=== PATIENT | female | born 1955 | race Caucasian/White ===

== ENCOUNTER → 2017-06-03 | Outpatient (CLI) | payer BC ==
[~2017-06-03] MED LIST: ADVIN10/60 INH; ASPI81TA28 PO; B-COTAB18 PO; CALC600T68 PO; CEPH500C2 PO; COLE625T PO; HYDR-3419 PO; LOVAZA PO; LSN/2025 PO; METF500T PO; MULT-506 PO; OMEG12006 PO
--- NOTE | 2017-06-03 10:47 | DIAGNOSTIC IMAGING REPORT ---
RIGHT KNEE 2 VIEWS CLINICAL HISTORY: Right knee pain. FINDINGS: AP and crosstable lateral views of the right knee are compared to study dated 02/24/2013. The skeletal structures are osteopenic. A right knee arthroplasty is in near-anatomic alignment. There has been undersurface remodeling of the patella. No acute fracture is seen. A calcified fabella is incidentally noted. No large joint effusion is identified. Prepatellar soft tissue edema is observed. IMPRESSION: 1. Prepatellar soft tissue edema. No acute fracture is seen. 2. A right knee arthroplasty is in near anatomic alignment. Electronically signed by: Herminio Lewis M.D. 06/03/2017 10:46 AM Dictated Date/Time: 06/03/2017 10:45 AM
== END | disposition home or self-care (01) ==
LOC: C.RAD 09:54
PROVIDERS: ATTEND Physician Assistant
DX: M25.561 Pain in right knee (principal)

== ENCOUNTER 2023-08-26 12:41 | Inpatient (IN) ==
--- NOTE | 2023-08-26 13:13 | ED Triage Note ---
Date of Service August 26, 2023 Provider in Triage Author: Amie Santana History of Present Illness This patient was briefly evaluated while in triage. An abbreviated physical exam was performed. This patient is a 68-year-old Female who presents to the ED for evaluation Sent by Add[facility] Mao/Onc Hx of breast cancer-currently on chemo was supposed to have 2nd round today but they held treatment due to abnormal labs done today abnormal labs (High WBC, low HGB) generalized weakness dark red stools Physical Exam GENERAL: NAD in wheelchair CARDIOVASCULAR: RRR RESPIRATORY: CTA ABDOMEN: BS x 4. Nontender to palpation. Initial orders for labs and / or imaging were placed and patient was placed in the waiting area until a bed is available. Please see further documentation for the full ED course.
[2023-08-26 15:05] LABS: Alanine Aminotransferase 9 U/L (7-52); Albumin Globulin Ratio 1.5 (0.9-2); Albumin Level 3.5 gm/dl (3.4-5.0); Alkaline Phosphatase 56 U/L (34-104); Anion Gap 10 (3-11); Aspartate Aminotransferase 8 U/L (13-39); Bilirubin,Total 0.3 mg/dl (0.2-1.0); Blood Urea Nitrogen 58 mg/dl (6-23); Calcium 10.9 mg/dl (8.6-10.3); Carbon Dioxide 22 mmol/L (21-32); Chloride 100 mmol/L (98-107); Est GFR (African American) 51.4 ml/min; Est GFR (Non-African American) 44.4 ml/min; Globulin 2.3 gm/dl (2.5-4.0); Glucose 266 mg/dl (70-99(Fasting)); Potassium 3.6 mmol/L (3.5-5.1); Sodium 132 mmol/L (136-145); Total Protein 5.8 gm/dl (6.0-8.3)
[2023-08-26 15:11] LABS: Troponin I High Sensitivity 8.2 pg/ml (0-14)
[2023-08-26] MEDS ORDERED: SODIUM CHLORIDE 0.9% 250 ML IV PRN (15:15)
[2023-08-26 15:17] LABS: Hematocrit (blood only) 13.1 % (37.0-47.0); Hemoglobin 4.1 g/dl (12.0-16.0); Mean Corpuscular Hemoglobin 32.8 pg (25.0-34.0); Mean Corpuscular Hgb Conc 31.3 g/dL (32.0-36.0); Mean Corpuscular Volume 104.8 fL (80.0-100.0); Mean Platelet Volume 10.4 fL (9.4-12.4); Nucleated RBC # (auto) 2.17 K/uL (0.00-0.12); Nucleated RBC % (auto) 5.2 %; Platelet Count 734 K/uL (130-400); RDW Coefficient of Variation 21.9 % (11.5-14.5); RDW Standard Deviation 50.8 fL (36.4-46.3); Red Blood Count 1.25 M/uL (4.20-5.40); White Blood Count 41.73 K/ul (4.8-10.8)
[2023-08-26 15:27] LABS: Anisocytosis Present; Basophilic Stippling 1+; Basophils # (auto) 0.19 K/uL (0.00-0.20); Basophils % (auto) 0.5 %; Eosinophils # (auto) 0.02 K/uL (0.00-0.50); Immature Granulocytes # (auto) 2.89 K/uL (0.01-0.20); Immature Granulocytes % (auto) 6.9 %; Lymphocytes # (auto) 1.69 K/uL (1.20-3.40); Monocytes # (auto) 1.43 K/uL (0.11-0.59); Monocytes % (auto) 3.4 %; Neutrophils # (auto) 35.51 K/uL (1.40-6.50); Neutrophils % (auto) 85.2 %; Polychromasia 2+
[2023-08-26] MEDS: SODIUM CHLORIDE 0.9% 500 ML IV ONE (15:39)
[2023-08-26] MEDS: PANTOprazole 80 MG in DEXTROSE 5% 100 ML IV ONE (15:41)
[2023-08-26] MEDS: PANTOPRAZOLE BOLUS/DRIP IV STA (15:43)
--- NOTE | 2023-08-26 15:50 | History & Physical Report ---
Date of Service August 26, 2023 Assessment & Plan (1) GI bleed: (2) Malignant neoplasm of central portion of right breast in female, estrogen receptor positive: (3) Status post right breast lumpectomy: (4) Hypertension: (5) Dyslipidemia: (6) Diabetes: Plan: GI bleed Hypotension Breast Cancer, T1C N0 M0 ER +/AR-/[id number]- S/p lumpectomy Chemotherapy with Cytoxan and Taxotere -Admit to [facility] with telemetry -Hemoglobin of 4.3 as outpatient, 4.1 here, type and screen obtained, blood consented and transfused 2 units PRBCs, trend H&H every 6 hours - BP hypotensive secondary to acute blood loss, IV fluids to continue, pt in tr endelenberg position, monitor -Guaiac positive -Consult GI for possible endoscopy procedure - IV Protonix 40 mg twice daily -Suspicious that this is possibly an adverse effect from chemotherapy as her last cycle was on 08/05 followed by diarrhea starting in the past 10 to 14 days per her report - pegfilgrastim injection on 08/06, noted WBC and PLT counts are elevated likely due to such. -Follows with Dr. Santos as outpatient with oncology -On iron and B12 as outpatient Hypertension Hyperlipidemia - Chronic, stable, holding all antihypertensives in the setting of acute hy potension secondary to anemia due to GI bleed as above -- she took these meds this morning -Can continue statin therapy DM type II -Last A1c is 7.3 from June 2023 -ISS with [facility]EM[facility], on home medications including: Trulicity (last dose 3 weeks ago and has been switched over to Jardiance in the timeframe that this med has been unavailable), glipizide, metformin which will be held -Keep n.p.o. in the setting of GI bleed as above in case needs for endoscopy Morbid obesity -BMI of 46.8 -Diet and exercise to be encouraged throughout hospital stay DVT PPx: teds, scds, no chemical anticoagulation in the setting of GI bleed Lines: Mediport left chest wall, maintain additional 1 PIV FEN/GI: N.p.o. CODE: Full code Dispo: From home, likely to remain in the hospital x 1-2 days A total of 80 minutes were spent with greater than 50% of that time face to face with the patient, personally reviewing all current laboratories, imaging studi es, past medication reconciliation, outpatient chart review, and discussion with specialists to collaborate care for the patient with attending. Please see attending documentation for corrections and/or additions. History of Present Illness Chief Complaint: Diarrhea x 2 weeks, anemia Primary Care Provider: Kalin Reeder MD This is a 68-year-old female with PMHx of breast cancer ER positive, AR negative, HER2/francisca negative, diagnosed May 2023 status postlumpectomy and radiation, patient is currently getting Cytoxan Taxotere treatment for chemotherapy. She had her first cycle on 08/05, her second cycle was due today and she was seen in the outpatient heme-onc clinic. Patient complained of having diarrhea with dark stools over the past 2 weeks. She had not trialed Imodium. Her and son are present with her at bedside, he reports that he noticed her having diarrhea about 8 to 9 days ago. Her main complaint today is that she feels progressive fatigue and weakness over the past few days. She denies any abdominal pain, cramping, nausea or vomiting. She had a few episodes of vomiting right after she received her last chemo cycle but that was approximately 3 weeks ago. notes that she is pale today, may have even been more pale yesterday. She is tolerating oral intake without any significant complaints. Patient states she is currently hungry and thirsty. She denies any lightheadedness or dizziness, shortness of breath or chest pain. Upon outpatient blood work check she was found to have a hemoglobin of 4.3, therefore was referred to the ER for transfusion secondary to GI bleed. Upon presentation to the ER she is found to be hypotensive with a BP of 80s over 50s, tachycardic with heart rate in the low 100s, hemoglobin of 4.1. Patient has been placed in Trendelenburg position, IV fluids at 125 an hour started, 2 units PRBCs ordered and pending transfusion. Her BP with the fluids running during my assessment is 92/68. Allergies Allergy/AdvReac Type Severity Reaction Status Date / Time No Known Allergies Allergy Unverified 08/26/23 15:31 Home Medications Medication Instructions Recorded Confirmed Type aspirin 81 mg tablet 81 mg PO DAILY 03/02/19 08/26/23 History calcium carbonate 600 mg calcium 1,200 mg PO DAILY 03/02/19 08/26/23 History (1,500 mg) tablet cholecalciferol (vitamin D3) 25 1,000 units PO DAILY 03/02/19 08/26/23 History mcg (1,000 unit) tablet ferrous fumarate 325 mg (106 mg 325 mg PO BID 03/02/19 08/26/23 History iron) tablet lisinopril 40 mg tablet 40 mg PO DAILY 03/02/19 08/26/23 History lovastatin 40 mg tablet 40 mg PO DAILY 03/02/19 08/26/23 History metformin 500 mg tablet,extended 1,000 mg PO BID 03/02/19 08/26/23 History release 24 hr hydrochlorothiazide 25 mg tablet 25 mg PO DAILY #90 tabs 11/26/19 08/26/23 Rx dulaglutide 1.5 mg/0.5 mL 1.5 mg subcut .WEEK, NOT AVAILABLE 07/17/23 08/26/23 History subcutaneous pen injector (Trulicity) glipizide 5 mg tablet 5 mg PO DAILY 07/17/23 08/26/23 History mecobalamin (vitamin B12) 1,000 1,000 mcg PO DAILY 07/17/23 08/26/23 History mcg chewable tablet empagliflozin 10 mg tablet 10 mg PO DAILY 08/26/23 08/26/23 History (Jardiance) Past Med/Surg History Medical History (Updated 08/26/23 @ 15:43 by Marianela Posadas PA-C) Dyslipidemia Hypertension Diabetes Breast cancer, right breast Biopsy 05/08/23 Surgical History (Updated 07/17/23 @ 09:19 by Jenny Cortes RN) History of bilateral knee replacement Status post right breast lumpectomy with SLN biopsy on 06/12/23 Family History (Updated 07/17/23 @ 09:23 by Jenny Cortes, JITENDRA) Mother Breast cancer Father , in his 80s Cancer Pt uncertain of type of cancer Brother COPD (chronic obstructive pulmonary disease) Brother No problems noted. Sister No problems noted. Sister No problems noted. Sister No problems noted. Son Diabetes Son No problems noted. Daughter No problems noted. Family/Other Breast cancer 2 maternal aunts w/breast cancer Family/Other Breast cancer Cousin from mother's side of the family Social History (Updated 07/17/23 @ 09:25 by Jenny Cortes RN) Smoking Status: Never smoker Second Hand Exposure: No; Hx Alcohol Use: No Hx Substance Use: No Preferred Language: Hungarian Visual Impairment: No Limitations Hearing Ability: Normal Centrifugal Station Operator Required: No Beliefs That Will Affect Care: None marital status: Current Living Situation: Spouse current occupational status: retired current occupation: Restaurant work Feels Safe at Home: Yes Diet: regular caffeine: Yes (1 cup/day) during the past year weight has: remained stable Review of Systems Review of Systems: Constitutional: No fever, chills, sweats, + admits to progressive fatigue and weakness over the past few days Eyes: No diplopia, no changes in vision ENT: No sore throat, tinnitus, or trouble swallowing Respiratory: No shortness of breath, No dyspnea at rest or on exertion, no cough or sputum Cardiovascular: No chest pain, palpitations, or flutter Abdomen: No pain, No constipation, + diarrhea as per HPI, No nausea, No vomiting Musculoskeletal: No calf pain, No joint pain, No swelling Genitourinary : No dysuria or urinary frequency, No hematuria Neurologic: No numbness/tingling, no difficulty with ambulation, no sensory or motor deficits Psychiatric: No depression or anxiety symptoms Endocrine: No fatigue, No weight changes Integumentary: No itch, No rash Physical Exam Physical Exam: General: awake, alert, no apparent distress, morbidly obese BMI 46.8, white female Head: Normocephalic, atraumatic ENT: PERRL, EOMI, no pharyngeal exudate, mucous membranes + slightly dry Chest: Mediport accessed and left chest wall, clear to auscultation, on room air, no adventitious breath sounds Cardiac: Sinus tach with heart rate in the low 100s,, + holosystolic murmur, no JVD, normal peripheral pulses, good capillary refill Abdominal: NABS x 4 quadrants, soft, nondistended, nontender to palpation, no rebound or guarding Extremities: Normal inspection, no peripheral edema or erythema, calfs nontender to palpation Psych: Normal mood and affect Skin: Pallor diffusely Neuro: AAO x 3, strength intact bilaterally and rated 5/5, no motor deficits, speech is clear, no peripheral sensory deficits Results & Data Results & Data Vital Signs (Past 12 Hours) Vital Signs Temp Pulse Pulse Resp BP BP Pulse Ox 08/26/23 15:13 100 H 21 88/58 L 98 08/26/23 14:44 100 H 08/26/23 13:10 36.7 C 101 H 20 134/65 97 O2 Del Method 08/26/23 15:13 Room Air 08/26/23 14:44 08/26/23 13:10 Room Air Laboratory Results 08/26/23 14:20 Aerobic Blood Culture - Pending Blood Anaerobic Blood Culture - Pending 08/26/23 14:30 Aerobic Blood Culture - Pending Blood Anaerobic Blood Culture - Pending 08/26/23 08/26/23 14:30 14:20 WBC 41.73 H* RBC 1.25 L Hgb 4.1 L* Hct 13.1 L* MCV 104.8 H MCH 32.8 MCHC 31.3 L RDW Std Deviation 50.8 H RDW Coeff of Hanane 21.9 H Plt Count 734 H MPV 10.4 Immature Gran % (Auto) 6.9 Neut % (Auto) 85.2 Lymph % (Auto) 4.0 [place] % (Auto) 3.4 Eos % (Auto) 0.0 Baso % (Auto) 0.5 Neut # (Auto) 35.51 H Lymph # (Auto) 1.69 [place] # (Auto) 1.43 H Eos # (Auto) 0.02 Baso # (Auto) 0.19 Immature Gran # (Auto) 2.89 H Absolute Nucleated RBC 2.17 H Nucleated RBC % (auto) 5.2 Polychromasia 2+ Basophilic Stippling 1+ Anisocytosis Present Sodium 132 L Potassium 3.6 Chloride 100 Carbon Dioxide 22 Anion Gap 10 BUN 58 H Creatinine 1.26 H Est Cr Clr Drug Dosing Not Reportable Est GFR ( Amer) 51.4 Est GFR (Non-Af Amer) 44.4 BUN/Creatinine Ratio 46.0 H Glucose 266 H Calcium 10.9 H Total Bilirubin 0.3 AST 8 L ALT 9 Alkaline Phosphatase 56 Troponin I High Sens 8.2 Total Protein 5.8 L Albumin 3.5 Globulin 2.3 L Albumin/Globulin Ratio 1.5 Blood Type O Positive Antibody Screen NEGATIVE Crossmatch See Detail ECG Additional Comments: Reviewed showing sinus tachycardia with a heart rate in the low 100s, no ST wave inversion, Code Status & VTE Plan Code Status Full code - discussed with pt at bedside Supervising Physician Co-Signing Physician Notes Attending addendum: The patient was seen and examined in emergency room in presence of the family members She has been complaining of weakness, has loose stool which is black in color, denies any shortness of breath or chest pain, no nausea or vomiting She received chemo on 05 August and also Neupogen the next day Hemoglobin below 5 and was sent in from PCPs office On examination Lying in bed without any acute distress Looks pale but hemodynamically stable with tachycardia and blood pressure on the lower side at 105/59 Chest-decreased breath sounds bilaterally Heart-S1-S2 with 2/6 ESM over precordium. Flow murmur Abdomen-benign Extremities-trace edema bilaterally Her admission labs, EKG and medications reviewed Status post chemotherapy for CA of the breast Having diarrhea with black stool-likely upper GI bleed Hemoglobin very low at 4.1, and BRENDA Will receive blood transfusions and GI evaluation Leukocytosis secondary to Neupogen use Agree with assessment and plan as outlined above by Marianela Gudino
[2023-08-26] MEDS: PANTOprazole 40 MG in DEXTROSE 5% MINI-B 100 ML IV SCH (16:06)
[2023-08-26] MEDS: SODIUM CHLORIDE 0.9% 500 ML IV SCH (16:08)
[2023-08-26 17:11] LABS: Partial Thromboplastin Ratio 0.7; Prothrombin Time 11.3 Seconds (9.0-12.0)
[2023-08-26 17:12] LABS: Partial Thromboplastin Time < 20 Seconds (21-31)
--- NOTE | 2023-08-26 18:32 | Emergency Department Note ---
History of Present Illness General Chief Complaint: Illness Stated Complaint: LOW IRON Time Seen by Provider: 08/26/23 13:58 History of Present Illness Provider Complaint: + abnormal lab Returns today for: + called because of abnormal lab/test Description of abnormal result: Low hemoglobin Associated symptoms: no fever, no chest pain or no shortness of breath HPI narrative: Patient reports dark stools. Home Medications Medication Instructions Recorded Confirmed Type aspirin 81 mg tablet 81 mg PO DAILY 03/02/19 08/26/23 History calcium carbonate 600 mg calcium 1,200 mg PO DAILY 03/02/19 08/26/23 History (1,500 mg) tablet cholecalciferol (vitamin D3) 25 1,000 units PO DAILY 03/02/19 08/26/23 History mcg (1,000 unit) tablet ferrous fumarate 325 mg (106 mg 325 mg PO BID 03/02/19 08/26/23 History iron) tablet lisinopril 40 mg tablet 40 mg PO DAILY 03/02/19 08/26/23 History lovastatin 40 mg tablet 40 mg PO DAILY 03/02/19 08/26/23 History metformin 500 mg tablet,extended 1,000 mg PO BID 03/02/19 08/26/23 History release 24 hr hydrochlorothiazide 25 mg tablet 25 mg PO DAILY #90 tabs 11/26/19 08/26/23 Rx dulaglutide 1.5 mg/0.5 mL 1.5 mg subcut .WEEK, NOT AVAILABLE 07/17/23 08/26/23 History subcutaneous pen injector (Trulicity) glipizide 5 mg tablet 5 mg PO DAILY 07/17/23 08/26/23 History mecobalamin (vitamin B12) 1,000 1,000 mcg PO DAILY 07/17/23 08/26/23 History mcg chewable tablet empagliflozin 10 mg tablet 10 mg PO DAILY 08/26/23 08/26/23 History (Jardiance) Allergies Allergy/AdvReac Type Severity Reaction Status Date / Time No Known Allergies Allergy Unverified 08/26/23 15:31 Past Med/Surg History Medical History Dyslipidemia Hypertension Diabetes Breast cancer, right breast Biopsy 05/08/23 Surgical History History of bilateral knee replacement Status post right breast lumpectomy with SLN biopsy on 06/12/23 Family History Mother Breast cancer Father , in his 80s Cancer Pt uncertain of type of cancer Brother COPD (chronic obstructive pulmonary disease) Brother No problems noted. Sister No problems noted. Sister No problems noted. Sister No problems noted. Son Diabetes Son No problems noted. Daughter No problems noted. Family/Other Breast cancer 2 maternal aunts w/breast cancer Family/Other Breast cancer Cousin from mother's side of the family Social History Smoking Status: Never smoker Second Hand Exposure: No; Hx Alcohol Use: No Hx Substance Use: No Preferred Language: Botswanan Visual Impairment: No Limitations Hearing Ability: Normal Television Script Writer Required: No Beliefs That Will Affect Care: None marital status: Current Living Situation: Spouse current occupational status: retired current occupation: Restaurant work Feels Safe at Home: Yes Diet: regular caffeine: Yes (1 cup/day) during the past year weight has: remained stable Physical Exam 2 Vital Signs: Vital Signs - 24 hr 08/26/23 13:10 08/26/23 14:44 08/26/23 15:13 Temperature 36.7 C Temperature Source Temporal Artery Sc an Pulse Rate 101 H 100 H Pulse Rate [Apical ] 100 H Pulse Rhythm Regular Respiratory Rate 20 21 Respiratory Effort / Characteristics Non-Labored Sponta neous Non-Labored Sponta neous Respiratory Depth Normal Blood Pressure 134/65 Blood Pressure [Ri ght Arm] 88/58 L Blood Pressure Dania n 88 Blood Pressure Dania n [Right Arm] 68 Blood Pressure Pos ition [Right Arm] Semi-fowlers Pulse Oximetry 97 98 Oxygen Delivery Me thod Room Air Room Air Sepsis Recent Feve r Within 48 Hours No Sepsis New/Unexpla ined Change in Men yoshi Status No Sepsis Action Take n by Nursing No Action Required 08/26/23 15:43 Temperature Temperature Source Pulse Rate Pulse Rate [Apical ] 101 H Pulse Rhythm Respiratory Rate 17 Respiratory Effort / Characteristics Respiratory Depth Blood Pressure Blood Pressure [Ri ght Arm] 105/59 L Blood Pressure Dania n Blood Pressure Dania n [Right Arm] 74 Blood Pressure Pos ition [Right Arm] Semi-fowlers Pulse Oximetry 97 Oxygen Delivery Me thod Room Air Sepsis Recent Feve r Within 48 Hours Sepsis New/Unexpla ined Change in Men yoshi Status Sepsis Action Take n by Nursing Physical Exam: Physical Exam GENERAL: oriented to person, place, and time. appears well-developed and well- nourished. HENT: Exam performed. - Head: Normocephalic and atraumatic. EYES: Conjunctivae and EOM are normal. Right eye exhibits no discharge. Left eye exhibits no discharge. No scleral icterus. NECK: Normal range of motion. Neck supple. No JVD present. CV: Normal rate, regular rhythm, normal heart sounds and intact distal pulses. There is no peripheral edema. Palpable radial pulses bue. PULM/CHEST: Effort normal and breath sounds normal. No respiratory distress. No stridor. no wheezes. no rales. ABD: The abdomen is soft. There is no tenderness. Rectal: Rectal exam performed with female nursing manager of case phone at bedside. Melanotic stool that is Hemoccult positive. NEURO: Motor and sensation grossly intact. SKIN: Skin is warm and dry. He is not diaphoretic. PSYCH: normal mood and affect. Behavior is normal. Judgment and thought content normal. Course Course 1358: The patient was evaluated in room B5. A complete history and physical exam was performed Administered Medications Pantoprazole Sodium 40 mg/ (Dextrose) 100 mls @ 20 mls/hr IV Q5H [facility] Stop: 09/25/23 15:44 Last Admin: 08/26/23 16:06 Dose: 8 mg/hr, 20 mls/hr Documented By: Sodium Chloride (Nss) 500 mls @ 125 mls/hr IV .Q4H LUI Stop: 09/25/23 15:29 Last Admin: 08/26/23 16:08 Dose: 125 mls/hr Documented By: AB Discontinued Medications Pantoprazole Sodium 80 mg/ (Dextrose) 120 mls @ 480 mls/hr IV NOW ONE Stop: 08/26/23 15:30 Last Infusion: 08/26/23 16:05 Dose: Infused Documented By: Admin: 08/26/23 15:41 Dose: 480 mls/hr Documented By: AB Sodium Chloride (Nss) 500 mls @ 999 mls/hr IV .Q31M ONE Stop: 08/26/23 15:53 Last Infusion: 02/12/24 16:12 Dose: Infused Documented By: Admin: 08/26/23 15:39 Dose: 999 mls/hr Documented By: Pantoprazole Sodium (Pantoprazole Bolus/Drip) 1 each IV NOW STA Stop: 08/26/23 15:17 Last Admin: 08/26/23 15:43 Dose: 1 each Documented By: Medical Decision Making Laboratory Data Attestation: I reviewed the patient's lab results. 08/26/23 14:20 08/26/23 14:20 Lab Results 08/26/23 08/26/23 08/26/23 Range/Units 14:20 14:30 15:38 WBC 41.73 H* (4.8-10.8) K/ul RBC 1.25 L (4.20-5.40) M/uL Hgb 4.1 L* (12.0-16.0) g/dl Hct 13.1 L* (37.0-47.0) % MCV 104.8 H (80.0-100.0) fL MCH 32.8 (25.0-34.0) pg MCHC 31.3 L (32.0-36.0) g/dL RDW Std Deviation 50.8 H (36.4-46.3) fL RDW Coeff of Hanane 21.9 H (11.5-14.5) % Plt Count 734 H (130-400) K/uL MPV 10.4 (9.4-12.4) fL Immature Gran % (Auto) 6.9 % Neut % (Auto) 85.2 % Lymph % (Auto) 4.0 % [place] % (Auto) 3.4 % Eos % (Auto) 0.0 % Baso % (Auto) 0.5 % Neut # (Auto) 35.51 H (1.40-6.50) K/uL Lymph # (Auto) 1.69 (1.20-3.40) K/uL [place] # (Auto) 1.43 H (0.11-0.59) K/uL Eos # (Auto) 0.02 (0.00-0.50) K/uL Baso # (Auto) 0.19 (0.00-0.20) K/uL Immature Gran # (Auto) 2.89 H (0.01-0.20) K/uL Absolute Nucleated RBC 2.17 H (0.00-0.12) K/uL Nucleated RBC % (auto) 5.2 % Polychromasia 2+ Basophilic Stippling 1+ Anisocytosis Present PT Cancelled INR Cancelled APTT Cancelled PTT Ratio Cancelled Sodium 132 L (136-145) mmol/L Potassium 3.6 (3.5-5.1) mmol/L Chloride 100 (98-107) mmol/L Carbon Dioxide 22 (21-32) mmol/L Anion Gap 10 (3-11) BUN 58 H (6-23) mg/dl Creatinine 1.26 H (0.6-1.2) mg/dl Est Cr Clr Drug Dosing Not Reportable Est GFR ( Amer) 51.4 ml/min Est GFR (Non-Af Amer) 44.4 ml/min BUN/Creatinine Ratio 46.0 H (10-20) Glucose 266 H (70-99(Fasting)) mg/dl Calcium 10.9 H (8.6-10.3) mg/dl Total Bilirubin 0.3 (0.2-1.0) mg/dl AST 8 L (13-39) U/L ALT 9 (7-52) U/L Alkaline Phosphatase 56 (34-104) U/L Troponin I High Sens 8.2 (0-14) pg/ml Total Protein 5.8 L (6.0-8.3) gm/dl Albumin 3.5 (3.4-5.0) gm/dl Globulin 2.3 L (2.5-4.0) gm/dl Albumin/Globulin Ratio 1.5 (0.9-2) Blood Type O Positive Blood Type Recheck O Positive Antibody Screen NEGATIVE Crossmatch See Detail MDM Narrative Cardiac monitoring: An order was placed for continuous cardiac monitoring. The monitor shows a rate of 100 with sinus rhythm interpreted by me Vital signs stable. Labs show a white blood cell count of 41.73. Hemoglobin 4.1. Patient was started on Protonix bolus and drip and will be transfused 2 units packed red blood cells. Patient will be admitted to the [facility] team discussed with Sloane who stated to admit to Dr. Gudino. Impression & Plan GI bleed Critical Care Time Critical Care Time: Yes Total Critical Care Time: 66 I have personally spent greater than 66 minutes of critical care time in the direct management of this patient. This includes bedside care, interpretation of diagnostic studies, and testing, discussion with consultants, patient, and family members, and other required patient management activities. This 66 minutes is in excess of all separately billable procedures. Discharge Plan Visit Data Chief Complaint: Illness Stated Complaint: LOW IRON ED Provider: Javy Horton Discharge Problem: GI bleed Patient Disposition: Admitted As Inpatient Discharge Problem: GI bleed Qualifiers: GI bleed type/associated pathology: melena Qualified Code(s): K92.1 - Melena
--- OUTSIDE RECORDS SUMMARY | 2023-08-26 19:35 | External Medical Summary ---
Author Name Unknown Address Unknown Organization [id number]:[facility] [address] [place] [address] Laboratory Report Ordering Provider Test Date Status ANOOP ABERNATHY 08/26/2023 11:19:17 Final Prior to chemotherapy. Observation Date Value Abnormality Reference (Units ) Status BUN 08/26/2023 11:19:17 58 Above high normal 6-20 (mg/dL) Final Creatinine 08/26/2023 11:19:17 1.3 Above high normal 0.5-1.0 (mg/dL) Final Glomerular filtration rate/1.73 sq M.predicted [Volume Rate/Area] in Serum, Plasma or Blood by Creatinine-based formula (CKD-EPI) 08/26/2023 11:19:17 45 Below low normal >=60 (mL/min) Final eGFR is calculated based on the CKD-EPI 2020 equation SODIUM 08/26/2023 11:19:17 133 Below low normal 135 -146 (mmol/L) Final Potassium 08/26/2023 11:19:17 4.0 3.5-5.1 (m mol/L) Final Cl 08/26/2023 11:19:17 95 Below low normal 98- 107 (mmol/L) Final CO2 08/26/2023 11:19:17 17 Below low normal 22- 32 (mmol/L) Final Anion gap 08/26/2023 11:19:17 21 Above high normal 7- 15 (mmol/L) Final Glucose 08/26/2023 11:19:17 285 Above high normal 70 -120 (mg/dL) Final Albumin 08/26/2023 11:19:17 3.6 Below low normal 3.8 -5.0 (g/dL) Final AST (Aspartate aminotransferase) 08/26/2023 11:19:17 11 10-35 (U/L) Fin al Alk Phos 08/26/2023 11:19:17 68 35-130 (U/ L) Final Bilirubin, Total 08/26/2023 11:19:17 0.2 <=1 .2 (mg/dL) Final Calcium 08/26/2023 11:19:17 10.6 Above high normal 8. 4-10.2 (mg/dL) Final Protein 08/26/2023 11:19:17 6.1 6.0-8.3 (g /dL) Final ALT (Alanine aminotransferase) 08/26/2023 11:19:17 13 10-35 (U/L) Shashi shaw Performing Location [facility] [place] [address]
--- OUTSIDE RECORDS SUMMARY | 2023-08-26 19:35 | External Medical Summary ---
Author Name Unknown Address Unknown Organization K09[facility] [place] [id number] Laboratory Report Ordering Provider Test Date Status ANOOP ABERNATHY 08/26/2023 11:19:17 Final Prior to chemotherapy. Observation Date Value Abnormality Reference (Units ) Status WBC, Total 08/26/2023 11:19:17 53.86 Above upper panic limits 4.00-10.80 (K/uL) Final RBC 08/26/2023 11:19:17 1.32 3.85-5.15 (M/uL) Final Hemoglobin 08/26/2023 11:19:17 4.3 Below lower panic limits 12.0-15.3 (g/dL) Final HCT 08/26/2023 11:19:17 14.3 Below low normal 36.0-45.2 (%) Final MCV 08/26/2023 11:19:17 108.3 81.5-97.5 (fL) Final MCH 08/26/2023 11:19:17 32.6 27.0-34.0 (pg) Final MCHC 08/26/2023 11:19:17 30.1 32.0-36.0 (g/dL) Final RDW 08/26/2023 11:19:17 22.0 11.5-15.5 (%) Final Platelets 08/26/2023 11:19:17 869 Above high normal 140-400 (K/uL) Final MPV 08/26/2023 11:19:17 10.4 6.6-11.1 (fL) Final Performing Location [facility] [place] [id number]
--- OUTSIDE RECORDS SUMMARY | 2023-08-26 19:35 | External Medical Summary | Summary of Care ---
Author Name Unknown Organization [facility] Address [address] [facility] [address] Phone [phone] Care Team Providers Care Retail Financial Analyst Name Role Phone Kalin Reeder MD Primary Care Provide r Reason for Visit * Reason Comments eRx-Medication Refill Encounter Details Date Type Department Care Team (Late st Contact Info) Description 08/16/2023 Refill Hematology/Oncology [facility] [place] [address] [facility] [place] [address] Mukesh Santos MD [address] [facility] [address] Malignant neoplasm of upper-outer quadrant of right breast in female, estrogen receptor positive (HCC) Allergies No known active allergiesdocumented as of this encounter (statuses as of 08/16/2023) Medications Medication Sig Dispensed Refills Start Date End Date Status Aspirin 81 MG Oral Tablet Delayed Release take 1 tablet (81MG) by oral route every day 0 Active Calcium 1200 9771-2597 MG-UNIT Oral Tablet Chewable Take 1 Tablet by mouth in the morning. 0 Active Vitamin D3 25 MCG (1000 UT) Oral Capsule Take by mouth. 0 Active Vitamin B-12 1000 MCG Oral Tablet (Cyanocobalamin) TAKE 1 TABLET BY MOUTH EVERY DAY IN THE MORNING 100 Tablet 3 01/25/2023 Active Lovastatin 40 MG Oral Tablet TAKE 1 TABLET BY MOUTH EVERY DAY WITH DINNER 90 Tablet 3 02/25/2023 Active Accu-Chek Stefani Plus In Vitro Strip (Glucose Blood)Indications:T ype 2 diabetes mellitus with hemoglobin A1c goal of less than 7.0% (HCC) USE TO TEST SUGARS ONCE DAILY. E11.9 100 Strip 2 03/04/2023 Active hydroCHLOROthiazide 25 MG Oral Tablet (Hydrodiuril)Indica tions:HTN, goal below 130/80 TAKE 1 TABLET BY MOUTH EVERY DAY IN THE MORNING 90 Tablet 1 04/17/2023 Active metFORMIN HCl 500 MG Oral Tablet (Glucophage)Indicat ions:Type 2 diabetes mellitus with hemoglobin A1c goal of less than 7.0% (HCC) TAKE 2 TABLETS BY MOUTH TWICE A DAY 360 Tablet 1 04/23/2023 Active Lisinopril 40 MG Oral TabletIndications:H TN, goal below 130/80 TAKE 1 TABLET BY MOUTH EVERY DAY IN THE MORNING 90 Tablet 1 04/23/2023 Active HYDROcodone-Acetami nophen 5-325 MG Oral Tablet Take 1 Tablet by mouth every 6 hours as needed for moderate Pain 5 Tablet 0 06/12/2023 Active Trulicity 1.5 MG/0.5ML Subcutaneous Solution Pen-injector (Dulaglutide)Indica tions:Type 2 diabetes mellitus with hemoglobin A1c goal of less than 7.0% (HCC) INJECT 1.5 MG UNDER THE SKIN ONCE A WEEK. 6 mL 1 07/09/2023 Active glipiZIDE ER 5 MG Oral Tablet Extended Release 24 Hour (Glucotrol XL)Indications:Type 2 diabetes mellitus with hemoglobin A1c goal of less than 7.0% (HCC) TAKE 1 TABLET BY MOUTH IN THE MORNING. 30 MINUTES BEFORE A MEAL.. 90 Tablet 3 07/21/2023 Active Ondansetron HCl 8 MG Oral Tablet (Zofran)Indications :Malignant neoplasm of upper-outer quadrant of right breast in female, estrogen receptor positive (HCC) Take 1 Tablet by mouth every 8 hours as needed for Nausea. 30 Tablet 2 07/30/2023 Active Additional Information Patient not taking.Reported on 07/31/2023 Prochlorperazine Maleate 10 MG Oral Tablet (Compazine)Indicati ons:Malignant neoplasm of upper-outer quadrant of right breast in female, estrogen receptor positive (HCC) Take 1 Tablet by mouth every 6 hours as needed for Nausea. 30 Tablet 2 07/30/2023 Active Additional Information Patient not taking.Reported on 07/31/2023 dexAMETHasone 4 MG Oral Tablet (Decadron)Indicatio ns:Malignant neoplasm of upper-outer quadrant of right breast in female, estrogen receptor positive (HCC) Take 8mg (2 tabs) twice a day x3 days starting the day before chemotherapy 48 Tablet 0 07/30/2023 Active Additional Information Patient not taking.Reported on 07/31/2023 Lidocaine-Prilocain e 2.5-2.5 % External Cream (Emla)Indications:M alignant neoplasm of upper-outer quadrant of right breast in female, estrogen receptor positive (HCC) APPLY TO SKIN OVER MEDIPORT & COVER 1HR PRIOR TO ACCESSING. 30 g 1 07/30/2023 Active Additional Information Patient not taking.Reported on 07/31/2023 Loratadine 10 MG Oral Tablet (Claritin)Indicatio ns:Malignant neoplasm of upper-outer quadrant of right breast in female, estrogen receptor positive (HCC) Take 10mg (1 tab) daily x5 days starting the day of chemotherapy 20 Tablet 0 07/30/2023 Active Additional Information Patient not taking.Reported on 07/31/2023 Ferrous Sulfate 325 (65 Fe) MG Oral Tablet (Feosol) TAKE 2 TABLETS BY MOUTH EVERY MORNING 180 Tablet 0 08/02/2023 Active Empagliflozin 10 MG Oral Tablet (Jardiance)Indicati ons:Type 2 diabetes mellitus with hemoglobin A1c goal of less than 7.0% (HCC) Take 1 Tablet by mouth in the morning. 30 Tablet 2 08/02/2023 Active documented as of this encounter (statuses as of 08/16/2023) Active Problems Problem Noted Date Diagnosed Date Malignant neoplasm of upper- outer quadrant of right breast in female, estrogen receptor positive 07/26/2023 Encounter for antineoplastic chemotherapy 2023 Morbid obesity due to excess calories 01/03/2022 Body mass index (BMI) of 45.0 to 49.9 in adult 1 08/27/2020 Overview: Per Obesity protocol Type 2 diabetes mellitus wit h hemoglobin A1c goal of less than 7.0% 03/15/2021 Hyperlipidemia 03/15/2021 HTN, goal below 130/80 03/15/2021 Osteoarthritis of multiple joints 03/15/2021 Status post total bilateral knee replacement 07/2020 DYSLIPIDEMIA, GOAL TO BE DETERMINED 06/23/2009 Overview: Per Lipid Taxonomy. OBESITY, UNSPECIFIED documented as of this encounter (statuses as of 08/16/2023) Resolved Problems Problem Noted Date Diagnosed Date Resolved Date Mixed dyslipidemia 9 Overview: Per Lipid Taxonomy. documented as of this encounter (statuses as of 08/16/2023) Immunizations Name Administration Dates Next Due COVID-19 mRNA, LNP-s, No Pre serve, 2-Dose Series (Moderna) 12/06/2020,09/23/2020 COVID-19 mRNA, LNP-s, No Pre serve, 2-Dose Series (Pfizer) 06/20/2021 Covid-19, Mrna, Lnp-s, Pf, B ivalent, 30 Mcg, IM, 12 yrs and above (Pfizer) 08/23/2022 Seasonal Influenza, PF, 6 M & above, IM , (FluLaval or Fluzone) 03/15/2021 Seasonal Influenza, Quadrivalent Hd (Fluzone Hd) 07/23/2022 Zoster Vaccine Recombinant (Shingrix) 10/30/2022 ,08/29/2022 documented as of this encounter Social History Tobacco Use Types Packs/Day Years Used Date Smoking Tobacco: Never Smokeless Tobacco: Never Alcohol Use Standard Drinks/Week Comments No 0 (1 standard drink = 0.6 oz pur e alcohol) Sex and Gender Information Value Date Recorded Sex Assigned at Not on file Gender Identity Not on file Sexual Orientation Not on file Job Start Date Occupation Industry Not on file Not on file Not on file documented as of this encounter Miscellaneous Notes * Telephone Encounter - Leonor Hay RN - 08/16/2023 2:47 PM ESTRefused Prescriptions: Disp Refills Loratadine 10 MG Oral Tablet (Claritin) 20 Tab*0 Sig: TAKE 10MG(1 TAB) DAILY X5 DAYS STARTING THE DAY OF CHEMOTHERAPYRefused By: LEONOR HAY for Refusal:Not indicated * Telephone Encounter - Leonor Hay RN - 08/16/2023 2:47 PM EST Rx was just sent yesterday, enough for 4 cycles. Patient should not need refill. documented in this encounter Plan of Treatment Upcoming Encounters Date Type Department Care Team (Late st Contact Info) Description 08/26/2023 11:30 AM EST Laboratory Laboratory [facility] [address] [place] [phone] [place], Lab [facility] [address] [facility] [place] [address] 08/26/2023 12:00 PM EST Office Visit Hematology/Oncology [facility] [address] [facility] [place] [address] Mima Alvarado CRNP [address] [place] [address] [place] [address] 08/26/2023 12:30 PM EST Hem/Onc Treatment Hematology/Oncology Treatment, [place] [address] [facility] [address] [place] [address] [place], Chair 6 Hem Onc [address] [place] [address] 09/10/2023 4:00 PM EST Imaging Radiology, [address] [place] [address] 09/11/2023 8:00 AM EST Office Visit Dermatology [address] [place] [address] Stacy Gomez PA-C [address] [place] [address] [place] [address] 09/17/2023 8:10 AM EST Laboratory Laboratory [facility] [place] [address] [place] [phone] [place] [address] 200 [facility] [place] [address] 09/17/2023 8:45 AM EST Office Visit Hematology/Oncology [facility] [place] [address] [place] [address] Mukesh Santos MD [address] [place] [address] 09/17/2023 9:15 AM EST Hem/Onc Treatment Hematology/Oncology Treatment, [place] [address] [place] [address] [place], Chair 8 Hem Onc [place] 200 [facility] [place] [address] 09/18/2023 7:40 AM EST Office Visit [address] [phone] Kalin Reeder MD [address] [place] [address] [place] [address] 11/12/2023 4:00 PM EDT Telemedicine Genetics [facility]c, [facility] 100 [place] [address] Kayy Martin, MS [address] [place] [address] 12/27/2023 2:45 PM EDT Office Visit Hematology/Oncology [facility] [place] [address] [place] [address] Mukesh Santos MD [address] [place] [address] 04/15/2024 12:00 PM EDT Imaging Radiology [facility] [address] [address] 05/26/2024 9:45 AM EST Office Visit General Surgery, [facility] [address] [place] [address] Perla Wang MD [address] [place] [address] Health Maintenance Due Date Last Done Comments Pneumococcal Vaccine: 65+ Years (1 - PCV) 1963 Depression Screening 1969 DTaP,Tdap,and Td Vaccines (1 - Tdap) 06/22/1999 06/21/1999, 10/15/1980 Cologuard 2002 Fecal Occult Blood Test 2002 Sigmoidoscopy 2002 Hepatitis B (1 of 3 - Risk 3-dose series) 2017 COVID-19 Vaccine ( season) 2023 08/23/2022, 06/20/2021, 12/06/2020, Additional history exists Influenza Vaccine (FLU shot) (#1) 2023 07/23/2022, 03/15/2021 Diabetic Foot Exam 07/23/2023 07/23/2022, 06/16/2021 HbA1c 12/19/2023 06/19/2023, 01/12, 07/23/2022, Additional history exists Colonoscopy 02/11/2024 02/10/2014 Colorectal Cancer Screening 02/11/2024 Diabetic Eye Exam 02/23/2024 02/22/2023, , 02/17/2021 DXA Scan 03/05/2024 03/05/2014 Mammogram 04/26/2024 04/26/2023, 08/2022, 04/11/2022, Additional history exists Albumin/Creatinine Ratio 06/19/2024 023, 01/24/2023, 01/09/2022, Additional history exists GFR 07/30/2024 07/30/2023, 12/2022, 01/23/2023, Additional history exists Lipid Panel 01/24/2028 01/23/2023, 12/14, 03/15/2021, Additional history exists Pap Smear Discontinued 10/23/2021, 03/2019, 12/28/1998 Zoster Vaccines Completed 10/30/2022, 08/29/2022 GARDASIL-HPV IMMUNIZATION SERIES Aged Out No longer eligible based on patient's age to complete this topic MENINGOCOCCAL (MENACTRA/MENVEO) Aged Out No longer eligible based on patient's age to complete this topic documented as of this encounter Medical Devices Implanted Type Area Broke Beater Machine Operator Device Identifier Shelf Expiration Date Model / Serial / Lot Port 8fr 1lumen Infusion St Latexfree Power Implantable - [id number] Implanted:Qty: 1 on 07/31/2023 by Jadiel Foy MD at [facility] : PERIPHERAL VASCULAR [id number] 06/13/2024 [id number] / / [id number] documented as of this encounter Visit Diagnoses Diagnosis Malignant neoplasm of upper-outer quadrant of right breast in female, estrogen receptor positive (HCC) documented in this encounter Advance Directives Latest Code Status on File Code Status Date Activated Date Inactivated Comments Full Code 06/12/2023 6:58 AM 06/12/2023 4:24 PM Thi s order reflects the patients wishes and were consensually agreed upon. Question Answer Comments Discussion of Advance Directives occurred with: Patient Care Teams Retail Financial Analyst Relationship Specialty Start Date End Date Kalin Reeder MD [address] [place] [address] [place] [phone] PCP - General Family Medicine 03/15/21 documented as of this encounter
--- OUTSIDE RECORDS SUMMARY | 2023-08-26 19:35 | External Medical Summary | Summary of Care ---
Author Name Unknown Organization [facility] Address [address] [facility] [place] [address] Phone [phone] Care Team Providers Care City Attorney Name Role Phone Kalin Reeder MD Primary Care Provide r Reason for Visit * Reason Comments Medication Administration Fulphila * Episode Based Medications (Routine) - Authorized Specialty Diagnoses / Procedures Referred By Suresh t Referred To Contact Diagnoses Encounter for antineoplastic chemotherapy Malignant neoplasm of upper-outer quadrant of right breast in female, estrogen receptor positive (HCC) Procedures OK PALONOSETRON HCL OK INJECTION, FULPHILA OK DOCETAXEL INJECTION OK CYCLOPHOSPHAMIDE 100 MG INJ Mukesh Santos MD 200 [place] [address] Anc Hem/Onc [address] [address] Referral ID Status Reason Start Date Expiration Date V isits Requested Visits Authorized [id number] Authorized 07/26/2023 01/21/[phone] Encounter Details Date Type Department Care Team (Latest Contact Info) Description 08/06/2023 2:15 PM EST Immunization/ Injection Hematology/Oncology Treatment, [address] [address] Nurse, Med [address] [place] [address] [place] [address] Encounter for antineoplastic chemotherapy*; Malignant neoplasm of upper-outer quadrant of right breast in female, estrogen receptor positive (HCC) Allergies No known active allergiesdocumented as of this encounter (statuses as of 08/14/2023) Medications Medication Sig Dispensed Refills Start Date End Date Status Aspirin 81 MG Oral Tablet Delayed Release take 1 tablet (81MG) by oral route every day 0 Active Calcium 1200 5018-2539 MG-UNIT Oral Tablet Chewable Take 1 Tablet [...] as of this encounter (statuses as of 08/14/2023) Active Problems Problem Noted Date Diagnosed Date [...] as of this encounter (statuses as of 08/14/2023) Resolved Problems Problem Noted Date Diagnosed Date Resolved Date Mixed dyslipidemia Overview: Per Lipid Taxonomy. documented as of this encounter (statuses as of 08/14/2023) Immunizations Name Administration Dates Next Due COVID-19 [...] on file documented as of this encounter Nursing Notes * Shiela Borrero, RN - 08/06/2023 2:19 PM EST Chair 11. Patient here today for her Fulphila injection s/p 24 hours after chemo completed. Patient had firstcycle of TC yesterday and overall feeling well today, just mainly c/o being tired but not other symptoms. Patient educated about the Fulphila injection, patient is taking Claritin and started it yesterday. Injection given in L arm per order. Patient and left facility in stable condition, no further questions, concerns, or needs. documented in this encounter Plan of Treatment Upcoming Encounters Date Type Department Care Team (Late st Contact Info) Description 08/26/2023 11:30 AM EST Laboratory Laboratory [facility] [place] 200 [place] [phone] [place], Lab [facility] [address] [facility] [place] [address] 08/26/2023 12:00 PM EST Office Visit Hematology/Oncology [facility] [address] [place] [address] Mima Alvarado CRNP [address] [facility] [place] [address] 08/26/2023 12:30 PM EST Hem/Onc Treatment Hematology/Oncology Treatment, [place] [address] [facility] [place] [address] [place], Chair 6 Hem Onc [facility] 200 [facility] [place] [address] 09/10/2023 4:00 PM EST Imaging Radiology, [address] [place] [address] 09/11/2023 8:00 AM EST Office Visit Dermatology [address] [place] [address] Stacy Gomez PA-C [address] [place] [address] [place] [address] 09/17/2023 8:10 AM EST Laboratory Laboratory [facility] [address] [place] [phone] [place], Lab [address] [place] [address] 09/17/2023 8:45 AM EST Office Visit Hematology/Oncology [facility] [place] [address] [place] [address] Mukesh Santos MD [address] [place] [address] 09/17/2023 9:15 AM EST [facility] [address] [place] [address] [place], Chair 8 Hem Onc [address] 200 [facility] [place] [address] 09/18/2023 7:40 AM EST Office Visit Family [address] [phone] Kalin Reeder MD [address] [place] [address] [place] [address] 11/12/2023 4:00 PM EDT Telemedicine Genetics HemOnc, [facility] 100 [place] [address] Kayy Martin, MS [address] [place] [address] 12/27/2023 2:45 PM EDT Office Visit Hematology/Oncology [facility] [place] [address] [place] [address] Mukesh Santos MD [address] [place] [address] 04/15/2024 12:00 PM EDT Imaging Radiology [facility] 1st [facility] [address] [place] [address] 05/26/2024 9:45 AM EST Office Visit General Surgery, [facility] [address] [place] [address] Perla Wang MD [address] [place] [address] Health Maintenance Due Date Last Done Comments Pneumococcal Vaccine: 65+ Years (1 - PCV) 1963 Depression Screening 1969 DTaP,Tdap,and Td Vaccines (1 - Tdap) 06/22/1999 06/21/1999, 10/15/1980 Cologuard 2002 Fecal Occult Blood Test 2002 Sigmoidoscopy 2002 Hepatitis B (1 of 3 - Risk 3-dose series) 2017 COVID-19 Vaccine ( - 2022- season) 2023 08/23/2022, 06/20/2021, 12/06/2020, Additional history [...] this encounter Medical Devices Implanted Type Area Jeeper Operator Device Identifier Shelf Expiration Date Model / Serial / Lot Port 8fr 1lumen Infusion St Latexfree Power Implantable - [id number] Implanted:Qty: 1 on 07/31/2023 by Jadiel Foy MD at [facility] : PERIPHERAL VASCULAR [id number] 06/13/2024 [id number] / / [id number] documented as of this encounter Visit Diagnoses Diagnosis Encounter for antineoplastic chemotherapy- Primary Malignant neoplasm of upper-outer quadrant of right breast in female, estrogen receptor positive (HCC) documented in this encounter Administered Medications Inactive Administered Medications - up to 3 most recent administrations Medication Order MAR Action Action Date Dose Rate Site Pegfilgrastim-jmdb (Fulphila) inj 6 mg 6 mg, Subcutaneous, ONCE, On Sat08/06/23 at 1445, For 1 dose Given 08/06/2023 2:14 PM EST 6 mg Arm L eft Upper documented in this encounter Advance Directives Latest Code Status on File Code Status Date Activated Date Inactivated Comments Full Code 06/12/2023 6:58 AM 06/12/2023 4:24 PM Thi s order reflects the patients wishes and were consensually agreed upon. Question Answer Comments Discussion of Advance Directives occurred with: Patient Care Teams City Attorney Relationship Specialty Start Date End Date Kalin Reeder MD [address] [place] [address] [place] [address] PCP - General Family Medicine 03/15/21 documented as of this encounter
--- OUTSIDE RECORDS SUMMARY | 2023-08-26 19:35 | External Medical Summary ---
Author Name Unknown Address Unknown Organization K09:[facility] [address] [place] [address] Laboratory Report Ordering Provider Test Date Status ANOOP ABERNATHY 08/26/2023 11:19:17 Final Prior to chemotherapy. Observation Date Value Abnormality Reference (Units ) Status SYNC LEUKOCYTES IN BLOOD BY AUTOMATED COUNT 08/26/2023 11:19:17 53.86 Above upper panic limits 4.00-10.80 (K/uL) Final Neutrophils/100 leukocytes in Blood by Manual count 08/26/2023 11:19:17 87.5 Above high normal 40.0-75.0 (%) Final Lymphocytes/100 leukocytes in Blood by Manual count 08/26/2023 11:19:17 3.5 Below low normal 18.0-42.0 (%) Final Monocytes/100 leukocytes in Blood by Manual count 08/26/2023 11:19:17 5.0 1.0-11.0 (%) Final Metamyelocytes/100 leukocytes in Blood by Manual count 08/26/2023 11:19:17 4.0 Above high normal <=0.0 (%) Final Neutrophils [#/volume] in Blood by Manual count 08/26/2023 11:19:17 47.13 Above high normal 1.80-7.70 (K/uL) Final Lymphocytes [#/volume] in Blood by Manual count 08/26/2023 11:19:17 1.89 1.00-4.80 (K/uL) Final Monocytes [#/volume] in Blood by Manual count 08/26/2023 11:19:17 2.69 Above high normal 0.00-1.10 (K/uL) Final Metamyelocytes [#/volume] in Blood by Manual count 08/26/2023 11:19:17 2.15 Above high normal <=0.00 (K/uL) Final Nucleated erythrocytes/100 leukocytes [Ratio] in Blood by Automated count 08/26/2023 11:19:17 4 Above high normal <=0 (/100 WBCs) Final Performing Location [facility] [place] [address]
--- OUTSIDE RECORDS SUMMARY | 2023-08-26 19:36 | External Medical Summary | Summary of Care ---
Author Name Unknown Organization [facility] Address [address] [place] [address] Phone [phone] Care Team Providers Care Griddle Attendant Name Role Phone Kalin Reeder MD Primary Care Provide r Reason for Visit * Reason Onset Date Comments Precert Future 07/30/2023 EMLA Encounter Details Date Type Department Care Team (Late st Contact Info) Description 07/30/2023 Telephone Hematology/Oncology Treatment, [place] [address] [place] [address] Mukesh Santos MD [address] [place] [address] Precert Future (EMLA) Allergies No known active allergiesdocumented as of this encounter (statuses as of 07/30/2023) Medications Medication Sig Dispensed Refills Start Date End Date Status Aspirin 81 MG Oral Tablet Delayed Release take 1 tablet (81MG) by oral route every day 0 Active Calcium 1200 5200-2815 MG-UNIT Oral Tablet Chewable Take 1 Tablet [...] hemoglobin A1c goal of less than 7.0% ([facility]) USE TO TEST SUGARS ONCE DAILY. E11.9 [...] THE MORNING 90 Tablet 1 04/23/2023 Active Ferrous Sulfate 325 (65 Fe) MG Oral Tablet (Feosol) TAKE 2 TABLETS BY MOUTH EVERY MORNING 180 Tablet 0 05/07/2023 Active HYDROcodone-Acetami nophen 5-325 MG Oral Tablet Take 1 Tablet by mouth every 6 hours as needed for moderate Pain 5 Tablet 0 06/12/2023 Active Trulicity 1.5 MG/0.5ML Subcutaneous Solution Pen-injector (Dulaglutide)Indica tions:Type 2 diabetes mellitus with hemoglobin A1c goal of less than 7.0% ([facility]) INJECT 1.5 MG UNDER THE SKIN ONCE [...] right breast in female, estrogen receptor positive Take 1 Tablet by mouth every 8 hours as needed for Nausea. 30 Tablet 2 07/30/2023 Active Prochlorperazine Maleate 10 MG Oral Tablet (Compazine)Indicati ons:Malignant neoplasm of upper-outer quadrant of right breast in female, estrogen receptor positive Take 1 Tablet by mouth every 6 hours as needed for Nausea. 30 Tablet 2 07/30/2023 Active dexAMETHasone 4 MG Oral Tablet (Decadron)Indicatio ns:Malignant neoplasm of upper-outer quadrant of right breast in female, estrogen receptor positive Take 8mg (2 tabs) twice a day x3 days starting the day before chemotherapy 48 Tablet 0 07/30/2023 Active Lidocaine-Prilocain e 2.5-2.5 % External Cream (Emla)Indications:M alignant neoplasm of upper-outer quadrant of right breast in female, estrogen receptor positive APPLY TO SKIN OVER MEDIPORT & COVER 1HR PRIOR TO ACCESSING. 30 g 1 07/30/2023 Active Loratadine 10 MG Oral Tablet (Claritin)Indicatio ns:Malignant neoplasm of upper-outer quadrant of right breast in female, estrogen receptor positive Take 10mg (1 tab) daily x5 days starting the day of chemotherapy 20 Tablet 0 07/30/2023 Active documented as of this encounter (statuses as of 07/30/2023) Active Problems Problem Noted Date Diagnosed Date [...] as of this encounter (statuses as of 07/30/2023) Resolved Problems Problem Noted Date Diagnosed Date Resolved Date Mixed dyslipidemia 9 Overview: Per Lipid Taxonomy. documented as of this encounter (statuses as of 07/30/2023) Immunizations Name Administration Dates Next Due COVID-19 [...] Telephone Encounter - Leonor Hay RN - 07/30/2023 1:54 PM EST ICD-10: c50.411, z17.0 Start date: 1 week Drugs: Disp Refills Start End Lidocaine-Prilocaine 2.5-2.5 % External Cream (Emla) 30 g 1 07/30/2023 -- Sig: APPLY TO SKIN OVER MEDIPORT & COVER 1HR PRIOR TO ACCESSING. Physician: Dr Mukesh Santos Received fax from [facility] that EMLA requires auth. documented in this encounter Plan of Treatment Upcoming Encounters Date Type Department Care Team (Latest Contact Info) Description 07/31/2023 11:20 AM EST Hospital Encounter OR [facility], Operating Room, [facility] - 4th Floor [address] [address] Jadiel Foy MD [address] [address] 07/31/2023 11:20 AM EST - 07/31/2023 12:25 PM EST Surgery OR [facility], Operating Room, [facility] - 4th Floor [address] [address] Jadiel Foy MD 400 [facility] [place] [id number] INSERT TUNNELED CENTRAL VENOUS ACCESS WITH SUBQ PORT 08/05/2023 11:00 AM EST Hem/Onc Treatment Hematology/Oncolog y Treatment, [place] [address] [place] [address] [place], Chair 2 Hem Onc [place] [address] [place] [address] 09/10/2023 4:00 PM EST Imaging Radiology, [address] [place] [address] 09/11/2023 8:00 AM EST Office Visit Dermatology [address] [place] [address] Stacy Gomez PA-C [address] [place] [address] [place] [address] 09/18/2023 7:40 AM EST Office Visit Family Medicine [address] [place] [phone] Kalin Reeder MD [address] [place] [address] [place] [address] 11/12/2023 4:00 PM EDT Telemedicine Genetics HemOnc, [facility] [address] [place] [address] Kayy Martin, MS [address] [place] [address] 12/27/2023 2:45 PM EDT Office Visit Hematology/Oncolog y Sc[place] [address] [place] [address] Mukesh Santos MD [address] [place] [address] 04/15/2024 12:00 PM EDT Imaging Radiology [facility] [address] [place] [address] 05/26/2024 9:45 AM EST Office Visit General Surgery, [facility] [address] [place] [address] Perla Wang MD [address] [place] [address] Scheduled Procedures Name Priority Associated Diagnoses Date/Ti me INSERT TUNNELED CENTRAL VENOUS ACCESS WITH SUBQ PORT Malignant neoplasm of upper-outer quadrant of right breast in female, estrogen receptor positive 07/31/2023 11:20 AM EST Health Maintenance Due Date Last Done Comments [...] documented as of this encounter Medical Devices Not on filedocumented as of this encounter Advance Directives Latest Code Status on File Code Status Date Activated Date Inactivated Comments Full Code 06/12/2023 6:58 AM 06/12/2023 4:24 PM Thi s order reflects the patients wishes and were consensually agreed upon. Question Answer Comments Discussion of Advance Directives occurred with: Patient Care Teams Griddle Attendant Relationship Specialty Start Date End Date Kalin Reeder MD [address] [place] [address] [place] [phone] PCP - General Family Medicine 03/15/21 documented as of this encounter
--- OUTSIDE RECORDS SUMMARY | 2023-08-26 19:36 | External Medical Summary | Summary of Care ---
Author Name Unknown Organization [facility] Address [address] [place] [address] Phone [phone] Care Team Providers Care Director Of Billing Name Role Phone Kalin Reeder MD Primary Care Provide r Reason for Visit * Reason Onset Date Comments Precert In Process 08/01/2023 18 JAE MAGALLANES Encounter Details Date Type Department Care Team (Late st Contact Info) Description 07/30/2023 Telephone Hematology/Oncology Treatment, [place] [address] [place] [address] Mukesh Santos MD [address] [place] [address] Precert In Process (18 [place] EMLA) Allergies No known active allergiesdocumented as of this encounter (statuses as of 08/01/2023) Medications Medication Sig Dispensed Refills Start Date End Date Status Aspirin 81 MG Oral Tablet Delayed Release take 1 tablet (81MG) by oral route every day 0 Active Calcium 1200 2452-8349 MG-UNIT Oral Tablet Chewable Take 1 Tablet [...] Additional Information Patient not taking.Reported on 07/31/2023 documented as of this encounter (statuses as of 08/01/2023) Active Problems Problem Noted Date Diagnosed Date [...] as of this encounter (statuses as of 08/01/2023) Resolved Problems Problem Noted Date Diagnosed Date Resolved Date Mixed dyslipidemia 9 Overview: Per Lipid Taxonomy. documented as of this encounter (statuses as of 08/01/2023) Immunizations Name Administration Dates Next Due COVID-19 mRNA, LNP-s, No Pre serve, 2-Dose Series (Moderna) 12/06/2020,09/23/2020 COVID-19 mRNA, LNP-s, No Pre serve, 2-Dose Series (Pfizer) 06/20/2021 Covid-19, Mrna, Lnp-s, Pf, B ivalent, 30 Mcg, IM, 12 yrs and above (Pfizer) 08/23/2022 Diptheria/Tetanus (Adult) 10/15/1980 Seasonal Influenza, PF, 6 M & above, IM , (FluLaval or Fluzone) 03/15/2021 Seasonal Influenza, Quadrivalent Hd (Fluzone Hd) 07/23/2022 TD - Tetanus/Diptheria (ADULT) 06/21/1999 Zoster Vaccine Recombinant (Shingrix) 10/30/2022 ,08/29/2022 documented [...] encounter Miscellaneous Notes * Telephone Encounter - Myrna Helms OSA - 08/01/2023 9:47 AM EST [facility] Authorization Submission Submission Information: Medication: Lidocaine-Prilocaine 2.5-2.5% cream Portal used: [facility] Insurance: SupportPay Authorization #/Ramirez: [id number] Myrna Helms Medication Pilot Plant Operator P: [phone] F: [phone] 08/01/2023,9:48 AM * Telephone Encounter - Leonor Hay RN - 07/30/2023 1:54 PM EST ICD-10: c50.411, z17.0 Start date: 1 week Drugs: Disp Refills Start End Lidocaine-Prilocaine 2.5-2.5 % External Cream (Emla) 30 g 1 07/30/2023 -- Sig: APPLY TO SKIN OVER MEDIPORT & COVER 1HR PRIOR TO ACCESSING. Physician: Dr Mukesh Santos Received fax from [facility] that EMLA requires auth. documented in this encounter Plan of Treatment Upcoming Encounters Date Type Department Care Team (Late st Contact Info) Description 08/05/2023 11:00 AM EST Hem/Onc Treatment Hematology/Oncology Treatment, [place] [address] [place] [address] [place], Chair [address] Hem On[address] [place] [address] 09/10/2023 4:00 PM EST Imaging Radiology, [address] [place] [address] 09/11/2023 8:00 AM EST Office Visit Dermatology [address] [place] [address] Stacy Gomez PA-C [address] [place] [address] [place] [address] 09/18/2023 7:40 AM EST Office Visit Family Medicine [address] [phone] Kalin Reeder MD [address] [place] [address] [place] [address] 11/12/2023 4:00 PM EDT Telemedicine Genetics HemOnc, [facility] [address] [place] [address] Kayy Martin, MS [address] [place] [address] 12/27/2023 2:45 PM EDT Office Visit Hematology/Oncology [address] [place] [address] Mukesh Santos MD [address] [place] [address] 04/15/2024 12:00 PM EDT Imaging Radiology [facility] [place] [address] 05/26/2024 9:45 AM EST Office Visit General Surgery, [facility] [address] [facility] [place] [address] Perla Wang MD [address] [place] [address] Health Maintenance Due Date Last Done Comments [...] this encounter Medical Devices Implanted Type Area Master Dyer Device Identifier Shelf Expiration Date Model / Serial / Lot Port 8fr 1l[address] Latexfree Power Implantable - [id number] Implanted:Qty: 1 on 07/31/2023 by Jadiel Foy MD at [facility] BARD : PERIPHERAL VASCULAR [id number] 06/13/2024 [id number] / / [id number] documented as of this encounter Advance Directives Latest Code Status on File Code Status Date Activated Date Inactivated Comments Full Code 06/12/2023 6:58 AM 06/12/2023 4:24 PM Thi s order reflects the patients wishes and were consensually agreed upon. Question Answer Comments Discussion of Advance Directives occurred with: Patient Care Teams Director Of Billing Relationship Specialty Start Date End Date Kalin Redeer MD [address] [place] [address] [place] [address] PCP - General Family Medicine 03/15/21 documented as of this encounter
--- OUTSIDE RECORDS SUMMARY | 2023-08-26 19:36 | External Medical Summary | Summary of Care ---
Author Name Unknown Organization [facility] Address [address] [place] [address] Phone [phone] Care Team Providers Care Director Of Enterprise Strategy Name Role Phone Kalin Reeder MD Primary Care Provide r Reason for Visit * Auth/Cert Specialty Diagnoses / Procedures Referred By Contac t Referred To Contact Diagnoses Malignant neoplasm of upper-outer quadrant of right breast in female, estrogen receptor positive Malignant neoplasm of upper-outer quadrant of right breast in female, estrogen receptor positive [C50.411, Z17.0] Procedures INSER TUNN ACC DEV;5 YRS/OLDER INSERT TUNNELED CENTRAL VENOUS ACCESS WITH SUBQ PORT Referral ID Status Reason Start Date Expiration Date Visits Re quested Visits Authorized [id number] Encounter Details Date Type Department Care Team (Latest Contact Info) Description 07/31/2023 10:09 AM EST - 07/31/2023 12:42 PM EST Hospital Encounter OR [facility], Operating Room, [facility] - 4th Floor [address] [place] [address] Jadiel Foy MD [address] [place] [address] Discharge Disposition: Home - Self Care Allergies No known active allergiesdocumented as of this encounter (statuses as of 08/01/2023) Medications Medication Sig Dispensed Refills Start Date End Date Status Aspirin 81 MG Oral Tablet Delayed Release take 1 tablet (81MG) by oral route every day 0 Active Calcium 1200 2732-8509 MG-UNIT Oral Tablet Chewable Take 1 Tablet [...] Accu-Chek Stefani Plus In Vitro Strip (Glucose Blood)Indications:Typ e 2 diabetes mellitus with hemoglobin A1c goal of less than 7.0% (HCC) USE TO TEST SUGARS ONCE DAILY. E11.9 100 Strip 2 03/04/2023 Active hydroCHLOROthiazide 25 MG Oral Tablet (Hydrodiuril)Indicati ons:HTN, goal below 130/80 TAKE 1 TABLET BY MOUTH EVERY DAY IN THE MORNING 90 Tablet 1 04/17/2023 Active metFORMIN HCl 500 MG Oral Tablet (Glucophage)Indicatio ns:Type 2 diabetes mellitus with hemoglobin A1c goal of less than 7.0% (HCC) TAKE 2 TABLETS BY MOUTH TWICE A DAY 360 Tablet 1 04/23/2023 Active Lisinopril 40 MG Oral TabletIndications:HTN , goal below 130/80 TAKE 1 TABLET BY MOUTH EVERY DAY IN THE MORNING 90 Tablet 1 04/23/2023 Active Ferrous Sulfate 325 (65 Fe) MG Oral Tablet (Feosol) TAKE 2 TABLETS BY MOUTH EVERY MORNING 180 Tablet 0 05/07/2023 Active HYDROcodone-Acetamino phen 5-325 MG Oral Tablet Take 1 Tablet by mouth every 6 hours as needed for moderate Pain 5 Tablet 0 06/12/2023 Active Trulicity 1.5 MG/0.5ML Subcutaneous Solution Pen-injector (Dulaglutide)Indicati ons:Type 2 diabetes mellitus with hemoglobin A1c [...] A MEAL.. 90 Tablet 3 07/21/2023 Active documented as of this encounter (statuses [...] on file documented as of this encounter Last Filed Vital Signs Vital Sign Reading Time Taken Comments Blood Pressure 155/87 07/31/2023 12:39 PM EST Pulse 81 07/31/2023 12:39 PM EST Temperature 37.2 C (99 F) 07/31/2023 12:39 PM EST Respiratory Rate 16 07/31/2023 12:39 PM EST Oxygen Saturation 97% 07/31/2023 12:39 PM EST Inhaled Oxygen Concentration - - Weight 104.3 kg (230 lb) 07/31/2023 10:17 AM EST Height 149.9 cm (4' 11") 07/31/2023 10:17 AM EST Body Mass Index 46.45 07/31/2023 10:17 AM EST documented in this encounter Discharge Instructions * Discharge Instr - AVS* Jadiel Foy MD - 07/31/2023 12:21 PM EST Discharge Date: 07/31/2023 Provider: Danii NEWMAN The information below provides you with the instructions and the list of medications you need to betaking following discharge from the hospital. If you have any questions, please ask before leaving.Please carry this letter with you when you see your doctor in the clinic. If you have questions, you can reach us at the numbers above. SPECIAL INSTRUCTIONS Mediport Insertion (Implanted Central Venous Access) A Mediport is a sealed chamber covered by a silicone disc that is surgically placed in a pocket under the skin on the upper chest, just below the collarbone. This chamber connects to a flexible tube that goes into a large vein in the neck. The tip is near the heart. The port provides direct access to the bloodstream and can be used in drawing blood samples and giving intravenous fluids and medications. Some ports allow CT scan injections; these ports are referred to as "Power Ports." The port will be visible only as a small raised area beneath your skin. Home Care If you experience pain or discomfort at the site you may use a cold pack on the site and/or take acetaminophen (Tylenol) or your preferred pain medicine as directed. Avoid contact sports or any activity that may cause blunt force impact to the port area, as it may damage your port. Avoid strenuous activity for 24 to 48 hours after the procedure. Do not lift anything heavier than 10 pounds for 3 days after the procedure. Gradually increase your activity after 24 to 48 hours after the procedure. No dressing changes or wound care are needed at the insertion site. Your wound is closed with sutures on the inside and then sealed on the outside with a special "skin glue" called Dermabond (a surgical glue). Depending on your physician's preference, there may also be "steri strips" applied. It isvery important to let these special bandages fall off on their own. Please do not scrub or pull these bandages off. You may gently wash the area with soap and water. Depending on your physician's preference, there may also be gauze and Tegaderm (clear) bandage overthe Mediport insertion site. You may remove this bandage in 24 hours. You may shower in 24 hours. Gently wash the area and pat it dry. Please DO NOT take a bath, soak in a hot tub, or swim until the wound is completely healed. Your port must be accessed and flushed/heparinized every 30 days if it is not currently being used. When to Call Interventional Radiology Call Interventional Radiology right away if you have any of the following: Fever above 100 degrees Fahrenheit Increased bleeding, redness, swelling, warmth, or discharge at the incision site. Constant or increasing pain, numbness, coldness, or tingling around the incision area. Vomiting or nausea that does not go away If at any time you experience any of the following or feel you are having a medical emergency, [id number] for emergency assistance. Chest Pain Sudden, severe shortness of breath Rapid heart rate Sudden onset of weakness Do not smoke or use tobacco products in any way! If you feel suicidal or homicidal, please call the crisis hotline at 4-508-968-HXJQ ([phone]) MODERATE SEDATION You may have received medication that made you comfortable/sedated you during your procedure. This is considered moderate sedation. This medication was given to relax you. You may also not remember having the procedure done. It may take up to 24 hours for this medication to be out of your system. Because of this, you should observe the following for the next 24 hours: Do not drink alcohol or take depressant drugs. Do not operate any type of machinery that requires hand-eye coordination. Do not sign any legal papers or documents. Do not make any financial decisions. You should be in the presence of an adult for the remainder of the day. If you are experiencing any problems related to your procedure, you should contact the Interventional Radiology physician unless otherwise directed. Driving: You may resume driving 2days . Diet: You may resume your current diet as tolerated. Return to work or school: You may return to school or work 2 days after the procedure, unless otherwise instructed by the physician. documented in this encounter Progress Notes * Jadiel Foy MD - 07/31/2023 12:19 PM EST [address] [address] OUTPATIENT SURGERY DISCHARGE SUMMARY NOTE Name: Alyssa Reyes Location: OR [facility]/NH Date: 07/31/2023 Time: 12:19 PM Surgery Date: 07/31/2023 Procedure: Procedure(s): INSERT TUNNELED CENTRAL VENOUS ACCESS WITH SUBQ PORT Left Surgeon: Surgeon(s): Jadiel Foy MD Discharge Diagnosis: left IJ port placed After examination of this patient, I have determined she is ready for discharge to home when the patient meets criteria. Discharge instructions were given to the patient. documented in this encounter H&P Notes * Jadiel Foy MD - 07/31/2023 11:05 AM EST HISTORY & PHYSICAL - Interventional Radiology Service [address] [address] Name: Alyssa Reyes Location: OR [facility]/OR Date: 07/31/2023 Time: 11:05 AM CHIEF COMPLAINT: Port placement for chemotherapy HISTORY OF PRESENT ILLNESS: 68yoWF Breast CA. Past Medical History: Diagnosis Date Mixed dyslipidemia Obesity, BMI not known Past Surgical History: Procedure Laterality Date BX LYMPH NODE DEEP AXIL Right 06/12/2023 BIOPSY LYMPH NODE DEEP AXILLARY OPEN performed by Perla Wang MD at OR [facility] DRAIN OVARIAN CYST(S);VAG 1974 EXC BREAST LESION RADMARK Right 06/12/2023 EXCISION OF BREAST LESION RADIOLOGICAL MARKER performed by Perla Wang MD at OR [facility] IDENTIFY SENTINEL NODE, RADIOACTIVE TRACER Right 06/12/2023 INJECTION PROCEDURE FOR IDENTIFICATION SENTINEL NODE performed by Perla Wang MD at [facility] MASTECTOMY, PARTIAL Right 06/12/2023 MASTECTOMY PARTIAL performed by Perla Wang MD at [facility] Social History Socioeconomic History Marital status: Spouse name: Not on file Number of children: Not on file Years of education: Not on file Highest education level: Not on file Occupational History Not on file Tobacco Use Smoking status: Never Smokeless tobacco: Never Substance and Sexual Activity Alcohol use: No Drug use: No Sexual activity: Not Currently Partners: Male Other Topics Concern Not on file Social History Narrative Not on file Social Determinants of Health Financial Resource Strain: Not on file Food Insecurity: Not on file Transportation Needs: Not on file Physical Activity: Not on file Stress: Not on file Social Connections: Not on file Intimate Partner Violence: Not on file Housing Stability: Not on file Family History Problem Relation Age of Onset Heart Disorder Mother Breast Cancer Mother Breast Cancer Aunt (Maternal) Review of patient's allergies indicates: No Known Allergies Current Facility-Administered Medications Medication Dose Route Frequency Provider Last Rate Last Admin isolyte-S pH 7.4 infusion Intravenous Continuous Jadiel Foy MD 10 mL/hr at 07/31/23 1042 New Bag at 07/31/23 1042 REVIEW OF SYSTEMS: Constitutional: (-) fever chills sweats or weight loss Cardiovascular: (-) negative: no chest pain, dyspnea, syncope, or palpitations Pulmonary: (-) negative: no cough, wheezing, or shortness of breath Abdominal/GI: (-) negative: no pain, heartburn, dysphagia, bleeding, change in bowel habits, nauseaor vomiting OBJECTIVE: BP 133/95 | Pulse 88 | Temp 36.9 C (98.4 F) (Temporal Artery) | Resp 18 | Ht 1.499 m (4' 11") |Wt 104.3 kg (230 lb) | LMP 12/12/2007 | SpO2 98% | BMI 46.45 kg/m | BSA 2.08 m PHYSICAL EXAM: Constitutional: no acute distress CV: normal rate and rhythm, no murmur, gallops or rub Chest: normal respiratory effort, lungs clear to auscultation and percussion, breath sounds normal Abdomen: normal: soft, bowel sounds normal, no masses, tenderness or organomegaly LABS: CBC Results: PT INR Results: BUN Results: Lab Results Component Value Date/Time BUN - [facility] 26 (H) 07/30/2023 09:49 AM BUN - [facility] 24 (H) 06/19/2023 03:45 PM BUN - [facility] 28 (H) 01/23/2023 08:57 AM BUN - [facility] 12 12/15/1997 01:45 PM BUN - [facility] 17 11/09/1996 04:00 PM Creatinine Results: Lab Results Component Value Date/Time CREATININE - [facility] 0.8 07/30/2023 09:49 AM CREATININE - [facility] 1.0 06/19/2023 03:45 PM CREATININE - [facility] 1.0 01/23/2023 08:57 AM CREATININE - [facility] 0.80 12/15/1997 01:45 PM CREATININE - [facility] 0.90 11/09/1996 04:00 PM CREATININE, RANDOM URINE - [facility] 66 06/19/2023 03:45 PM CREATININE, RANDOM URINE - [facility] 43 01/24/2023 09:21 AM CREATININE, RANDOM URINE - [facility] 58 01/09/2022 11:30 AM Potassium Results: Lab Results Component Value Date/Time POTASSIUM - [facility] 4.9 07/30/2023 09:49 AM POTASSIUM - [facility] 4.1 06/19/2023 03:45 PM POTASSIUM - [facility] 4.2 01/23/2023 08:57 AM POTASSIUM - [facility] 4.4 12/15/1997 01:45 PM POTASSIUM - [facility] 3.8 11/09/1996 04:00 PM INFORMED CONSENT: Yes PRE-SEDATION ASSESSMENT IMPRESSION/PLAN: Port placement, likely right chest Jadiel Foy MD documented in this encounter Nursing Notes * Erica Trejo RN - 07/31/2023 12:[address] [facility] [address] SameDay Surgery Discharge Note Name: Alyssa Reyes Date: 07/31/2023 Time: 12:41 PM Discharge Disposition: Home Responsible adult as escort home: Spouse Transport Mode: Ambulatory Accompanied by: Dar Lee RN To: Car Belongings with patient: Yes Patient meets criteria to be transferred or discharged. * Osiris Goodman RN - 07/31/2023 11:31 AM EST Pt condition was reassessed by Dr. Jadiel Foy immediately prior to start of moderate sedation and procedure. documented in this encounter OR Notes * Operative Report Brief - Jadiel Foy MD - 07/31/2023 12:17 PM EST PROCEDURE NOTE - Interventional Radiology [facility]-[address] [address] Name: Alyssa Reyes Location: OR [facility]/NH Date: 07/31/2023 Time: 12:17 PM PROCEDURE: left IJ port placement DIRECTOR OF ENTERPRISE STRATEGY: Danii ANESTHESIA: conscious sedation COMPLICATIONS: none SPECIMEN: none ESTIMATED BLOOD LOSS: negligible FINDINGS: left IJ patent. Port placed documented in this encounter Miscellaneous Notes * Sedation Note - Jadiel Foy MD - 07/31/2023 12:18 PM EST S Cardiovascular status: acceptable Level of consciousness: awake and alert Airway patency: patent Distress - NAD Hydration status - well hydrated Nausea/vomiting - present Pain Evaluation Pain Assessment Flowsheet Row Most Recent Value Pain Assessment Scale Getrinity healther Adult Scale 0-10 Pain Score 0 (no pain) Vital Signs: Temp: 36.7 C (98.1 F) (07/31 1215) BP: 131/73 (07/31 1215) Pulse: 77 (07/31 1215) Resp: 16 (07/31 1215) SpO2: 99 % (07/31 1215) I have personally examined the patient, prescribed the necessary medications as charted, and certify that Alyssa Reyes is recovered for safe discharge from my face to face care. * Pre-Sedation Assessment - Jadiel Foy MD - 07/31/2023 11:03 AM EST PRE-SEDATION ASSESSMENT PRE-SEDATION ASSESSMENT: Port Placement Level of sedation planned: Moderate Patient's allergies reviewed: Yes H&P Review / Interval Note Documentation: There is no H&P on file. Difficulty with sedation / anesthesia: No Sleep apnea: No History of snoring: No History of difficult intubation: No Decreased ROM neck flexion/extension: No Tracheal deviation: No Decreased ability to open mouth / TMJ: No Loose teeth / dentures / partial: Yes Congenital deformities / abnormalities: No Dysphagia: No Mallampati Classification: II - soft palate, uvula, fauces visible Chest: Clear Heart: Murmur Adequate Vascular Access: Yes ASA Risk Stratification (Select One): ASA 2 - Mild systemic disease, no functional limitations The patient was identified and the procedure verified: Yes The patient was reevaluated immediately prior to the sedation: 07/31/2023 11:05 AM documented in this encounter Plan of Treatment Upcoming Encounters Date Type Department Care Team (Late st Contact Info) Description 08/05/2023 11:00 AM EST Hem/Onc Treatment Hematology/Oncology Treatment, [place] [address] [place] [address] [place], Chair 2 Hem Onc Scenery [address] [place] [address] 09/10/2023 4:00 PM EST Imaging Radiology, [place] [id number] [facility] [place] [address] 09/11/2023 8:00 AM EST Office Visit Dermatology [address] [place] [address] Stacy Gomez PA-C [address] [place] [address] [place] [address] 09/18/2023 7:40 AM EST Office Visit Family Medicine [address] [place] [address] Kalin Reeder MD [address] [place] [address] [place] [address] 11/12/2023 4:00 PM EDT Telemedicine Genetics HemOnc, [facility] [address] [place] [address] Kayy Martin, [place] [address], [place] [id number] 12/27/2023 2:45 PM EDT Office Visit Hematology/Oncology [facility] [address] [place] [address] Mukesh Santos MD [address] [place] [address] 04/15/2024 12:00 PM EDT Imaging Radiology [facility] [address] [place] [address] 05/26/2024 9:45 AM EST Office Visit General Surgery, [facility] [address] [place] [address] Perla Wang MD [address] [place] [address] Health Maintenance Due Date Last Done Comments [...] 01/09/2022, Additional history exists GFR 07/30/2024 07/30/2023, 1212/2022, 01/23/2023, Additional history exists Lipid Panel 01/24/2028 01/23/2023, 12/14, 03/15/2021, Additional history exists Pap Smear Discontinued 10/23/2021, 090 03/2019, 12/28/1998 Zoster Vaccines Completed 10/30/2022, 08/29/2022 GARDASIL-HPV IMMUNIZATION SERIES Aged Out No longer eligible based on patient's age to complete this topic MENINGOCOCCAL (MENACTRA/MENVEO) Aged Out No longer eligible based on patient's age to complete this topic documented as of this encounter Medical Devices Implanted Type Area Billing Assistant Device Identifier Shelf Expiration Date Model / Serial / Lot Port 8fr 1lumen Infusion St Latexfree Power Implantable - [id number] Implanted:Qty: 1 on 07/31/2023 by Jadiel Foy MD at OR [facility] : PERIPHERAL VASCULAR [id number] 06/13/2024 [id number] / / [id number] documented as of this encounter Procedures Procedure Name Priority Date/Time Associated Diagnosis Comments IR INTERVENTIONAL RADIOLOGY PROCEDURE IN OR Routine 07/31/2023 11:59 AM EST GLUCOSE METER, POINT OF CARE BONY 07/31/2023 10:40 AM EST documented in this encounter Results * IR INTERVENTIONAL RADIOLOGY PROCEDURE IN OR (07/31/2023 11:59 AM EST) 07/31/2023 3:12 PM EST Impressions [facility] - 07/31/2023 3:09 PM EST IMPRESSION: Successful placement of a left chest power injectable medical port. PLAN: Return to clinic on Saturday. Narrative [facility] - 07/31/2023 3:09 PM EST PROCEDURE: Left chest medical port placement INDICATION: Breast carcinoma in need of central intravenous access for chemotherapy. ATTENDING (OPERATING PHYSICIAN): Danii SUPPORTING PROVIDER (INDUSTRIAL RELATIONS WORKER): None. CONSENT: After a detailed discussion of the procedure, risks, benefits and alternative treatment options, informed consent was obtained. TIME OUT: A time out procedure was performed. The patient's identification was verified. Informed consent with agreement of procedure, site and position was obtained. All necessary equipment was available prior to procedure. CONTRAST: No contrast was administered. COMPLICATIONS: None. ANESTHESIA: Local lidocaine. IV Versed. IV Fentanyl. SEDATION TIME: N/A Start to end: . Qualified nurse sedation observer , RN. MEDICATIONS: See MAR PROCEDURE DESCRIPTION: The left neck and chest were prepped and draped in the usual sterile fashion. After local anesthesia, a small incision was made at the site of venous access in the neck. Using real-time ultrasound guidance, the left internal jugular vein was punctured with a micro puncture needle. Digital ultrasound images were acquired and digitally archived. A wire and sheath were used to secure access to the internal jugular vein access using fluoroscopic guidance. A second incision was made in the upper chest and a pocket was created. The medical port catheter was tunneled from the pocket to the venotomy site. A peel-away sheath was placed through the venotomy over the wire and the catheter was advanced through a peel-away sheath and positioned under fluoroscopic guidance. The catheter was then measured to 26.5 cm, cut, and attached to a power injectable port. Once the medical port and catheter were in satisfactory position, the medical port was accessed, had appropriate blood return, and easily flushed and was locked with dilute heparin. The incision was then closed in layers with absorbable sutures and tissue adhesive. The venotomy site was closed with absorbable suture and tissue adhesive. I personally performed the procedure. FINDINGS: Ultrasound shows an anechoic and compressible left internal jugular vein. The medical port is in the left upper chest with the catheter tip at the cavoatrial junction. Procedure Note Jadiel Foy MD - 07/31/2023 PROCEDURE: Left chest medical port placement INDICATION: Breast carcinoma in need of central intravenous access forchemotherapy. ATTENDING (OPERATING PHYSICIAN): Danii SUPPORTING PROVIDER (INDUSTRIAL RELATIONS WORKER): None. CONSENT: After a detailed discussion of the procedure, risks, benefits andalternative treatment options, informed consent was obtained. TIME OUT: A time out procedure was performed. The patient's identificationwas verified. Informed consent with agreement of procedure, site andposition was obtained. All necessary equipment was available prior toprocedure. CONTRAST: No contrast was administered. COMPLICATIONS: None. ANESTHESIA: Local lidocaine. IV Versed. IV Fentanyl. SEDATION TIME: N/A Start to end: . Qualified nurse sedation observer ,RN. MEDICATIONS: See MAR PROCEDURE DESCRIPTION: The left neck and chest were prepped and draped inthe usual sterile fashion. After local anesthesia, a small incision wasmade at the site of venous access in the neck. Using real-timeultrasound guidance, the left internal jugular vein was punctured with amicro puncture needle. Digital ultrasound images were acquired anddigitally archived. A wire and sheath were used to secure access to theinternal jugular vein access using fluoroscopic guidance. A second incision was made in the upper chest and a pocket was created.The medical port catheter was tunneled from the pocket to the venotomysite. A peel-away sheath was placed through the venotomy over the wire andthe catheter was advanced through a peel-away sheath and positioned underfluoroscopic guidance. The catheter was then measured to 26.5 cm, cut, andattached to a power injectable port. Once the medical port and catheter were in satisfactory position, themedical port was accessed, had appropriate blood return, and easilyflushed and was locked with dilute heparin. The incision was then closedin layers with absorbable sutures and tissue adhesive. The venotomy sitewas closed with absorbable suture and tissue adhesive. I personally performed the procedure. FINDINGS: Ultrasound shows an anechoic and compressible left internal jugular vein.The medical port is in the left upper chest with the catheter tip at thecavoatrial junction. IMPRESSION IMPRESSION: Successful placement of a left chest power injectable medical port. PLAN: Return to clinic on Saturday. Jadiel Foy MD RAD SPECIAL PROCEDUR ES [facility] RADIOLOGY * (ABNORMAL) GLUCOSE METER, POINT OF CARE (07/31/2023 10:40 AM EST) [facility] Glucose Meter 149(H) 70 - 120 mg/dL 07/31/2023 10:44 AM EST [facility] Blood Whole blood specimen / Unknown 07/31/2023 10:40 AM EST 07/31/2023 10:44 AM EST Jadiel Foy MD LAB POINT OF CARE TE ST DOCKED DEVICE UNSOLICITED RESULTS Performing Organization Address City/[facility]/ZIP Co de Phone Number [facility] [address] [place] [address] documented in this encounter Administered Medications Inactive Administered Medications - up to 3 most recent administrations Medication Order MAR Action Action Date Dose Rate Site isolyte-S pH 7.4 infusion Intravenous, at 10 mL/hr, Plasma-LYTE 148, isolyte-S, and isolyte-S pH 7.4 are considered equivalent - including for MAR barcode scanning., CONTINUOUS, Starting on Sat07/31/23 at 1045, Until Sat07/31/23 at 1642, Pre-Op New Bag 07/31/2023 10:42 AM EST 10 mL/hr documented in this encounter Active and Recently Administered Medications Times are shown in EST. Continuous Medication Order 07/29/2023 07/30/2023 07/31/2023 isolyte-S pH 7.4 infusion Intravenous, at 10 mL/hr, Plasma-LYTE 148, isolyte-S, and isolyte-S pH 7.4 are considered equivalent - including for MAR barcode scanning., CONTINUOUS, Starting on Sat07/31/23 at 1045, Until Sat07/31/23 at 1642, Pre-Op 1042 (New Bag - Prov ider: Renata Flynn RN) PRN Medication Order 07/29/2023 07/30/2023 07/31/2023 buffered lidocaine 1 % inj (CANCELED) ONCE PRN INTRA PROCEDURE, Starting on Sat07/31/23 at 1156, Until Sat07/31/23 at 1213, Intra-Op 1156 (Given - Provid er: Jadiel Foy MD) fentaNYL (PF) inj (CANCELED) ONCE PRN INTRA PROCEDURE, Starting on Sat07/31/23 at 1134, Until Sat07/31/23 at 1217, Intra-Op 1134 (Given - Provid er: Geoffrey Esteves RN) hEParin 100 UNIT/ML Lock Flush inj (CANCELED) ONCE PRN INTRA PROCEDURE, Starting on Sat07/31/23 at 1156, Until Sat07/31/23 at 1213, Intra-Op 1156 (Given - Provid er: Jadiel Foy MD - Comment: mediport flush) midazolam (Versed) 2 MG/2ML inj (CANCELED) ONCE PRN INTRA PROCEDURE, Starting on Sat07/31/23 at 1133, Until Sat07/31/23 at 1213, Intra-Op 1133 (Given - Provid er: Geoffrey Esteves RN) documented in this encounter Advance Directives Latest Code Status on File Code Status Date Activated Date Inactivated Comments Full Code 06/12/2023 6:58 AM 06/12/2023 4:24 PM Thi s order reflects the patients wishes and were consensually agreed upon. Question Answer Comments Discussion of Advance Directives occurred with: Patient Care Teams Director Of Enterprise Strategy Relationship Specialty Start Date End Date Kalin Reeder MD [address] [place] [address] [place] [address] PCP - General Family Medicine 03/15/21 documented as of this encounter
--- OUTSIDE RECORDS SUMMARY | 2023-08-26 19:36 | External Medical Summary | Summary of Care ---
Author Name Unknown Organization [facility] Address [address] [place] [place] [address] Phone [phone] Care Team Providers Care Sock Drier Name Role Phone Kalin Reeder MD Primary Care Provide r Reason for Visit * Reason Comments eRx-Medication Refill Encounter Details Date Type Department Care Team (Late st Contact Info) Description 07/31/2023 Refill Hematology/Oncology [facility] [place] [address] [place] [address] Mukesh Santos MD [address] [facility] [address] Malignant neoplasm of upper-outer quadrant of right breast in female, estrogen receptor positive Allergies No known active allergiesdocumented as of this encounter (statuses as of 07/31/2023) Medications Medication Sig Dispensed Refills Start Date End Date Status Aspirin 81 MG Oral Tablet Delayed Release take 1 tablet (81MG) by oral route every day 0 Active Calcium 1200 7028-9421 MG-UNIT Oral Tablet Chewable Take 1 Tablet [...] as of this encounter (statuses as of 07/31/2023) Active Problems Problem Noted Date Diagnosed Date [...] as of this encounter (statuses as of 07/31/2023) Resolved Problems Problem Noted Date Diagnosed Date Resolved Date Mixed dyslipidemia 9 Overview: Per Lipid Taxonomy. documented as of this encounter (statuses as of 07/31/2023) Immunizations Name Administration Dates Next Due COVID-19 [...] Telephone Encounter - Leonor Hay RN - 07/31/2023 4:33 PM ESTRefused Prescriptions: Disp Refills Loratadine 10 MG Oral Tablet (Claritin) 20 Tab*0 Sig: TAKE 10MG(1 TAB) DAILY X5 DAYS STARTING THE DAY OF CHEMOTHERAPYRefused By: LEONOR HAY for Refusal: Refill Not Appropriate * Telephone Encounter - Leonor Hay RN - 07/31/2023 4:33 PM EST Rx was just sent yesterday, enough for 4 cycles. Patient should not need refill. documented in this encounter Plan of Treatment Upcoming Encounters Date Type Department Care Team (Late st Contact Info) Description 08/05/2023 11:00 AM EST Hem/Onc Treatment Hematology/Oncology Treatment, [place] [address] [place] [address] [place], Chair 2 Hem Onc [address] [place] [address] 09/10/2023 4:00 PM EST Imaging Radiology, [address] [place] [address] 09/11/2023 8:00 AM EST Office Visit Dermatology [address] [place] [address] Stacy Gomez PA-C [address] [place] [address] [place] [address] 09/18/2023 7:40 AM EST Office Visit Family Medicine [address] [place] [phone] Kalin Reeder MD [address] [place] [address] [place] [address] 11/12/2023 4:00 PM EDT Telemedicine Genetics HemOnc, [facility] [address] [place] [address] Kayy Martin, [place] [address] [place] [address] 12/27/2023 2:45 PM EDT Office Visit Hematology/Oncology [facility] [place] [address] [place] [address] Mukesh Santos MD [address] [place] [address] 04/15/2024 12:00 PM EDT Imaging Radiology [address], [place] [address] [place] [address] 05/26/2024 9:45 AM EST [facility] [address] [place] [address] Perla Wang MD [address] [place] [address] Scheduled Procedures Name Priority Associated Diagnoses Date/Ti me INSERT TUNNELED CENTRAL VENOUS ACCESS WITH SUBQ PORT Malignant neoplasm of upper-outer quadrant of right breast in female, estrogen receptor positive 07/31/2023 11:04 AM EST Health Maintenance Due Date Last [...] DXA Scan 03/05/2024 03/05/2014 Mammogram 04/26/2024 04/26/2023, 1008/2022, 04/11/2022, Additional history exists Albumin/Creatinine Ratio 06/19/2024 [...] this encounter Medical Devices Implanted Type Area Supervisor Cell Operation Device Identifier Shelf Expiration Date Model / Serial / Lot Port 8fr 1lumen Infusion St Latexfree Power Implantable - [id number] Implanted:Qty: 1 on 07/31/2023 by Jadiel Foy MD at OR [facility] BARD : PERIPHERAL VASCULAR [id number] 06/13/2024 [id number] / / [id number] documented as of this encounter Visit Diagnoses Diagnosis Malignant neoplasm of upper-outer quadrant of right breast in female, estrogen receptor positive documented in this encounter Advance Directives Latest Code Status on File Code Status Date Activated Date Inactivated Comments Full Code 06/12/2023 6:58 AM 06/12/2023 4:24 PM Thi s order reflects the patients wishes and were consensually agreed upon. Question Answer Comments Discussion of Advance Directives occurred with: Patient Care Teams Sock Drier Relationship Specialty Start Date End Date Kalin Reeder MD [address] [place] [address] [place] [address] PCP - General Family Medicine 03/15/21 documented as of this encounter
--- OUTSIDE RECORDS SUMMARY | 2023-08-26 19:36 | External Medical Summary | Summary of Care ---
Author Name Unknown Organization [facility] Address [address] [place] [facility] [place] [address] Phone [phone] Care Team Providers Care Ssis Architect Name Role Phone Kalin Reeder MD Primary Care Provide r Reason for Visit * Reason Onset Date Comments Medication Refill 08/01/2023 Encounter Details Date Type Department Care Team (Late st Contact Info) Description 08/01/2023 Refill Family Medicine [address] [place] [phone] Kalin Reeder MD [address] [place] [address] [place] [address] Allergies No known active allergiesdocumented as of this encounter (statuses as of 08/01/2023) Medications Medication Sig Dispensed Refills Start Date End Date Status Aspirin 81 MG Oral Tablet Delayed Release take 1 tablet (81MG) by oral route every day 0 Active Calcium 1200 2989-2760 MG-UNIT Oral Tablet Chewable Take 1 Tablet [...] hemoglobin A1c goal of less than 7.0% ([facility]) USE TO TEST SUGARS ONCE DAILY. E11.9 [...] hemoglobin A1c goal of less than 7.0% ([facility]) INJECT 1.5 MG UNDER THE SKIN ONCE [...] encounter Miscellaneous Notes * Telephone Encounter - Dinorah Garcia CPhT - 08/01/2023 3:56 PM EST Error. Thank you, Dinorah Garcia Medical Assistant Float SensorCath 08/01/2023, 3:56 PM documented in this encounter Plan of Treatment Upcoming Encounters Date Type Department Care Team (Late st Contact Info) Description 08/05/2023 11:00 AM EST Hem/Onc Treatment Hematology/Oncology Treatment, [place] [address] [facility] [place] [address] [place], Chair 2 Hem Onc [place] [address] [place] [address] 09/10/2023 4:00 PM EST Imaging Radiology, [place] [address] [place] [address] 09/11/2023 8:00 AM EST Office Visit Dermatology [address] [place] [address] Stacy Gomez PA-C [address] [place] [address] [place] [address] 09/18/2023 7:40 AM EST Office Visit Family Medicine [address] [place] [phone] Kalin Reeder MD [address] [place] [address] [place] [address] 11/12/2023 4:00 PM EDT Telemedicine Genetics HemOnc, [facility] [address] [place] [address] Kayy Martin, [place] [address] [place] [address] 12/27/2023 2:45 PM EDT Office Visit Hematology/Oncology [facility] [address] [place] [address] Mukesh Santos MD [address] [place] [address] 04/15/2024 12:00 PM EDT Imaging Radiology [facility] 1st [facility] [address] [place] [address] 05/26/2024 9:45 AM EST Office Visit General Surgery, [facility] [address] [place] [address] Perla Wang MD [address] [place] [address] Health Maintenance Due Date Last Done Comments [...] this encounter Medical Devices Implanted Type Area Mobile Equipment Operator Device Identifier Shelf Expiration Date Model / Serial / Lot Port 8fr 1lumen Infusion St Latexfree Power Implantable - [id number] Implanted:Qty: 1 on 07/31/2023 by Jadiel Foy MD at OR [facility] BARD : PERIPHERAL VASCULAR [id number] 06/13/2024 [id number] / / [id number] documented as of this encounter Advance Directives Latest Code Status on File Code Status Date Activated Date Inactivated Comments Full Code 06/12/2023 6:58 AM 06/12/2023 4:24 PM Thi s order reflects the patients wishes and were consensually agreed upon. Question Answer Comments Discussion of Advance Directives occurred with: Patient Care Teams Ssis Architect Relationship Specialty Start Date End Date Kalin Reeder MD [address] [place] [address] [place] [address] PCP - General Family Medicine 03/15/21 documented as of this encounter
--- OUTSIDE RECORDS SUMMARY | 2023-08-26 19:36 | External Medical Summary | Summary of Care ---
Author Name Unknown Organization [facility] Address [address] [facility] [address] Phone [phone] Care Team Providers Care Carpet Measurer Name Role Phone Kalin Reeder MD Primary Care Provide r Reason for Visit * Reason Onset Date Comments Referral 08/07/2023 [facility] Discharge ( DM ) Encounter Details Date Type Department Care Team (Late st Contact Info) Description 08/07/2023 Telephone Pharmacy, [address] [place] [address] [place] [address] Referral ([facility] Discharge ( DM )) Allergies No known active allergiesdocumented as of this encounter (statuses as of 08/07/2023) Medications Medication Sig Dispensed Refills Start Date End Date Status Aspirin 81 MG Oral Tablet Delayed Release take 1 tablet (81MG) by oral route every day 0 Active Calcium 1200 9181-7678 MG-UNIT Oral Tablet Chewable Take 1 Tablet [...] hemoglobin A1c goal of less than 7.0% ([facility]) USE TO TEST SUGARS ONCE [...] hemoglobin A1c goal of less than 7.0% ([facility]) INJECT 1.5 MG UNDER THE [...] as of this encounter (statuses as of 08/07/2023) Active Problems Problem Noted Date Diagnosed Date [...] as of this encounter (statuses as of 08/07/2023) Resolved Problems Problem Noted Date Diagnosed Date Resolved Date Mixed dyslipidemia 9 Overview: Per Lipid Taxonomy. documented as of this encounter (statuses as of 08/07/2023) Immunizations Name Administration Dates Next Due COVID-19 [...] encounter Miscellaneous Notes * Telephone Encounter - Tarcey Shea PHARM Tech - 08/07/2023 3:22 PM EST Spoke to patient to schedule new DM appt. She is currently getting chemo and not feeling up to making an appt. Will discharge from [facility] services at this time. Thank you, Tracey Shea Milled Rubber Tender [facility] (formerly [facility]) [phone] 08/07/2023,3:24 PM documented in this encounter Plan of Treatment Upcoming Encounters Date Type Department Care Team (Late st Contact Info) Description 08/26/2023 11:30 AM EST Laboratory Laboratory [place], [place] [address] [place], [place] [phone] [place], Lab [address] [facility] [place], [place] [address] 08/26/2023 12:00 PM EST Office Visit Hematology/Oncology [facility] [place] [address] [place] [address] Mima Alvarado CRNP [address] [facility] [place] [address] 08/26/2023 12:30 PM EST Hem/Onc Treatment Hematology/Oncology Treatment, [place] [address] [place] [address] [place], Chair 6 [facility] [address] [place] [address] 09/10/2023 4:00 PM EST Imaging Radiology, [address] [place] [address] 09/11/2023 8:00 AM EST Office Visit Dermatology [address] [place] [address] Stacy Gomez PA-C [address] [place] [address] [place] [address] 09/17/2023 8:10 AM EST Laboratory Laboratory [facility] [place] [address] [place] [phone] [place], Lab Scenery [address] [facility] [place], [place] [address] 09/17/2023 8:45 AM EST Office Visit Hematology/Oncology [facility] [place] [address] [place], [place] [address] Mukesh Santos MD [address] [place] [address] 09/17/2023 9:15 AM EST Hem/Onc Treatment Hematology/Oncology Treatment, [place] [address] [place] [address] [place], Chair 8 Hem Onc [place] [place] [address] 09/18/2023 7:40 AM EST Office Visit [address] [place] [address] Kalin Reeder MD [address] [place] [address] [place] [address] 11/12/2023 4:00 PM EDT Telemedicine Genetics HemOnc, [address] [place] [address] Kayy Martin, [place] [address] [place], [place] [address] 12/27/2023 2:45 PM EDT Office Visit Hematology/Oncology [facility] [address] [place] [address] Mukesh Santos MD [address] [place] [address] 04/15/2024 12:00 PM EDT Imaging Radiology [facility] 1st [facility] [address] [facility] [place] [address] 05/26/2024 9:45 AM EST Office Visit General Surgery, [facility] [address] [facility] [place] [address] Perla Wang MD 132 [facility] [place] [address] Health Maintenance Due Date Last Done Comments [...] this encounter Medical Devices Implanted Type Area Cotton Opener Device Identifier Shelf Expiration Date Model / Serial / Lot Port 8fr 1lumen Infusion St Latexfree Power Implantable - [id number] Implanted:Qty: 1 on 07/31/2023 by Jadiel Foy MD at OR [facility] BARD : PERIPHERAL VASCULAR [id number] 06/13/2024 [id number] / / [id number] documented as of this encounter Advance Directives Latest Code Status on File Code Status Date Activated Date Inactivated Comments Full Code 06/12/2023 6:58 AM 06/12/2023 4:24 PM Thi s order reflects the patients wishes and were consensually agreed upon. Question Answer Comments Discussion of Advance Directives occurred with: Patient Care Teams Carpet Measurer Relationship Specialty Start Date End Date Kalin Reeder MD [address] [place] [address] [place] [phone] PCP - General Family Medicine 03/15/21 documented as of this encounter
--- OUTSIDE RECORDS SUMMARY | 2023-08-26 19:36 | External Medical Summary | Summary of Care ---
Author Name Unknown Organization [facility] Address [address] [place] [address] Phone [phone] Care Team Providers Care High School Principal Name Role Phone Kalin Reeder MD Primary Care Provide r Reason for Visit * Reason Onset Date Comments Other 08/01/2023 Trulicity 1.5 MG /0.5ML Subcutaneous Solution Pen-injector (Dulaglutide Encounter Details Date Type Department Care Team (Late st Contact Info) Description 08/01/2023 Telephone Family Medicine [address] [place] [address] Kalin Reeder MD [address] [place] [address] [place] [address] Other (Trulicity 1.5 MG/0.5ML Subcutaneous... Allergies No known active allergiesdocumented as of this encounter (statuses as of 08/02/2023) Medications Medication Sig Dispensed Refills Start Date End Date Status Aspirin 81 MG Oral Tablet Delayed Release take 1 tablet (81MG) by oral route every day 0 Active Calcium 1200 5705-9744 MG-UNIT Oral Tablet Chewable Take 1 Tablet by mouth in the morning. 0 Active Vitamin D3 25 MCG (1000 UT) Oral Capsule Take by mouth. 0 Active Vitamin B-12 1000 MCG Oral Tablet (Cyanocobalamin) TAKE 1 TABLET BY MOUTH EVERY DAY IN THE MORNING 100 Tablet 3 3 Active Lovastatin 40 MG Oral Tablet TAKE 1 TABLET BY MOUTH EVERY DAY WITH DINNER 90 Tablet 3 3 Active Accu-Chek Stefani Plus In Vitro Strip (Glucose Blood)Indications :Type 2 diabetes mellitus with hemoglobin A1c goal of less than 7.0% (HCC) USE TO TEST SUGARS ONCE DAILY. E11.9 100 Strip 2 3 Active hydroCHLOROthiazi de 25 MG Oral Tablet (Hydrodiuril)Lisa cations:HTN, goal below 130/80 TAKE 1 TABLET BY MOUTH EVERY DAY IN THE MORNING 90 Tablet 1 3 Active metFORMIN HCl 500 MG Oral Tablet (Glucophage)Indic ations:Type 2 diabetes mellitus with hemoglobin A1c goal of less than 7.0% (HCC) TAKE 2 TABLETS BY MOUTH TWICE A DAY 360 Tablet 1 3 Active Lisinopril 40 MG Oral TabletIndications :HTN, goal below 130/80 TAKE 1 TABLET BY MOUTH EVERY DAY IN THE MORNING 90 Tablet 1 3 Active HYDROcodone-Aceta minophen 5-325 MG Oral Tablet Take 1 Tablet by mouth every 6 hours as needed for moderate Pain 5 Tablet 0 3 Active Trulicity 1.5 MG/0.5ML Subcutaneous Solution Pen-injector (Dulaglutide)Lisa cations:Type 2 diabetes mellitus with hemoglobin A1c goal of less than 7.0% (HCC) INJECT 1.5 MG UNDER THE SKIN ONCE A WEEK. 6 mL 1 3 Active glipiZIDE ER 5 MG Oral Tablet Extended Release 24 Hour (Glucotrol XL)Indications:Ty pe 2 diabetes mellitus with hemoglobin A1c goal of less than 7.0% (HCC) TAKE 1 TABLET BY MOUTH IN THE MORNING. 30 MINUTES BEFORE A MEAL.. 90 Tablet 3 4 Active Ondansetron HCl 8 MG Oral Tablet (Zofran)Indicatio ns:Malignant neoplasm of upper-outer quadrant of right breast in female, estrogen receptor positive (HCC) Take 1 Tablet by mouth every 8 hours as needed for Nausea. 30 Tablet 2 4 Active Additional Information Patient not taking.Reported on 07/31/2023 Prochlorperazine Maleate 10 MG Oral Tablet (Compazine)Indica tions:Malignant neoplasm of upper-outer quadrant of right breast in female, estrogen receptor positive (HCC) Take 1 Tablet by mouth every 6 hours as needed for Nausea. 30 Tablet 2 4 Active Additional Information Patient not taking.Reported on 07/31/2023 dexAMETHasone 4 MG Oral Tablet (Decadron)Indicat ions:Malignant neoplasm of upper-outer quadrant of right breast in female, estrogen receptor positive (HCC) Take 8mg (2 tabs) twice a day x3 days starting the day before chemotherapy 48 Tablet 0 4 Active Additional Information Patient not taking.Reported on 07/31/2023 Lidocaine-Priloca ine 2.5-2.5 % External Cream (Emla)Indications :Malignant neoplasm of upper-outer quadrant of right breast in female, estrogen receptor positive (HCC) APPLY TO SKIN OVER MEDIPORT & COVER 1HR PRIOR TO ACCESSING. 30 g 1 4 Active Additional Information Patient not taking.Reported on 07/31/2023 Loratadine 10 MG Oral Tablet (Claritin)Indicat ions:Malignant neoplasm of upper-outer quadrant of right breast in female, estrogen receptor positive (HCC) Take 10mg (1 tab) daily x5 days starting the day of chemotherapy 20 Tablet 0 4 Active Additional Information Patient not taking.Reported on 07/31/2023 Empagliflozin 10 MG Oral Tablet (Jardiance)Indica tions:Type 2 diabetes mellitus with hemoglobin A1c goal of less than 7.0% (HCC) Take 1 Tablet by mouth in the morning. 30 Tablet 2 4 Active Ferrous Sulfate 325 (65 Fe) MG Oral Tablet (Feosol) TAKE 2 TABLETS BY MOUTH EVERY MORNING 180 Tablet 0 3 08/02/19 24 Discontinued documented as of this encounter (statuses as of 08/02/2023) Active Problems Problem Noted Date Diagnosed Date [...] as of this encounter (statuses as of 08/02/2023) Resolved Problems Problem Noted Date Diagnosed Date Resolved Date Mixed dyslipidemia 9 Overview: Per Lipid Taxonomy. documented as of this encounter (statuses as of 08/02/2023) Immunizations Name Administration Dates Next Due COVID-19 [...] encounter Miscellaneous Notes * Telephone Encounter - Brandon Delgado LPN - 08/02/2023 11:59 AM EST is aware of Note below * Telephone Encounter - Kalin Reeder MD - 08/02/2023 10:43 AM EST Will try jardiance 10mg daily until trulicity become in stock - pls inform the pt * Telephone Encounter - Dinorah Garcia CPhT - 08/01/2023 3:56 PM EST Pt's calling into state they have called around to multiple pharmacies and are unable to find Trulicity 1.5 MG/0.5ML Subcutaneous Solution Pen-injector (Dulaglutide, pt's is requesting for another alternative to be called into pt's pharmacy. Please advise at your earliest convenience. Thank you, Dinorah Garcia Office Support [facility] 08/01/2023, 3:58 PM documented in this encounter Plan of Treatment Upcoming Encounters Date Type Department Care Team (Late st Contact Info) Description 08/05/2023 11:00 AM EST Hem/Onc Treatment Hematology/Oncology Treatment, [place] [facility] [place] [address] [place], Chair 2 Hem Onc [facility] [place] [address] 09/10/2023 4:00 PM EST Imaging Radiology, [address] [place] [address] 09/11/2023 8:00 AM EST Office Visit Dermatology [address] [place] [address] Stacy Gomez PA-C [address] [place] [address] [place] [address] 09/18/2023 7:40 AM EST Office Visit Family Medicine [address] [place] [phone] Kalin Reeder MD [address] [place] [address] [place] [address] 11/12/2023 4:00 PM EDT Telemedicine Genetics HemOnc, [facility] [address] [place], [place] [phone] Kayy Martin, [place] [address] [place], [place] [address] 12/27/2023 2:45 PM EDT Office Visit [facility]ology[facility] [address] [place] [address] Mukesh Santos MD 200 [facility] [place] [address] 04/15/2024 12:00 PM EDT Imaging Radiology [facility] 1st [facility] [address] [employer] [place] [address] 05/26/2024 9:45 AM EST Office Visit General Surgery, [facility] [address] [employer] [place] [address] Perla Wang MD 132 [facility] [place] [address] Health Maintenance Due Date Last Done Comments [...] this encounter Medical Devices Implanted Type Area Protective Services Social Worker Device Identifier Shelf Expiration Date Model / Serial / Lot Port 8fr 1lumen Infusion St Latexfree Power Implantable - [id number] Implanted:Qty: 1 on 07/31/2023 by Jadiel Foy MD at OR [facility] BARD : PERIPHERAL VASCULAR [id number] 06/13/2024 [id number] / / [id number] documented as of this encounter Visit Diagnoses Diagnosis Type 2 diabetes mellitus with hemoglobin A1c goal of less than 7.0% (HCC)- Primary documented in this encounter Advance Directives Latest Code Status on File Code Status Date Activated Date Inactivated Comments Full Code 06/12/2023 6:58 AM 06/12/2023 4:24 PM Thi s order reflects the patients wishes and were consensually agreed upon. Question Answer Comments Discussion of Advance Directives occurred with: Patient Care Teams High School Principal Relationship Specialty Start Date End Date Kalin Reeder MD [address] [place] [address] [place] [phone] PCP - General Family Medicine 03/15/21 documented as of this encounter
--- OUTSIDE RECORDS SUMMARY | 2023-08-26 19:36 | External Medical Summary | Summary of Care ---
Author Name Unknown Organization [facility] Address [address] [place] [address] Phone [phone] Care Team Providers Care Heel Dipper Name Role Phone Kalin Reeder MD Primary Care Provide r Reason for Visit * Reason Onset Date Comments Information 08/02/2023 Decadron reminde r Encounter Details Date Type Department Care Team (Late st Contact Info) Description 08/02/2023 Telephone Hematology/Oncology Treatment, [place] [address] [place] [address] Mukesh Santos MD [address] [place] [address] Information (Decadron reminder) Allergies No known active allergiesdocumented as of this encounter (statuses as of 08/02/2023) Medications Medication Sig Dispensed Refills Start Date End Date Status Aspirin 81 MG Oral Tablet Delayed Release take 1 tablet (81MG) by oral route every day 0 Active Calcium 1200 0108-7874 MG-UNIT Oral Tablet Chewable Take 1 Tablet [...] goal of less than 7.0% ([facility]) USE TO TEST SUGARS ONCE DAILY. E11.9 [...] goal of less than 7.0% ([facility]) INJECT 1.5 MG UNDER THE SKIN ONCE [...] encounter Miscellaneous Notes * Telephone Encounter - Yecenia Sharma OSA - 08/02/2023 3:43 PM EST Per nursing updated patients phone #. * Telephone Encounter - Leonor Hay RN - 08/02/2023 2:58 PM EST Patient is scheduled for C1D1 TC on 08/05/23. Called patient to remind her of decadron. Patients listed phone number is actually her husbands number- patients phone number is [phone] (Scheduling: please update this in chart). Patients requested that I call her instead. Called and reviewed with patient who verbalized understanding of instructions. Disp Refills Start End dexAMETHasone 4 MG Oral Tablet (Decadron) 48 Tablet 0 07/30/2023 -- Sig: Take 8mg (2 tabs) twice a day x3 days starting the day before chemotherapy documented in this encounter Plan of Treatment Upcoming Encounters Date Type Department Care Team (Late st Contact Info) Description 08/05/2023 11:00 AM EST Hem/Onc Treatment Hematology/Oncology Treatment, [address] [place] [address] [place], Chair 2 Hem Onc [address] [address] 09/10/2023 4:00 PM EST Imaging Radiology, [address] [place] [address] 09/11/2023 8:00 AM EST Office Visit Dermatology [address] [place] [address] Stacy Gomez PA-C [address] [place] [address] [place] [address] 09/18/2023 7:40 AM EST Office Visit Family Medicine [address] [place] [phone] Kalin Reeder MD [address] [place] [address] [place] [address] 11/12/2023 4:00 PM EDT Telemedicine Genetics HemOnc, [facility] [address] [place] [address] Kayy Martin, [place] [address] [place] [address] 12/27/2023 2:45 PM EDT Office Visit Hematology/Oncology [facility] [address] [place], [place] [address] Mukesh Santos MD [address] [place] [address] 04/15/2024 12:00 PM EDT Imaging Radiology [facility] 1st [facility] [address] [facility] [place] [address] 05/26/2024 9:45 AM EST Office Visit General Surgery, [facility] [address] [facility] [place] [address] Perla Wang MD [address] [place] [address] Health Maintenance Due Date Last Done Comments [...] this encounter Medical Devices Implanted Type Area Scraper Burrer Device Identifier Shelf Expiration Date Model / Serial / Lot Port 8fr 1lumen Infusion St Latexfree Power Implantable - [id number] Implanted:Qty: 1 on 07/31/2023 by Jadiel Foy MD at OR [facility] : PERIPHERAL VASCULAR [id number] 06/13/2024 [id number] / / [id number] documented as of this encounter Advance Directives Latest Code Status on File Code Status Date Activated Date Inactivated Comments Full Code 06/12/2023 6:58 AM 06/12/2023 4:24 PM Thi s order reflects the patients wishes and were consensually agreed upon. Question Answer Comments Discussion of Advance Directives occurred with: Patient Care Teams Heel Dipper Relationship Specialty Start Date End Date Kalin Reeder MD [address] [place] [address] [place] [address] PCP - General Family Medicine 03/15/21 documented as of this encounter
--- OUTSIDE RECORDS SUMMARY | 2023-08-26 19:36 | External Medical Summary ---
Author Name Unknown Address Unknown Organization : Laboratory Report Ordering Provider Test Date Status VANESSA GO 07/31/2023 10:40:46 Final Observation Date Value Abnormality Reference (Units ) Status Glucose Point of Care 07/31/2023 10:40:46 149 Above high normal 70-120 (mg/dL) Final Performing Location
--- OUTSIDE RECORDS SUMMARY | 2023-08-26 19:36 | External Medical Summary | Summary of Care ---
Author Name Unknown Organization [facility] Address [address] [facility] [place] [address] Phone [phone] Care Team Providers Care Medical Or Surgical Instrument Maker Name Role Phone Kalin Burk MD Primary Care Provide r Reason for Visit * Reason Comments eRx-Medication Refill Encounter Details Date Type Department Care Team (Late st Contact Info) Description 07/31/2023 Refill Family Medicine [address] [place] [phone] Kalin Burk MD [address] [place] [address] [place] [address] Encounter for long-term (current) use of medications*; Type 2 diabetes mellitus with hemoglobin A1c goal of less than 7.0% ([facility]); HTN, goal below 130/80 Allergies No known active allergiesdocumented as of this encounter (statuses as of 08/02/2023) Medications Medication Sig Dispensed Refills Start Date End Date Status Aspirin 81 MG Oral Tablet Delayed Release take 1 tablet (81MG) by oral route every day 0 Active Calcium 1200 4753-9347 MG-UNIT Oral Tablet Chewable Take 1 Tablet [...] BY MOUTH EVERY MORNING 180 Tablet 0 4 Active Ferrous Sulfate 325 (65 Fe) [...] encounter Miscellaneous Notes * Telephone Encounter - Kalin Burk MD - 08/02/2023 11:49 AM EST Signed Prescriptions: Disp Refills Ferrous Sulfate 325 (65 Fe) MG Oral Tablet*180 Ta*0 Sig: TAKE 2 TABLETS BY MOUTH EVERY MORNING Authorizing Provider: KALIN BURK Refused Prescriptions: Disp Refills metFORMIN HCl 500 MG Oral Tablet (Glucopha*360 Ta*1 Sig: TAKE 2 TABLETS BY MOUTH TWICE A DAY Refused By: JOSE NÚÑEZ Reason for Re fusal: Too soon Lisinopril 40 MG Oral Tablet 90 Tab*1 Sig: TAKE 1 TABLET BY MOUTH EVERY DAY IN THE MORNING Refused By: JOSE NÚÑEZ Reason for Refusal: Too soon hydroCHLOROthiazide 25 MG Oral Tablet (Hyd*90 Tab*1 Sig: TAKE 1 TABLET BY MOUTH EVERY DAY IN THE MORNING Refused By: JOSE NÚÑEZ Reason for Refusal: Too soon * Telephone Encounter - Jose N[facility] - 08/02/2023 11:42 AM EST HGB and Iron screen are normal and ferritin is elevated Please advise if patient is to continue with iron supplement Thank You, Jose Núñez [facility] Clinical Pharmacist [facility] ([facility]) (formerly Telepharmacy) [phone] 08/02/2023, 11:42 AM * Telephone Encounter - Jose Núñez [facility] - 08/02/2023 7:16 AM EST Patient due for ferritin and iron screen Labs ordered as add on Will wait for results to authorize refills Thank You, Jose Núñez [facility] Clinical Pharmacist [facility] ([facility]) (formerly Telepharmacy) [phone] 08/02/2023, 7:19 AM documented in this encounter Plan of Treatment Upcoming Encounters Date Type Department Care Team (Late st Contact Info) Description 08/05/2023 11:00 AM EST Hem/Onc Treatment Hematology/Oncology Treatment, [place] [address] [place] [address] [place], Chair 2 Hem Onc [place] [address] [facility] [place] [address] 09/10/2023 4:00 PM EST Imaging Radiology, [facility] [address] [facility] [place], [place] [address] 09/11/2023 8:00 AM EST Office Visit Dermatology [address] [place] [address] Stacy Gomez PA-C [address] [place] [address] [place] [address] 09/18/2023 7:40 AM EST Office Visit Family Medicine [address] [place] [phone] Kalin Burk MD [address] [place] [address] [place] [address] 11/12/2023 4:00 PM EDT Telemedicine Genetics HemOnc, [facility] [address] [place] [address] Kayy Martin, [place] [address] [place] [address] 12/27/2023 2:45 PM EDT Office Visit Hematology/Oncology [facility] [address] [place] [address] Mukesh Santos MD [address] [place] [address] 04/15/2024 12:00 PM EDT Imaging Radiology [facility]st [facility] 132 [facility] [place] [address] 05/26/2024 9:45 AM EST Office Visit General Surgery, [facility] 132 [facility] [place] [address] Perla Wang MD 132 [facility] [place] [address] Health Maintenance Due Date Last Done Comments [...] this encounter Medical Devices Implanted Type Area Care Program Director Device Identifier Shelf Expiration Date Model / Serial / Lot Port 8fr 1lumen Infusion St Latexfree Power Implantable - [id number] Implanted:Qty: 1 on 07/31/2023 by Jadiel Foy MD at OR [facility] B[facility] : PERIPHERAL VASCULAR [id number] 06/13/2024 [id number] / / [id number] documented as of this encounter Results * (ABNORMAL) FERRITIN (07/30/2023 9:49 AM EST) Ferritin 211(H) 13 - 150 ng/mL 08/02/2023 11:21 AM EST LABORATORY [facility] Comment:Postmenopausal women have higher ferritin levels than pre-menopausal women. The above reference interval is based on pre-menopausal women. Blood Venous blood specimen / Unknown Venipuncture / Unknown 07/30/2023 9:49 AM EST 07/30/2023 9:49 AM EST Jose Nú[facility]ez [facility] LAB BLOOD ORDERABLES Performing Organization Address [facility] de Phone Number LABORATORY [facility] [address] [place] [address] * IRON SCREEN, INCLUDING TIBC (07/30/2023 9:49 AM EST) Pathologist [facility] Iron 74 33 - 151 ug/dL 08/02/2023 8:20 AM EST LABORATORY [facility] Iron Binding Capacity 375 250 - 425 ug/dL 08/02/2023 8:20 AM EST LABORATORY [facility] Transferrin Saturation Percent 20 15 - 55 % 08/02/2023 8:20 AM EST LABORATORY [facility] Blood Venous blood specimen / Unknown Venipuncture / Unknown 07/30/2023 9:49 AM EST 07/30/2023 9:49 AM EST Jose Brasher [facility] LAB BLOOD ORDERABLES Performing Organization Address City/[facility] Co de Phone Number LABORATORY [facility] [address] [place] [address] documented in this encounter Visit Diagnoses Diagnosis Encounter for long-term (current) use of medications- Primary Encounter for long-term (current) use of other medications Type 2 diabetes mellitus with hemoglobin A1c goal of less than 7.0% (HCC) HTN, goal below 130/80 Unspecified essential hypertension documented in this encounter Advance Directives Latest Code Status on File Code Status Date Activated Date Inactivated Comments Full Code 06/12/2023 6:58 AM 06/12/2023 4:24 PM Thi s order reflects the patients wishes and were consensually agreed upon. Question Answer Comments Discussion of Advance Directives occurred with: Patient Care Teams Medical Or Surgical Instrument Maker Relationship Specialty Start Date End Date Kalin Burk MD [address] [place] [address] [place] [address] PCP - General Family Medicine 03/15/21 documented as of this encounter
--- OUTSIDE RECORDS SUMMARY | 2023-08-26 19:36 | External Medical Summary | Summary of Care ---
Author Name Unknown Organization [facility] Address [address] [place] [address] Phone [phone] Care Team Providers Care Drywall Foreman Name Role Phone Kalin Reeder MD Primary Care Provide r Reason for Visit * Reason Onset Date Comments Information 08/02/2023 Decadron reminde r Encounter Details Date Type Department Care Team (Late st Contact Info) Description 08/02/2023 Telephone Hematology/Oncology Treatment, [place] [address] [place] [address] Mukesh Santos MD [address] [place] [address] Information (Decadron reminder) Allergies No known active allergiesdocumented as of this encounter (statuses as of 08/02/2023) Medications Medication Sig Dispensed Refills Start Date End Date Status Aspirin 81 MG Oral Tablet Delayed Release take 1 tablet (81MG) by oral route every day 0 Active Calcium 1200 8274-0272 MG-UNIT Oral Tablet Chewable Take 1 Tablet [...] A1c goal of less than 7.0% ([facility]) USE TO TEST SUGARS ONCE DAILY. E11.9 [...] A1c goal of less than 7.0% ([facility]) INJECT 1.5 MG UNDER THE SKIN ONCE [...] her husbands number- patients phone number is [phone] (Scheduling: please update this in chart). Patients [...] 11:00 AM EST Hem/Onc Treatment Hematology/Oncology Treatment, [place] [facility] [address] [place], Chair 2 Hem Onc [facility] 200 [facility] [place] [address] 09/10/2023 4:00 PM EST Imaging Radiology, [address] [place] [address] 09/11/2023 8:00 AM EST Office Visit Dermatology [address] [place] [address] Stacy Gomez PA-C [address] [place] [address] [place] [address] 09/18/2023 7:40 AM EST Office Visit Family Medicine [address] [place] [address] Kalin Reeder MD [address] [place] [address] [place] [address] 11/12/2023 4:00 PM EDT Telemedicine Genetics HemOnc, [facility] [address] [place] [address] Kayy Martin, [place] [address] [place] [address] 12/27/2023 2:45 PM EDT Office Visit [facility]ology[facility] 200 [facility] [place] [address] Mukesh Santos MD [address] [place] [address] 04/15/2024 12:00 PM EDT Imaging Radiology [address], [place] [address] [place] [address] 05/26/2024 9:45 AM EST Office Visit General Surgery, [facility] 132 [place] [address] Perla Wang MD [address] [place] [address] Health Maintenance Due Date Last Done Comments [...] 01/09/2022, Additional history exists GFR 07/30/2024 07/30/2023, 12/0 12/2022, 01/23/2023, Additional history exists Lipid Panel [...] this encounter Medical Devices Implanted Type Area Neurology Physician Device Identifier Shelf Expiration Date Model / Serial / Lot Port 8fr 1lumen Infusion St Latexfree Power Implantable - [id number] Implanted:Qty: 1 on 07/31/2023 by Jadiel Foy MD at [facility] : PERIPHERAL VASCULAR [id number] 06/13/2024 [id number] / / [id number] documented as of this encounter Advance Directives Latest Code Status on File Code Status Date Activated Date Inactivated Comments Full Code 06/12/2023 6:58 AM 06/12/2023 4:24 PM Thi s order reflects the patients wishes and were consensually agreed upon. Question Answer Comments Discussion of Advance Directives occurred with: Patient Care Teams Drywall Foreman Relationship Specialty Start Date End Date Kalin Reeder MD [address] [place] [address] [place] [address] PCP - General Family Medicine 03/15/21 documented as of this encounter
--- OUTSIDE RECORDS SUMMARY | 2023-08-26 19:36 | External Medical Summary | Summary of Care ---
Author Name Unknown Organization [facility] Address [address] [facility] [place] [address] Phone [phone] Care Team Providers Care Radio Aerial Installer Name Role Phone Kalin Reeder MD Primary Care Provide r Reason for Visit * Reason Comments Medication Administration Fulphila * Episode Based Medications (Routine) - Authorized Specialty Diagnoses / Procedures Referred By Suresh t Referred To Contact Diagnoses Encounter for antineoplastic chemotherapy Malignant neoplasm of upper-outer quadrant of right breast in female, estrogen receptor positive (HCC) Procedures CT PALONOSETRON HCL CT INJECTION, FULPHILA CT DOCETAXEL INJECTION CT CYCLOPHOSPHAMIDE 100 MG INJ Mukesh Santos MD 200 [place] [address] Anc Hem/Onc [address] [address] Referral ID Status Reason Start Date Expiration Date V isits Requested Visits Authorized [id number] Authorized 07/26/2023 01/21/2024 [id number] Encounter Details Date Type Department Care Team (Latest Contact Info) Description 08/06/2023 2:15 PM EST Immunization/ Injection Hematology/Oncology Treatment, [address] [address] Nurse, Med [address] [place] [address] [place] [address] Encounter for antineoplastic chemotherapy*; Malignant neoplasm of upper-outer quadrant of right breast in female, estrogen receptor positive (HCC) Allergies No known active allergiesdocumented as of this encounter (statuses as of 08/06/2023) Medications Medication Sig Dispensed Refills Start Date End Date Status Aspirin 81 MG Oral Tablet Delayed Release take 1 tablet (81MG) by oral route every day 0 Active Calcium 1200 9215-2751 MG-UNIT Oral Tablet Chewable Take 1 Tablet [...] as of this encounter (statuses as of 08/06/2023) Active Problems Problem Noted Date Diagnosed Date [...] as of this encounter (statuses as of 08/06/2023) Resolved Problems Problem Noted Date Diagnosed Date Resolved Date Mixed dyslipidemia Overview: Per Lipid Taxonomy. documented as of this encounter (statuses as of 08/06/2023) Immunizations Name Administration Dates Next Due COVID-19 [...] Description 08/26/2023 11:30 AM EST Laboratory Laboratory [facility] [place] 200 [facility] [place] [phone] [place], Lab [facility] 200 [facility] [place] [address] 08/26/2023 12:00 PM EST Office Visit Hematology/Oncology [facility] [address] [place] [address] Mima Alvarado CRNP [address] [facility] [place] [address] 08/26/2023 12:30 PM EST Hem/Onc Treatment Hematology/Oncology Treatment, [place] [address] [facility] [place] [address] [place], Chair 6 Hem Onc [facility] 200 [facility] [place] [address] 09/10/2023 4:00 PM EST Imaging Radiology, [address] [place] [address] 09/11/2023 8:00 AM EST Office Visit Dermatology [address] [place] [address] Stacy Gomez PA-C [address] [place] [address] [place] [address] 09/17/2023 8:10 AM EST Laboratory Laboratory [facility] [address] [place] [phone] [place], Lab [address]enery [address] [place] [address] 09/17/2023 8:45 AM EST Office Visit Hematology/Oncology [facility] [place] [address] [place] [address] Mukesh Santos MD [address] [place] [address] 09/17/2023 9:15 AM EST [facility] [address] [place] [address] [place], Chair 8 Hem Onc [place] 200 [facility] [place] [address] 09/18/2023 7:40 AM EST Office Visit Family [address] [phone] Kalin Reeder MD [address] [place] [address] [place] [address] 11/12/2023 4:00 PM EDT Telemedicine Genetics HemOnc, [facility] [address] [place] [address] Kayy Martin, [place] [address] [place] [address] 12/27/2023 2:45 PM EDT Office Visit Hematology/Oncology [facility] [place] [address] [place] [address] Mukesh Santos MD [address] [place] [address] 04/15/2024 12:00 PM EDT Imaging Radiology [facility] 1st [facility] [address] [place] [address] 05/26/2024 9:45 AM EST Office Visit General Surgery, [facility] [address] [place] [address] Perla Wang MD [address] [place] [address] Health Maintenance Due Date Last Done Comments [...] this encounter Medical Devices Implanted Type Area Supervising Airplane Pilot Device Identifier Shelf Expiration Date Model / Serial / Lot Port 8fr 1lumen Infusion St Latexfree Power Implantable - [id number] Implanted:Qty: 1 on 07/31/2023 by Jadiel Foy MD at OR [facility] BARD : PERIPHERAL VASCULAR [id number] 06/13/2024 [id number] / / [id number] documented as of this encounter Visit Diagnoses [...] Advance Directives occurred with: Patient Care Teams Radio Aerial Installer Relationship Specialty Start Date End Date Kalin Reeder MD [address] [place] [address] [place] [address] PCP - General Family Medicine 03/15/21 documented as of this encounter
--- OUTSIDE RECORDS SUMMARY | 2023-08-26 19:36 | External Medical Summary | Summary of Care ---
Author Name Unknown Organization [facility] Address [address] [place] [address] Phone [phone] Care Team Providers Care Synoptic Meteorologist Name Role Phone Kalin Reeder MD Primary Care Provide r Reason for Visit * Reason Onset Date Comments Precert Approved 08/01/2023 18 AR ELPIDIO Encounter Details Date Type Department Care Team (Late st Contact Info) Description 07/30/2023 Telephone Hematology/Oncology Treatment, [place] [address] [place] [address] Mukesh Santos MD [address] [place] [address] Precert Approved (18 AR EMLA) Allergies No known active allergiesdocumented as of this encounter (statuses as of 08/01/2023) Medications Medication Sig Dispensed Refills Start Date End Date Status Aspirin 81 MG Oral Tablet Delayed Release take 1 tablet (81MG) by oral route every day 0 Active Calcium 1200 5211-3118 MG-UNIT Oral Tablet Chewable Take 1 Tablet [...] hemoglobin A1c goal of less than 7.0% ([facility]) USE TO TEST SUGARS ONCE DAILY. [...] hemoglobin A1c goal of less than 7.0% ([facility]) INJECT 1.5 MG UNDER THE SKIN [...] Miscellaneous Notes * Telephone Encounter - Myrna Helms, JAYLENE - 08/01/2023 1:24 PM EST New or re-auth: New authorization Approved/Denied: Approved Drug Name and Formulation: Lidocaine-Prilocaine 2.5-2.5% cream How Prescribed(directions/sig): APPLY TO SKIN OVER MEDIPORT & COVER 1HR PRIOR TO ACCESSING Day Supply: 30 Did you receive insurance information from outside the chart? No, received insurance information within the chart Valid auth start date: 06/01/23 Valid auth end date: 07/31/24 Rx Insurance Info: Sherine WADE Reference #: INIT - [id number] Rx Benefits Verified through/on date: 08/01/23 Referral (TE) received from: TANNER Helms Medication Relay Shop Supervisor P: [phone] F: [phone] 08/01/23,1:19 PM * Telephone Encounter - Myrna Helms OSA - 08/01/2023 9:47 AM EST [facility] Authorization Submission Submission Information: Medication: Lidocaine-Prilocaine 2.5-2.5% cream Portal used: [facility] Insurance: How do you roll? Authorization #/Ramirez: [id number] Myrna Helms Medication Relay Shop Supervisor P: [phone] F: [phone] 08/01/2023,9:48 AM * Telephone Encounter - Leonor Hay RN - 07/30/2023 1:54 PM EST ICD-10: c50.411, z17.0 Start date: 1 week Drugs: Disp Refills Start End Lidocaine-Prilocaine 2.5-2.5 % External Cream (Emla) 30 g 1 07/30/2023 -- Sig: APPLY TO SKIN OVER MEDIPORT & COVER 1HR PRIOR TO ACCESSING. Physician: Dr Mukesh Santos Received fax from [facility] that EMLA requires auth. documented in this encounter Plan of Treatment Upcoming Encounters Date Type Department Care Team (Late st Contact Info) Description 08/05/2023 11:00 AM EST Hem/Onc Treatment Hematology/Oncology Treatment, [place] [address] [place] [address] Suellen, Chair 2 Hem Onc [address] [place] [address] 09/10/2023 4:00 PM EST Imaging Radiology, [address] [place] [address] 09/11/2023 8:00 AM EST Office Visit Dermatology [address] [place] [address] Stacy Gomez PA-C [address] [place] [address] [place] [address] 09/18/2023 7:40 AM EST Office Visit Family Medicine [address] [place] [address] Kalin Reeder MD [address] [place] [address] [place] [address] 11/12/2023 4:00 PM EDT Telemedicine Genetics HemOnc, C [address] [place] [address] Kayy Martin, MS [address] [place] [address] 12/27/2023 2:45 PM EDT Office Visit Hematology/Oncology [facility] [address] [place] [address] Mukesh Santos MD [address] [place] [address] 04/15/2024 12:00 PM EDT Imaging Radiology [facility] 1st [facility] [address] [facility] [place] [address] 05/26/2024 9:45 AM EST Office Visit General Surgery, [facility] [address] [facility] [place] [address] Perla Wang MD 132 [facility] [place] [address] Health Maintenance Due Date Last Done Comments [...] this encounter Medical Devices Implanted Type Area Clinical Haematologist Device Identifier Shelf Expiration Date Model / Serial / Lot Port 8fr 1lumen Infusion St Latexfree Power Implantable - [id number] Implanted:Qty: 1 on 07/31/2023 by Jadiel Foy MD at OR [facility] BARD : PERIPHERAL VASCULAR [id number] 06/13/2024 [id number] / / [id number] documented as of this encounter Advance Directives Latest Code Status on File Code Status Date Activated Date Inactivated Comments Full Code 06/12/2023 6:58 AM 06/12/2023 4:24 PM Thi s order reflects the patients wishes and were consensually agreed upon. Question Answer Comments Discussion of Advance Directives occurred with: Patient Care Teams Synoptic Meteorologist Relationship Specialty Start Date End Date Kalin Reeder MD [address] [place] [address] [place] [address] PCP - General Family Medicine 03/15/21 documented as of this encounter
--- OUTSIDE RECORDS SUMMARY | 2023-08-26 19:36 | External Medical Summary | Summary of Care ---
Author Name Unknown Organization [facility] Address [address] [place] [address] Phone [phone] Care Team Providers Care Director Nursery School Name Role Phone Kalin Reeder MD Primary Care Provide r Reason for Visit * Reason Onset Date Comments Precert Approved 08/01/2023 18 AR ELPIDIO Encounter Details Date Type Department Care Team (Late st Contact Info) Description 07/30/2023 Telephone Hematology/Oncology Treatment, [place] [address] [place] [address] Mukesh Santos MD [address] [place] [address] Precert Approved (18 AR EMLA) Allergies No known active allergiesdocumented as of this encounter (statuses as of 08/01/2023) Medications Medication Sig Dispensed Refills Start Date End Date Status Aspirin 81 MG Oral Tablet Delayed Release take 1 tablet (81MG) by oral route every day 0 Active Calcium 1200 7728-8349 MG-UNIT Oral Tablet Chewable Take 1 Tablet [...] A1c goal of less than 7.0% ([facility]) USE TO TEST SUGARS ONCE DAILY. [...] A1c goal of less than 7.0% ([facility]) INJECT 1.5 MG UNDER THE SKIN [...] Info: Sherine WADE Reference #: INIT - [id number] Rx Benefits Verified through/on date: 08/01/23 Referral (TE) received from: TANNER Helms Medication Gin Feeder P: [phone] F: [phone] 08/01/23,1:19 PM * Telephone Encounter - Myrna Helms OSA - 08/01/2023 9:47 AM EST [facility] Authorization Submission Submission Information: Medication: Lidocaine-Prilocaine 2.5-2.5% cream Portal used: [facility] Insurance: [employer] Authorization #/Ramirez: [id number] Myrna Helms Medication Gin Feeder P: [phone] F: [phone] 08/01/2023,9:48 AM * Telephone Encounter - Leonor Hay RN - 07/30/2023 1:54 PM EST ICD-10: c50.411, z17.0 Start date: 1 week Drugs: Disp Refills Start End Lidocaine-Prilocaine 2.5-2.5 % External Cream (Emla) 30 g 1 07/30/2023 -- Sig: APPLY TO SKIN OVER MEDIPORT & COVER 1HR PRIOR TO ACCESSING. Physician: Dr Mukesh Santos Received fax from [facility] that EMLA requires auth. documented in this encounter Plan of Treatment Upcoming Encounters Date Type Department Care Team (Late st Contact Info) Description 08/05/2023 11:00 AM EST Hem/Onc Treatment Hematology/Oncology Treatment, [place] [address] [place] [address] Suellen, Chair 2 Hem Onc Scenery [address] [place] [address] 09/10/2023 4:00 PM EST Imaging Radiology, [address] [place] [address] 09/11/2023 8:00 AM EST Office Visit Dermatology [address] [place] [address] Stacy Gomez PA-C [address] [place] [address] [place] [address] 09/18/2023 7:40 AM EST Office Visit Family Medicine [address] [place] [address] Kalin Reeder MD [address] [place] [address] [place] [address] 11/12/2023 4:00 PM EDT Telemedicine Genetics HemOnc, C [address] [place] [address] Kayy Martin, MS [address] [place] [address] 12/27/2023 2:45 PM EDT Office Visit Hematology/Oncology [facility] [address] [place] [address] Mukesh Santos MD [address] [place] [address] 04/15/2024 12:00 PM EDT Imaging Radiology [facility] 1st [facility] 132 [facility] [place] [address] 05/26/2024 9:45 AM EST Office Visit General Surgery, [facility] [address] [facility] [place] [address] Perla Wang MD 132 [facility] [place] [address] Health Maintenance Due Date Last Done Comments [...] this encounter Medical Devices Implanted Type Area Truck Driver Helper Device Identifier Shelf Expiration Date Model / Serial / Lot Port 8fr 1lumen Infusion St Latexfree Power Implantable - [id number] Implanted:Qty: 1 on 07/31/2023 by Jadiel Foy MD at OR [facility] BARD : PERIPHERAL VASCULAR [id number] 06/13/2024 [id number] / / [id number] documented as of this encounter Advance Directives Latest Code Status on File Code Status Date Activated Date Inactivated Comments Full Code 06/12/2023 6:58 AM 06/12/2023 4:24 PM Thi s order reflects the patients wishes and were consensually agreed upon. Question Answer Comments Discussion of Advance Directives occurred with: Patient Care Teams Director Nursery School Relationship Specialty Start Date End Date Kalin Reeder MD [address] [place] [address] [place] [address] PCP - General Family Medicine 03/15/21 documented as of this encounter
--- OUTSIDE RECORDS SUMMARY | 2023-08-26 19:36 | External Medical Summary | Summary of Care ---
Author Name Unknown Organization [facility] Address [address] [place] [address] Phone [phone] Care Team Providers Care Cracking Unit Operator Name Role Phone Kalin Reeder MD Primary Care Provide r Reason for Visit * Reason Onset Date Comments Other 08/01/2023 Trulicity 1.5 MG /0.5ML Subcutaneous Solution Pen-injector (Dulaglutide Encounter Details Date Type Department Care Team (Late st Contact Info) Description 08/01/2023 Telephone Family Medicine [address] [place] [address] Kalin Reeder MD [address] [place] [address] [place] [address] Other (Trulicity 1.5 MG/0.5ML Subcutaneous... Allergies No known active allergiesdocumented as of this encounter (statuses as of 08/02/2023) Medications Medication Sig Dispensed Refills Start Date End Date Status Aspirin 81 MG Oral Tablet Delayed Release take 1 tablet (81MG) by oral route every day 0 Active Calcium 1200 8046-5290 MG-UNIT Oral Tablet Chewable Take 1 Tablet [...] on 07/31/2023 Empagliflozin 10 MG Oral Tablet (Jardiance)Indicati ons:Type [...] encounter Miscellaneous Notes * Telephone Encounter - Kailn Reeder MD - 08/02/2023 10:43 AM EST [...] your earliest convenience. Thank you, Dinorah Garcia Nuclear Radiologist [facility] 08/01/2023, 3:58 PM documented in this encounter Plan of Treatment Upcoming Encounters Date Type Department Care Team (Late st Contact Info) Description 08/05/2023 11:00 AM EST Hem/Onc Treatment Hematology/[address] [address] [place], Chair 2 Hem On[address] [place] [address] 09/10/2023 4:00 PM EST Imaging Radiology, [address] [place] [address] 09/11/2023 8:00 AM EST Office Visit Dermatology [address] [place] [address] Stacy Gomez PA-C [address] [place] [address] [place] [address] 09/18/2023 7:40 AM EST Office Visit Family Medicine [address] [place] [phone] Kalin Reeder MD [address] [place] [address] [place] [address] 11/12/2023 4:00 PM EDT Telemedicine Genetics HemOnc, C [address] [place] [address] Kayy Martin, MS [address] [place] [address] 12/27/2023 2:45 PM EDT Office Visit Hematology/Oncology [facility] 200 [facility] [place] [address] Mukesh Santos MD [address] [place] [address] 04/15/2024 12:00 PM EDT Imaging Radiology [facility] 1st [facility] [place] [address] 05/26/2024 9:45 AM EST Office Visit General Surgery, [facility] [place] [address] Perla Wang MD [address] [place] [address] Health Maintenance Due Date Last Done Comments Pneumococcal Vaccine: 65+ Years (1 - PCV) 1963 Depression Screening 1969 DTaP,Tdap,and Td Vaccines (1 - Tdap) 06/22/1999 06/21/1999, 10/15/1980 Cologuard 2002 Fecal Occult Blood Test 2002 Sigmoidoscopy 2002 Hepatitis B (1 of 3 - Risk 3-dose series) 2017 COVID-19 Vaccine (2022- season) 2023 08/23/2022, 06/20/2021, 12/06/2020, Additional history [...] this encounter Medical Devices Implanted Type Area Shingle Trimmer Device Identifier Shelf Expiration Date Model / Serial / Lot Port 8fr 1lumen Infusion St Latexfree Power Implantable - [id number] Implanted:Qty: 1 on 07/31/2023 by Jadiel Foy MD at OR [facility] BARD : PERIPHERAL VASCULAR [id number] 06/13/2024 [id number] / / [id number] documented as of this encounter Visit Diagnoses Diagnosis Type 2 diabetes mellitus with hemoglobin A1c goal of less than 7.0% ([facility])- Primary documented in this encounter Advance Directives Latest Code Status on File Code Status Date Activated Date Inactivated Comments Full Code 06/12/2023 6:58 AM 06/12/2023 4:24 PM Thi s order reflects the patients wishes and were consensually agreed upon. Question Answer Comments Discussion of Advance Directives occurred with: Patient Care Teams Cracking Unit Operator Relationship Specialty Start Date End Date Kalin Reeder MD [address] [place] [address] [place] [phone] PCP - General Family Medicine 03/15/21 documented as of this encounter
--- OUTSIDE RECORDS SUMMARY | 2023-08-26 19:36 | External Medical Summary | Summary of Care ---
Author Name Unknown Organization [facility] Address [address] [place] [address] Phone [phone] Care Team Providers Care Chief Maintenance Supervisor Name Role Phone Kalin Burk MD Primary Care Provide r Reason for Referral * Medication Prior Authorization - Closed Specialty Diagnoses / Procedures Referred By Contac t Referred To Contact Diagnoses Type 2 diabetes mellitus with hemoglobin A1c goal of less than 7.0% ([facility] Tiffany Garcia, [facility] [address] [facility] [address] Referral ID Status Reason Start Date Expiration Date Visits Re quested Visits Authorized [id number] Closed 999 806 Reason for Visit * Reason Comments eRx-Medication Refill Encounter Details Date Type Department Care Team (Late st Contact Info) Description 07/07/2023 Refill Family Medicine [address] [phone] Kalin Burk MD [address] [place] [address] [place] [address] Type 2 diabetes mellitus with hemoglobin A1c goal of less than 7.0% ([facility]) Allergies No known active allergiesdocumented as of this encounter (statuses as of 08/01/2023) Medications Medication Sig Dispensed Refills Start Date End Date Status Aspirin 81 MG Oral Tablet Delayed Release take 1 tablet (81MG) by oral route every day 0 Active Calcium 1200 4048-8302 MG-UNIT Oral Tablet Chewable Take 1 Tablet [...] Accu-Chek Stefani Plus In Vitro Strip (Glucose Blood)Indications: Type 2 diabetes mellitus with hemoglobin A1c goal of less than 7.0% ([facility]) USE TO TEST SUGARS ONCE DAILY. E11.9 100 Strip 2 03/04/2023 Active hydroCHLOROthiazid e 25 MG Oral Tablet (Hydrodiuril)Indic ations:HTN, goal below 130/80 TAKE 1 TABLET BY MOUTH EVERY DAY IN THE MORNING 90 Tablet 1 04/17/2023 Active metFORMIN HCl 500 MG Oral Tablet (Glucophage)Indica tions:Type 2 diabetes mellitus with hemoglobin A1c goal of less than 7.0% ([facility]) TAKE 2 TABLETS BY MOUTH TWICE A DAY 360 Tablet 1 04/23/2023 Active Lisinopril 40 MG Oral TabletIndications: HTN, goal below 130/80 TAKE 1 TABLET BY MOUTH EVERY DAY IN THE MORNING 90 Tablet 1 04/23/2023 Active Ferrous Sulfate 325 (65 Fe) MG Oral Tablet (Feosol) TAKE 2 TABLETS BY MOUTH EVERY MORNING 180 Tablet 0 05/07/2023 Active HYDROcodone-Acetam inophen 5-325 MG Oral Tablet Take 1 Tablet by mouth every 6 hours as needed for moderate Pain 5 Tablet 0 06/12/2023 Active Trulicity 1.5 MG/0.5ML Subcutaneous Solution Pen-injector (Dulaglutide)Indic ations:Type 2 diabetes mellitus with hemoglobin A1c goal of less than 7.0% ([facility]) INJECT 1.5 MG UNDER THE SKIN ONCE A WEEK. 6 mL 1 07/09/2023 Active Trulicity 1.5 MG/0.5ML Subcutaneous Solution Pen-injector (Dulaglutide)Indic ations:Type 2 diabetes mellitus with hemoglobin A1c goal of less than 7.0% ([facility]) Inject 1.5 mg under the skin once a week. 6 mL 1 01/23/2023 3 Discontinued glipiZIDE ER 5 MG Oral Tablet Extended Release 24 Hour (glipiZIDE XL)Indications:Typ e 2 diabetes mellitus with hemoglobin A1c goal of less than 7.0% ([facility]) Take 1 Tablet by mouth in the morning. 30 minutes before a meal.. 90 Tablet 1 01/23/2023 4 Discontinued documented as of this encounter (statuses [...] encounter Miscellaneous Notes * Telephone Encounter - Kasia Meraz CPhT - 08/01/2023 3:41 PM EST Pt's calling stating pharmacy does not have med in stock. Pt's is going to call around to other pharmacies to see if they have it in stock. Pt's stating he will call back. Thank you, Anne Meraz Die Keeper [facility] 08/01/2023,3:41 PM * Telephone Encounter - Tiffany Garcia RPh - 07/09/2023 11:32 AM ESTSigned Prescriptions: Disp Refills Trulicity 1.5 MG/0.5ML Subcutaneous Soluti*6 mL 1 Sig: INJECT 1.5 MG UNDER THE SKIN ONCE A WEEK.Authorizing Provider: Janna BURK User: FOSTER GARCIA documented in this encounter Plan of Treatment Upcoming Encounters Date Type Department Care Team (Late st Contact Info) Description 08/05/2023 11:00 AM EST Hem/Onc Treatment Hematology/Oncology Treatment, [place] [address] [place] [address] [place], Chair 2 Hem Onc [facility] 200 [facility] [place] [address] 09/10/2023 4:00 PM EST Imaging Radiology, [place] [address] [facility] [place] [address] 09/11/2023 8:00 AM EST Office Visit Dermatology [address] [place] [address] Stacy Gomez PA-C [address] [place] [address] [place] [address] 09/18/2023 7:40 AM EST Office Visit Family Medicine [address] [place] [address] Kalin Burk MD [address] [place] [address] [place] [address] 11/12/2023 4:00 PM EDT Telemedicine Genetics HemOnc, [facility] [address] [place] [address] Kayy Martin, MS [address] [place] [address] 12/27/2023 2:45 PM EDT Office Visit Hematology/Oncology [facility] [address] [place] [address] Mukesh Santos MD [address] [place] [address] 04/15/2024 12:00 PM EDT Imaging Radiology [facility] 1st [facility] 132 [facility] [place] [address] 05/26/2024 9:45 AM EST Office Visit General Surgery, [facility] 132 [facility] [place] [address] Perla aWng MD [address] [place] [address] Health Maintenance Due Date Last Done Comments [...] this encounter Medical Devices Implanted Type Area Parent Coach Device Identifier Shelf Expiration Date Model / Serial / Lot Port 8fr 1lumen Infusion St Latexfree Power Implantable - [id number] Implanted:Qty: 1 on 07/31/2023 by Jadiel Foy MD at OR [facility] BARD : PERIPHERAL VASCULAR [id number] 06/13/2024 [id number] / / [id number] documented as of this encounter Visit Diagnoses Diagnosis Type 2 diabetes mellitus with hemoglobin A1c goal of less than 7.0% ([facility]) documented in this encounter Advance Directives Latest Code Status on File Code Status Date Activated Date Inactivated Comments Full Code 06/12/2023 6:58 AM 06/12/2023 4:24 PM Thi s order reflects the patients wishes and were consensually agreed upon. Question Answer Comments Discussion of Advance Directives occurred with: Patient Care Teams Chief Maintenance Supervisor Relationship Specialty Start Date End Date Kalin Burk MD [address] [place] [address] [place] [address] PCP - General Family Medicine 03/15/21 documented as of this encounter
--- OUTSIDE RECORDS SUMMARY | 2023-08-26 19:36 | External Medical Summary | Summary of Care ---
Author Name Unknown Organization [facility] Address [address] [place] [address] Phone [phone] Care Team Providers Care Miller Apprentice Name Role Phone Kalin Reeder MD Primary Care Provide r Reason for Visit * Reason Comments Chemotherapy C1/D1 - TC * Episode Based Medications (Routine) - Authorized Specialty Diagnoses / Procedures Referred By Contac t Referred To Contact Diagnoses Encounter for antineoplastic chemotherapy Malignant neoplasm of upper-outer quadrant of right breast in female, estrogen receptor positive (HCC) Procedures IN PALONOSETRON HCL IN INJECTION, FULPHILA IN DOCETAXEL INJECTION IN CYCLOPHOSPHAMIDE 100 MG INJ Mukesh Santos MD 200 [facility] [place] [address] Anc Hem/Onc [address] [address] Referral ID Status Reason Start Date Expiration Date V isits Requested Visits Authorized [id number] Authorized 07/26/2023 01/21/[phone] Encounter Details Date Type Department Care Team (Latest Contact Info) Description 08/05/2023 11:00 AM EST Hem/Onc Treatment Hematology/Oncolog y Treatment, [address] [address] [place], Chair 2 Hem On[address] [place] [address] Encounter for antineoplastic chemotherapy*; Malignant neoplasm of upper-outer quadrant of right breast in female, estrogen receptor positive (HCC) Allergies No known active allergiesdocumented as of this encounter (statuses as of 08/05/2023) Medications Medication Sig Dispensed Refills Start Date End Date Status Aspirin 81 MG Oral Tablet Delayed Release take 1 tablet (81MG) by oral route every day 0 Active Calcium 1200 6361-6849 MG-UNIT Oral Tablet Chewable Take 1 Tablet [...] as of this encounter (statuses as of 08/05/2023) Active Problems Problem Noted Date Diagnosed Date [...] as of this encounter (statuses as of 08/05/2023) Resolved Problems Problem Noted Date Diagnosed Date Resolved Date Mixed dyslipidemia Overview: Per Lipid Taxonomy. documented as of this encounter (statuses as of 08/05/2023) Immunizations Name Administration Dates Next Due COVID-19 [...] Sign Reading Time Taken Comments Blood Pressure 135/79 08/05/2023 11:00 AM EST Pulse 87 08/05/2023 11:00 AM EST Temperature 37.2 C (98.9 F) 08/05/2023 1 1:00 AM EST Respiratory Rate 18 08/05/2023 11:0 0 AM EST Oxygen Saturation 96% 08/05/2023 11: 00 AM EST Inhaled Oxygen Concentration - - Weight 104.7 kg (230 lb 12.8 oz) 2023 11:00 AM EST Height - - Body Mass Index 46.62 07/31/2023 10:17 AM EST documented in this encounter Nursing Notes * Shiela Borrero RN - 08/05/2023 2:57 PM EST Goals: Patient will remain free from injury. Possible barriers to meeting goals: ambulating with IV pole Stability of the patient: Moderately stable - low risk of patient condition declining or worsening Summary regarding today's goals: Met: pt remained free of harm today Functional status at today's visit: Restricted in physically strenuous activity but ambulatory and able to carry out work on a light orsedentary nature, e.g. light house work, office work The drug name, dose, infusion volume, rate and route of administration, expiration date and time, appearance and physical integrity of the drug and rate set on the pump and sequencing of drug administration (as applicable) were verified by me and second sign-in RN. Patient was assessed for symptoms or adverse side effects during treatment. Patient tolerated treatment well without any acute issues or problems. Patient will return tomorrowat 1:45 pm for Fulphila injection. Patient left facility in stable condition and denied any furtherneeds. * Shiela Borrero RN - 08/05/2023 11:25 AM EST Chair 8. Patient presents today for first cycle of chemotherapy. Patient was educated about establishing IV access, giving premeds, taking PRN home medications, process of getting medication from pharmacy, layout of treatment room, use of call lees, etc. Patient communicated understanding and denied any further questions, concerns, needs. Chemo agents Taxotere, Cytoxan Appetite fair Nausea/Vomiting no Diarrhea no Constipation no Mucositis no Fatigue no Bleeding no Infection no Rash no Numbness tingling no Pain no Radiation no ABN Labs WNL for tx, done 07/30 Alt in Tx: N/A Return in 1 day for Fulphila Safety and Risk for Injury Patient will remain free from injury. Ensure appropriate safety devices are available. Provide and maintain safe environment. documented in this encounter Plan of Treatment Upcoming Encounters Date Type Department Care Team (Late st Contact Info) Description 08/06/2023 1:45 PM EST Nurse Only Hematology/Oncology [address], [address] [address] [place], Chair 5 Hem Onc [address] [place] [address] 08/26/2023 11:30 AM EST Laboratory Laboratory [facility] [address] [place] [phone] [place], Lab [facility] [address] [place] [address] [place] [address] 08/26/2023 12:00 PM EST Office Visit Hematology/Oncology [address] [place] [address] Mima Alvarado CRNP [address] [facility] [place] [address] 08/26/2023 12:30 PM EST Hem/Onc Treatment Hematology/Oncology Treatment, [place] 200 [facility] [place] [address] [place], Chair 6 Hem Onc [facility] [address] [place] [address] [place] [address] 09/10/2023 4:00 PM EST Imaging Radiology, [address] [place] [address] 09/11/2023 8:00 AM EST Office Visit Dermatology [address] [place] [address] Stacy Gomez PA-C [address] [place] [address] [place] [address] 09/17/2023 8:10 AM EST Laboratory Laboratory [facility] [place] [address] [place] [phone] [place], Lab Scenery 200 [facility] [place] [address] 09/17/2023 8:45 AM EST Office Visit Hematology/Oncology [facility] [place] 200 [facility] [place] [address] Mukesh Santos MD 200 [facility] [place] [address] 09/17/2023 9:15 AM EST [facility] [address] [place], Chair 8 Hem Onc [facility] 200 [facility] [place] [address] 09/18/2023 7:40 AM EST Office Visit Family Medicine [address] [phone] Kalin Reeder MD [address] [place] [address] [place] [address] 11/12/2023 4:00 PM EDT Telemedicine Genetics HemOnc, [facility] [address] [place], [place] [phone] Kayy Martin, MS [address] [place] [address] 12/27/2023 2:45 PM EDT Office Visit Hematology/Oncology [facility] [place] [address] [place] [address] Mukesh Santos MD [address] [place] [address] 04/15/2024 12:00 PM EDT Imaging Radiology [facility] 1st [facility] [address] [email or web address] [place] [address] 05/26/2024 9:45 AM EST Office Visit General Surgery, [facility] [address] [facility] [place] [address] Perla Wang MD [address] [place] [address] Health Maintenance Due Date Last Done Comments [...] this encounter Medical Devices Implanted Type Area Benefits Consulting Analyst Device Identifier Shelf Expiration Date Model / Serial / Lot Port 8fr 1lumen Infusion St Latexfree Power Implantable - [id number] Implanted:Qty: 1 on 07/31/2023 by Jadiel Foy MD at OR [facility] BARD : PERIPHERAL VASCULAR [id number] 06/13/2024 [id number] / / [id number] documented as of this encounter Visit Diagnoses Diagnosis Encounter for antineoplastic chemotherapy- Primary Malignant neoplasm of upper-outer quadrant of right breast in female, estrogen receptor positive (HCC) documented in this encounter Administered Medications Active Administered Medications - up to 3 most recent administrations Medication Order MAR Action Action Date Dose Rate Site diphenhydrAMINE (Benadryl) inj 50 mg 50 mg, IV Push, ONCE PRN Other, Hypersensitivity Reaction, Starting on Sat08/05/23 at 1123, Until Sat08/06/23 at 1122, For 24 hours EPINEPHrine 1 MG/ML inj 0.3 mg 0.3 mg, Intramuscular, ONCE PRN Other, Hypersensitivity Reaction or Anaphylaxis, Starting on Sat08/05/23 at 1123, Until Sat08/06/23 at 1122, For 24 hours hEParin 100 UNIT/ML Lock Flush inj 500 Units 500 Units (5 mL), IV Lock, PRN Other, IV Flush, Starting on Sat08/05/23 at 1123, Until Sat08/06/23 at 1122, For 24 hours, Do not flush if lock, PICC, or central line not in place; IV infusing or unable to flush. Given 08/05/2023 1:36 PM EST 500 Units Hydrocortisone Sod Suc (PF) (Solu-Cortef) inj 100 mg 100 mg, IV Push, ONCE PRN Other, Hypersensitivity Reaction, Starting on Sat08/05/23 at 1123, Until Sat08/06/23 at 1122, For 24 hours LORAzepam (Ativan) tab 0.5 mg 0.5 mg, Oral, ONCE PRN Anxiety, Nausea, Starting on Sat08/05/23 at 1230, Until Discontinued NSS infusion Intravenous, at 50 mL/hr, PRN, Starting on Sat08/05/23 at 1230, Until Discontinued, Maintenance line Start Infusion 08/05/2023 11:25 AM EST 50 mL/hr oxygen GAS Inhalation, OXYGEN, First dose on Sat08/05/23 at 1600, Until Discontinued, Device/Managed by: Low Flow Device, Goal SPO2 (%): 91-95, Starting Device: Nasal Cannula, Initial Flow Rate (LPM): 2, Lowest Support: Nasal Cannula: Flow 0-6 LPM. Titrate up/down by 1 LPM., Higher Support: Non-Rebreather (NRB) Mask: Minimum of 10 LPM. Titrate to maintain bag inflation., Titration Interval: Q2 minutes and as needed., Notify Provider: For sudden DECREASE in resting SPO2 to less than 85% and when escalating delivery device., Wean patient off Oxygen when the oxygen saturation is greater than or equal to 93% sodium chloride 0.9 % flush central line 10 mL 10 mL, IV Push, PRN Other, IV Flush, Starting on Sat08/05/23 at 1123, Until Sat08/06/23 at 1122, For 24 hours, Do not flush if lock, PICC, or central line not in place; IV infusing or unable to flush. Given 08/05/2023 1:36 PM EST 10 mL Inactive Administered Medications - up to 3 most recent administrations Medication Order MAR Action Action Date Dose Rate Site cycloPHOSphamide (Cytoxan) 1,250 mg in NSS 500 mL infusion 1,250 mg (rounded from 1,254 mg = 600 mg/m2 2.09 m2 Treatment Plan BSA from Recorded weight), IV Piggyback, ONCE, On Sat08/05/23 at 1300, For 1 dose, Cyclophosphamide doses over 1g should be in 500 mL.May extend infusion to 1 hour if not tolerated. Start Infusion 08/05/2023 1:04 PM EST 1,250 mg 1000 mL/hr dexAMETHasone (Decadron) tab 12 mg 12 mg, Oral, ONCE, On Sat08/05/23 at 1145, For 1 dose Given 08/05/2023 11:33 AM EST 12 mg diphenhydrAMINE (Benadryl) cap 25 mg 25 mg, Oral, ONCE, On Sat08/05/23 at 1145, For 1 dose Given 08/05/2023 11:32 AM EST 25 mg DOCEtaxel (Taxotere) 160 mg in NSS 250 mL infusion 160 mg, IV Piggyback, at 250 mL/hr Administer over 60 Minutes, ONCE, 1 dose, On Sat08/05/23 at 1400 Start Infusion 08/05/2023 12:00 PM EST 160 mg 250 mL/hr Palonosetron (Aloxi) inj SOLN 0.25 mg 0.25 mg, IV Push, ONCE, On Sat08/05/23 at 1145, For 1 dose, Restricted per S antiemetic guidelines Given 08/05/2023 11:33 AM EST 0.25 mg documented in this encounter Advance Directives Latest Code Status on File Code Status Date Activated Date Inactivated Comments Full Code 06/12/2023 6:58 AM 06/12/2023 4:24 PM Thi s order reflects the patients wishes and were consensually agreed upon. Question Answer Comments Discussion of Advance Directives occurred with: Patient Care Teams Miller Apprentice Relationship Specialty Start Date End Date Kalin Reeder MD [address] [place] [address] [place] [address] PCP - General Family Medicine 03/15/21 documented as of this encounter
--- OUTSIDE RECORDS SUMMARY | 2023-08-26 19:37 | External Medical Summary | Summary of Care ---
Author Name Unknown Organization [facility] Address [address] [place] [address] Phone [phone] Care Team Providers Care Nurse Chemical Dependency Name Role Phone Kalin Reeder MD Primary Care Provide r Reason for Referral * Evaluate & Treat - Unlimited Visits (Within 10 days (routine)) - Pending Review Specialty Diagnoses / Procedures Referred By Contarian bills Referred To Contact Pharmacist / Pharmacy Diagnoses Malignant neoplasm of upper-outer quadrant of right breast in female, estrogen receptor positive Type 2 diabetes mellitus with hemoglobin A1c goal of less than 7.0% ([facility]) Mukesh Santos MD [address] [place] [address] Referral ID Status Reason Start Date Expiration Date Visits Requested Visits Authorized [id number] Pending Review Specialty Services Required 07/30/2023 99 99 Question Answer Referral Priority Within 10 days (routine) Where should this appointment be scheduled? [facility] Referring Provider Role: Specialist Specialty: Heme/Onc Reason for Referral: DM Target A1c: Symptom Mgmt Comments Pharmacist Medication Therapy Management: Minimum frequency patient should be seen in person for medication management: as appropriate per clinical condition and patient status By my signature, I understand that my patient Alyssa Reyes will have her medication therapy managed by the [facility] Medication Therapy Disease Management Clinic ([facility]) per established policies, procedures, and protocols. I also certify that this referral may serve as an initiation of service for the management of drug therapy in the above noted patient. [facility] providers will be responsible for scheduling patient visits, obtaining appropriate laboratory studies, and adjusting medication management therapy per patient's need, in addition to those roles spelled out in the clinic policy, procedures, and drug management protocols. I understand that the service provided by the [facility] Clinic is voluntary and have informed patient that they can refuse the service at their discretion. I am aware that the [facility] will provide me with a copy of the patient encounter via my [employer]. I authorize the [facility] to carry out these activities on my behalf. I consider this program to be a necessary part of the patient's medical care. Glucose management during chemotherapy- patient will be taking decadron 8mg BID x3 days starting the day before each chemotherapy cycle. Mukesh Santos MD Reason for Visit * Reason Onset Date Comments Precert Future 07/26/2023 MAT Kang Encounter Details Date Type Department Care Team (Late st Contact Info) Description 07/26/2023 Telephone Hematology/Oncology [facility] [place] [address] [place] [address] Mukesh Santos MD [address] [place] [address] Precert Future (MAT Kang) Allergies No known active allergiesdocumented as of this encounter (statuses as of 07/30/2023) Medications Medication Sig Dispensed Refills Start Date End Date Status Aspirin 81 MG Oral Tablet Delayed Release take 1 tablet (81MG) by oral route every day 0 Active Calcium 1200 0125-4211 MG-UNIT Oral Tablet Chewable Take 1 Tablet [...] goal of less than 7.0% ([facility]) USE TO TEST SUGARS ONCE DAILY. [...] encounter Miscellaneous Notes * Telephone Encounter - Jeffry Hay RN - 07/30/2023 9:34 AM EST PFC: patient would like to be called to discuss any possible OOP costs for chemotherapy. Thanks! Patient agreeable to scheduling chemotherapy. Scheduling: after nurse visit, please schedule patient for treatment Today: labs "CBCd, CMP, hep B" Next week: 3 hour appt "C1D1 TC/ fulphila day 2- use labs from 07/30/23". Treatment cannot be on Saturday due to patient needing to return the next day for fulphila injection Thanks! * Addendum Note - Jeffry Hay RN - 07/30/2023 9:19 AM ESTAddended by: JEFFRY HAY on: 07/30/2023 09:19 AM Modules accepted: Orders * Telephone Encounter - Jeffry Hay RN - 07/29/2023 3:07 PM EST Referral entered. * Telephone Encounter - Jeffry Hay RN - 07/26/2023 1:24 PM EST Received message from [employer] preferred product is FULPHILA. Ashley: please update beacon plan. Thanks! * Telephone Encounter - Sammy Kearns RN - 07/26/2023 9:19 AM EST Received orders for OP TC + Uden[facility] [place] plan built and placed on hold for review. Will be routed to provider for signature. -Referral placed today -Chemo education scheduled 07/30/23 -Port placement not scheduled at this time -Consent signed 07/25/23 -Hep B labs ordered, she will need to complete these prior to tx. - Standing order for CBCD, CMP placed Med Orders needed: Zofran, Compazine, and Decadron 8mg BID (start 1 day prior to chemo then the next two days). documented in this encounter Plan of Treatment Upcoming Encounters Date Type Department Care Team (Latest Contact Info) Description 07/31/2023 11:20 AM EST Hospital Encounter OR [facility], Operating Room, [facility] - 4th Floor [address] [address] Jadiel Foy MD [address] [place] [address] 07/31/2023 11:20 AM EST - 07/31/2023 12:25 PM EST Surgery OR [facility], Operating Room, [facility] - 4th Floor [address] [place] [address] Jadiel Foy MD [address] [place] [address] INSERT TUNNELED CENTRAL VENOUS ACCESS WITH SUBQ PORT 09/10/2023 4:00 PM EST Imaging Radiology, [address] [place] [address] 09/11/2023 8:00 AM EST Office Visit Dermatology [address] [place] [address] Stacy Gomez PA-C [address] [place] [address] [place] [address] 09/18/2023 7:40 AM EST Office Visit Family Medicine [address] [place] [phone] Kalin Reeder MD [address] [place] [address] [place] [address] 11/12/2023 4:00 PM EDT Telemedicine Genetics HemOnc, [facility] [address] [place], [place] [phone] Kayy Martin, MS [address] [place] [address] 12/27/2023 2:45 PM EDT Office Visit Hematology/Oncolog y [facility] [address] [place] [address] Mukesh Santos MD [address] [facility] [place] [address] 04/15/2024 12:00 PM EDT Imaging Radiology [facility] 1st [facility] [address] [facility] [place] [address] 05/26/2024 9:45 AM EST Office Visit General Surgery, [facility] [address] [facility] [place] [address] Perla Wang MD [address] [place] [address] Scheduled Orders Name Type Priority Associated Diagnoses Orde r Schedule HEPATITIS B CORE ANTIBODIES IGG AND IGM Lab Routine Malignant neoplasm of upper-outer quadrant of right breast in female, estrogen receptor positive Expected: 07/26/2023, Expires: 07/26/2024 HEPATITIS B SURFACE ANTIBODY Lab Routine Malignant neoplasm of upper-outer quadrant of right breast in female, estrogen receptor positive Expected: 07/26/2023, Expires: 07/26/2024 HEPATITIS B SURFACE ANTIGEN Lab Routine Malignant neoplasm of upper-outer quadrant of right breast in female, estrogen receptor positive Expected: 07/26/2023, Expires: 07/26/2024 CBC WITH WBC DIFFERENTIAL Lab Routine Malignant neoplasm of upper-outer quadrant of right breast in female, estrogen receptor positive Every 3 Weeks for 4 Occurrences starting 07/26/2023 until 07/26/2024 COMPREHENSIVE METABOLIC PANEL Lab STAT Malignant neoplasm of upper-outer quadrant of right breast in female, estrogen receptor positive Every 3 Weeks for 4 Occurrences starting 07/26/2023 until 07/26/2024 Scheduled Procedures Name Priority Associated Diagnoses Date/Ti me INSERT TUNNELED CENTRAL VENOUS ACCESS WITH SUBQ PORT Malignant neoplasm of upper-outer quadrant of right breast in female, estrogen receptor positive 07/31/2023 11:20 AM EST Scheduled Referrals Name Type Priority Associated Diagnoses Orde r Schedule PHARMACIST MEDS THERAPY MGMT REFERRAL OP Referral Within 10 days (routine) Malignant neoplasm of upper-outer quadrant of right breast in female, estrogen receptor positive Type 2 diabetes mellitus with hemoglobin A1c goal of less than 7.0% (HCC) Ordered: 07/30/2023 Health Maintenance Due Date Last Done Comments [...] 023, 01/24/2023, 01/09/2022, Additional history exists GFR 06/19/2024 06/19/2023, 01/12, 07/23/2022, Additional history exists Lipid Panel 01/24/2028 01/23/2023, [...] Not on filedocumented as of this encounter Visit Diagnoses Diagnosis Type 2 diabetes mellitus with hemoglobin A1c goal of less than 7.0% (HCC)- Primary Malignant neoplasm of upper-outer quadrant of [...] Advance Directives occurred with: Patient Care Teams Nurse Chemical Dependency Relationship Specialty Start Date End Date Kalin Reeder MD [address] [place] [address] [place] [address] PCP - General Family Medicine 03/15/21 documented as of this encounter
--- OUTSIDE RECORDS SUMMARY | 2023-08-26 19:37 | External Medical Summary | Summary of Care ---
Author Name Unknown Organization [facility] Address [address] [facility] [place] [address] Phone [phone] Care Team Providers Care Vp Celebrity Services Name Role Phone Kalin Reeder MD Primary Care Provide r Reason for Visit * Reason Comments Outpatient Testing Encounter Details Date Type Department Care Team (Late st Contact Info) Description 07/30/2023 10:00 AM EST Laboratory Laboratory [facility] [address] [place] [address] [facility] [address] [place] [address] Malignant neoplasm of upper-outer quadrant of right breast in female, estrogen receptor positive Allergies No known active allergiesdocumented as of this encounter (statuses as of 07/30/2023) Medications Medication Sig Dispensed Refills Start Date End Date Status Aspirin 81 MG Oral Tablet Delayed Release take 1 tablet (81MG) by oral route every day 0 Active Calcium 1200 8776-0719 MG-UNIT Oral Tablet Chewable Take 1 Tablet [...] hemoglobin A1c goal of less than 7.0% ([facility]) USE TO TEST SUGARS ONCE DAILY. [...] on file documented as of this encounter Plan of Treatment Upcoming Encounters Date Type Department Care Team (Latest Contact Info) Description 07/31/2023 11:20 AM EST Hospital Encounter OR [facility], Operating Room, [facility] - 4th Floor [address] [place] [address] Jadiel Foy MD [address] [place] [address] 07/31/2023 11:20 AM EST - 07/31/2023 12:25 PM EST Surgery OR [facility], Operating Room, [facility] - 4th Floor [address] [place] [address] Jadiel Foy MD [address] [place] [address] INSERT TUNNELED CENTRAL VENOUS ACCESS WITH SUBQ PORT 08/05/2023 11:00 AM EST Hem/Onc Treatment Hematology/Oncolog y Treatment, [place] [address] [place] [address] [place], Chair 2 Hem Onc Scenery [address] [place] [address] 09/10/2023 4:00 PM EST Imaging Radiology, [address] [place] [address] 09/11/2023 8:00 AM EST Office Visit Dermatology [address] [place] [address] Stacy Gomez PA-C [address] [place] [address] [place] [address] 09/18/2023 7:40 AM EST Office Visit Family Medicine [address] [place] [phone] Kalin Reeder MD [address] [place] [address] [place] [address] 11/12/2023 4:00 PM EDT Telemedicine Genetics HemOnc, [facility] [address] [place] [address] Kayy Martin, MS [address] [place] [address] 12/27/2023 2:45 PM EDT Office Visit Hematology/Oncolog y Scenery [facility] [address] [place] [address] Mukesh Santos MD [address] [place] [facility] [place] [address] 04/15/2024 12:00 PM EDT Imaging Radiology [facility] [address] [facility] [address] [facility] [address] 05/26/2024 9:45 AM EST Office Visit General Surgery, [facility] 132 [place] [address] Perla Wang MD [address] [place] [address] Pending Results Name Type Priority Associated Diagnoses Date /Time HEPATITIS B CORE ANTIBODIES IGG AND IGM Lab Routine Malignant neoplasm of upper-outer quadrant of right breast in female, estrogen receptor positive 07/30/2023 9:49 AM EST HEPATITIS B SURFACE ANTIBODY Lab Routine Malignant neoplasm of upper-outer quadrant of right breast in female, estrogen receptor positive 07/30/2023 9:49 AM EST HEPATITIS B SURFACE ANTIGEN Lab Routine Malignant neoplasm of upper-outer quadrant of right breast in female, estrogen receptor positive 07/30/2023 9:49 AM EST COMPREHENSIVE METABOLIC PANEL Lab STAT Malignant neoplasm of upper-outer quadrant of right breast in female, estrogen receptor positive 07/30/2023 9:49 AM EST Scheduled Procedures Name Priority Associated Diagnoses Date/Ti [...] Not on filedocumented as of this encounter Procedures Procedure Name Priority Date/Time Associated Diagnosis Comments DIFFERENTIAL, AUTOMATED Routine 07/30/2023 9:49 AM EST Malignant neoplasm of upper-outer quadrant of right breast in female, estrogen receptor positive CBC Routine 07/30/2023 9:49 AM EST Malignant neoplasm of upper-outer quadrant of right breast in female, estrogen receptor positive CBC Routine 07/30/2023 9:49 AM EST Malignant neoplasm of upper-outer quadrant of right breast in female, estrogen receptor positive documented in this encounter Results * (ABNORMAL) DIFFERENTIAL, AUTOMATED (07/30/2023 9:49 AM EST) WBC 7.50 4.00 - 10.80 K/uL 07/30/2023 9:59 AM EST [facility] 56-02 Neutrophils % 73.8 40.0 - 75.0 % 07/30/2023 9:59 AM EST [facility] 56-02 Lymphocytes % 17.2(L) 18.0 - 42.0 % 07/30/2023 9:59 AM EST [facility] 56-02 Monocytes % 6.0 1.0 - 11.0 % 07/30/2023 9:59 AM EST [facility] 56-02 Eosinophils % 2.5 0.0 - 6.0 % 07/30/2023 9:59 AM EST [facility] 56-02 Basophils % 0.5 0.0 - 2.0 % 07/30/2023 9:59 AM EST [facility] 56-02 Absolute Neutrophils 5.53 1.80 - 7.70 K/uL 07/30/2023 9:59 AM EST [facility] 56-02 Absolute Lymphocytes 1.29 1.00 - 4.80 K/ul 07/30/2023 9:59 AM EST [facility] 56-02 Absolute Monocytes 0.45 0.00 - 1.10 K/uL 07/30/2023 9:59 AM EST [facility] 56-02 Absolute Eosinophils 0.19 0.00 - 0.70 K/uL 07/30/2023 9:59 AM [facility] 56-02 Absolute Basophils 0.04 0.00 - 0.20 K/uL 07/30/2023 9:59 AM EST [facility] 56-02 Blood Venous blood specimen / Unknown Venipuncture / Unknown 07/30/2023 9:49 AM EST 07/30/2023 9:49 AM EST Mukesh Santos MD LAB BLOOD ORDERABLES [facility] 56-[address] [place] [address] * CBC (07/30/2023 9:49 AM EST) WBC 7.50 4.00 - 10.80 K/uL 07/30/2023 9:59 AM EST [facility] 56-02 RBC 3.94 3.85 - 5.15 M/uL 07/30/2023 9:59 AM EST [facility] 56-02 HGB 12.1 12.0 - 15.3 g/dL 07/30/2023 9:59 AM EST [facility] 56-02 HCT 38.7 36.0 - 45.2 % 07/30/2023 9:59 AM [facility] 56-02 MCV 98.2 81.5 - 97.5 fL 07/30/2023 9:59 AM EST [facility] 56-02 MCH 30.7 27.0 - 34.0 pg 07/30/2023 9:59 AM EST [facility] 56-02 MCHC 31.3 32.0 - 36.0 g/dL 07/30/2023 9:59 AM [facility] 56-02 RDW 14.0 11.5 - 15.5 % 07/30/2023 9:59 AM [facility] 56-02 PLT 272 140 - 400 K/uL 07/30/2023 9:59 AM [facility] 56-02 MPV 11.1 6.6 - 11.1 fL 07/30/2023 9:59 AM [facility] 56-02 Blood Venous blood specimen / Unknown Venipuncture / Unknown 07/30/2023 9:49 AM EST 07/30/2023 9:49 AM EST Mukesh Santos MD LAB BLOOD ORDERABLES [facility] 56-[address] [place] [address] documented in this encounter Visit Diagnoses Diagnosis Malignant neoplasm [...] Advance Directives occurred with: Patient Care Teams Vp Celebrity Services Relationship Specialty Start Date End Date Kalin Reeder MD [address] [place] [address] [place] [address] PCP - General Family Medicine 03/15/21 documented as of this encounter
--- OUTSIDE RECORDS SUMMARY | 2023-08-26 19:37 | External Medical Summary | Summary of Care ---
Author Name Unknown Organization [facility] Address [address] [place] [address] Phone [phone] Care Team Providers Care General Freight Agent Name Role Phone Kalin Reeder MD Primary [...] A1c goal of less than 7.0% ([facility]) Mukesh Santos MD [address] [place] [address] Referral ID Status Reason Start Date Expiration Date Visits Requested Visits Authorized [id number] Pending Review Specialty Services Required 07/30/2023 99 99 Question Answer Referral Priority Within 10 days (routine) Where should this appointment be scheduled? [facility] Referring Provider Role: Specialist Specialty: Heme/Onc Reason for Referral: DM Target A1c: Symptom Mgmt Comments Pharmacist Medication Therapy Management: Minimum frequency patient should be seen in person for medication management: as appropriate per clinical condition and patient status By my signature, I understand that my patient Alyssa Reyes will have her medication therapy managed by the [facility] Med[facility] ([facility]) per established policies, procedures, and protocols. I also certify that this referral may serve as an initiation of service for the management of drug therapy in the above noted patient. [facility] providers will be responsible for scheduling patient visits, obtaining appropriate laboratory studies, and adjusting medication management therapy per patient's need, in addition to those roles spelled out in the clinic policy, procedures, and drug management protocols. I understand that the service provided by the [facility] is voluntary and have informed patient that they can refuse the service at their discretion. I am aware that the [facility] will provide me with a copy of the patient encounter via my [employer] [facility] [facility] [place]. I authorize the [facility] to carry out these activities [...] Info) Description 07/26/2023 Telephone Hematology/Oncology [facility] [place] [address] [place] [address] Mukesh Santos MD [address] [place] [address] Precert Future (MAT Kang) Allergies No known active allergiesdocumented as of this encounter (statuses as of 07/30/2023) Medications Medication Sig Dispensed Refills Start Date End Date Status Aspirin 81 MG Oral Tablet Delayed Release take 1 tablet (81MG) by oral route every day 0 Active Calcium 1200 5112-6751 MG-UNIT Oral Tablet Chewable Take 1 Tablet [...] A1c goal of less than 7.0% ([facility]) USE TO TEST SUGARS ONCE [...] as of this encounter Miscellaneous Notes * Addendum Note - Leonor Hay RN - 07/30/2023 9:19 AM ESTAddended by: LEONOR HAY on: 07/30/2023 09:19 AM Modules accepted: Orders * Telephone Encounter - Leonor Hya RN - 07/29/2023 3:07 PM EST Referral entered. * Telephone Encounter - Leonor Hay RN - 07/26/2023 1:24 PM EST Received message from [employer] preferred product is FULPHILA. Ramirez: please update beacon plan. Thanks! * Telephone Encounter - Sammy Kearns RN - 07/26/2023 9:19 AM EST Received orders for OP TC + Udenyca [place] plan built and placed on hold for [...] 07/31/2023 11:20 AM EST Hospital Encounter OR [facility], Operating Room, [facility] - 4th Floor [address] [place] [address] [address] Jadiel Foy MD [address] [place] [address] 07/31/2023 11:20 AM EST - 07/31/2023 12:25 PM EST Surgery OR [facility], Operating Room, [facility] - 4th Floor [address] [place] [address] [address] Jadiel Foy MD [address] [place] [address] INSERT TUNNELED CENTRAL VENOUS ACCESS WITH SUBQ PORT 09/10/2023 4:00 PM EST Imaging Radiology, [facility] [address] [facility] [place] [address] 09/11/2023 8:00 AM EST Office Visit Dermatology [address] [place] [address] Stacy Gomez PA-C [address] [place] [address] [place] [address] 09/18/2023 7:40 AM EST Office Visit Family Medicine [address] [place] [phone] Kalin Reeder MD [address] [place] [address] [place] [address] 11/12/2023 4:00 PM EDT Telemedicine Genetics HemOnc, [facility] [address] [place] [address] Kayy Martin, MS [address] [place] [address] 12/27/2023 2:45 PM EDT Office Visit Hematology/Oncolog y [facility] [address] [place] [address] Mukesh Santos MD [address] [place] [address] 04/15/2024 12:00 PM EDT Imaging Radiology [facility] 1st [facility] 132 [facility] [place] [address] 05/26/2024 9:45 AM EST Office Visit General Surgery, [facility] 132 [facility] [place] [address] Perla Wang MD [address] [facility] [place] [address] Scheduled Orders Name Type Priority Associated Diagnoses [...] Advance Directives occurred with: Patient Care Teams General Freight Agent Relationship Specialty Start Date End Date Kalin Reeder MD [address] [place] [address] [place] [phone] PCP - General Family Medicine 03/15/21 documented as of this encounter
--- OUTSIDE RECORDS SUMMARY | 2023-08-26 19:37 | External Medical Summary | Summary of Care ---
Author Name Unknown Organization [facility] Address [address] [facility] [place] [address] Phone [phone] Care Team Providers Care Steward/Stewardess Bath Name Role Phone Kalin Reeder MD Primary Care Provide r Reason for Visit * Reason Onset Date Comments Precert Future 07/26/2023 MAT Kang Encounter Details Date Type Department Care Team (Late st Contact Info) Description 07/26/2023 Telephone Hematology/Oncology [facility] [place] [address] [place] [address] Mukesh Santos MD [address] [place] [address] Precert Future (MAT Kang) Allergies No known active allergiesdocumented as of this encounter (statuses as of 07/29/2023) Medications Medication Sig Dispensed Refills Start Date End Date Status Aspirin 81 MG Oral Tablet Delayed Release take 1 tablet (81MG) by oral route every day 0 Active Calcium 1200 3433-6482 MG-UNIT Oral Tablet Chewable Take 1 Tablet [...] hemoglobin A1c goal of less than 7.0% ([facility]) USE TO TEST SUGARS ONCE DAILY. E11.9 [...] as of this encounter (statuses as of 07/29/2023) Active Problems Problem Noted Date Diagnosed Date [...] as of this encounter (statuses as of 07/29/2023) Resolved Problems Problem Noted Date Diagnosed Date Resolved Date Mixed dyslipidemia Overview: Per Lipid Taxonomy. documented as of this encounter (statuses as of 07/29/2023) Immunizations Name Administration Dates Next Due COVID-19 [...] Telephone Encounter - Leonor Hay RN - 07/29/2023 3:07 PM EST Referral entered. * Telephone Encounter - Leonor Hay RN - 07/26/2023 1:24 PM EST Received message from precert- insurances preferred product is FULPHILA. Ramirez: please update beacon plan. Thanks! * Telephone Encounter - Sammy Kearns RN - 07/26/2023 9:19 AM EST Received orders for OP TC + Udenyca [place] plan built and placed on hold for [...] Department Care Team (Latest Contact Info) Description 07/30/2023 9:00 AM EST Nurse Only Hematology/Oncolog y [facility] [place] [address] [place] [address] [place], Nurse Hem Onc Scenery [address] [place] [address] 07/31/2023 11:20 AM EST Hospital Encounter OR [facility], Operating Room, [facility] - 4th Floor [address] [place] [address] Jadiel Foy MD [address] [place] [address] 07/31/2023 11:20 AM EST - 07/31/2023 12:25 PM EST Surgery OR [facility], Operating Room, [facility] - 4th Floor [address] [place] [address] Jadiel Foy MD 400 [facility] [place] [address] INSERT TUNNELED CENTRAL VENOUS ACCESS WITH SUBQ PORT 09/10/2023 4:00 PM EST Imaging Radiology, [place] [address] [facility] [place] [address] 09/11/2023 8:00 AM EST Office Visit Dermatology [address] [place] [address] Stacy Gomez PA-C [address] [place] [address] [place] [address] 09/18/2023 7:40 AM EST Office Visit Family Medicine [address] [place] [phone] Kalin Reeder MD [address] [place] [address] [place] [address] 11/12/2023 4:00 PM EDT Telemedicine Genetics [facility]c, [facility] [address] [place] [address] Kayy Martin, MS [address] [place] [address] 12/27/2023 2:45 PM EDT Office Visit Hematology/Oncolog y [facility] [place] [address] [place] [address] Mukesh Santos MD [address] [place] [address] 04/15/2024 12:00 PM EDT Imaging Radiology [facility] 1st [facility] 132 [facility] [place] [address] 05/26/2024 9:45 AM EST Office Visit General Surgery, [facility] 132 [facility] [place] [address] Perla Wang MD [address] [place] [address] Scheduled Orders Name Type Priority Associated Diagnoses [...] of right breast in female, estrogen receptor positive- Primary Malignant neoplasm of upper-outer quadrant of [...] Advance Directives occurred with: Patient Care Teams Steward/Stewardess Bath Relationship Specialty Start Date End Date Kalin Reeder MD [address] [place] [address] [place] [address] PCP - General Family Medicine 03/15/21 documented as of this encounter
--- OUTSIDE RECORDS SUMMARY | 2023-08-26 19:37 | External Medical Summary | Summary of Care ---
Author Name Unknown Organization [facility] Address [address] [facility] [place] [address] Phone [phone] Care Team Providers Care Sanding Machine Tender Name Role Phone Kalin Reeder MD Primary Care Provide r Reason for Visit * Reason Onset Date Comments Precert Future 07/26/2023 MAT Kang Encounter Details Date Type Department Care Team (Late st Contact Info) Description 07/26/2023 Telephone Hematology/Oncology [place] [place] [address] [place] [address] Mukesh Santos MD [address] [place] [address] Precert Future (MAT Kang) Allergies No known active allergiesdocumented as of this encounter (statuses as of 07/26/2023) Medications Medication Sig Dispensed Refills Start Date End Date Status Aspirin 81 MG Oral Tablet Delayed Release take 1 tablet (81MG) by oral route every day 0 Active Calcium 1200 1756-3406 MG-UNIT Oral Tablet Chewable Take 1 Tablet [...] A1c goal of less than 7.0% ([facility]) USE TO TEST SUGARS ONCE [...] as of this encounter (statuses as of 07/26/2023) Active Problems Problem Noted Date Diagnosed Date [...] as of this encounter (statuses as of 07/26/2023) Resolved Problems Problem Noted Date Diagnosed Date Resolved Date Mixed dyslipidemia Overview: Per Lipid Taxonomy. documented as of this encounter (statuses as of 07/26/2023) Immunizations Name Administration Dates Next Due COVID-19 [...] Miscellaneous Notes * Telephone Encounter - Leonor Hay, RN - 07/26/2023 1:24 PM EST Received message from precert- insurances preferred product is FULPHILA. Ashley: please update beacon plan. Thanks! * Telephone Encounter - Sammy Kearns RN - 07/26/2023 9:19 AM EST Received orders for OP TC + Udenyca [place] plan built and placed on hold for [...] Team (Late st Contact Info) Description 07/30/2023 9:00 AM EST Nurse Only Hematology/Oncology [facility] [address] [place] [address] [place], Nurse Hem Onc [facility] [address] [place] [address] 09/10/2023 4:00 PM EST Imaging Radiology, [address] [place] [address] 09/11/2023 8:00 AM EST Office Visit Dermatology [address] [place] [address] Stacy Gomez PA-C [address] [place] [address] [place] [address] 09/18/2023 7:40 AM EST Office Visit Family Medicine [address] [place] [phone] Kalin Reeder MD [address] [place] [address] [place] [address] 11/12/2023 4:00 PM EDT Telemedicine Genetics HemOnc, [facility] [address] [place] [address] Kayy Martin, MS [address] [place] [address] 12/27/2023 2:45 PM EDT Office Visit [facility]ematology/Oncology [facility] 200 [place] [address] Mukesh Santos MD 200 [place] [address] 04/15/2024 12:00 PM EDT Imaging Radiology [address] 132 [place] [address] 05/26/2024 9:45 AM EST Office Visit General Surgery, [facility] [address] [place] [address] Perla Wang MD 132 [place] [address] Scheduled Orders Name Type Priority Associated Diagnoses [...] for 4 Occurrences starting 07/26/2023 until 07/26/2024 Health Maintenance Due Date Last Done Comments [...] breast in female, estrogen receptor positive- Primary documented in this encounter Advance Directives Latest Code Status on File Code Status Date Activated Date Inactivated Comments Full Code 06/12/2023 6:58 AM 06/12/2023 4:24 PM Thi s order reflects the patients wishes and were consensually agreed upon. Question Answer Comments Discussion of Advance Directives occurred with: Patient Care Teams Sanding Machine Tender Relationship Specialty Start Date End Date Kalin Reeder MD [address] [place] [address] [place] [address] PCP - General Family Medicine 03/15/21 documented as of this encounter
--- OUTSIDE RECORDS SUMMARY | 2023-08-26 19:37 | External Medical Summary ---
Author Name Unknown Address Unknown Organization [facility] [place] [address] Laboratory Report Ordering Provider Test Date Status ANOOP ABERNATHY 07/30/2023 09:49:49 Final Prior to chemotherapy. Observation Date Value Abnormality Reference (Units ) Status SYNC LEUKOCYTES IN BLOOD BY AUTOMATED COUNT 07/30/2023 09:49:49 7.50 4.00-10.80 (K/uL) Final Segs 07/30/2023 09:49:49 73.8 40.0-75.0 (%) Final Lymphs % 07/30/2023 09:49:49 17.2 Below low normal 18.0-42.0 (%) Final Monos 07/30/2023 09:49:49 6.0 1.0-11.0 (%) Final Eosinophils 07/30/2023 09:49:49 2.5 0.0-6.0 (%) Final Basos 07/30/2023 09:49:49 0.5 0.0-2.0 (%) Final Absolute Segs 07/30/2023 09:49:49 5.53 1.80-7.70 (K/uL) Final Lymphs, absolute 07/30/2023 09:49:49 1.29 1.00-4.80 (K/ul) Final Monos, Abs 07/30/2023 09:49:49 0.45 0.00-1.10 (K/uL) Final Eos, Abs 07/30/2023 09:49:49 0.19 0.00-0.70 (K/uL) Final Basos, Abs 07/30/2023 09:49:49 0.04 0.00-0.20 (K/uL) Final Performing Location [place] [address]
--- OUTSIDE RECORDS SUMMARY | 2023-08-26 19:37 | External Medical Summary | Summary of Care ---
Author Name Unknown Organization [facility] Address [address] [place] [address] Phone [phone] Care Team Providers Care Field Marketing Associate Name Role Phone Kalin Reeder MD Primary [...] hemoglobin A1c goal of less than 7.0% ([facility]) Mukesh Santos MD [address] [place] [address] Referral ID Status Reason Start Date Expiration Date Visits Requested Visits Authorized [id number] Pending Review Specialty Services Required 07/30/2023 99 99 Question Answer Referral Priority Within 10 days (routine) Where should this appointment be scheduled? [facility] Referring Provider Role: Specialist Specialty: Heme/Onc Reason for Referral: DM Target A1c: Symptom Mgmt Comments Pharmacist Medication Therapy Management: Minimum frequency patient should be seen in person for medication management: as appropriate per clinical condition and patient status By my signature, I understand that my patient Alyssa Reyes will have her medication therapy managed by the [facility] Medication Therapy Disease Management Clinic ([facility]) per established policies, procedures, and protocols. I also certify that this referral may serve as an initiation of service for the management of drug therapy in the above noted patient. [facility] providers will be responsible for scheduling patient visits, obtaining appropriate laboratory studies, and adjusting medication management therapy per patient's need, in addition to those roles spelled out in the clinic policy, procedures, and drug management protocols. I understand that the service provided by the [facility] Clinic is voluntary and have informed patient that they can refuse the service at their discretion. I am aware that the [facility] will provide me with a copy of the patient encounter via my Seeo In[employer]. I authorize the [facility] to carry out these activities on [...] Info) Description 07/26/2023 Telephone Hematology/Oncology [facility] [place] [address] [place] [address] Mukesh Santos MD [address] [place] [address] Precert Future (MAT Kang) Allergies No known active allergiesdocumented as of this encounter (statuses as of 07/30/2023) Medications Medication Sig Dispensed Refills Start Date End Date Status Aspirin 81 MG Oral Tablet Delayed Release take 1 tablet (81MG) by oral route every day 0 Active Calcium 1200 7394-2182 MG-UNIT Oral Tablet Chewable Take 1 Tablet [...] hemoglobin A1c goal of less than 7.0% ([facility]) USE TO TEST SUGARS ONCE [...] encounter Miscellaneous Notes * Telephone Encounter - Belle Burgos OSA - 07/30/2023 10:31 AM EST Date of Services: 08/05/2023 Facility: Hem/Onc Scenery [place] Estimate of Services for the following CPT(s): Gabby Estimated Out of Pocket: $0 Verified benefits via NaviNet No deductible No coinsurance OOP Max [phone] Contacted patient: Pt is aware she should not have OOP cost associated with chemotherapy. Sent estimate via: Phone call * Telephone Encounter - Larisa Ennis CMA - 07/30/2023 9:48 AM EST Scheduled as instructed; patient given AVS * Telephone Encounter - Jeffry Hay RN [...] Received orders for OP TC + Udenyca [place] plan built and placed on hold for [...] 07/31/2023 11:20 AM EST Hospital Encounter OR [facility], Operating Room, [facility] - 4th Floor [address] [place] [address] Jadiel Foy MD [address] [place] [address] 07/31/2023 11:20 AM EST - 07/31/2023 12:25 PM EST Surgery OR [facility], Operating Room, [facility] - 4th Floor [address] [place] [address] Jadiel Foy MD [address] [place] [address] INSERT TUNNELED CENTRAL VENOUS ACCESS WITH SUBQ PORT 08/05/2023 11:00 AM EST Hem/Onc Treatment Hematology/Oncolog y Treatment, [place] [address] [place] [address] [place], Chair 2 Hem Onc Scenery [address] [place] [address] 09/10/2023 4:00 PM EST Imaging Radiology, [place] [address] [place] [address] 09/11/2023 8:00 AM EST Office Visit Dermatology [address] [place] [address] Stacy Gomez PA-C [address] [place] [address] [place] [address] 09/18/2023 7:40 AM EST Office Visit Family Medicine [address] [place] [phone] Kalin Reeder MD [address] [place] [address] [place] [address] 11/12/2023 4:00 PM EDT Telemedicine Genetics HemOnc, [facility] [address] [place] [address] Kayy Martin, [place] [address] [place] [address] 12/27/2023 2:45 PM EDT Office Visit Hematology/Oncolog y [facility] [address] [place] [address] Mukesh Santos MD [address] [place] [address] 04/15/2024 12:00 PM EDT Imaging Radiology [facility]st [facility] 132 [facility] [place] [address] 05/26/2024 9:45 AM EST Office Visit General Surgery, [facility] 132 [facility] [place] [address] Perla Wang MD 132 [facility] [place] [address] Pending Results Name Type Priority Associated Diagnoses [...] receptor positive 07/30/2023 9:49 AM EST Scheduled Orders Name Type Priority Associated Diagnoses [...] Weeks for 4 Occurrences starting 07/26/2023 until 07/26/2024, 1 completed COMPREHENSIVE METABOLIC PANEL Lab STAT Malignant neoplasm of upper-outer quadrant of right breast in female, estrogen receptor positive Every 3 Weeks for 4 Occurrences starting 07/26/2023 until 07/26/2024, 1 completed Scheduled Procedures Name Priority Associated Diagnoses Date/Ti [...] Additional history exists Pap Smear Discontinued 10/23/2021, 0 03/2019, 12/28/1998 Zoster Vaccines Completed 10/30/2022, 08/29/2022 GARDASIL-HPV IMMUNIZATION SERIES Aged Out No longer eligible based on patient's age to complete this topic MENINGOCOCCAL (MENACTRA/MENVEO) Aged Out No longer eligible based on patient's age to complete this topic documented as of this encounter Medical Devices Not on filedocumented as of this encounter Results * (ABNORMAL) COMPREHENSIVE METABOLIC PANEL (07/30/2023 9:49 AM EST) BUN 26(H) 6 - 20 mg/dL 07/30/2023 10:26 AM EST [facility] 56-02 Creatinine 0.8 0.5 - 1.0 mg/dL 07/30/2023 10:26 AM [facility] 56 Estimated Glomerular Filtration Rate 85 >=60 mL/min 07/30/2023 10:26 AM [facility] 56- Comment:eGFR is calculated b ased on the CKD-EPI 2020 equation Sodium 139 135 - 146 mmol/L 07/30/2023 10:26 AM [facility] 56 Potassium 4.9 3.5 - 5.1 mmol/L 07/30/2023 10:26 AM [facility] 56 Chloride 103 98 - 107 mmol/L 07/30/2023 10:26 AM [facility] 56 CO2 26 22 - 32 mmol/L 07/30/2023 10:26 AM [facility] 56 Anion Gap 10 7 - 15 mmol/L 07/30/2023 10:26 AM [facility] 56 Glucose 140(H) 70 - 120 mg/dL 07/30/2023 10:[address] Albumin 4.3 3.8 - 5.0 g/dL 07/30/2023 10:26 AM [facility] 56 AST 15 10 - 35 U/L 07/30/2023 10:26 AM [facility] 56 Alkaline Phosphatase 68 35 - 130 U/L 07/30/2023 10:26 AM [facility] 56 Bilirubin, Total 0.3 <=1.2 mg/dL 07/30/2023 10:26 AM [facility] 56 Calcium 10.1 8.4 - 10.2 mg/dL 07/30/2023 10:26 AM [facility] 56- Protein 7.3 6.0 - 8.3 g/dL 07/30/2023 10:26 AM [facility] 5602 ALT 18 10 - 35 U/L 07/30/2023 10:26 AM [facility] 56-02 Blood Venous blood specimen / Unknown Venipuncture / Unknown 07/30/2023 9:49 AM EST 07/30/2023 9:49 AM EST Mukesh Santos MD LAB BLOOD ORDERABLES [facility] [address] [place] [address] documented in this encounter Visit Diagnoses Diagnosis Type 2 [...] Advance Directives occurred with: Patient Care Teams Field Marketing Associate Relationship Specialty Start Date End Date Kalin Reeder MD [address] [place] [address] [place] [address] PCP - General Family Medicine 03/15/21 documented as of this encounter
--- OUTSIDE RECORDS SUMMARY | 2023-08-26 19:37 | External Medical Summary | Summary of Care ---
Author Name Unknown Organization [facility] Address [address] [facility] [address] Phone [phone] Care Team Providers Care Layer Out Plate Glass Name Role Phone Kalin Reeder MD Primary Care Provide r Encounter Details Date Type Department Care Team (Late st Contact Info) Description 07/30/2023 9:00 AM EST Nurse Only Hematology/Oncology [facility] [place] [address] [place] [address] Su[place] Nurse Hem Onc Scene [address] [place] [address] Allergies No known active allergiesdocumented as of this encounter (statuses as of 07/30/2023) Medications Medication Sig Dispensed Refills Start Date End Date Status Aspirin 81 MG Oral Tablet Delayed Release take 1 tablet (81MG) by oral route every day 0 Active Calcium 1200 7434-2265 MG-UNIT Oral Tablet Chewable Take 1 Tablet [...] A1c goal of less than 7.0% ([facility]) USE TO TEST SUGARS ONCE DAILY. E11.9 [...] as of this encounter Nursing Notes * Leonor Hay RN - 07/30/2023 10:22 AM EST Nurse education for taxotere, cytoxan, fulphila completed. documented in this encounter Plan of Treatment Upcoming Encounters Date Type Department Care Team (Latest Contact Info) Description 07/31/2023 11:20 AM EST Hospital Encounter OR [facility], Operating Room, [facility] - 4th Floor [address] [place] [address] Jadiel Foy MD [address] [place] [address] 07/31/2023 11:20 AM EST - 07/31/2023 12:25 PM EST Surgery OR [facility], Operating Room, [facility] - 4th Floor [address] [place] [address] Jadiel Foy MD [address] [place] [address] INSERT TUNNELED CENTRAL VENOUS ACCESS WITH SUBQ PORT 08/05/2023 11:00 AM EST Hem/Onc Treatment Hematology/Oncolog y Treatment, [place] [address] [place] [address] [place], Chair 2 Hem Onc Scenery [address] [place] [address] 09/10/2023 4:00 PM EST Imaging Radiology, [place] [address] [facility] [place] [address] 09/11/2023 8:00 AM EST Office Visit Dermatology [address] [place] [address] Stacy Gomez PA-C [address] [place] [address] [place] [address] 09/18/2023 7:40 AM EST Office Visit Family Medicine [address] [place] [phone] Kalin Reeder MD [address] [place] [address] [place] [address] 11/12/2023 4:00 PM EDT Telemedicine Genetics HemOnc, [facility] [address] [place] [address] Kayy Martin, [place] [address] [place] [address] 12/27/2023 2:45 PM EDT Office Visit [facility]emat[facility]olog [facility] [address] [place] [address] Mukesh Santos MD [address] [place] [address] 04/15/2024 12:00 PM EDT Imaging Radiology [facility] 1st [facility] [address] [facility] [place] [address] 05/26/2024 9:45 AM EST Office Visit General Surgery, [facility] [address] [facility] [place] [address] Perla Wang MD [address] [place] [address] Scheduled Procedures Name Priority Associated Diagnoses Date/Ti [...] Advance Directives occurred with: Patient Care Teams Layer Out Plate Glass Relationship Specialty Start Date End Date Kalin Reeder MD [address] [place] [address] [place] [address] PCP - General Family Medicine 03/15/21 documented as of this encounter
--- OUTSIDE RECORDS SUMMARY | 2023-08-26 19:37 | External Medical Summary ---
Author Name Unknown Address Unknown Organization [facility] [place] [address] Laboratory Report Ordering Provider Test Date Status ANOOP ABERNATHY 07/30/2023 09:49:49 Final Prior to chemotherapy. Observation Date Value Abnormality Reference (Units ) Status WBC, Total 07/30/2023 09:49:49 7.50 4.00-10.8 0 (K/uL) Final RBC 07/30/2023 09:49:49 3.94 3.85-5.15 (M/uL) Final Hemoglobin 07/30/2023 09:49:49 12.1 12.0-15.3 (g/dL) Final HCT 07/30/2023 09:49:49 38.7 36.0-45.2 (%) Final MCV 07/30/2023 09:49:49 98.2 81.5-97.5 (fL) Final MCH 07/30/2023 09:49:49 30.7 27.0-34.0 (pg) Final MCHC 07/30/2023 09:49:49 31.3 32.0-36.0 (g/dL) Final RDW 07/30/2023 09:49:49 14.0 11.5-15.5 (%) Final Platelets 07/30/2023 09:49:49 272 140-400 (K /uL) Final MPV 07/30/2023 09:49:49 11.1 6.6-11.1 ( fL) Final Performing Location [facility] [place] [address]
--- OUTSIDE RECORDS SUMMARY | 2023-08-26 19:37 | External Medical Summary | Summary of Care ---
Author Name Unknown Organization [facility] Address [address] [place] [place] [address] Phone [phone] Care Team Providers Care Milieu Technician Name Role Phone Kalin Reeder MD Primary Care Provide r Encounter Details Date Type Department Care Team (Late st Contact Info) Description 07/26/2023 Orders Only Hematology/Oncology [facility] [place] 200 [facility] [place] [address] Mukesh Santos MD 200 [place] [address] Allergies No known active allergiesdocumented as of this encounter (statuses as of 07/26/2023) Medications Medication Sig Dispensed Refills Start Date End Date Status Aspirin 81 MG Oral Tablet Delayed Release take 1 tablet (81MG) by oral route every day 0 Active Calcium 1200 7792-5173 MG-UNIT Oral Tablet Chewable Take 1 Tablet [...] goal of less than 7.0% ([facility]) USE TO TEST SUGARS ONCE [...] 07/30/2023 9:00 AM EST Nurse Only Hematology/Oncology [facility] [address] [place] [address] [place], Nurse Hem Onc [facility] [address] [place] [address] 09/10/2023 4:00 PM EST Imaging Radiology, [place] [address] [facility] [place] [address] 09/11/2023 8:00 AM EST Office Visit Dermatology [address] [place] [address] Stacy Gomez PA-C [address] [place] [address] [place] [address] 09/18/2023 7:40 AM EST Office Visit Family Medicine [address] [place] [phone] Kalin Reeder MD [address] [place] [address] [place] [address] 11/12/2023 4:00 PM EDT Telemedicine Genetics HemOnc, [facility] [place] [place] [address] [place] [address] Kayy Martin, [place] [address] [place] [address] 12/27/2023 2:45 PM EDT Office Visit Hematology/Oncology [facility] [address] [place] [address] Mukesh Santos MD [address] [place] [address] 04/15/2024 12:00 PM EDT Imaging Radiology [address] 132 [facility] [place] [address] 05/26/2024 9:45 AM EST Office Visit General Surgery, [facility] [address] [place] [address] Perla Wang MD 132 [facility] [place] [address] Health Maintenance Due Date Last Done Comments [...] Advance Directives occurred with: Patient Care Teams Milieu Technician Relationship Specialty Start Date End Date Kalin Reeder MD [address] [place] [address] [place] [address] PCP - General Family Medicine 03/15/21 documented as of this encounter
--- OUTSIDE RECORDS SUMMARY | 2023-08-26 19:37 | External Medical Summary | Summary of Care ---
Author Name Unknown Organization [facility] Address [address] [facility] [address] Phone [phone] Care Team Providers Care Tool Sharpener Name Role Phone Kalin Reeder MD Primary Care Provide r Reason for Visit * Reason Onset Date Comments Medication Refill 07/30/2023 Encounter Details Date Type Department Care Team (Late st Contact Info) Description 07/30/2023 Refill [facility] [place] [address] [place] [address] Mukesh Santos MD [address] [place] [address] Malignant neoplasm of upper-outer quadrant of right breast in female, estrogen receptor positive * Allergies No known active allergiesdocumented as of this encounter (statuses as of 07/30/2023) Medications Medication Sig Dispensed Refills Start Date End Date Status Aspirin 81 MG Oral Tablet Delayed Release take 1 tablet (81MG) by oral route every day 0 Active Calcium 1200 2026-6792 MG-UNIT Oral Tablet Chewable Take 1 Tablet [...] encounter Miscellaneous Notes * Telephone Encounter - Mukesh Santos MD - 07/30/2023 10:21 AM EST E-prescribed Compazine and Zofran, Claritin, EMLA cream, Decadron * Telephone Encounter - Leonor Hay RN - 07/30/2023 9:04 AM EST Pended zofran, compazine, decadron, EMLA, claritin. documented in this encounter Plan of Treatment Upcoming Encounters Date Type Department Care Team (Latest Contact Info) Description 07/31/2023 11:20 AM EST Hospital Encounter OR [facility], Operating Room, [facility] - 4th Floor [address] [place] [address] Jadiel Foy MD 400 [place] [phone] 07/31/2023 11:20 AM EST - 07/31/2023 12:25 PM EST Surgery OR [facility], Operating Room, [facility] - 4th Floor [address] [place] [address] Jadiel Foy MD [address] [place] [address] INSERT TUNNELED CENTRAL VENOUS ACCESS WITH SUBQ PORT 08/05/2023 11:00 AM EST Hem/Onc Treatment Hematology/Oncolog y Treatment, [place] 200 [facility] [address] [place], Chair 2 Hem Onc Scene 200 [facility] [place] [address] 09/10/2023 4:00 PM EST Imaging Radiology, [address] [place] [address] 09/11/2023 8:00 AM EST Office Visit Dermatology [address] [place] [address] Stacy Gomez PA-C [address] [place] [address] [place] [address] 09/18/2023 7:40 AM EST Office Visit Family Medicine [address] [place] [phone] Kalin Reeder MD [address] [place] [address] [place] [address] 11/12/2023 4:00 PM EDT Telemedicine Genetics HemOnc, [facility] [address] [place] [address] Kayy Martin, [place] [address] [place] [address] 12/27/2023 2:45 PM EDT Office Visit Hematology/Oncolog y [place] [address] [place] [address] Mukesh Santos MD [address] [place] [address] 04/15/2024 12:00 PM EDT Imaging Radiology [facility] [address] [place] [address] 05/26/2024 9:45 AM EST Office Visit General Surgery, [facility] [place] [address] Perla Wang MD 132 [facility] [place] [address] Scheduled Procedures Name Priority Associated Diagnoses Date/Ti [...] Advance Directives occurred with: Patient Care Teams Tool Sharpener Relationship Specialty Start Date End Date Kalin Reeder MD [address] [place] [address] [place] [phone] PCP - General Family Medicine 03/15/21 documented as of this encounter
--- OUTSIDE RECORDS SUMMARY | 2023-08-26 19:37 | External Medical Summary | Summary of Care ---
Author Name Unknown Organization [facility] Address [address] [place] [place] [place] [address] Phone [phone] Care Team Providers Care Duck Bill Operator Name Role Phone Kalin Reeder MD Primary Care Provide r Reason for Visit * Reason Onset Date Comments Scheduling 07/26/2023 Encounter Details Date Type Department Care Team (Late st Contact Info) Description 07/26/2023 Telephone Hematology/Oncology [facility] [place] [address] [place] [address] Mukesh Santos MD [address] [facility] [address] Scheduling Allergies No known active allergiesdocumented as of this encounter (statuses as of 07/30/2023) Medications Medication Sig Dispensed Refills Start Date End Date Status Aspirin 81 MG Oral Tablet Delayed Release take 1 tablet (81MG) by oral route every day 0 Active Calcium 1200 8947-4885 MG-UNIT Oral Tablet Chewable Take 1 Tablet [...] goal of less than 7.0% ([facility]) USE TO TEST SUGARS ONCE DAILY. E11.9 [...] encounter Miscellaneous Notes * Telephone Encounter - Geoffrey Esteves RN - 07/30/2023 9:21 AM EST Spoke with patient over the phone about upcoming procedure on 07/31 . Pt instructed to hold Hydrodiuril the morning of the procedure., Pt instructed to hold antidiabetics the morning of the procedure to prevent hypoglycemia during fasting period. Pt verbalized understanding of instructions and had no further questions at this time. * Telephone Encounter - Reyna Casper OSA - 07/26/2023 2:43 PM EST Spoke to patient to schedule the Mediport Insertion for 07/31 at [facility] .. Patient identified by: name/birthdate Person taught: Patient METHOD: Lecture-telephone interview Patient Preferred Learning Methods: Lecture-Telephone interview PATIENT INSTRUCTIONS GIVEN: - General Preoperative Instructions Reviewed - NPO Instructions Reviewed, pt to stop eating 8 hours prior to procedure and stop drinking 2 hoursprior to procedure. -Kalsominer required Location and check-in instructions Verbalizes understanding of education: Yes Procedure date at time of Imaging Encounter: 07/31 What procedure is patient having? Mediport Insertion Laterality confirmed as N/a Does the patient have a yellow bar? Did not The Patient was given the opportunity to ask questions concerning the procedure. Signature: JAYLENE Galleg[place] 07/26/2023 documented in this encounter Plan of Treatment Upcoming Encounters Date Type Department Care Team (Latest Contact Info) Description 07/31/2023 11:20 AM EST Hospital Encounter OR [facility], Operating Room, [facility] - 4th Floor [address] [place] [address] Jadiel Foy MD 400 [place] [address] 07/31/2023 11:20 AM EST - 07/31/2023 12:25 PM EST Surgery OR [facility], Operating Room, [facility] - 4th Floor [address] [place] [address] Jadiel Foy MD [address] [place] [address] INSERT TUNNELED CENTRAL VENOUS ACCESS WITH SUBQ PORT 09/10/2023 4:00 PM EST [address] Radiology, [address] [address] 09/11/2023 8:00 AM EST Office Visit Dermatology [address] [place] [address] Stacy Gomez PA-C [address] [place] [address] [place] [address] 09/18/2023 7:40 AM EST Office Visit Family Medicine [address] [place] [phone] Kalin Reeder MD [address] [place] [address] [place] [address] 11/12/2023 4:00 PM EDT Telemedicine Genetics HemOnc, [facility] [address] [place] [address] Kayy Martin, [place] [address] [place] [address] 12/27/2023 2:45 PM EDT Office Visit Hematology/Oncolog y [facility] [address] [place] [address] Mukesh Santos MD [address] [place] [address] 04/15/2024 12:00 PM EDT Imaging Radiology [facility] 132 [facility] [place] [address] 05/26/2024 9:45 AM EST Office Visit General Surgery, [facility] 132 [facility] [place] [address] Perla Wang MD [address] [place] [address] Scheduled Procedures Name Priority Associated Diagnoses Date/Ti [...] Advance Directives occurred with: Patient Care Teams Duck Bill Operator Relationship Specialty Start Date End Date Kalin Reeder MD [address] [place] [address] [place] [address] PCP - General Family Medicine 03/15/21 documented as of this encounter
--- OUTSIDE RECORDS SUMMARY | 2023-08-26 19:37 | External Medical Summary ---
Author Name Unknown Address Unknown Organization [id number]:[facility] [address] [place] [address] Laboratory Report Ordering Provider Test Date Status ANOOP ABERNATHY 07/30/2023 09:49:49 Final Prior to chemotherapy. Observation Date Value Abnormality Reference (Units ) Status BUN 07/30/2023 09:49:49 26 Above high normal 6-20 (mg/dL) Final Creatinine 07/30/2023 09:49:49 0.8 0.5-1.0 (mg/dL) Final Glomerular filtration rate/1.73 sq M.predicted [Volume Rate/Area] in Serum, Plasma or Blood by Creatinine-based formula (CKD-EPI) 07/30/2023 09:49:49 85 >=60 (mL/min) Final eGFR is calculated based on the CKD-EPI 2020 equation SODIUM 07/30/2023 09:49:49 139 135-146 (m mol/L) Final Potassium 07/30/2023 09:49:49 4.9 3.5-5.1 (m mol/L) Final Cl 07/30/2023 09:49:49 103 98-107 (mm ol/L) Final CO2 07/30/2023 09:49:49 26 22-32 (mmo l/L) Final Anion gap 07/30/2023 09:49:49 10 7-15 (mmol /L) Final Glucose 07/30/2023 09:49:49 140 Above high normal 70 -120 (mg/dL) Final Albumin 07/30/2023 09:49:49 4.3 3.8-5.0 (g /dL) Final AST (Aspartate aminotransferase) 07/30/2023 09:49:49 15 10-35 (U/L) Fin al Alk Phos 07/30/2023 09:49:49 68 35-130 (U/ L) Final Bilirubin, Total 07/30/2023 09:49:49 0.3 <=1 .2 (mg/dL) Final Calcium 07/30/2023 09:49:49 10.1 8.4-10.2 ( mg/dL) Final Protein 07/30/2023 09:49:49 7.3 6.0-8.3 (g /dL) Final ALT (Alanine aminotransferase) 07/30/2023 09:49:49 18 10-35 (U/L) Shashi shaw Performing Location [facility] [address] [place] [address]
--- OUTSIDE RECORDS SUMMARY | 2023-08-26 19:37 | External Medical Summary | Summary of Care ---
Author Name Unknown Organization [facility] Address [address] [place] [facility] [place] [address] Phone [phone] Care Team Providers Care Sap Security Consultant Name Role Phone Kalin Reeder MD Primary Care Provide r Reason for Visit * Reason Onset Date Comments Scheduling 07/26/2023 Encounter Details Date Type Department Care Team (Late st Contact Info) Description 07/26/2023 Telephone Hematology/Oncology [facility] [place] [address] [place] [address] Mukesh Santos MD [address] [facility] [address] Scheduling Allergies No known active allergiesdocumented as of this encounter (statuses as of 07/26/2023) Medications Medication Sig Dispensed Refills Start Date End Date Status Aspirin 81 MG Oral Tablet Delayed Release take 1 tablet (81MG) by oral route every day 0 Active Calcium 1200 7206-3706 MG-UNIT Oral Tablet Chewable Take 1 Tablet [...] encounter Miscellaneous Notes * Telephone Encounter - Reyna Casper OSA - 07/26/2023 2:43 PM EST Spoke to patient to schedule the Mediport Insertion for 07/[address] [facility] .. Patient identified by: name/birthdate Person taught: Patient METHOD: Lecture-telephone interview Patient Preferred Learning Methods: Lecture-Telephone interview PATIENT INSTRUCTIONS GIVEN: - General Preoperative Instructions Reviewed - NPO Instructions Reviewed, pt to stop eating 8 hours prior to procedure and stop drinking 2 hoursprior to procedure. -[employer] required Location and check-in instructions Verbalizes understanding [...] 9:00 AM EST Nurse Only Hematology/Oncolog y [place] [address] [place] [address] [place], Nurse Hem Onc Scenery [address] [place] [address] 07/31/2023 11:20 AM EST Hospital Encounter OR [facility], Operating Room, [facility] - 4th Floor [address] [place] [address] Jadiel Foy MD [address] [place] [address] 07/31/2023 11:20 AM EST - 07/31/2023 12:25 PM EST Surgery OR [facility], Operating Room, [facility] - 4th Floor [address] [place] [address] Jadiel Foy MD [address] [place] [address] INSERT TUNNELED CENTRAL VENOUS ACCESS WITH SUBQ PORT 09/10/2023 4:00 PM EST Imaging Radiology, [address] [place] [address] 09/11/2023 8:00 AM EST Office Visit Dermatology [address] [place] [address] Stacy Gomez PA-C [address] [place] [address] [place] [address] 09/18/2023 7:40 AM EST Office Visit Family Medicine [address] [place] [address] Kalin Reeder MD [address] [place] [address] [place] [address] 11/12/2023 4:00 PM EDT Telemedicine Genetics HemOnc, [facility] [address] [place] [address] Kayy Martin, MS [address] [place] [address] 12/27/2023 2:45 PM EDT Office Visit Hematology/Oncolog y [facility] [address] [place] [address] Mukseh Santos MD [address] [place] [address] 04/15/2024 12:00 PM EDT Imaging Radiology [facility] [address] [facility] [address] [facility] [place] [address] 05/26/2024 9:45 AM EST Office Visit General Surgery, [facility] [address] [facility] [place] [address] Perla Wang MD 132 [facility] [place] [address] Scheduled Procedures Name Priority Associated Diagnoses Date/Ti [...] Additional history exists Pap Smear Discontinued 10/23/2021, 09/0 03/2019, 12/28/1998 Zoster Vaccines Completed 10/30/2022, 08/29/2022 [...] Advance Directives occurred with: Patient Care Teams Sap Security Consultant Relationship Specialty Start Date End Date Kalin Reeder MD [address] [place] [address] [place] [address] PCP - General Family Medicine 03/15/21 documented as of this encounter
--- OUTSIDE RECORDS SUMMARY | 2023-08-26 19:37 | External Medical Summary ---
Author Name Unknown Address Unknown Organization K01:[facility] [place] - [address] [place] [address] Laboratory Report Ordering Provider Test Date Status VALDO GARCIAUS 07/30/2023 09:49:49 Final Observation Date Value Abnormality Reference (Units ) Status Ferritin 07/30/2023 09:49:49 211 Above high normal 13 -150 (ng/mL) Final Postmenopausal women have hi gher ferritin levels than pre-menopausal women. The above reference interval is based on pre-menopausal women. Performing Location [facility] [place] - [address] [place] [address]
--- OUTSIDE RECORDS SUMMARY | 2023-08-26 19:37 | External Medical Summary | Summary of Care ---
Author Name Unknown Organization [facility] Address [address] [place] [address] Phone [phone] Care Team Providers Care Towel Sorter Name Role Phone Kalin Reeder MD Primary [...] than 7.0% ([facility]) Mukesh Santos MD [address] [place] [address] Referral ID Status Reason Start Date Expiration Date Visits Requested Visits Authorized [id number] Pending Review Specialty Services Required 07/30/2023 99 99 Question Answer Referral Priority Within 10 days (routine) Where should this appointment be scheduled? [facility] Referring Provider Role: Specialist Specialty: Heme/Onc Reason for Referral: DM Target A1c: Symptom Mgmt Comments Pharmacist Medication Therapy Management: Minimum frequency patient should be seen in person for medication management: as appropriate per clinical condition and patient status By my signature, I understand that my patient Alyssa Reyes will have her medication therapy managed by the [facility] Medication Therapy Disease Management [facility] ([facility]) per established policies, procedures, and protocols. I also certify that this referral may serve as an initiation of service for the management of drug therapy in the above noted patient. [facility] providers will be responsible for scheduling patient visits, obtaining appropriate laboratory studies, and adjusting medication management therapy per patient's need, in addition to those roles spelled out in the clinic policy, procedures, and drug management protocols. I understand that the service provided by the [facility] is voluntary and have informed patient that they can refuse the service at their discretion. I am aware that the [facility] will provide me with a copy of the patient encounter via my [id number] InOmniEarth. I authorize the [facility] to carry out these activities [...] Info) Description 07/26/2023 Telephone Hematology/Oncology [place] [address] [place] [address] Mukesh Santos MD [address] [place] [address] Precert Future (MAT Kang) Allergies No known active allergiesdocumented as of this encounter (statuses as of 07/30/2023) Medications Medication Sig Dispensed Refills Start Date End Date Status Aspirin 81 MG Oral Tablet Delayed Release take 1 tablet (81MG) by oral route every day 0 Active Calcium 1200 7231-8387 MG-UNIT Oral Tablet Chewable Take 1 Tablet [...] encounter Miscellaneous Notes * Telephone Encounter - Larisa Ennis CMA [...] 07/26/2023 1:24 PM EST Received message from [employer]- insurances preferred product is [email or web address]. Ashley: please update beacon plan. Thanks! * Telephone Encounter - Sammy Kearns RN - 07/26/2023 9:19 AM EST Received orders for OP TC + Udenyca [place] plan built and placed on hold for [...] Care Team (Latest Contact Info) Description 07/30/2023 10:00 AM EST Laboratory Laboratory [facility] [place] [address] [facility] [place] [phone] [place], Lab [facility] [address] [facility] [place] [address] Arrived 07/31/2023 11:20 AM EST Hospital Encounter OR [facility], Operating Room, [facility] - 4th Floor [address] [place] [address] Jadiel Foy MD [address] [place] [address] 07/31/2023 11:20 AM EST - 07/31/2023 12:25 PM EST Surgery OR [facility], Operating Room, [facility] - 4th Floor [address] [place] [address] Jadiel Foy MD [address] [place] [address] INSERT TUNNELED CENTRAL VENOUS ACCESS WITH SUBQ PORT 08/05/2023 11:00 AM EST Hem/Onc Treatment Hematology/Oncolog y Treatment, [place] [address] [facility] [place] [address] [place], Chair 2 Hem Onc Scenery [address] [facility] [place] [address] 09/10/2023 4:00 PM EST Imaging Radiology, [address] [place] [address] 09/11/2023 8:00 AM EST Office Visit Dermatology [address] [place] [address] Stacy Gomez PA-C [address] [place] [address] [place] [address] 09/18/2023 7:40 AM EST Office Visit Family Medicine [address] [place] [address] Kalin Reeder MD [address] [place] [address] [place] [address] 11/12/2023 4:00 PM EDT Telemedicine Genetics HemOnc, [facility] [address] [place] [address] Kayy Martin, [place] [address] [place] [address] 12/27/2023 2:45 PM EDT Office Visit Hematology/Oncolog y [facility] [address] [place] [address] Mukesh Santos MD [address] [place] [address] 04/15/2024 12:00 PM EDT Imaging Radiology [facility] 1st [facility] [address] [facility] [place] [address] 05/26/2024 9:45 AM EST Office Visit General Surgery, [facility] [address] [facility] [place] [address] Perla Wang MD [address] [facility] [place] [address] Scheduled Orders Name Type Priority Associated Diagnoses [...] Advance Directives occurred with: Patient Care Teams Towel Sorter Relationship Specialty Start Date End Date Kalin Reeder MD [address] [place] [address] [place] [address] PCP - General Family Medicine 03/15/21 documented as of this encounter
--- OUTSIDE RECORDS SUMMARY | 2023-08-26 19:37 | External Medical Summary ---
Author Name Unknown Address Unknown Organization K01:[facility] [place] [address] [place] [address] Laboratory Report Ordering Provider Test Date Status ANOOP ABERNATHY 07/30/2023 09:49:49 Final Observation Date Value Abnormality Reference (Units) Status Hepatitis B virus surface Ab [Units/volume] in Serum or Plasma by Immunoassay 07/30/2023 09:49:49 <3.5 (mIU/mL) Final Hepatitis B virus surface Ab [Presence] in Serum by Immunoassay 07/30/2023 09:49:49 Negative Final HEPATITIS B SURFACE ANTIBODY, INTERPRETATION 07/30/2023 09:49:49 NOT immune to Hepatitis B Virus Final POSITIVE: >=11.5 mIU/mL
INDETERMINATE: 8.5-<11.5 mIU/mL
NEGATIVE: <8.5 mIU/mL Performing Location LABORATORY [facility] [place] - [facility] [address] [place] [address]
--- OUTSIDE RECORDS SUMMARY | 2023-08-26 19:37 | External Medical Summary | Summary of Care ---
Author Name Unknown Organization [facility] Address [address] [place] [address] Phone [phone] Care Team Providers Care Senior Oracle Database Administrator Name Role Phone Kalin Reeder MD Primary [...] hemoglobin A1c goal of less than 7.0% ([facility]) Mukesh Santos MD [address] [place] [address] Referral ID Status Reason Start Date Expiration Date Visits Requested Visits Authorized [id number] Pending Review Specialty Services Required 07/30/2023 99 99 Question Answer Referral Priority Within 10 days (routine) Where should this appointment be scheduled? [facility] Referring Provider Role: Specialist Specialty: Heme/Onc Reason for Referral: DM Target A1c: Symptom Mgmt Comments Pharmacist Medication Therapy Management: Minimum frequency patient should be seen in person for medication management: as appropriate per clinical condition and patient status By my signature, I understand that my patient Alyssa Reyes will have her medication therapy managed by the [facility] Medication Therapy Disease Management [facility] ([facility]) per established policies, procedures, and protocols. I also certify that this referral may serve as an initiation of service for the management of drug therapy in the above noted patient. [facility] providers will be responsible for scheduling patient visits, obtaining appropriate laboratory studies, and adjusting medication management therapy per patient's need, in addition to those roles spelled out in the clinic policy, procedures, and drug management protocols. I understand that the service provided by the [facility] is voluntary and have informed patient that they can refuse the service at their discretion. I am aware that the [facility] will provide me with a copy of the patient encounter via my BECC InJanalakshmi. I authorize the [facility] to carry out these activities [...] Info) Description 07/26/2023 Telephone Hematology/Oncology [place] [address] [place] [address] Mukesh Santos MD [address] [place] [address] Precert Future (MAT Kang) Allergies No known active allergiesdocumented as of this encounter (statuses as of 07/30/2023) Medications Medication Sig Dispensed Refills Start Date End Date Status Aspirin 81 MG Oral Tablet Delayed Release take 1 tablet (81MG) by oral route every day 0 Active Calcium 1200 8454-2816 MG-UNIT Oral Tablet Chewable Take 1 Tablet [...] hemoglobin A1c goal of less than 7.0% ([facility]) USE TO TEST SUGARS ONCE DAILY. [...] any possible OOP costs for chemotherapy. Thanks! * Addendum Note - Jeffry Hay RN - 07/30/2023 9:19 AM ESTAddended by: JEFFRY HAY on: 07/30/2023 09:19 AM Modules accepted: Orders * Telephone Encounter - Jeffry Hay RN - 07/29/2023 3:07 PM EST Referral entered. * Telephone Encounter - Jeffry Hay RN - 07/26/2023 1:24 PM EST Received message from [employer] preferred product is FULPHILA. Carlislesingh: please update beacon plan. Thanks! * Telephone Encounter - Sammy Kearns RN - 07/26/2023 9:19 AM EST Received orders for OP TC + Udenyca [place] plan built and placed on hold for [...] Operating Room, [facility] - 4th Floor [address] [place] [address] Jadiel Foy MD [address] [place] [address] 07/31/2023 11:20 AM EST - 07/31/2023 12:25 PM EST Surgery OR [facility], Operating Room, [facility] - 4th Floor [address] [place] [address] Jadiel Foy MD [address] [place] [address] INSERT TUNNELED CENTRAL VENOUS ACCESS WITH SUBQ PORT 09/10/2023 4:00 PM EST Imaging Radiology, [address] [place] [address] 09/11/2023 8:00 AM EST Office Visit Dermatology [address] [place] [address] Stacy Gomez PA-C [address] [place] [address] [place] [address] 09/18/2023 7:40 AM EST Office Visit Family Medicine [address] [place] [address] Kalin Reeder MD [address] [place] [address] [place] [address] 11/12/2023 4:00 PM EDT Telemedicine Genetics HemOnc, [facility] [address] [place] [address] Kayy Martin, [place] [address] [place] [address] 12/27/2023 2:45 PM EDT Office Visit Hematology/Oncolog y [place] [address] [place] [address] Mukesh Santos MD [address] [place] [address] 04/15/2024 12:00 PM EDT Imaging Radiology [facility] 1st [facility] [address] [facility] [place] [address] 05/26/2024 9:45 AM EST Office Visit General Surgery, [facility] [address] [place] [address] Perla Wnag MD [address] [place] [address] Scheduled Orders Name Type Priority Associated Diagnoses [...] Advance Directives occurred with: Patient Care Teams Senior Oracle Database Administrator Relationship Specialty Start Date End Date Kalin Reeder MD [address] [place] [address] [place] [address] PCP - General Family Medicine 03/15/21 documented as of this encounter
--- OUTSIDE RECORDS SUMMARY | 2023-08-26 19:37 | External Medical Summary | Summary of Care ---
Author Name Unknown Organization [facility] Address [address] [facility] [place] [address] Phone [phone] Care Team Providers Care Station Mechanic Name Role Phone Kalin Reeder MD Primary Care Provide r Reason for Visit * Reason Onset Date Comments Precert Future 07/26/2023 MAT Kang Encounter Details Date Type Department Care Team (Late st Contact Info) Description 07/26/2023 Telephone Hematology/Oncology [place] [address] [place] [address] Mukesh Santos MD [address] [place] [address] Precert Future (MAT Kang) Allergies No known active allergiesdocumented as of this encounter (statuses as of 07/26/2023) Medications Medication Sig Dispensed Refills Start Date End Date Status Aspirin 81 MG Oral Tablet Delayed Release take 1 tablet (81MG) by oral route every day 0 Active Calcium 1200 8152-1773 MG-UNIT Oral Tablet Chewable Take 1 Tablet [...] hemoglobin A1c goal of less than 7.0% ([facility]) USE TO TEST SUGARS ONCE [...] encounter Miscellaneous Notes * Telephone Encounter - Sammy Kearns RN - 07/26/2023 9:19 AM EST Received orders for OP TC + Udenyca [place] plan built and placed on hold for [...] 07/30/2023 9:00 AM EST Nurse Only Hematology/Oncology [facility] [place] [address] [place] [address] [place], Nurse Hem Onc [facility] [address] [facility] [place] [address] 09/10/2023 4:00 PM EST Imaging Radiology, [address] [place] [address] 09/11/2023 8:00 AM EST Office Visit Dermatology [address] [place] [address] Stacy Gomez PA-C [address] [place] [address] [place] [address] 09/18/2023 7:40 AM EST Office Visit Family Medicine [address] [place] [address] Kalin Reeder MD [address] [place] [address] [place] [address] 11/12/2023 4:00 PM EDT Telemedicine Genetics HemOnc, [facility] [address] [place] [address] Kayy Martin, MS [address] [place] [address] 12/27/2023 2:45 PM EDT Office Visit Hematology/Oncology [facility] [place] [address] [place] [address] Mukesh Santos MD [address] [place] [address] 04/15/2024 12:00 PM EDT Imaging Radiology [facility] 1st [facility] [address] [facility] [place] [address] 05/26/2024 9:45 AM EST Office Visit General Surgery, [facility] 132 [place] [address] Perla Wang MD [address] [place] [address] Scheduled Orders Name Type Priority Associated Diagnoses [...] Advance Directives occurred with: Patient Care Teams Station Mechanic Relationship Specialty Start Date End Date Sellathurai, Thiviyanath, MD [address] [place] [address] [place] [address] PCP - General Family Medicine 03/15/21 documented as of this encounter
--- OUTSIDE RECORDS SUMMARY | 2023-08-26 19:38 | External Medical Summary | Summary of Care ---
Author Name Unknown Organization [facility] Address [address] [place] [address] Phone [phone] Care Team Providers Care Research Scientist Name Role Phone Kalin Reeder MD Primary Care Provide r Reason for Referral * Medication Prior Authorization - Closed Specialty Diagnoses / Procedures Referred By Contac t Referred To Contact Diagnoses Type 2 diabetes mellitus with hemoglobin A1c goal of less than 7.0% ([facility]) Tiffany Garcia, [facility] [address] [facility] [address] Referral ID Status Reason Start Date Expiration Date Visits Re quested Visits Authorized [id number] Closed [phone] Reason for Visit * Reason Comments eRx-Medication Refill Encounter Details Date Type Department Care Team (Late st Contact Info) Description 07/07/2023 Refill Family Medicine [address] [phone] Kalin Reeder MD [address] [place] [address] [place] [address] Type 2 diabetes mellitus with hemoglobin A1c goal of less than 7.0% ([facility]) Allergies No known active allergiesdocumented as of this encounter (statuses as of 07/09/2023) Medications Medication Sig Dispensed Refills Start Date End Date Status Aspirin 81 MG Oral Tablet Delayed Release take 1 tablet (81MG) by oral route every day 0 Active Calcium 1200 9116-9720 MG-UNIT Oral Tablet Chewable Take 1 Tablet by mouth in the morning. 0 Active Vitamin D3 25 MCG (1000 UT) Oral Capsule Take by mouth. 0 Active Vitamin B-12 1000 MCG Oral Tablet (Cyanocobalamin) TAKE 1 TABLET BY MOUTH EVERY DAY IN THE MORNING 100 Tablet 3 01/25/2023 Active glipiZIDE ER 5 MG Oral Tablet Extended Release 24 Hour (glipiZIDE XL)Indications:Typ e 2 diabetes mellitus with hemoglobin A1c goal of less than 7.0% (HCC) Take 1 Tablet by mouth in the morning. 30 minutes before a meal.. 90 Tablet 1 01/23/2023 Active Lovastatin 40 MG Oral Tablet TAKE [...] A1c goal of less than 7.0% ([facility]) Inject 1.5 mg under the skin once a week. 6 mL 1 01/23/2023 3 Discontinued documented as of this encounter (statuses as of 07/09/2023) Active Problems Problem Noted Date Diagnosed Date Morbid obesity due to excess calories 01/03/2022 [...] as of this encounter (statuses as of 07/09/2023) Resolved Problems Problem Noted Date Diagnosed Date Resolved Date Mixed dyslipidemia 9 Overview: Per Lipid Taxonomy. documented as of this encounter (statuses as of 07/09/2023) Immunizations Name Administration Dates Next Due COVID-19 [...] encounter Miscellaneous Notes * Telephone Encounter - Tiffany Garcia RPh - 07/09/2023 11:32 AM ESTSigned Prescriptions: Disp Refills Trulicity 1.5 MG/0.5ML Subcutaneous Soluti*6 mL 1 Sig: INJECT 1.5 MG UNDER THE SKIN ONCE A WEEK.Authorizing Provider: Janna REEDER User: FOSTER GARCIA documented in this encounter Plan of Treatment Upcoming Encounters Date Type Department Care Team (Late st Contact Info) Description 09/10/2023 4:00 PM EST Imaging Radiology, [address] [place] [address] 09/11/2023 8:00 AM EST Office Visit Dermatology [address] [place] [address] Stacy Gomez PA-C [address] [place] [address] [place] [address] 09/18/2023 7:40 AM EST Office Visit Family Medicine [address] [place] [phone] Kalin Reeder MD [address] [place] [address] [place] [address] 11/12/2023 4:00 PM EDT [facility] [address] [place] [address] Kayy Martin, [place] [address] [place] [address] 12/27/2023 2:45 PM EDT Office Visit Hematology/Oncology [facility] [address] [place] [address] Mukesh Santos MD [address] [place] [address] 04/15/2024 12:00 PM EDT Imaging [facility] [place] [address] 05/26/2024 9:45 AM EST Office Visit General Surgery, [facility] [place] [address] Perla Wang MD [address] [place] [address] Health Maintenance Due Date Last Done Comments [...] A1c goal of less than 7.0% ([facility]) documented in this encounter Advance Directives Latest Code Status on File Code Status Date Activated Date Inactivated Comments Full Code 06/12/2023 6:58 AM 06/12/2023 4:24 PM Thi s order reflects the patients wishes and were consensually agreed upon. Question Answer Comments Discussion of Advance Directives occurred with: Patient Care Teams Research Scientist Relationship Specialty Start Date End Date Kalin Reeder MD [address] [place] [address] [place] [address] PCP - General Family Medicine 03/15/21 documented as of this encounter
--- OUTSIDE RECORDS SUMMARY | 2023-08-26 19:38 | External Medical Summary ---
Author Name Unknown Address Unknown Organization K01:[facility] - [address] [place] [address] Laboratory Report Ordering Provider Test Date Status BHARGAVI NIX 06/19/2023 15:45:27 Bere l Normal: <30 mg/g creatinine< br/>High: 30-300 mg/g creatinine
Very High: >300 mg/g creatinine
Nephrotic: >2200 mg/g creatinine Observation Date Value Abnormality Reference (Units ) Status Albumin, Urine 06/19/2023 15:45:27 10.69 (mg/dL) Final Creatinine, Urine 06/19/2023 15:45:27 66 (mg/dL) Final Albumin/Creatinine [Mass Ratio] in Urine 06/19/2023 15:45:27 162 Above high normal <30 (mg/g Creat) Final Performing Location [facility] - [address] [place] [address]
--- OUTSIDE RECORDS SUMMARY | 2023-08-26 19:38 | External Medical Summary | Summary of Care ---
Author Name Unknown Organization [facility] Address [address] [facility] [place] [address] Phone [phone] Care Team Providers Care Ibm Bpm Architect Name Role Phone Kalin Reeder MD Primary Care Provide r Reason for Visit * Reason Comments Re-Check Encounter Details Date Type Department Care Team (Late st Contact Info) Description 06/19/2023 3:40 PM EST Office Visit Family Medicine [address] [place] [phone] Kalin Reeder MD [address] [place] [address] [place] [address] Infiltrating ductal carcinoma of right breast (HCC)*; S/P partial mastectomy, right; Type 2 diabetes mellitus with hemoglobin A1c goal of less than 7.0% (HCC); HTN, goal below 130/80 Allergies No known active allergiesdocumented as of this encounter (statuses as of 06/19/2023) Medications Medication Sig Dispensed Refills Start Date End Date Status Aspirin 81 MG Oral Tablet Delayed Release take 1 tablet (81MG) by oral route every day 0 Active Calcium 1200 7195-9521 MG-UNIT Oral Tablet Chewable Take 1 Tablet by mouth in the morning. 0 Active Vitamin D3 25 MCG (1000 UT) Oral Capsule Take by mouth. 0 Active Vitamin B-12 1000 MCG Oral Tablet (Cyanocobalamin) TAKE 1 TABLET BY MOUTH EVERY DAY IN THE MORNING 100 Tablet 3 01/25/2023 Active Trulicity 1.5 MG/0.5ML Subcutaneous Solution Pen-injector (Dulaglutide)Indicati ons:Type 2 diabetes mellitus with hemoglobin A1c goal of less than 7.0% (HCC) Inject 1.5 mg under the skin once a week. 6 mL 1 01/23/2023 Active glipiZIDE ER 5 MG Oral Tablet Extended Release 24 Hour (glipiZIDE XL)Indications:Type 2 diabetes mellitus with hemoglobin A1c [...] moderate Pain 5 Tablet 0 06/12/2023 Active documented as of this encounter (statuses as of 06/19/2023) Active Problems Problem Noted Date Diagnosed Date [...] as of this encounter (statuses as of 06/19/2023) Resolved Problems Problem Noted Date Diagnosed Date Resolved Date Mixed dyslipidemia Overview: Per Lipid Taxonomy. documented as of this encounter (statuses as of 06/19/2023) Immunizations Name Administration Dates Next Due COVID-19 mRNA, LNP-s, No Pre serve, 2-Dose Series (Moderna) 12/06/2020,09/23/2020 COVID-19 mRNA, LNP-s, No Pre serve, 2-Dose Series (Pfizer) 06/20/2021 Covid-19, Mrna, Lnp-s, Pf, B ivalent, 30 Mcg, IM, 12 yrs and above (Pfizer) 08/23/2022 SEASONAL INFLUENZA, PF, 6 M & Above, IM , (FLULAVAL or FLUZONE) 03/15/2021 Seasonal Influenza, Quadrivalent Hd (Fluzone Hd) [...] Sign Reading Time Taken Comments Blood Pressure 134/78 06/19/2023 3:32 PM EST Pulse 79 06/19/2023 3:32 PM EST Temperature 35.9 C (96.6 F) 06/19/2023 3:32 PM ES T Respiratory Rate - - Oxygen Saturation 95% 06/19/2023 3:32 PM EST Inhaled Oxygen Concentration - - Weight 108 kg (238 lb 3.2 oz) 06/19/2023 3:32 PM EST Height - - Body Mass Index 48.11 06/12/2023 7:14 AM EST documented in this encounter Progress Notes * Kalin Reeder MD - 06/19/2023 3:27 PM EST Subjective: HPI: Alyssa Reyes is a 68 year old female with hx of DMII, HTN, HLD, DJD and B/L knee replacement, Recent hx of R breast invasive ductal carcinoma s/p partial mastectomy seen for Pt recently dx with Invasive ductal carcinoma of the R breast - s/p partial mastectomy - Estrogen receptor status is strongly positive. Progesterone receptor status is weakly positive. HER-2/francisca receptors negative - on the process of seeing radiation oncology - sched to see radiation oncology in jul DMII, & HTN: - currently on glipizide ER 5mg daily, Metformin 1000mg BID, Trulicity 1.5mg weekly, Lisinopril 40mg daily, and HCTZ 25mg daily - complaint with meds - has been eating less glucose Patient Active Problem List Diagnosis Code OBESITY, UNSPECIFIED E66.9 DYSLIPIDEMIA, GOAL TO BE DETERMINED E78.5 Type 2 diabetes mellitus with hemoglobin A1c goal of less than 7.0% ([facility]) E11.9 Hyperlipidemia E78.5 HTN, goal below 130/80 I10 Osteoarthritis of multiple joints M15.9 Status post total bilateral knee replacement Z96.653 Body mass index (BMI) of 45.0 to 49.9 in adult ([facility]) Z68.42 Morbid obesity due to excess calories ([facility]) E66.01 Current Outpatient Medications Medication Sig Dispense Refill Aspirin 81 MG Oral Tablet Delayed Release take 1 tablet (81MG) by oral route every day Calcium 1200 7734-5272 MG-UNIT Oral Tablet Chewable Take 1 Tablet by mouth in the morning. Vitamin D3 25 MCG (1000 UT) Oral Capsule Take by mouth. Vitamin B-12 1000 MCG Oral Tablet (Cyanocobalamin) TAKE 1 TABLET BY MOUTH EVERY DAY IN THE MORNING 100 Tablet 3 Trulicity 1.5 MG/0.5ML Subcutaneous Solution Pen-injector (Dulaglutide) Inject 1.5 mg under the skin once a week. 6 mL 1 glipiZIDE ER 5 MG Oral Tablet Extended Release 24 Hour (glipiZIDE XL) Take 1 Tablet by mouth in themorning. 30 minutes before a meal.. 90 Tablet 1 Lovastatin 40 MG Oral Tablet TAKE 1 TABLET BY MOUTH EVERY DAY WITH DINNER 90 Tablet 3 Accu-Chek Stefani Plus In Vitro Strip (Glucose Blood) USE TO TEST SUGARS ONCE DAILY. E11.9 100 Strip 2 hydroCHLOROthiazide 25 MG Oral Tablet (Hydrodiuril) TAKE 1 TABLET BY MOUTH EVERY DAY IN THE [id number] Tablet 1 metFORMIN HCl 500 MG Oral Tablet (Glucophage) TAKE 2 TABLETS BY MOUTH TWICE A DAY 360 Tablet 1 Lisinopril 40 MG Oral Tablet TAKE 1 TABLET BY MOUTH EVERY DAY IN THE MORNING 90 Tablet 1 Ferrous Sulfate 325 (65 Fe) MG Oral Tablet (Feosol) TAKE 2 TABLETS BY MOUTH EVERY MORNING 180 Tablet 0 HYDROcodone-Acetaminophen 5-325 MG Oral Tablet Take 1 Tablet by mouth every 6 hours as needed for moderate Pain 5 Tablet 0 No current facility-administered medications for this visit. Past Medical History: Diagnosis Date Mixed dyslipidemia Obesity, BMI not known Past Surgical History: Procedure Laterality Date BX LYMPH NODE DEEP AXIL Right 06/12/2023 BIOPSY LYMPH NODE DEEP AXILLARY OPEN performed by Perla Wang MD at OR [facility] DRAIN OVARIAN CYST(S);VAG 1974 EXC BREAST LESION RADMARK Right 06/12/2023 EXCISION OF BREAST LESION RADIOLOGICAL MARKER performed by Perla Wang MD at OR [facility] IDENTIFY SENTINEL NODE, RADIOACTIVE TRACER Right 06/12/2023 INJECTION PROCEDURE FOR IDENTIFICATION SENTINEL NODE performed by Perla Wang MD at OR [facility] MASTECTOMY, PARTIAL Right 06/12/2023 MASTECTOMY PARTIAL performed by Perla Wang MD at OR [facility] Review of patient's allergies indicates: No Known Allergies Family History Problem Relation Age of Onset Heart Disorder Mother Breast Cancer Mother Breast Cancer Aunt (Maternal) Social History Tobacco Use Smoking status: Never Smokeless tobacco: Never Substance Use Topics Alcohol use: No Vaping/E-Cigarette Use Vaping/E-Cigarette Substances Vaping/E-Cigarette Devices ROS: -Per HPI OBJECTIVE: BP 134/78 | Pulse 79 | Temp 35.9 C (96.6 F) | Wt 108 kg (238 lb 3.2 oz) | LMP 12/12/2007 | LuZ179% | BMI 48.11 kg/m | BSA 2.12 m PHYSICAL EXAM: Vitals are reviewed General:. NAD, well developed HEENT:. Normal Conjunctiva, EOMI Cardiac:. Normal S1, S2, no murmur Lungs:. CTA, no wheezing or crackles MSK:. Normal gait Psych:. AAOx3, normal affect ASSESSMENT/PLAN: Infiltrating ductal carcinoma of right breast (HCC) (Primary) S/P partial mastectomy, right - doing well - sched to follow up with radiation oncology and oncologist Type 2 diabetes mellitus with hemoglobin A1c goal of less than 7.0% (HCC) - ALBUMIN / CREATININE RATIO, URINE - HEMOGLOBIN A1C HTN, goal below 130/80 - continue Lisinopril 40mg daily, and HCTZ 25mg daily - BASIC METABOLIC PANEL Follow Up: Return in about 3 months (around 09/18/2023). Kalin Reeder MD Family medicine, [place] [phone] documented in this encounter Nursing Notes * Krystyna Woodward, SUPERVISOR OF RESEARCH - 06/19/2023 3:31 PM EST She is here for a regular recheck. She has no problems or concerns she would like to discuss today. documented in this encounter Plan of Treatment Upcoming Encounters Date Type Department Care Team (Late st Contact Info) Description 06/27/2023 10:00 AM EST Office Visit General Surgery, [facility] [address] [place] [address] Perla Wang MD [address] [place] [address] 09/11/2023 8:00 AM EST Office Visit Dermatology [address] [place] [address] Stacy Gomez PA-C [address] [place] [address] [place] [address] 09/18/2023 7:40 AM EST Office Visit Family Medicine [address] [place] [phone] Kalin Reeder MD [address] [place] [address] [place] [address] 11/12/2023 4:00 PM EDT Telemedicine Genetics [facility], [facility] [address] [place] [address] Kayy Martin, MS [address] [place] [address] 04/20/2024 10:00 AM EDT Imaging Radiology [address] [place] [address] Pending Results Name Type Priority Associated Diagnoses Date /Time ALBUMIN / CREATININE RATIO, URINE Lab Routine Type 2 diabetes mellitus with hemoglobin A1c goal of less than 7.0% (HCC) 06/19/2023 3:45 PM EST BASIC METABOLIC PANEL Lab Routine HTN, goal below 130/80 06/19/2023 3:45 PM EST HEMOGLOBIN A1C Lab Routine Type 2 diabetes mellitus with hemoglobin A1c goal of less than 7.0% (HCC) 06/19/2023 3:45 PM EST Health Maintenance Due Date Last Done Comments Pneumococcal Vaccine: 65+ Years (1 - PCV) 1963 Depression Screening 1969 DTaP,Tdap,and Td Vaccines (1 - Tdap) 06/22/1999 06/21/1999, 10/15/1980 Cologuard 2002 Fecal Occult Blood Test 2002 Sigmoidoscopy 2002 Hepatitis B (1 of 3 - Risk 3-dose series) 2017 Diabetic Eye Exam 02/26/2023 02/26/2022, 02/17/2021 COVID-19 Vaccine ( season) 2023 08/23/2022, 06/20/2021, 12/06/2020, Additional history exists Influenza Vaccine (FLU shot) (#1) 2023 07/23/2022, 03/15/2021 Diabetic Foot Exam 07/23/2023 07/23/2022, 06/16/2021 HbA1c 07/26/2023 01/23/2023, 0 03/2023, 01/09/2022, Additional history exists GFR 01/24/2024 01/23/2023, 0 03/2023, 01/09/2022, Additional history exists Albumin/Creatinine Ratio 01/25/2024 023, 01/09/2022, 03/15/2021 Colonoscopy 02/11/2024 02/10/2014 Colorectal Cancer Screening 02/11/2024 DXA Scan 03/05/2024 03/05/2014 Mammogram 04/26/2024 04/26/2023, 08/2022, 04/11/2022, Additional history exists Lipid Panel 01/24/2028 01/23/2023, [...] as of this encounter Visit Diagnoses Diagnosis Infiltrating ductal carcinoma of right breast (HCC)- Primary S/P partial mastectomy, right Type 2 diabetes mellitus with hemoglobin A1c goal of less than 7.0% (HCC) HTN, goal below 130/80 Unspecified essential hypertension documented in this encounter Advance Directives Latest Code Status on File Code Status Date Activated Date Inactivated Comments Full Code 06/12/2023 6:58 AM 06/12/2023 4:24 PM Th is order reflects the patients wishes and were consensually agreed upon. Question Answer Comments Discussion of Advance Directives occurred with: Patient Care Teams Ibm Bpm Architect Relationship Specialty Start Date End Date Kalin Reeder MD [address] [place] [address] [place] [phone] PCP - General Family Medicine 03/15/21 documented as of this encounter"
--- OUTSIDE RECORDS SUMMARY | 2023-08-26 19:38 | External Medical Summary ---
Author Name Unknown Address Unknown Organization K01:[facility] - [facility] [address] [facility] [address] [facility] [address] Laboratory Report Ordering Provider Test Date Status YOUSIFJOJOBHARGAVI 06/19/2023 15:45:27 Bere l Observation Date Value Abnormality Reference (Units ) Status HbA1C 06/19/2023 15:45:27 7.3 Above high normal 4. 0-5.6 (%) Final The use of HbA1c to monitor glycemic status is based on normal hemoglobin and HbA composition. This test should not be used in patients with abnormal hemoglobin that affects the half life of the red blood cell or the in vivo glycation rates. Glucose, estimated average 06/19/2023 15:45:27 163 Above high normal <126 (mg/dL) Shashi al Performing Location [facility] - [facility] [address] [facility] [address]
--- OUTSIDE RECORDS SUMMARY | 2023-08-26 19:38 | External Medical Summary | Summary of Care ---
Author Name Unknown Organization [facility] Address [address] [facility] [place] [address] Phone [phone] Care Team Providers Care Chain Sales Consultant Name Role Phone Kalin Reeder MD Primary Care Provide r Reason for Visit * Reason Onset Date Comments Follow Up 07/05/2023 Encounter Details Date Type Department Care Team (Late st Contact Info) Description 07/05/2023 Telephone General Surgery, [facility] [address] [place] [address] Perla Wang MD [address] [place] [address] Follow Up Allergies No known active allergiesdocumented as of this encounter (statuses as of 07/05/2023) Medications Medication Sig Dispensed Refills Start Date End Date Status Aspirin 81 MG Oral Tablet Delayed Release take 1 tablet (81MG) by oral route every day 0 Active Calcium 1200 0146-4446 MG-UNIT Oral Tablet Chewable Take 1 Tablet [...] 7.0% ([facility]) Inject 1.5 mg under the skin once [...] as of this encounter (statuses as of 07/05/2023) Active Problems Problem Noted Date Diagnosed Date [...] as of this encounter (statuses as of 07/05/2023) Resolved Problems Problem Noted Date Diagnosed Date Resolved Date Mixed dyslipidemia 9 Overview: Per Lipid Taxonomy. documented as of this encounter (statuses as of 07/05/2023) Immunizations Name Administration Dates Next Due COVID-19 [...] encounter Miscellaneous Notes * Telephone Encounter - Fabi Salazar LPN - 07/05/2023 10:56 AM EST Oncotype scanned documented in this encounter Plan of Treatment Upcoming Encounters Date Type Department Care Team (Late st Contact Info) Description 09/10/2023 4:00 PM EST Imaging Radiology, [address] [place] [address] 09/11/2023 8:00 AM EST Office Visit Dermatology [address] [place] [address] Stacy Gomez PA-C [address] [place] [address] [place] [address] 09/18/2023 7:40 AM EST Office Visit Family Medicine [address] [place] [phone] Kalin Reeder MD [address] [place] [address] [place] [address] 11/12/2023 4:00 PM EDT Telemedicine Genetics HemOnc, [facility] [address] [place] [address] Kayy Martin, MS [address] [place], [place] [id number] 12/27/2023 2:45 PM EDT Office Visit Hematology/Oncology [facility] [address] [facility] [place] [address] Mukesh Santos MD [address] [place] [address] 04/15/2024 12:00 PM EDT Imaging Radiology [address] [facility] [place] [address] 05/26/2024 9:45 AM EST Office Visit General Surgery, [facility] [address] [facility] [place] [address] Perla Wang MD 132 [facility] [place] [address] Health Maintenance Due Date Last Done Comments [...] Advance Directives occurred with: Patient Care Teams Chain Sales Consultant Relationship Specialty Start Date End Date Kalin Reeder MD [address] [place] [address] [place] [address] PCP - General Family Medicine 03/15/21 documented as of this encounter
--- OUTSIDE RECORDS SUMMARY | 2023-08-26 19:38 | External Medical Summary | Summary of Care ---
Author Name Unknown Organization [facility] Address [address] [place] [address] Phone [phone] Care Team Providers Care Gasoline Finisher Name Role Phone Kalin Reeder MD Primary Care Provide r Reason for Visit * Reason Comments NEW PATIENT * Evaluate & Treat - Unlimited Visits (Within 30 days (routine)) - Pending Review Specialty Diagnoses / Procedures Referred By Contac t Referred To Contact Hematology/Oncology / Hematology Oncology Diagnoses Malignant neoplasm of upper-outer quadrant of right breast in female, estrogen receptor positive Perla Wang MD [address] [place] [address] Referral ID Status Reason Start Date Expiration Date Visits Requested Visits Authorized [id number] Pending Review Specialty Services Required 06/18/[id number] Encounter Details Date Type Department Care Team (Late st Contact Info) Description 06/27/2023 12:15 PM EST Office Visit Hematology/Oncology [facility] [place] [facility] [place] [address] Mukesh Santos MD [address] [facility] [place] [address] Malignant neoplasm of upper-outer quadrant of right breast in female, estrogen receptor positive *; [facility] (current) use of aromatase inhibitors Allergies No known active allergiesdocumented as of this encounter (statuses as of 06/27/2023) Medications Medication Sig Dispensed Refills Start Date End Date Status Aspirin 81 MG Oral Tablet Delayed Release take 1 tablet (81MG) by oral route every day 0 Active Calcium 1200 5635-1452 MG-UNIT Oral Tablet Chewable Take 1 Tablet [...] Active metFORMIN HCl 500 MG Oral Tablet (Glucophage)Indicatristiano ns:Type 2 diabetes mellitus with hemoglobin A1c [...] as of this encounter (statuses as of 06/27/2023) Active Problems Problem Noted Date Diagnosed Date [...] as of this encounter (statuses as of 06/27/2023) Resolved Problems Problem Noted Date Diagnosed Date Resolved Date Mixed dyslipidemia 9 Overview: Per Lipid Taxonomy. documented as of this encounter (statuses as of 06/27/2023) Immunizations Name Administration Dates Next Due COVID-19 [...] Sign Reading Time Taken Comments Blood Pressure 142/83 06/27/2023 11:58 AM EST Pulse 96 06/27/2023 11:58 AM EST Temperature 37.6 C (99.6 F) 06/27/2023 1 1:58 AM EST Respiratory Rate - - Oxygen Saturation 94% 06/27/2023 11: 58 AM EST Inhaled Oxygen Concentration - - Weight 107.5 kg (236 lb 14.4 oz) 2022 11:58 AM EST Height - - Body Mass Index 47.85 06/12/2023 7:14 AM EST documented in this encounter Progress Notes * Mukesh Santos MD - 06/27/2023 12:15 PM EST Hematology/Oncology Outpatient Consult Note Addie Tavarez [place] [facility] [place] [address] ALYSSA Tirso GILLIS MR # [id number] :1955 68-year-old female, REASON FOR CONSULTATION: Consultation for Alyssa Gillis requested by Dr. Perla Wang for evaluation and discussion of treatment options for right breast cancer at 12 o'clock. Date of consultation:06/27/2023 DIAGNOSIS: - right breast cancer, S/P lumpectomy and sentinel for biopsy (06/12/2023) -T1c N0 M0, 3 sentinel lymph nodes negative for metastatic disease, primary tumor measuring 1.3 cm,grade 2. Hormonal positive HER2 Isabel negative. Oncotype DX recurrence score --> pending. CURRENT TREATMENT: Waiting for the Oncotype DX recurrence score Will decide about role of chemotherapy after reviewing the Oncotype DX recurrence score. If the score is less than 26, no chemotherapy and she will proceed with radiation treatment at [facility] Will order Anastrozole or tamoxifen after reviewing the bone density result. She will have radiation oncology consultation at [facility]. DIAGNOSTIC WORKUP: Bilateral breast screening mammogram done on 04/15/2023: -right breast mass at central midline position. Left breast unremarkable. Right breast diagnostic mammogram and sonogram on 04/26/2023: -hypoechoic mass at 12 o'clock position measuring about 0.9 x 0.4 x 0.8 cm. Right breast core needle biopsy --> invasive mammary carcinoma no special type, ductal, grade 2.Low-grade DCIS noted (05/08/2023). -ER strongly positive in 100% malignamt cells,, [place] weakly positive in 10% of malignamt cells, HER2 Isabel negative. Bilateral breast MRI done on 06/03/2023: -left breast--> unremarkable Right breast--> 9.3 x 9.1x 4.2 mm irregular enhancing mass -no internal mammary or axillary lymphadenopathy. She had lumpectomy and sentinel for biopsy by Dr. Wang on 06/12/2023: -invasive ductal carcinoma grade 2, -intermediate grade DCIS -3 sentinel lymph nodes negative for metastatic disease -negative margin. - primary tumor measuring 1.3 cm. Single focus TNM staging T1c N0 M0. Oncotype DX pending. Family history: -mom diagnosed with breast cancer in her 60s, currently alive, 86-year-old -mom's sister with breast cancer, - cousin with breast cancer diagnosis. OTHER IMPORTANT HISTORY: -diabetes mellitus -hypertension -she takes oral iron 2 tablets a day She also takes Vitamin B12 supplementation. Obesity. INTERVAL HISTORY: She has come the clinic for the initial evaluation, accompanied by her in the office. Overall she is doing well, no back pain, no bone pain, no nausea no vomiting, good appetite, current weight around 236 lb, ambulates slowly by herself, no fever, no infections, no bleeding from any sites. No upper extremity edema, no leg edema. She is on diuretic therapy. REVIEW OF SYSTEMS: GENERAL: No recent change in weight, no weakness, no fatigue, no fever, sweats or chills. SKIN: No skin rash, no bruising. HEAD: No new headache, no dizziness. EYES: No recent change in the vision, no diplopia, EARS: No earache no tinnitus, NOSE: No epistaxis, No nasal discharge or stuffiness, MOUTH: No sores, no dysphagia, no hoarseness of voice, NECK: No lumps, No swelling in thyroid area. No stiffness. PULMONARY: No cough, No shortness of breath, no hemoptysis, no chest pain, No wheezing. CARDIOVASCULAR: No anginal chest pain, no PND, no orthopnea. No palpitation, no leg edema. No syncope. GASTROINTESTINAL: No abdominal pain, no nausea or vomiting. No diarrhea, No constipation. No blood in stool or black tarry stools. No abdominal distention. UROLOGIC: No burning urination. No hematuria. MUSCULOSKELETAL: No joint pain, No joint swelling, no muscle weakness. HEMATOLOGIC: No anemia, no bleeding disorder, No bruising. NEUROLOGIC: No seizures, no focal weakness, no speech difficulty, No memory disturbances. No tingling or numbness of the extremities. PSYCHIATRIC: No depression. No anxiety. No psychosis. Past Medical History: Diagnosis Date Mixed dyslipidemia Obesity, BMI not known Past Surgical History: Procedure Laterality Date BX LYMPH NODE DEEP AXIL Right 06/12/2023 BIOPSY LYMPH NODE DEEP AXILLARY OPEN performed by Perla Wang MD at OR [facility] DRAIN OVARIAN CYST(S);VAG 1974 EXC BREAST LESION RADMARK Right 06/12/2023 EXCISION OF BREAST LESION RADIOLOGICAL MARKER performed by Perla Wang MD at [facility] IDENTIFY SENTINEL NODE, RADIOACTIVE TRACER Right 06/12/2023 INJECTION PROCEDURE FOR IDENTIFICATION SENTINEL NODE performed by Perla Wang MD at [facility] MASTECTOMY, PARTIAL Right 06/12/2023 MASTECTOMY PARTIAL performed by Perla Wang MD at [facility] Current Outpatient Medications Medication Sig Dispense Refill Aspirin 81 MG Oral Tablet Delayed Release take 1 tablet (81MG) by oral route every day Calcium 1200 8200-5400 MG-UNIT Oral Tablet Chewable Take 1 Tablet [...] TABLET BY MOUTH EVERY DAY IN THE [id number] Tablet 1 metFORMIN HCl 500 MG Oral [...] No current facility-administered medications for this visit. Family History Problem Relation Age of Onset Heart Disorder Mother Breast Cancer Mother Breast Cancer Aunt (Maternal) Social History Socioeconomic History Marital status: Spouse [...] on file Housing Stability: Not on file On Exam: LMP 12/12/2007 BP 142/83 (BP Site: Left Arm, BP Position: Sitting, BP Cuff Size: Regular) | Pulse 96 | Temp 37.6 C (99.6 F) | Wt 107.5 kg (236 lb 14.4 oz) | LMP 12/12/2007 | SpO2 94% | BMI 47.85 kg/m | BSA 2.12 m Constitutional: Patient is alert, cooperative and oriented x 3. Well built woman, Patient is in no acute distress. HEENT: No icterus, no pallor, Throat and pharynx normal. Sinuses are non-tender. Neck: Supple and without lymphadenopathy or masses. No JVD. No Palpable supraclavicular lymph nodes. Lungs: Clear to auscultation. Bilateral symmetric air entry. No wheezing or rhonchi. Cardiovascular: Normal heart sounds, no murmurs.Regular rate and rhythm. Abdomen: soft, nontender, no hepatomegaly, no splenomegaly. Bowel sounds are normal. Neurological: No gross focal neurological deficit; walks with a normal gait. Extremities: No finger clubbing, No cyanosis. No leg edema. Skin:: No skin rash. SPINE: No spinal or paraspinal tenderness. LABS: Blood workup done on 06/19/2023: -BUN/Creat: 24/1.0, Calcium 9.3. -normal blood counts (05/21/2023). IMAGING: As described above. ASSESSMENT AND PLAN: 68-year-old female, Oncology diagnosis: -right breast carcinoma S/P lumpectomy and sentinel biopsy on 06/12/2020, final pathology showed T1c N0 M0, 3 lymph nodes negative for metastatic disease, negative margin, primary tumor 1.3 cm, grade2. -hormonal positive, HER2 Isabel negative Oncotype DX recurrence score --> pending I reviewed with her and her regarding the diagnostic workup, pathological findings. We talked about role of adjuvant chemotherapy that can be considered after reviewing the Oncotype DX recurrence score. If the score is over 26, will bring her back in the clinic to talk about adjuvant chemotherapy treatment If the score is less than 26, she will proceed with adjuvant radiation treatment at [facility] Would like to get baseline bone density in her case. Will write order for hormonal treatment after reviewing the bone density study. I am planning to see her back in the clinic in about 6 months. Thanks for the consultation. Dr. Mukesh Santos Hem/Onc (This note was completed using the dictation program Fluency Direct. As such, there may be misspellings word substitutions, or other variations that should not change the essence of the clinical content of this encounter note. If there is need for further clarification, please direct questions to the provider listed above.) documented in this encounter Nursing Notes * Faheem Jeffries MED ASSIST - 06/27/2023 12:00 PM EST Patient identified by name and date of . Do you have any concerns about pain management for today's visit? No Living Will or Advance Directive for Health Care as noted on problem list. My [facility] is a way you can talk to your provider online through e-mail. Would you like to sign up? I can activate it for you? DECLINES BP 142/83 (BP Site: Left Arm, BP Position: Sitting, BP Cuff Size: Regular) | Pulse 96 | Temp 37.6 C (99.6 F) | Wt 107.5 kg (236 lb 14.4 oz) | LMP 12/12/2007 | SpO2 94% | BMI 47.85 kg/m | BSA 2.12 m Patient was instructed to not get up on the exam table/exam chair until directed and assisted by their provider; patient is to remain seated in the chair/ wheelchair/ exam table/ exam chair for fall prevention and safety reasons. Patient is aware to have assistance to step down off exam table/exam chair with personnel. Patient voiced full comprehension of instructions. documented in this encounter Plan of Treatment Upcoming Encounters Date Type Department Care Team (Late st Contact Info) Description 09/10/2023 4:00 PM EST [place] [address] [place] [address] 09/11/2023 8:00 AM EST Office Visit Dermatology [address] [place] [address] Stacy Gomez PA-C [address] [place] [address] [place] [address] 09/18/2023 7:40 AM EST Office Visit Family Medicine [address] [place] [phone] Kalin Reeder MD [address] [place] [address] [place] [address] 11/12/2023 4:00 PM EDT Telemedicine Genetics HemOnc, [facility] [address] [place] [address] Kayy Martin, [place] [address] [place] [address] 12/27/2023 2:45 PM EDT Office Visit Hematology/Oncology [facility] [address] [facility] [place] [address] Mukesh Santos MD [address] [facility] [place] [address] 04/15/2024 12:00 PM EDT Imaging Radiology [facility] [address] [facility] [address] [place] [address] 05/26/2024 9:45 AM EST Office Visit General Surgery, [facility] [address] [place] [address] Perla Wang MD [address] [place] [address] Scheduled Orders Name Type Priority Associated Diagnoses Orde r Schedule DEXA SCAN/BONE MINERAL AXIAL Medical Imaging Routine Malignant neoplasm of upper-outer quadrant of right breast in female, estrogen receptor positive terminal operator (current) use of aromatase inhibitors Ordered: 06/27/2023 Health Maintenance Due Date Last Done Comments [...] breast in female, estrogen receptor positive- Primary [facility] (current) use of aromatase inhibitors documented in this encounter Advance Directives Latest Code Status on File Code Status Date Activated Date Inactivated Comments Full Code 06/12/2023 6:58 AM 06/12/2023 4:24 PM Thi s order reflects the patients wishes and were consensually agreed upon. Question Answer Comments Discussion of Advance Directives occurred with: Patient Care Teams Gasoline Finisher Relationship Specialty Start Date End Date Kalin Reeder MD [address] [place] [address] [place] [address] PCP - General Family Medicine 03/15/21 documented as of this encounter"
--- OUTSIDE RECORDS SUMMARY | 2023-08-26 19:38 | External Medical Summary | Summary of Care ---
Author Name Unknown Organization [facility] Address [address] [facility] [place] [address] Phone [phone] Care Team Providers Care Hitch Technician Name Role Phone Kalin Reeder MD Primary Care Provide r Reason for Visit * Reason Comments Outpatient Testing Encounter Details Date Type Department Care Team (Late st Contact Info) Description 06/19/2023 3:40 PM EST Laboratory Laboratory [address] [place] [phone] [place] [address] Arrived Allergies No known active allergiesdocumented as of this encounter (statuses as of 06/19/2023) Medications Medication Sig Dispensed Refills Start Date End Date Status Aspirin 81 MG Oral Tablet Delayed Release take 1 tablet (81MG) by oral route every day 0 Active Calcium 1200 1783-5936 MG-UNIT Oral Tablet Chewable Take 1 Tablet [...] 10:00 AM EST Office Visit General Surgery, [facility] [address] [place] [address] Perla Wang MD [address] [place] [address] 09/11/2023 8:00 AM EST Office Visit Dermatology [address] [place] [phone] Stacy Gomez PA-C [address] [place] [address] [place] [address] 09/18/2023 7:40 AM EST Office Visit Family Medicine [address] [place] [phone] Kalin Reeder MD [address] [place] [address] [place] [address] 11/12/2023 4:00 PM EDT Telemedicine Genetics [facility]c, [facility] [address] [place] [address] Kayy Martin, [place] [address] [place], [place] [id number] 04/20/2024 10:00 AM EDT Imaging Radiology [address] [place] [address] Health Maintenance Due Date Last Done Comments [...] Advance Directives occurred with: Patient Care Teams Hitch Technician Relationship Specialty Start Date End Date Kalin Reeder MD [address] [place] [address] [place] [phone] PCP - General Family Medicine 03/15/21 documented as of this encounter
--- OUTSIDE RECORDS SUMMARY | 2023-08-26 19:38 | External Medical Summary | Summary of Care ---
Author Name Unknown Organization [facility] Address [address] [facility] [place] [address] Phone [phone] Care Team Providers Care Consulting Manager Name Role Phone Kalin Reeder MD Primary Care Provide r Reason for Referral * Evaluate & Treat - Unlimited Visits (Within 30 days (routine)) - Pending Review Specialty Diagnoses / Procedures Referred By Suresh bills Referred To Contact Hematology/Oncology / Hematology Oncology Diagnoses Malignant neoplasm of upper-outer quadrant of right breast in female, estrogen receptor positive Perla Wang MD [address] [place] [address] Referral ID Status Reason Start Date Expiration Date Visits Requested Visits Authorized [id number] Pending Review Specialty Services Required 06/18/[phone] Question Answer Referral Priority Within 30 days (routine) Where should this appointment be scheduled? [facility] Reason for Referral Malignant Oncology (Solid Organ Cancer) Comments Right breast cancer * Evaluate & Treat - Unlimited Visits (Within 30 days (routine)) - Pending Review Specialty Diagnoses / Procedures Referred By Suresh bills Referred To Contact Radiation Oncology Diagnoses Malignant neoplasm of upper-outer quadrant of right breast in female, estrogen receptor positive Perla Wang MD [address] [place] [address] Referral ID Status Reason Start Date Expiration Date Visits Requested Visits Authorized [id number] Pending Review Specialty Services Required 06/18/[phone] Question Answer Referral Priority Within 30 days (routine) Where should this appointment be scheduled? External What is the preferred location to have this test performed? Non-S Site - [facility] Comments Right breast cancer Encounter Details Date Type Department Care Team (Late st Contact Info) Description 06/18/2023 Telephone General Surgery, [facility] [address] [place] [address] Perla Wang MD [address] [place] [address] Allergies No known active allergiesdocumented as of this encounter (statuses as of 06/18/2023) Medications Medication Sig Dispensed Refills Start Date End Date Status Aspirin 81 MG Oral Tablet Delayed Release take 1 tablet (81MG) by oral route every day 0 Active Calcium 1200 3169-7129 MG-UNIT Oral Tablet Chewable Take 1 Tablet [...] as of this encounter (statuses as of 06/18/2023) Active Problems Problem Noted Date Diagnosed Date [...] as of this encounter (statuses as of 06/18/2023) Resolved Problems Problem Noted Date Diagnosed Date Resolved Date Mixed dyslipidemia Overview: Per Lipid Taxonomy. documented as of this encounter (statuses as of 06/18/2023) Immunizations Name Administration Dates Next Due COVID-19 mRNA, LNP-s, No Pre serve, 2-Dose Series (Moderna) 12/06/2020,09/23/2020 COVID-19 mRNA, LNP-s, No Pre serve, 2-Dose Series (Pfizer) 06/20/2021 Covid-19, Mrna, Lnp-s, Pf, B ivalent, 30 Mcg, IM, 12 yrs and above (Pfizer) 08/23/2022 Diptheria/Tetanus (Adult) 10/15/1980 SEASONAL INFLUENZA, PF, 6 M & Above, [...] encounter Miscellaneous Notes * Telephone Encounter - Jessica Duval OSA - 06/18/2023 11:30 AM EST Rad/onc order has been faxed to [facility]. Med/Onc will reach out to the patient directly. * Telephone Encounter - Perla Wang MD - 06/18/2023 11:25 AM EST Path results discussed with pt. 13 mm cancer. Estrogen receptor status is strongly positive. Progesterone receptor status is weakly positive. HER-2/francisca receptors negative. She is doing well. Fabi, can you order node negative oncotype DX please on her 06/12/23 specimen? Rad onc and med onc consults placed. Thank you! A. Lymph Node, right axilla sentinel lymph nodes #1 & #2, biopsy: Two lymph nodes, negative for carcinoma; (0/2). B. Lymph Node, right axilla sentinel lymph node #3, biopsy: One lymph node, negative for carcinoma; (0/1). C. Breast breast cancer, middle central, partial mastectomy: Invasive ductal carcinoma, grade 2. Ductal carcinoma in situ, intermediate nuclear grade, cribriform and papillary patterns. See microscopic description and synoptic report. D. Right breast, new margin - superior, partial mastectomy: Benign breast tissue. Negative for carcinoma. E. Right breast, new margin - inferior, partial mastectomy: Benign breast tissue. Negative for carcinoma. F. Right breast, new margin - medial, partial mastectomy: Benign breast tissue. Negative for carcinoma. G. Right breast, new margin - lateral, partial mastectomy: Benign breast tissue. Negative for carcinoma. H. Right breast, new margin - anterior, partial mastectomy: Benign breast tissue. Negative for carcinoma. I. Right breast, new margin - posterior, partial mastectomy: Benign breast tissue. Negative for carcinoma. at 1033 Synoptic Report INVASIVE CARCINOMA OF THE BREAST: Resection 8th Edition - Protocol posted: 01/02/2023INVASIVE CARCINOMA OF THE BREAST: RESECTION - All Specimens SPECIMEN Procedure Excision (less than total mastectomy) Specimen Laterality Right TUMOR Tumor Site Central Histologic Type Invasive carcinoma of no special type (ductal) Histologic Grade (Won Histologic Score) Glandular (Acinar) / Tubular Differentiation Score 3 Nuclear Pleomorphism Score 2 Mitotic Rate Score 2 Overall Grade Grade 2 (scores of 6 or 7) Tumor Size Greatest dimension of largest invasive focus (Millimeters): 13 mm Additional Dimension (Millimeters) 10 mm 9 mm Tumor Focality Single focus of invasive carcinoma Ductal Carcinoma In Situ (DCIS) Present Architectural Patterns Cribriform Papillary Nuclear Grade Grade II (intermediate) Necrosis Present, focal (small foci or single cell necrosis) Lymphatic and / or Vascular Invasion Not identified Treatment Effect in the Breast No known presurgical therapy MARGINS Margin Status for Invasive Carcinoma All margins negative for invasive carcinoma Distance from Invasive Carcinoma to Closest Margin Cannot be determined: Invasive carcinoma is not present in the separately submitted margin sections; specimens D through I Closest Margin(s) to Invasive Carcinoma Posterior Margin Status for DCIS All margins negative for DCIS Distance from DCIS to Closest Margin Cannot be determined: DCIS is not present in the separately submitted margin sections; specimens D through I REGIONAL LYMPH NODES Regional Lymph Node Status All regional lymph nodes negative for tumor Total Number of Lymph Nodes Examined (sentinel and non-sentinel) 3 Number of [place] Nodes Examined 3 pTNM CLASSIFICATION (AJCC 8th Edition) Reporting of pT, pN, and (when applicable) pM categories is based on information available to the pathologist at the time the report is issued. As per the AJCC (Chapter 1, 8th Ed.) it is the managingphysicians responsibility to establish the final pathologic stage based upon all pertinent information, including but potentially not limited to this pathology report. pT Category pT1c pN Category pN0 N Suffix (sn) SPECIAL STUDIES Estrogen Receptor (ER) Status Positive (greater than 10% of cells demonstrate nuclear positivity) Percentage of Cells with Nuclear Positivity 100 % Progesterone Receptor (PgR) Status Positive Percentage of Cells with Nuclear Positivity 10 % HER2 (by immunohistochemistry) Negative (Score 1+) . documented in this encounter Plan of Treatment Upcoming Encounters Date Type Department Care Team (Late st Contact Info) Description 06/19/2023 3:40 PM EST Office Visit Family Medicine [address] [place] [phone] Kalin Reeder MD [address] [place] [address] [place] [address] 06/27/2023 10:00 AM EST Office Visit General Surgery, [facility] [address] [facility] [place] [address] Perla Wang MD [address] [facility] [place] [address] 09/11/2023 8:00 AM EST Office Visit Dermatology [address] [place] [address] Stacy Gomez PA-C [address] [place] [address] [place] [address] 11/12/2023 4:00 PM EDT Telemedicine Genetics HemOnc, [facility] [address] [place] [address] Kayy Martni, MS [address] [place] [address] 04/20/2024 10:00 AM EDT Imaging Radiology [address] [place], [place] [address] Scheduled Referrals Name Type Priority Associated Diagnoses Orde r Schedule RADIATION/ONCOLOGY REFERRAL OP Referral Within 30 days (routine) Malignant neoplasm of upper-outer quadrant of right breast in female, estrogen receptor positive Ordered: 06/18/2023 HEMATOLOGY/ONCOLOGY REFERRAL OP Referral Within 30 days (routine) Malignant neoplasm of upper-outer quadrant of right breast in female, estrogen receptor positive Ordered: 06/18/2023 Health Maintenance Due Date Last Done Comments [...] Exam 07/23/2023 07/23/2022, 06/16/2021 HbA1c 07/26/2023 01/23/2023, 010 03/2023, 01/09/2022, Additional history exists GFR 01/24/2024 01/23/2023, 010 03/2023, 01/09/2022, Additional history exists Albumin/Creatinine Ratio [...] Advance Directives occurred with: Patient Care Teams Consulting Manager Relationship Specialty Start Date End Date Kalin Reeder MD [address] [place] [address] [place] [address] PCP - General Family Medicine 03/15/21 documented as of this encounter
--- OUTSIDE RECORDS SUMMARY | 2023-08-26 19:38 | External Medical Summary | Summary of Care ---
Author Name Unknown Organization [facility] Address [address] [facility] [place] [address] Phone [phone] Care Team Providers Care Project Inspector Name Role Phone Kalin Burk MD Primary Care Provide r Reason for Visit * Reason Comments eRx-Medication Refill Encounter Details Date Type Department Care Team (Late st Contact Info) Description 07/20/2023 Refill Family Medicine [address] [place] [address] Kalin Burk MD [address] [place] [address] [place] [address] Type 2 diabetes mellitus with hemoglobin A1c goal of less than 7.0% ([facility]) Allergies No known active allergiesdocumented as of this encounter (statuses as of 07/21/2023) Medications Medication Sig Dispensed Refills Start Date End Date Status Aspirin 81 MG Oral Tablet Delayed Release take 1 tablet (81MG) by oral route every day 0 Active Calcium 1200 3321-9423 MG-UNIT Oral Tablet Chewable Take 1 Tablet [...] Oral Tablet Extended Release 24 Hour (Glucotrol XL)Indications:Typ e 2 diabetes mellitus with hemoglobin A1c goal of less than 7.0% (HCC) TAKE 1 TABLET BY MOUTH IN THE MORNING. 30 MINUTES BEFORE A MEAL.. 90 Tablet 3 07/21/2023 Active glipiZIDE ER 5 MG Oral Tablet Extended Release 24 Hour (glipiZIDE XL)Indications:Typ e 2 diabetes mellitus with hemoglobin A1c goal of less than 7.0% (HCC) Take 1 Tablet by mouth in the morning. 30 minutes before a meal.. 90 Tablet 1 01/23/2023 4 Discontinued documented as of this encounter (statuses as of 07/21/2023) Active Problems Problem Noted Date Diagnosed Date [...] as of this encounter (statuses as of 07/21/2023) Resolved Problems Problem Noted Date Diagnosed Date Resolved Date Mixed dyslipidemia 9 Overview: Per Lipid Taxonomy. documented as of this encounter (statuses as of 07/21/2023) Immunizations Name Administration Dates Next Due COVID-19 [...] encounter Miscellaneous Notes * Telephone Encounter - Devonte Santos [facility] - 07/21/2023 9:47 PM EST Signed Prescriptions: Disp Refills glipiZIDE ER 5 MG Oral Tablet Extended Rel*90 Tab*3 Sig: TAKE 1TABLET BY MOUTH IN THE MORNING. 30 MINUTES BEFORE A MEAL..Authorizing Provider: Janna BURK User: DEVONTE SANTOS documented in this encounter Plan of Treatment Upcoming Encounters Date Type Department Care Team (Late st Contact Info) Description 07/25/2023 2:15 PM EST Office Visit Hematology/Oncology [facility] [address] [facility] [place] [address] Mukesh Santos MD [address] [facility] [place] [address] 09/10/2023 4:00 PM EST Imaging Radiology, [address] [place] [address] 09/11/2023 8:00 AM EST Office Visit Dermatology [address] [place] [address] Stacy Gomez PA-C [address] [place] [address] [place] [address] 09/18/2023 7:40 AM EST Office Visit Family Medicine [address] [place] [address] Kalin Burk MD [address] [place] [address] [place] [address] 11/12/2023 4:00 PM EDT Telemedicine Genetics HemOnc, [facility] [address] [place] [address] Kayy Martin, MS [address] [place] [address] 12/27/2023 2:45 PM EDT Office Visit Hematology/Oncology [facility] [place] [address] [place] [address] Mukesh Santos MD [address] [place] [address] 04/15/2024 12:00 PM EDT Imaging Radiology [facility] [facility] [place] [facility] [place] [address] 05/26/2024 9:45 AM EST Office Visit General Surgery, [facility] [address] [place] [address] Perla Wang MD [address] [place] [address] Health Maintenance Due Date Last Done Comments [...] A1c goal of less than 7.0% (HCC) documented in this encounter Advance Directives Latest Code Status on File Code Status Date Activated Date Inactivated Comments Full Code 06/12/2023 6:58 AM 06/12/2023 4:24 PM Thi s order reflects the patients wishes and were consensually agreed upon. Question Answer Comments Discussion of Advance Directives occurred with: Patient Care Teams Project Inspector Relationship Specialty Start Date End Date Kalin Burk MD [address] [place] [address] [place] [phone] PCP - General Family Medicine 03/15/21 documented as of this encounter
--- OUTSIDE RECORDS SUMMARY | 2023-08-26 19:38 | External Medical Summary | Summary of Care ---
Author Name Unknown Organization [facility] Address [address] [facility] [place] [address] Phone [phone] Care Team Providers Care Billet Heater Operator Name Role Phone Kalin Reeder MD Primary Care Provide r Reason for Visit * Reason Comments Post-Op Right Lumpectomy. Encounter Details Date Type Department Care Team (Late st Contact Info) Description 06/27/2023 10:00 AM EST Office Visit General Surgery, [facility] [address] [place] [address] Perla Wang MD [address] [place] [address] Malignant neoplasm of upper-outer quadrant of right breast in female, estrogen receptor positive *; Hx of breast cancer Allergies No known active allergiesdocumented as of this encounter (statuses as of 06/27/2023) Medications Medication Sig Dispensed Refills Start Date End Date Status Aspirin 81 MG Oral Tablet Delayed Release take 1 tablet (81MG) by oral route every day 0 Active Calcium 1200 0568-0587 MG-UNIT Oral Tablet Chewable Take 1 Tablet [...] Sign Reading Time Taken Comments Blood Pressure - - Pulse - - Temperature 37.1 C (98.8 F) 06/27/2023 9:53 AM ES T Respiratory Rate - - Oxygen Saturation - - Inhaled Oxygen Concentration - - Weight - - Height - - Body Mass Index - - documented in this encounter Progress Notes * Perla Wang MD - 06/27/2023 10:15 AM EST [facility] NOTES SUBJECTIVE: Alyssa Reyes is a 68 year old female who is now s/p a right partial mastectomy and sentinel lymph node resection for 13mm an intermediate grade invasive ductal carcinoma. Estrogen receptor status is positive. Progesterone receptor status is positive. HER-2/francisca receptors negative. SLN neg x 3. Margins negative. Surgery was done on 06/12/23. Node negative oncotype DX ordered on her 06/12/23 specimen A. Lymph Node, right axilla sentinel lymph [...] Examined (sentinel and non-sentinel) 3 Number of [place] Nodes Examined 3 pTNM CLASSIFICATION (AJCC 8th [...] HER2 (by immunohistochemistry) Negative (Score 1+) . Pain is controlled without any medications. Fever has not been present. She has no wound drainage and has no wound erythema. The patient has no drains in place. OBJECTIVE: Temperature 37.1 C (98.8 F), last menstrual period 12/12/2007. Examination today reveals healing right partial mastectomy periareolar and sentinel lymph node resection incision(s). There is no significant wound erythema. There is no ecchymosis or hematoma. Thereis no wound drainage. IMPRESSION: Carcinoma RIGHT breast. Stage 1 (T1-N0-M0). Excellent postoperative course without complications following right partial mastectomy and sentinel lymph node resection Med onc and rad onc consults were placed. Has appt today. Await oncotype DX result Preop MRI showed no other changes - no need to repeat Mammogram bilateral due April 2024. PLAN: F/u after mammogram Perla Wang MD 06/27/2023 10:15 AM documented in this encounter Nursing Notes * Akilah Michel MED ASSIST - 06/27/2023 9:54 AM EST Chief Complaint Patient presents with Post-Op Right Lumpectomy. Verified patient. No pain, incision is healing well. documented in this encounter Plan of Treatment Upcoming Encounters Date Type Department Care Team (Late st Contact Info) Description 06/27/2023 12:15 PM EST Office Visit Hematology/Oncology [facility] [address] [facility] [place] [address] Mukesh Santos MD [address] [facility] [place] [address] 09/11/2023 8:00 AM EST Office Visit Dermatology [address] [place] [address] Stacy Gomez PA-C [address] [place] [address] [place] [address] 09/18/2023 7:40 AM EST Office Visit Family Medicine [address] [place] [phone] Kalin Reeder MD [address] [place] [address] [place] [address] 11/12/2023 4:00 PM EDT Telemedicine Genetics HemOnc, C [address] [place] [address] Kayy Martin, MS [address] [place] [address] 04/15/2024 12:00 PM EDT Imaging Radiology [facility] 1st [facility] [address] [facility] [place] [address] 05/26/2024 9:45 AM EST Office Visit General Surgery, [facility] [address] [place] [address] Perla Wang MD [address] [place] [address] Scheduled Orders Name Type Priority Associated Diagnoses Orde r Schedule MAMMOGRAM DIAGNOSTIC CLARK BILATERAL Medical Imaging Routine Hx of breast cancer Expected: 04/15/2024 (Approximate), Expires: 07/28/2024 Health Maintenance Due Date Last Done Comments [...] breast in female, estrogen receptor positive- Primary Hx of breast cancer Personal history of malignant neoplasm of breast documented in this encounter Advance Directives Latest Code Status on File Code Status Date Activated Date Inactivated Comments Full Code 06/12/2023 6:58 AM 06/12/2023 4:24 PM Thi s order reflects the patients wishes and were consensually agreed upon. Question Answer Comments Discussion of Advance Directives occurred with: Patient Care Teams Billet Heater Operator Relationship Specialty Start Date End Date Kalin Reeder MD [address] [place] [address] [place] [address] PCP - General Family Medicine 03/15/21 documented as of this encounter
--- OUTSIDE RECORDS SUMMARY | 2023-08-26 19:38 | External Medical Summary | Summary of Care ---
Author Name Unknown Organization [facility] Address [address] [facility] [place] [address] Phone [phone] Care Team Providers Care Inventory Audit Clerk Name Role Phone Kalin Reeder MD Primary Care Provide r Reason for Referral * Evaluate & Treat - Unlimited Visits (Within 30 days (routine)) - Pending Review Specialty Diagnoses / Procedures Referred By Suresh bills Referred To Contact Hematology/Oncology / Hematology Oncology Diagnoses Malignant neoplasm of upper-outer quadrant of right breast in female, estrogen receptor positive Perla Wang MD [address] [place] [address] Referral ID Status Reason Start Date Expiration Date Visits Requested Visits Authorized [id number] Pending Review Specialty Services Required 06/18/2023 999 [...] female, estrogen receptor positive Perla Wang MD [address] [place] [address] Referral ID Status Reason Start Date Expiration Date Visits Requested Visits Authorized [id number] Pending Review Specialty Services Required 06/18/[phone] Question Answer Referral Priority Within 30 days (routine) Where should this appointment be scheduled? External What is the preferred location to have this test performed? Non-S Site - [facility] Comments Right breast cancer Encounter Details Date Type Department Care Team (Late st Contact Info) Description 06/18/2023 Telephone General Surgery, [facility] [address] [place] [address] Perla Wang MD [address] [place] [address] Allergies No known active allergiesdocumented as of this encounter (statuses as of 06/18/2023) Medications Medication Sig Dispensed Refills Start Date End Date Status Aspirin 81 MG Oral Tablet Delayed Release take 1 tablet (81MG) by oral route every day 0 Active Calcium 1200 4181-8974 MG-UNIT Oral Tablet Chewable Take 1 Tablet [...] EST Rad/onc order has been faxed to [facility]. Med/Onc will reach out to the patient [...] Examined (sentinel and non-sentinel) 3 Number of [place] Nodes Examined 3 pTNM CLASSIFICATION (AJCC 8th [...] 3:40 PM EST Office Visit Family Medicine [address] [place] [address] Kalin Reeder MD [address] [place] [address] [place] [address] 06/27/2023 10:00 AM EST Office Visit General Surgery, [facility] [address] [facility] [place] [address] Perla Wang MD [address] [facility] [place] [address] 09/11/2023 8:00 AM EST Office Visit Dermatology [address] [place] [address] Stacy Gomez PA-C [address] [place] [address] [place] [address] 11/12/2023 4:00 PM EDT Telemedicine Genetics HemOnc, [facility] [address] [place] [address] Kayy Martin, MS [address] [place] [address] 04/20/2024 10:00 AM EDT Imaging Radiology [address] [place], [place] [address] Scheduled Referrals [...] Advance Directives occurred with: Patient Care Teams Inventory Audit Clerk Relationship Specialty Start Date End Date Kalin Reeder MD [address] [place] [address] [place] [address] PCP - General Family Medicine 03/15/21 documented as of this encounter
--- OUTSIDE RECORDS SUMMARY | 2023-08-26 19:38 | External Medical Summary | Summary of Care ---
Author Name Unknown Organization [facility] Address [address] [address] Phone [phone] Care Team Providers Care Brick Molder Hand Name Role Phone Kalin Reeder MD Primary Care Provide r Encounter Details Date Type Department Care Team (Late st Contact Info) Description 07/12/2023 Telephone General Surgery, [facility] [address] [place] [address] Perla Wang MD [address] [place] [address] Allergies No known active allergiesdocumented as of this encounter (statuses as of 07/12/2023) Medications Medication Sig Dispensed Refills Start Date End Date Status Aspirin 81 MG Oral Tablet Delayed Release take 1 tablet (81MG) by oral route every day 0 Active Calcium 1200 0858-1209 MG-UNIT Oral Tablet Chewable Take 1 Tablet [...] A WEEK. 6 mL 1 07/09/2023 Active documented as of this encounter (statuses as of 07/12/2023) Active Problems Problem Noted Date Diagnosed Date [...] as of this encounter (statuses as of 07/12/2023) Resolved Problems Problem Noted Date Diagnosed Date Resolved Date Mixed dyslipidemia 9 Overview: Per Lipid Taxonomy. documented as of this encounter (statuses as of 07/12/2023) Immunizations Name Administration Dates Next Due COVID-19 [...] Miscellaneous Notes * Telephone Encounter - Kalin Reeder MD - 07/12/2023 10:35 AM EST Thank you Dr. Wang - will make sure pt is up to date on her other cancer screening tests * Telephone Encounter - Perla Wang MD - 07/12/2023 10:08 AM EST Oncotype DX 28, 17% risk. Pt aware. ADA Rodriguez documented in this encounter Plan of Treatment Upcoming Encounters Date Type Department Care Team (Late st Contact Info) Description 09/10/2023 4:00 PM EST Imaging Radiology, [address] [place] [address] 09/11/2023 8:00 AM EST Office Visit Dermatology [address] [place] [address] Stacy Gomez PA-C [address] [place] [address] [place] [address] 09/18/2023 7:40 AM EST Office Visit Family Medicine [address] [place] [phone] Kalin Reeder MD [address] [place] [address] [place] [address] 11/12/2023 4:00 PM EDT Telemedicine Genetics HemOnc, [facility] [address] [place] [address] Kayy Martin, [place] [address] [place] [address] 12/27/2023 2:45 PM EDT Office Visit Hematology/Oncology [facility] [address] [place] [address] Mukesh Santos MD [address] [place] [address] 04/15/2024 12:00 PM EDT Imaging Radiology [facility] [address] [facility] [place] [address] 05/26/2024 9:45 AM EST Office Visit General Surgery, [facility] [address] [facility] [place] [address] Perla Wang MD [address] [place] [address] Health Maintenance Due Date Last Done Comments [...] Advance Directives occurred with: Patient Care Teams Brick Molder Hand Relationship Specialty Start Date End Date Kalin Reeder MD [address] [place] [address] [place] [phone] PCP - General Family Medicine 03/15/21 documented as of this encounter
--- OUTSIDE RECORDS SUMMARY | 2023-08-26 19:38 | External Medical Summary | Summary of Care ---
Author Name Unknown Organization [facility] Address [address] [facility] [address] Phone [phone] Care Team Providers Care Composition Weatherboard Installer Name Role Phone Kalin Reeder MD Primary Care Provide r Encounter Details Date Type Department Care Team (Late st Contact Info) Description 07/12/2023 Telephone General Surgery, [facility] [address] [place] [address] Perla Wang MD [address] [place] [address] Allergies No known active allergiesdocumented as of this encounter (statuses as of 07/12/2023) Medications Medication Sig Dispensed Refills Start Date End Date Status Aspirin 81 MG Oral Tablet Delayed Release take 1 tablet (81MG) by oral route every day 0 Active Calcium 1200 2747-5133 MG-UNIT Oral Tablet Chewable Take 1 Tablet [...] encounter Miscellaneous Notes * Telephone Encounter - Perla Wang MD - 07/12/2023 10:08 AM EST Oncotype DX 28, 17% risk. Pt aware. AAD Rodriguez documented in this encounter Plan of Treatment Upcoming Encounters Date Type Department Care Team (Late st Contact Info) Description 09/10/2023 4:00 PM EST Imaging Radiology, [address], [place] [id number] 09/11/2023 8:00 AM EST Office Visit Dermatology [address] [place] [address] Stacy Gomez PA-C [address] [place] [address] [place] [address] 09/18/2023 7:40 AM EST Office Visit Family Medicine [address] [place] [phone] Kalin Reeder MD [address] [place] [address] [place] [address] 11/12/2023 4:00 PM EDT Telemedicine Genetics HemOnc, [facility] [address] [place] [address] Kayy Martin, [place] [address] [place], [place] [id number] 12/27/2023 2:45 PM EDT Office Visit Hematology/Oncology [facility] [address] [place] [address] Mukesh Santos MD [address] [place] [address] 04/15/2024 12:00 PM EDT Imaging Radiology [address] [facility] [place] [address] 05/26/2024 9:45 AM EST Office Visit General Surgery, [facility] [place] [address] Perla Wang MD 132 [facility] [place] [address] Health Maintenance Due Date Last Done Comments [...] Advance Directives occurred with: Patient Care Teams Composition Weatherboard Installer Relationship Specialty Start Date End Date Kalin Reeder MD [address] [place] [address] [place] [phone] PCP - General Family Medicine 03/15/21 documented as of this encounter
--- OUTSIDE RECORDS SUMMARY | 2023-08-26 19:38 | External Medical Summary ---
Author Name Unknown Address Unknown Organization K01:[facility] [place] [address] [facility] [address] [place] [address] Laboratory Report Ordering Provider Test Date Status BHARGAVI NIX 06/19/2023 15:45:27 Bere l Observation Date Value Abnormality Reference (Units ) Status BUN 06/19/2023 15:45:27 24 Above high normal 6-20 (mg/dL) Final Creatinine 06/19/2023 15:45:27 1.0 0.5-1.0 (mg/dL) Final Glomerular filtration rate/1.73 sq M.predicted [Volume Rate/Area] in Serum, Plasma or Blood by Creatinine-based formula (CKD-EPI) 06/19/2023 15:45:27 61 >=60 (mL/min) Final eGFR is calculated based on the CKD-EPI 2020 equation SODIUM 06/19/2023 15:45:27 135 135-146 (m mol/L) Final Potassium 06/19/2023 15:45:27 4.1 3.5-5.1 (m mol/L) Final Cl 06/19/2023 15:45:27 95 Below low normal 98- 107 (mmol/L) Final CO2 06/19/2023 15:45:27 27 22-32 (mmo l/L) Final Anion gap 06/19/2023 15:45:27 13 7-15 (mmol /L) Final Glucose 06/19/2023 15:45:27 137 Above high normal 70 -120 (mg/dL) Final Calcium 06/19/2023 15:45:27 9.3 8.4-10.2 ( mg/dL) Final Performing Location [facility] [place] [address] [place] [address]
--- OUTSIDE RECORDS SUMMARY | 2023-08-26 19:38 | External Medical Summary | Summary of Care ---
Author Name Unknown Organization [facility] Address [address] [place] [address] Phone [phone] Care Team Providers Care Shank Stapler Name Role Phone Kalin Reeder MD Primary Care Provide r Reason for Visit * Reason Onset Date Comments Films 07/09/2023 Encounter Details Date Type Department Care Team (Late st Contact Info) Description 07/09/2023 Telephone Radiology Film File [address] [place], [place] [phone] Perla Wang MD [address] [place] [address] Films Allergies No known active allergiesdocumented as of this encounter (statuses as of 07/09/2023) Medications Medication Sig Dispensed Refills Start Date End Date Status Aspirin 81 MG Oral Tablet Delayed Release take 1 tablet (81MG) by oral route every day 0 Active Calcium 1200 0041-6842 MG-UNIT Oral Tablet Chewable Take 1 Tablet [...] encounter Miscellaneous Notes * Telephone Encounter - Jami Syed OSA - 07/09/2023 9:27 AM EST [facility] Radiology/Oncology department requesting 04-11-22 to present breast imaging be pushed through PACS. (Received 04-26-23 Ultrasound and 06-03-23 MRI but missing others) Sarita Authorization to Release on file. Images pushed to [facility] PACS external connection. Associated report(s) not needed. documented in this encounter Plan of Treatment Upcoming Encounters Date Type Department Care Team (Late st Contact Info) Description 09/10/2023 4:00 PM EST Imaging Radiology, [facility] [address] [facility] [place] [address] 09/11/2023 8:00 AM EST Office Visit Dermatology [address] [place] [address] Stacy Gomez PA-C [address] [place] [address] [place] [address] 09/18/2023 7:40 AM EST Office Visit Family Medicine [address] [place] [phone] Kalin Reeder MD [address] [place] [address] [place] [address] 11/12/2023 4:00 PM EDT Telemedicine Genetics HemOnc, C [address] [place] [address] Kayy Martin, [place] [address] [place] [address] 12/27/2023 2:45 PM EDT Office Visit Hematology/Oncology [facility] [address] [place] [address] Mukesh Santos MD [address] [place] [address] 04/15/2024 12:00 PM EDT Imaging Radiology [facility] 1st [facility] [address] [place] [address] 05/26/2024 9:45 AM EST Office Visit General Surgery, [facility] [address] [place] [address] Perla Wang MD [address] [place] [address] Health Maintenance Due Date Last Done Comments [...] Advance Directives occurred with: Patient Care Teams Shank Stapler Relationship Specialty Start Date End Date Kalin Reeder MD [address] [place] [address] [place] [address] PCP - General Family Medicine 03/15/21 documented as of this encounter
--- OUTSIDE RECORDS SUMMARY | 2023-08-26 19:38 | External Medical Summary | Summary of Care ---
Author Name Unknown Organization [facility] Address [address] [facility] [place] [address] Phone [phone] Care Team Providers Care Ict Support Technicians Name Role Phone Kalin Reeder MD Primary Care Provide r Encounter Details Date Type Department Care Team (Late st Contact Info) Description 06/20/2023 Orders Only Family Medicine [address] [place] [address] Kalin Reeder MD [address] [place] [address] [place] [address] Allergies No known active allergiesdocumented as of this encounter (statuses as of 06/20/2023) Medications Medication Sig Dispensed Refills Start Date End Date Status Aspirin 81 MG Oral Tablet Delayed Release take 1 tablet (81MG) by oral route every day 0 Active Calcium 1200 8858-6892 MG-UNIT Oral Tablet Chewable Take 1 Tablet [...] as of this encounter (statuses as of 06/20/2023) Active Problems Problem Noted Date Diagnosed Date [...] as of this encounter (statuses as of 06/20/2023) Resolved Problems Problem Noted Date Diagnosed Date Resolved Date Mixed dyslipidemia 9 Overview: Per Lipid Taxonomy. documented as of this encounter (statuses as of 06/20/2023) Immunizations Name Administration Dates Next Due COVID-19 [...] 10:00 AM EST Office Visit General Surgery, [facility] [address] [place] [address] Perla Wang MD 132 [place] [address] 06/27/2023 12:15 PM EST Office Visit Hematology/Oncology [facility] [place] [address] [place] [address] Mukesh Santos MD 200 [facility] [place] [address] 09/11/2023 8:00 AM EST Office Visit Dermatology [address] [place] [address] Stacy Gomez PA-C [address] [place] [address] [place] [address] 09/18/2023 7:40 AM EST Office Visit Family Medicine [address] [place] [address] Kalin Reeder MD [address] [place] [address] [place] [address] 11/12/2023 4:00 PM EDT Telemedicine Genetics HemOnc, [facility] [address] [place] [address] Kayy Martin, [place] [address] [place] [address] 04/20/2024 10:00 AM EDT Imaging Radiology [address] [place] [address] Health Maintenance Due Date Last Done Comments [...] 06/19/2024 06/19/2023, 01/12, 07/23/2022, Additional history exists Diabetic Eye Exam 06/20/2024 02/22/2023, , 02/17/2021 Lipid Panel 01/24/2028 01/23/2023, 12/14, 03/15/2021, Additional [...] Procedure Name Priority Date/Time Associated Diagnosis Comments DIABETIC EYE EXAM Routine 02/22/2023 documented in this encounter Results * DIABETIC EYE EXAM (02/22/2023) 02/22/2023 Aliza Awad OD OTHER OUTSIDE LAB (SEE SCANNED REPORT) documented in this encounter Advance Directives Latest Code Status on File Code Status Date Activated Date Inactivated Comments Full Code 06/12/2023 6:58 AM 06/12/2023 4:24 PM Thi s order reflects the patients wishes and were consensually agreed upon. Question Answer Comments Discussion of Advance Directives occurred with: Patient Care Teams Ict Support Technicians Relationship Specialty Start Date End Date Kalin Reeder MD [address] [place] [address] [place] [phone] PCP - General Family Medicine 03/15/21 documented as of this encounter
--- OUTSIDE RECORDS SUMMARY | 2023-08-26 19:38 | External Medical Summary | Summary of Care ---
Author Name Unknown Organization [facility] Address [address] [facility] [address] Phone [phone] Care Team Providers Care Drop Wire Operator Name Role Phone Kalin Reeder MD Primary Care Provide r Encounter Details Date Type Department Care Team (Late st Contact Info) Description 07/12/2023 Telephone General Surgery, [facility] [address] [place] [address] Perla Wang MD [address] [place] [address] Allergies No known active allergiesdocumented as of this encounter (statuses as of 07/12/2023) Medications Medication Sig Dispensed Refills Start Date End Date Status Aspirin 81 MG Oral Tablet Delayed Release take 1 tablet (81MG) by oral route every day 0 Active Calcium 1200 0646-4777 MG-UNIT Oral Tablet Chewable Take 1 Tablet [...] encounter Miscellaneous Notes * Telephone Encounter - Mima Alvarado CRNP - 07/12/2023 11:[address] Mayorga last office note: We talked about role of adjuvant chemotherapy that can be considered after reviewing the Oncotype DX recurrence score. If the score is over 26, will bring her back inthe clinic to talk about adjuvant chemotherapy treatment. Oncotype DX 28, 17% risk. Scheduling: please reach out to patient to schedule office visit BONY with Dr. Santos to discuss adjuvant chemotherapy. * Telephone Encounter - Kalin Reeder MD [...] Description 09/10/2023 4:00 PM EST Imaging Radiology, [address] [place] [address] 09/11/2023 8:00 AM EST Office Visit Dermatology [address] [place] [address] Stacy Gomez PA-C [address] [place] [address] [place] [address] 09/18/2023 7:40 AM EST Office Visit Family Medicine [address] [place] [address] Kalin Reeder MD [address] [place] [address] [place] [address] 11/12/2023 4:00 PM EDT Telemedicine Genetics HemOnc, [facility] [address] [place] [address] Kayy Martin, [place] [address] [place] [address] 12/27/2023 2:45 PM EDT Office Visit Hematology/Oncology [facility] [address] [place] [address] Mukesh Santos MD [address] [place] [address] 04/15/2024 12:00 PM EDT Imaging Radiology [facility]st [facility] [place] [address] 05/26/2024 9:45 AM EST Office Visit General Surgery, [facility] [address] [place] [address] Perla Wang MD [address] [facility] [place] [address] Health Maintenance Due Date Last Done Comments [...] Additional history exists Pap Smear Discontinued 10/23/2021, 0903/2019, 12/28/1998 Zoster Vaccines Completed 10/30/2022, 08/29/2022 GARDASIL-HPV [...] Advance Directives occurred with: Patient Care Teams Drop Wire Operator Relationship Specialty Start Date End Date Kalin Reeder MD [address] [place] [address] [place] [address] PCP - General Family Medicine 03/15/21 documented as of this encounter
--- OUTSIDE RECORDS SUMMARY | 2023-08-26 19:38 | External Medical Summary | Summary of Care ---
Author Name Unknown Organization [facility] Address [address] [place] [facility] [address] Phone [phone] Care Team Providers Care Insights Manager Name Role Phone Kalin Reeder MD Primary Care Provide r Reason for Referral * Precert (Within 10 days (routine)) - Pending Review Specialty Diagnoses / Procedures Referred By Contarian t Referred To Contact Radiology Diagnoses Malignant neoplasm of upper-outer quadrant of right breast in female, estrogen receptor positive Procedures [facility] MD [address] [facility] [place] [address] Referral ID Status Reason Start Date Expiration Date V isits Requested Visits Authorized [id number] Pending Review 08/01/2023 999 999 Reason for Visit * Reason Comments Follow Up Discuss treatment Encounter Details Date Type Department Care Team (Late st Contact Info) Description 07/25/2023 2:15 PM EST Office Visit Hematology/Oncology [facility] [address] [place] [address] Mukesh Santos MD [address] [place] [address] Malignant neoplasm of upper-outer quadrant of right breast in female, estrogen receptor positive * Allergies No known active allergiesdocumented as of this encounter (statuses as of 07/25/2023) Medications Medication Sig Dispensed Refills Start Date End Date Status Aspirin 81 MG Oral Tablet Delayed Release take 1 tablet (81MG) by oral route every day 0 Active Calcium 1200 9270-8981 MG-UNIT Oral Tablet Chewable Take 1 Tablet [...] as of this encounter (statuses as of 07/25/2023) Active Problems Problem Noted Date Diagnosed Date [...] as of this encounter (statuses as of 07/25/2023) Resolved Problems Problem Noted Date Diagnosed Date Resolved Date Mixed dyslipidemia Overview: Per Lipid Taxonomy. documented as of this encounter (statuses as of 07/25/2023) Immunizations Name Administration Dates Next Due COVID-19 [...] Date Smoking Tobacco: Never Smokeless Tobacco: Never Tobacco Cessation:Counseling Given: Not Answered Alcohol Use Standard Drinks/Week Comments No 0 [...] Sign Reading Time Taken Comments Blood Pressure 119/69 07/25/2023 1:54 PM EST Pulse 88 07/25/2023 1:54 PM EST Temperature 36.3 C (97.4 F) 07/25/2023 1:54 PM ES T Respiratory Rate 16 07/25/2023 1:54 PM EST Oxygen Saturation 95% 07/25/2023 1:54 PM EST Inhaled Oxygen Concentration - - Weight 104.7 kg (230 lb 12.8 oz) 07/25/2023 1:54 PM EST Height - - Body Mass Index 46.62 06/12/2023 7:14 AM EST documented in this encounter Progress Notes * Mukesh Santos MD - 07/25/2023 2:15 PM EST Hematology/Oncology Outpatient Consult Note Addie Tavarez [place] [address] [facility] [place] [address] ALYSSA GILLIS MR # [id number] :1955 68-year-old female, Date of consultation:06/27/2023 DIAGNOSIS: - Right breast cancer, S/P lumpectomy and sentinel for biopsy (06/12/2023) -T1c N0 M0, 3 sentinel lymph nodes negative for metastatic disease, primary tumor measuring 1.3 cm,grade 2. Hormonal positive HER2 Isabel negative. - Oncotype DX recurrence score --> 28 (07/05/2023). - ER positive, KS negative, her2/isabel Negative. CURRENT TREATMENT: - Planning for chemo with TC ( Taxotere and cyclophosphamide), She is at high risk for febrile neutropenia, she will receive prophylactic Pegfilgrastim. Planning for 4 cycles of TC and then will proceed with adjuvant radiation treatment Once she is done with radiation treatment, will start adjuvant hormonal treatment. She will also have a bone density which is scheduled in August of 2023. DIAGNOSTIC WORKUP: Bilateral breast screening mammogram done [...] -ER strongly positive in 100% malignamt cells,, KS weakly positive in 10% of malignamt cells, [...] Single focus TNM staging T1c N0 M0. Family history: -mom diagnosed with breast cancer in her 60s, currently alive, 86-year-old -mom's sister with breast cancer, - cousin with breast cancer diagnosis. OTHER IMPORTANT HISTORY: -diabetes mellitus -hypertension -she takes oral iron 2 tablets a day She also takes Vitamin B12 supplementation. Obesity. INTERVAL HISTORY: She has come the clinic for the follow-up, accompanied by her in the office Overall she is doing well, no new cardiac or pulmonary symptom no nausea no vomiting, no new GI symptoms, no upper extremity edema, no leg edema, current weight around 230 lb, no new cardiac or pulmonary symptoms, ambulates well by herself, no headache. Past Medical History: Diagnosis Date Mixed dyslipidemia Obesity, BMI not known Past Surgical History: Procedure Laterality Date BX LYMPH NODE DEEP AXIL Right 06/12/2023 BIOPSY LYMPH NODE DEEP AXILLARY OPEN performed by Perla Wang MD at OR [facility] DRAIN OVARIAN CYST(S);VAG 1974 EXC BREAST LESION RADMARK Right 06/12/2023 EXCISION OF BREAST LESION RADIOLOGICAL MARKER performed by Perla Wang MD at OR [facility] IDENTIFY SENTINEL NODE, RADIOACTIVE TRACER Right 06/12/2023 INJECTION PROCEDURE FOR IDENTIFICATION SENTINEL NODE performed by Perla Wang MD at [facility] MASTECTOMY, PARTIAL Right 06/12/2023 MASTECTOMY PARTIAL performed by Perla Wang MD at OR [facility] Current Outpatient Medications Medication Sig Dispense Refill Aspirin 81 MG Oral Tablet Delayed Release take 1 tablet (81MG) by oral route every day Calcium 1200 8178-6519 MG-UNIT Oral Tablet Chewable Take 1 Tablet by mouth in the morning. Vitamin D3 25 MCG (1000 UT) Oral Capsule Take by mouth. Vitamin B-12 1000 MCG Oral Tablet (Cyanocobalamin) TAKE 1 TABLET BY MOUTH EVERY DAY IN THE MORNING 100 Tablet 3 Lovastatin 40 MG Oral Tablet TAKE 1 TABLET BY MOUTH EVERY DAY WITH DINNER 90 Tablet 3 Accu-Chek Stefani Plus In Vitro Strip (Glucose Blood) USE TO TEST SUGARS ONCE DAILY. E11.9 100 Strip 2 hydroCHLOROthiazide 25 MG Oral Tablet (Hydrodiuril) TAKE 1 TABLET BY MOUTH EVERY DAY IN THE [id number] Tablet 1 metFORMIN HCl 500 MG Oral [...] needed for moderate Pain 5 Tablet 0 Trulicity 1.5 MG/0.5ML Subcutaneous Solution Pen-injector (Dulaglutide) INJECT 1.5 MG UNDER THE SKIN ONCE A WEEK. 6 mL 1 glipiZIDE ER 5 MG Oral Tablet Extended Release 24 Hour (Glucotrol XL) TAKE 1 TABLET BY MOUTH IN THEMORNING. 30 MINUTES BEFORE A MEAL.. 90 Tablet 3 No current facility-administered medications for this visit. [...] on file On Exam: LMP 12/12/2007 BP 119/69 (BP Site: Left Arm, BP Position: Sitting, BP Cuff Size: Large) | Pulse 88 | Temp 36.3 C(97.4 F) (Tympanic) | Resp 16 | Wt 104.7 kg (230 lb 12.8 oz) | LMP 12/12/2007 | SpO2 95% | BMI 46.62 kg/m | BSA 2.09 m Constitutional: Patient is alert, cooperative and [...] Isabel negative Oncotype DX recurrence score --> 28 Oncotype DX recurrence score falls into a high-risk category, benefit of adjuvant chemotherapy noted in that category I reviewed with regarding the role of systemic chemotherapy with the clinic considered, I would consider for Taxotere and cyclophosphamide combination, reviewed with regarding treatment schedule, side effect profile she is in agreement for that She is at high risk for febrile neutropenia, she will receive prophylactic Pegfilgrastim to preventfebrile neutropenia. She will need port for upcoming chemotherapy She scheduled for bone density in August of 2023. Chemotherapy teaching, she will have blood workup at that time. Once we start on treatment, will see her before the 2nd cycle. Planning for total 4 cycles of chemotherapy with Taxotere cyclophosphamide. Dr. Mukesh Santos Hem/Onc (This note was completed using the dictation program Fluency Direct. As such, there may be misspellings word substitutions, or other variations that should not change the essence of the clinical content of this encounter note. If there is need for further clarification, please direct questions to the provider listed above.) documented in this encounter Nursing Notes * Larisa Ennis CMA - 07/25/2023 1:55 PM EST Patient identifed by name and birthdate Do you have any concerns about pain management for today's visit? No Living Will or Advance Directive for Health Care as noted on the problem list. [facility] is a way you can talk to your provider on line through e-mail. Would you like to sign up? I can activate it for you? No Filed Vitals: 07/25/23 1354 BP: 119/69 Pulse: 88 Resp: 16 Temp: 36.3 C (97.4 F) TempSrc: Tympanic SpO2: 95% Weight: 104.7 kg (230 lb 12.8 oz) Patient was instructed to not get up [...] 07/30/2023 9:00 AM EST Nurse Only Hematology/Oncology [facility] [place] [address] [place] [address] [place], Nurse Hem Onc [facility] [address] [place] [address] 09/10/2023 4:00 PM EST Imaging Radiology, [address] [place] [address] 09/11/2023 8:00 AM EST Office Visit Dermatology [address] [place] [address] Stacy Gomez PA-C [address] [place] [address] [place] [address] 09/18/2023 7:40 AM EST Office Visit Family Medicine [address] [place] [phone] Kalin Reeder MD [address] [place] [address] [place] [address] 11/12/2023 4:00 PM EDT Telemedicine Genetics HemOnc, C [address] [place] [address] Kayy Martin, MS [address] [place] [address] 12/27/2023 2:45 PM EDT Office Visit Hematology/Oncology [facility] [place] [address] [place] [address] Mukesh Santos MD [address] [place] [address] 04/15/2024 12:00 PM EDT Imaging Radiology [address] [place] [address] 05/26/2024 9:45 AM EST Office Visit General Surgery, [facility] [address] [place] [address] Perla Wang MD [address] [place] [address] Scheduled Orders Name Type Priority Associated Diagnoses Orde r Schedule IR VENOUS ACCESS [facility] Medical Imaging Routine Malignant neoplasm of upper-outer quadrant of right breast in female, estrogen receptor positive Expected: 08/01/2023, Expires: 08/25/2024 Health Maintenance Due Date Last Done Comments [...] Advance Directives occurred with: Patient Care Teams Insights Manager Relationship Specialty Start Date End Date Kalin Reeder MD [address] [place] [address] [place] [address] PCP - General Family Medicine 03/15/21 documented as of this encounter"
--- OUTSIDE RECORDS SUMMARY | 2023-08-26 19:38 | External Medical Summary | Summary of Care ---
Author Name Unknown Organization [facility] Address [address] [place] [address] Phone [phone] Care Team Providers Care Medical Scribe Name Role Phone Kalin Reeder MD Primary Care Provide r Reason for Visit * Reason Onset Date Comments Films 07/05/2023 Encounter Details Date Type Department Care Team (Late st Contact Info) Description 07/05/2023 Telephone Radiology Film File [address] [place], [place] [id number] Perla Wang MD [address] [place] [address] Films Allergies No known active allergiesdocumented as of this encounter (statuses as of 07/05/2023) Medications Medication Sig Dispensed Refills Start Date End Date Status Aspirin 81 MG Oral Tablet Delayed Release take 1 tablet (81MG) by oral route every day 0 Active Calcium 1200 3860-3333 MG-UNIT Oral Tablet Chewable Take 1 Tablet [...] Telephone Encounter - Jami Syed OSA - 07/05/2023 8:17 AM EST [facility] Radiology/Oncology department requesting 04-15-23 to present images be pushed through PACS. [place] Authorization to Release on file. Images pushed to [facility] PACS external connection. Associated report(s) not needed. documented in this encounter Plan of Treatment Upcoming Encounters Date Type Department Care Team (Late st Contact Info) Description 09/10/2023 4:00 PM EST Imaging Radiology, [place], [place] [address] [facility] [place] [address] 09/11/2023 8:00 AM EST Office Visit Dermatology [address] [place] [address] Stacy Gomez PA-C [address] [place] [address] [place] [address] 09/18/2023 7:40 AM EST Office Visit Family Medicine [address] [place] [phone] Kalin Reeder MD [address] [place] [address] [place] [address] 11/12/2023 4:00 PM EDT Telemedicine Genetics HemOnc, [facility] [address] [place], [place] [id number] Kayy Martin, [place] [address] [place] [address] 12/27/2023 2:45 PM EDT Office Visit Hematology/Oncology [facility] [address] [place] [address] Mukesh Santos MD [address] [place] [address] 04/15/2024 12:00 PM EDT Imaging Radiology [facility] [address] [facility] [place] [address] 05/26/2024 9:45 AM EST Office Visit General Surgery, [facility] [address] [facility] [place] [address] Perla Wang MD [address] [facility] [place] [address] Health Maintenance Due Date Last Done Comments [...] Directives occurred with: Patient Care Teams Medical Scribe Relationship Specialty Start Date End Date Kalin Reeder MD [address] [place] [address] [place] [address] PCP - General Family Medicine 03/15/21 documented as of this encounter
--- OUTSIDE RECORDS SUMMARY | 2023-08-26 19:38 | External Medical Summary | Summary of Care ---
Author Name Unknown Organization [facility] Address [address] [facility] [place] [address] Phone [phone] Care Team Providers Care Ship Scaler Name Role Phone Kalin Reeder MD Primary Care Provide r Reason for Referral * Evaluate & Treat - Unlimited Visits (Within 30 days (routine)) - Pending Review Specialty Diagnoses / Procedures Referred By Suresh bills Referred To Contact Hematology/Oncology / Hematology Oncology Diagnoses Malignant neoplasm of upper-outer quadrant of right breast in female, estrogen receptor positive Perla Wang MD [address] [place] [address] Referral ID Status Reason Start Date Expiration Date Visits Requested Visits Authorized [id number] Pending Review Specialty Services Required 06/18/2023 999 [...] female, estrogen receptor positive Perla Wang MD [address] [place] [address] Referral ID Status Reason Start Date Expiration Date Visits Requested Visits Authorized [id number] Pending Review Specialty Services Required 06/18/2023 999 999 Question Answer Referral Priority Within 30 days (routine) Where should this appointment be scheduled? External What is the preferred location to have this test performed? Non-S Site - [facility] Comments Right breast cancer Encounter Details Date Type Department Care Team (Late st Contact Info) Description 06/18/2023 Telephone General Surgery, [facility] [address] [place] [address] Pelra Wang MD [address] [place] [address] Allergies No known active allergiesdocumented as of this encounter (statuses as of 06/18/2023) Medications Medication Sig Dispensed Refills Start Date End Date Status Aspirin 81 MG Oral Tablet Delayed Release take 1 tablet (81MG) by oral route every day 0 Active Calcium 1200 7193-4674 MG-UNIT Oral Tablet Chewable Take 1 Tablet [...] EST Rad/onc order has been faxed to [facility]. Med/Onc will reach out to the patient [...] Examined (sentinel and non-sentinel) 3 Number of [place] Nodes Examined 3 pTNM CLASSIFICATION (AJCC 8th [...] 3:40 PM EST Office Visit Family Medicine [address] [place] [address] Kalin Reeder MD [address] [place] [address] [place] [address] 06/27/2023 10:00 AM EST Office Visit General Surgery, [facility] [address] [facility] [place] [address] Perla Wang MD [address] [facility] [place] [address] 09/11/2023 8:00 AM EST Office Visit Dermatology [address] [place] [address] Stacy Gomez PA-C [address] [place] [address] [place] [address] 11/12/2023 4:00 PM EDT Telemedicine Genetics HemOnc, [facility] [address] [place] [address] Kayy Martin, MS [address] [place] [address] 04/20/2024 10:00 AM EDT Imaging Radiology [address] [place], [place] [address] Scheduled Referrals [...] Advance Directives occurred with: Patient Care Teams Ship Scaler Relationship Specialty Start Date End Date Kalin Reeder MD [address] [place] [address] [place] [address] PCP - General Family Medicine 03/15/21 documented as of this encounter
--- OUTSIDE RECORDS SUMMARY | 2023-08-26 19:38 | External Medical Summary | Summary of Care ---
Author Name Unknown Organization [facility] Address [address] [facility] [place] [address] Phone [phone] Care Team Providers Care Rfid Systems Engineer Name Role Phone Kalin Reeder MD Primary Care Provide r Encounter Details Date Type Department Care Team (Late st Contact Info) Description 07/12/2023 Telephone General Surgery, [facility] [address] [place] [address] Perla Wang MD [address] [place] [address] Allergies No known active allergiesdocumented as of this encounter (statuses as of 07/12/2023) Medications Medication Sig Dispensed Refills Start Date End Date Status Aspirin 81 MG Oral Tablet Delayed Release take 1 tablet (81MG) by oral route every day 0 Active Calcium 1200 1297-1980 MG-UNIT Oral Tablet Chewable Take 1 Tablet [...] Telephone Encounter - Yecenia Sharma OSA - 07/12/2023 3:28 PM EST Called and spoke to patient and she is aware of on 07/25/23. * Telephone Encounter - Mima Alvarado CRNP [...] 07/25/2023 2:15 PM EST Office Visit Hematology/Oncology [facility] [address] [place] [address] Mukesh Santos MD [address] [place] [address] 09/10/2023 4:00 PM EST Imaging Radiology, [address] [place] [address] 09/11/2023 8:00 AM EST Office Visit Dermatology [address] [place] [address] Stacy Gomez PA-C [address] [place] [address] [place] [address] 09/18/2023 7:40 AM EST Office Visit Family Medicine [address] [address] Kalin Reeder MD [address] [place] [address] [place] [address] 11/12/2023 4:00 PM EDT Telemedicine Genetics HemOnc, [facility] [address] [place] [address] Kayy Martin, MS [address] [place] [address] 12/27/2023 2:45 PM EDT Office Visit Hematology/Oncology [facility] [address] [place] [address] Mukesh Santos MD [address] [place] [address] 04/15/2024 12:00 PM EDT Imaging Radiology [facility] [address] [place] [address] 05/26/2024 9:45 AM EST Office Visit General Surgery, [facility] [address] [place] [address] Perla Wang MD [address] [facility] [place] [address] Health Maintenance Due Date Last Done Comments [...] Advance Directives occurred with: Patient Care Teams Rfid Systems Engineer Relationship Specialty Start Date End Date Kalin Reeder MD [address] [place] [address] [place] [address] PCP - General Family Medicine 03/15/21 documented as of this encounter
--- OUTSIDE RECORDS SUMMARY | 2023-08-26 19:39 | External Medical Summary | Summary of Care ---
Author Name Unknown Organization [facility] Address [address] [place] [address] Phone [phone] Care Team Providers Care Bellperson Name Role Phone Kalin Reeder MD Primary Care Provide r Reason for Referral * Evaluate & Treat - Unlimited Visits (Within 10 days (routine)) - Pending Review Specialty Diagnoses / Procedures Referred By Suresh bills Referred To Contact Medical Genetics / Hematology Oncology Diagnoses Malignant neoplasm of upper-outer quadrant of right breast in female, estrogen receptor positive Preoperative examination Perla Wang MD [address] [place] [address] Referral ID Status Reason Start Date Expiration Date Visits Requested Visits Authorized [id number] Pending Review Specialty Services Required 05/21/[phone] Question Answer Referral Priority Within 10 days (routine) Where should this appointment be scheduled? [facility] Is this referral request related to one of the following genetics sub-specialties? If unsure of category, use Medical Genetics Ask-A-Doc. Cancer Personal history of cancer? Yes Type of cancer and age at diagnosis: age 68, breast Family history of cancer? Yes Describe family history of cancer: breast cancer in mother, maternal aunts x 3, maternal cousin Has patient OR family member had genetic testing previously? No * Precert (Within 10 days (routine)) - Pending Review Specialty Diagnoses / Procedures Referred By Contarian t Referred To Contact Radiology Diagnoses Malignant neoplasm of upper-outer quadrant of right breast in female, estrogen receptor positive Preoperative examination Procedures NM BREAST LYMPH GLAND RADIOLOGIST INJECTION Perla Wang MD [address] [address] Referral ID Status Reason Start Date Expiration Date V isits Requested Visits Authorized [id number] Pending Review 05/28/[phone] Reason for Visit * Reason Comments NEW PATIENT Malignant neoplasm o f right female breast, unspecified estrogen receptor status, unspecified site of breast (HCC). 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 [address] [facility] [place] [address] Perla Wang MD [address] [place] [address] Malignant neoplasm of upper-outer quadrant of right breast in female, estrogen receptor positive *; Preoperative examination; Preoperative cardiovascular examination Allergies No known active allergiesdocumented as of this encounter (statuses as of 05/21/2023) Medications Medication Sig Dispensed Refills Start Date End Date Status Aspirin 81 MG Oral Tablet Delayed Release take 1 tablet (81MG) by oral route every day 0 Active Calcium 1200 6948-0086 MG-UNIT Oral Tablet Chewable Take 1 Tablet by mouth in the morning. 0 Active Vitamin D3 25 MCG (1000 UT) Oral Capsule Take by mouth. 0 Active Vitamin B-12 1000 MCG Oral Tablet (Cyanocobalamin) TAKE 1 TABLET BY MOUTH EVERY DAY IN THE MORNING 100 Tablet 3 01/25/2023 Active Trulicity 1.5 MG/0.5ML Subcutaneous Solution Pen-injector (Dulaglutide)Indicat ions:Type 2 diabetes mellitus with hemoglobin A1c [...] Accu-Chek Stefani Plus In Vitro Strip (Glucose Blood)Indications:Ty pe 2 diabetes mellitus with hemoglobin A1c goal of less than 7.0% (HCC) USE TO TEST SUGARS ONCE DAILY. E11.9 100 Strip 2 03/04/2023 Active hydroCHLOROthiazide 25 MG Oral Tablet (Hydrodiuril)Indicat ions:HTN, goal below 130/80 TAKE 1 TABLET BY MOUTH EVERY DAY IN THE MORNING 90 Tablet 1 04/17/2023 Active metFORMIN HCl 500 MG Oral Tablet (Glucophage)Indicati ons:Type 2 diabetes mellitus with hemoglobin A1c goal of less than 7.0% (HCC) TAKE 2 TABLETS BY MOUTH TWICE A DAY 360 Tablet 1 04/23/2023 Active Lisinopril 40 MG Oral TabletIndications:HT N, goal below 130/80 TAKE 1 TABLET BY MOUTH EVERY DAY IN THE MORNING 90 Tablet 1 04/23/2023 Active Ferrous Sulfate 325 (65 Fe) MG Oral Tablet (Feosol) TAKE 2 TABLETS BY MOUTH EVERY MORNING 180 Tablet 0 05/07/2023 Active LORazepam 0.5 MG Oral Tablet (Ativan) Take 2 Tablets by mouth once for 1 dose. Take 30-45 min prior to MRI 2 Tablet 0 05/21/2023 05/21/2023 Active documented as of this encounter (statuses as of 05/21/2023) Active Problems Problem Noted Date Diagnosed Date [...] as of this encounter (statuses as of 05/21/2023) Resolved Problems Problem Noted Date Diagnosed Date Resolved Date Mixed dyslipidemia Overview: Per Lipid Taxonomy. documented as of this encounter (statuses as of 05/21/2023) Immunizations Name Administration Dates Next Due COVID-19 [...] on file documented as of this encounter Progress Notes * Perla Wang MD - 05/21/2023 11:37 AM EST Images from the original note were not included. [facility] NEW BREAST CANCER CLINIC NOTE Chief Complaint Patient presents with NEW PATIENT Malignant neoplasm of right female breast, unspecified estrogen receptor status, unspecified site of breast (HCC). REASON FOR CONSULTATION: Right Breast Cancer Clinical Stage 1 HPI: Alyssa Reyes is a 68 year old female who was referred by PETER Ramos for evaluation and discussion of newly diagnosed breast cancer. This was found on screening mammogram when a spiculated mass was seen in the right breast. This was confirmed on spot compression films and US showed a9 mm hypoechoic irregular mass at 12:00 4 cm FN. Of note, there are 2.4 cm of calcifications extending linearly from the mass. She is s/p core biopsy, right ultrasound guided demonstrating an intermediate grade invasive ductal carcinoma. There is associated low grade DCIS . Estrogen receptor statusis strongly positive. Progesterone receptor status is weakly positive. HER-2/francisca receptors negative. Clip in good position. 05/08/23: A. 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 Comment: Biomarkers will be reported separately. at 1723 Order Comments Right middle depth central mass with calcifications Gross Description A. Breast, Right. Received in formalin with a container labeled with "Alyssa Reyes", "[id number]", "1955" and " right breast mass". Received are multiple cores of justin-yellow fibroadipose tissue ranging from 0.2 cm to 1.8 cm in length, each approximately 0.1 cm in diameter. The specimen is entirely submitted, wrapped in lens paper in cassettes A1. Collection/ischemic time: time 935, date 05/08/2023, time in formalin: Not provided Grossed by: ADRIANA Microscopic Description Invasive and in situ carcinoma Microscopic examination shows small nests of infiltrating epithelialcells with little luminal formation with nuclei 2-3 larger than normal duct epithelial nuclei and containing nucleoli. Mitotic figures are rare (<5/10hpf). There is no evidence of lymphovascular invasion. The largest dimension of invasive tumor in the specimen is 0.5 cm. There is also a component of ductal carcinoma in-situ (DCIS) with low-grade nuclear features and a predominantly cribriform growth pattern. A few small microcalcifications are noted in association with DCIS. Breast, right, Block [id number]: Estrogen Receptor (ER) protein expression is STRONGLY POSITIVE 100% nuclear positivity 3+ average intensity score (range 0 to 3+) Progesterone Receptor (NV) protein expression is WEAKLY POSITIVE 10% nuclear positivity 2+ average intensity score (range 0 to 3+) HER2 oncoprotein expression is NEGATIVE ( 1+ average membranous intensity) BREAST ROS: No new breast lumps or masses, No severe breast pain, No nipple discharge, No recent change in shape/color She has not had any prior breast procedures. Family history of breast cancer in her mother, three maternal aunts and maternal cousin. Unsure of whether any did genetic testing. Cousin was the youngest and in her 50s. GYNECOLOGIC HISTORY: LMP: Patient's last menstrual period was 12/12/2007. Patient is postmenopausal. Menarche at age: 15 Menopause at age: 53-56 Number of children: 3 Patient's age at first live : 24 Did you breast feed any of your children: No Ever take oral contraceptives? No Ever take estrogen? No RADIOLOGIC INTERPRETATION: 04/15/23: Result MAMMOGRAM SCREENING CLARK BILATERAL History Encounter for screening mammogram for malignant neoplasm of breast Family medical history includes breast cancer in 2 relatives (aunt (maternal), mother). Films Compared 04/11/2022 MAMMOGRAM SCREENING BILATERAL, 04/04/2021 MAMMOGRAM SCREENING BILATERAL, 03/29/2020 MAMMOGRAM SCREENING BILATERAL, and 03/20/2019 MAMMOGRAM SCREENING BILATERAL Findings Right The right breast is heterogeneously dense, which may obscure small masses. There is an equal density, irregularly shaped mass with spiculated margins seen in the central region of the right breast in the middle depth on the MLO (slice 9) and CC (slice 8) views. This is a new finding. Additional views and US suggested. Left The left breast is heterogeneously dense, which may obscure small masses. There is no evidence of suspicious masses, calcifications, or other abnormal findings in the left breast. Impression Right Right breast mass at the central middle position. Assessment: 0 - Incomplete. Callback ultrasound and Callback diagnostic mammogram are recommended. Left No mammographic evidence of malignancy. BI-RADS Category: 0 - Incomplete: Needs Additional Imaging Evaluation. Recommendation Callback ultrasound is recommended for the right breast. Callback diagnostic mammogram is recommended for the right breast. Screening mammogram in 1 year is recommended for the left breast. 04/26/23: Result MAMMOGRAM DIAGNOSTIC CLARK RIGHT US BREAST LIMITED RIGHT History Abnormal mammogram. She was recalled from screening mammogram dated 04/15/2023 for a right breast mass. Family medical history includes breast cancer in 2 relatives (aunt (maternal), mother). Films Compared Prior mammogram dated 04/15/2023. Findings Mammogram The right breast is heterogeneously dense, which may obscure small masses. Right The mass for which patient is recalled corresponds to an irregular mass with spiculated margins measuring 1.1 x 0.8 x 0.8 cm. There are a amorphous calcifications in linear distribution extending approximately 2.4 cm in the region of the mass. Ultrasound Targeted ultrasound evaluation of the right face reveals a poorly defined shadowing hypoechoic massin the 12 o'clock position approximately 4 cm from the nipple measuring 0.9 x 0.4 x 0.8 cm. This may correspond to the suspicious mass on the mammogram. Ultrasound evaluation of the right axilla reveals normal lymph nodes. Impression MAMMOGRAM DIAGNOSTIC CLARK RIGHT Highly suggestive mass with associated calcifications in the right breast, requires biopsy for histologic diagnosis. US BREAST LIMITED RIGHT Poorly defined hypoechoic mass in the 12:00 right breast likely corresponds to the highly suggestive mass on mammogram. BI-RADS Category: 5 - Highly Suggestive of Malignancy. Recommendation Tomosynthesis guided breast biopsy is recommended for the right breast. 05/08/23: ADDENDUM: The results were communicated to the patient by the clinician, Monica Granado, 05/13/2023. Signed by Kenyetta Dickens MD on 05/14/2023 10:19 ADDENDUM: A. 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 Ductal carcinoma in-situ (DCIS), low grade The imaging and pathologic findings are concordant. Surgical and oncology consultation are suggested. Signed by Kenyetta Dickens MD on 05/10/2023 13:29 Narrative & Impression EXAM MAMMOGRAM BREAST NEEDLE BIOPSY CORE RIGHT - 05/08/2023 9:49 am HISTORY Abnormal breast ultrasound COMPARISON 04/15/2023, 04/26/2023 TECHNIQUE Please see below. FINDINGS A timeout procedure was performed with verification of patient named, date, and site of procedure was performed by Kenyetta Dickens M.D. in the presence of Monica Odom and Tiffany Lyle. The patient's identification was verified. Following a discussion of the risks and benefits of the procedure as well as discussion of alternatives to this procedure, the patient was given the opportunity to ask questions. Once the patient's questions were answered to her satisfaction, informed consent with agreement of procedure, site, and position was obtained. The procedure matches the verbalized consent. Patient denies allergies.Patient denies blood thinning medications and blood dyscrasias. All necessary equipment was available prior to procedure. The side of the intended procedure was confirmed. Using aseptic technique, local anesthesia superficially with 1% lidocaine and more deeply with 1% lidocaine mixed with epinephrine, and stereotactic guidance, 9-gauge vacuum assisted core biopsy was performed using the petite device via a superior to inferior approach targeting the right breast middle depth mass and calcifications. Targeted calcifications are in the specimen on the specimen radiograph. Klever shaped biopsy marker was placed. Follow-up unilateral right mammogram demonstrates residual calcifications and marker in good position. The patient tolerated the procedure well, and there were no complications. Specimens from the core biopsy were sent to surgical pathology. Results are pending. Written discharge instructions were given to the patient and also reviewed verbally with her.The patient expressed understanding of the instructions and was discharged from the department in stable condition. IMPRESSION IMPRESSION Stereotactic core biopsy right breast mass and calcifications middle depth central breast performed. Klever shaped biopsy marker placed in good position. I personally viewed and interpreted the mammographic films and concur with the above. FAMILY HISTORY: Family history of breast cancer: Yes, mother, maternal aunts x 3, maternal cousin Family history of ovarian cancer: None Family History Problem Relation Age of Onset Heart Disorder Mother Breast Cancer Mother Breast Cancer Aunt (Maternal) PAST MEDICAL HISTORY: Past Medical History: Diagnosis Date Mixed dyslipidemia Obesity, BMI not known Diabetic for 10 yrs - checks sugars at home, runs about 120-160, last A1c was 7 High cholesterol Hypertension well controlled on medication Does note trouble breathing at night with stuffy nose if sleeps on right side No cpap PAST SURGICAL HISTORY: Past Surgical History: Procedure Laterality Date DRAIN OVARIAN CYST(S);VAG 1973 CURRENT OUTPATIENT PRESCRIPTIONS: Current Outpatient Medications Medication Sig Dispense Refill Aspirin 81 MG Oral Tablet Delayed Release take 1 tablet (81MG) by oral route every day Calcium 1200 2954-5881 MG-UNIT Oral Tablet Chewable Take 1 Tablet [...] TABLET BY MOUTH EVERY DAY IN THE [id number] Tablet 1 metFORMIN HCl 500 MG Oral Tablet (Glucophage) TAKE 2 TABLETS BY MOUTH TWICE A DAY 360 Tablet 1 Lisinopril 40 MG Oral Tablet TAKE 1 TABLET BY MOUTH EVERY DAY IN THE MORNING 90 Tablet 1 Ferrous Sulfate 325 (65 Fe) MG Oral Tablet (Feosol) TAKE 2 TABLETS BY MOUTH EVERY MORNING 180 Tablet 0 No current facility-administered medications for this visit. ALLERGIES: Allergies as of 05/21/2023 (No Known Allergies) SOCIAL HISTORY: Social History Tobacco Use Smoking status: Never Smokeless tobacco: Never Substance Use Topics Alcohol use: No Vaping/E-Cigarette Use Vaping/E-Cigarette Substances Vaping/E-Cigarette Devices ROS: GEN: no weight loss, fever, pos for fatigue HEENT: no changes in vision or hearing, no sinus problems, no sore throat, no hoarseness RESPIRATORY: no cough, wheezing, SOB or change in breathing CARDIOVASCULAR: no exertional chest pain, dyspnea, palpitations GI: no melena, hemetemesis, no vomiting or diarrhea : no dysuria, hematuria, frequency MUSCULOSKELETAL: no change in joint pains, pos for knee arthritis - both have been replaced PSYCHIATRIC: no significant anxiety or depression, unchanged sleep pattern HEME: no bleeding tendency, no clotting tendency NEURO: no significant headache, no seizures , no tremors SKIN: no new rashes, no itching PHYSICAL EXAMINATION: Last menstrual period 12/12/2007. Constitutional: alert, overweight Head: normocephalic, atraumatic Eyes: conjunctiva non-injected, sclera white Ears: pinna normal shape and color and canals patent Neck: supple, no adenopathy Lungs: clear to auscultation, breath sounds are equal and symmetric Heart: regular rate & rhythm and no murmur, gallops or rubs Abdomen: soft, non-tender Back: normal curvature Extremities: no edema Neuro: alert, motor normal BREAST EXAMINATION: Right Breast: Right Breast: Masses noted: Yes, 12:00 5 cm from areolar edge, there is a firm 1.3 cm mass, not fixed Post XRT edema: No Post XRT erythema: No Other palpable abnormality: No Skin: Skin retraction: No Peau d'orange: No Telangectasia: No Scar(s) present: No Other changes: No Right Nipple: Nipple inversion: No Pagets: No Nipple discharge: No Right Lymph Nodes: Arm edema: No Palpable axillary adenopathy: No Palpable supraclavicular adenopathy: No Previous axillary incision: No Left Breast: Left Breast: Masses noted: No Post XRT edema: No Post XRT erythema: No Other palpable abnormality: No Skin: Skin retraction: No Peau d'orange: No Telangectasia: No Scar(s) present: Yes, upper outer from prior mole removal Other changes: No Left Nipple: Nipple inversion: No Pagets: No Nipple discharge: No Left Lymph Nodes: Arm edema: No Palpable axillary adenopathy: No Palpable supraclavicular adenopathy: No Previous axillary incision: No IMPRESSION: 68 yr old woman with imaging identified 9 mm intermediate grade hormone positive, her2 negative invasive ductal cancer with surrounding DCIS and 2.4 cm of calcifications. Given her family history of breast cancer, we discussed genetic counseling/ testing and order was placed. We had a detailed discussion with the patient reviewing her diagnosis and treatment options. She understands that the treatment of breast cancer is a multidisciplinary approach potentially involving surgery, radiation oncology, and medical oncology. We reviewed surgical options for her breast, including breast conservation and mastectomy. We discussed that breast conservation requires both removal of the cancer to a negative margin and treatment with radiotherapy to the remaining breast tissue.We discussed that survival is not improved with more aggressive surgery (i.e. Mastectomy) and that mastectomy also does not eliminate the potential for breast cancer recurrence as a small amount of tissue is left to support the skin. In addition, more aggressive surgery does not eliminate the need for chemotherapy or targeted therapies; the decisions for these treatment choices are based upon thecancer's characteristics. She is a good candidate for breast conservation. Risks of lumpectomy (partial mastectomy) to include bleeding, infection, and cosmetic deformity of the breast. We also discussed the importance of negative margins and the fact that re-excision or even mastectomy can sometimes be required in subsequent procedures. We reviewed use of the hsantel elevated motorman and seed placement by radiology into the lesion prior to surgery. This allows for more accuracy in the removal of tissue as well as better assessment of margins. Staging of the axilla with a sentinel node biopsy was reviewed. We discussed identification of the node with both technetium sulfur colloid and blue dye injection. Removal of 2-3 lymph nodes is typical, although there is a potential for removal of greater than 3 nodes also. There is a small (<5%) chance of a failed sentinel node biopsy where the nodes cannot be found. In this instance, a full axillary dissection would be performed as we are unable to know which nodes could potentially contain metastatic disease. Risks of sentinel node biopsy including bleeding, infection, and a small rate of lymphedema (6-12%) were discussed. Should a full axillary dissection be performed, the risk of lym phedema increases to 12-30%. Intraoperative assessment of sentinel nodes is not performed during the lumpectomy due to the ACOSOG Z0011 study showing equivalent survival when pts with <3 positive nodes are treated with radiation as opposed to axillary clearance. However, there are still instances where an axillary dissection could be needed as a second procedure (significant volume of disease with 4 or more nodes involved, focal extranodal extension). We reviewed the use of radiation therapy following lumpectomy and its important role in reducing inbreast local recurrence. We discussed that, in the absence of chemotherapy, radiation typically begins 4-6 weeks following surgery. We reviewed that while there are different courses of radiation that can be offered, the most common is done daily (Mon-Fri) for 3-4 weeks. Side effects of fatigue andlocal changes to the breast (skin thickening, hyperpigmentation, burning, telangectasia, change in shape of breast) were reviewed. The role of the medical oncologist and possible chemotherapy and/ or adjuvant targeted therapies based on final pathology were reviewed. We discussed the role of gene typing with oncotype DX recurrence score for risk stratification if she is node negative. The importance of hormonal blocking agentswas discussed and we reviewed that oncotype DX presumes 5 yrs of hormonal therapy. She will be refer red on to radiation and medical oncology after surgery. She understands that I would recommend a preoperative MRI scan to better evaluate her breasts and look for synchronous disease. Risks (delay in surgery, low specificity) and benefits (high sensitivity in detection of additional lesions) of MRI preoperatively were discussed. This is scheduled already. She is claustrophobic and thus, ativan was given for premedication. With her BMI and other medical issues, she may not be a candidate for surgery at an outpatient center. May need to be done in a hospital setting. Option of [facility] with Dr. Gunter or with myself reviewed - she prefers to go to with me. Consent signed. Her diabetes does place her an increased risk of wound infection/ complication. We will get her scheduled for a right lumpectomy with preoperative localization and sentinel node biopsy under general anesthesia as soon as possible. PLAN: Schedule surgery as noted above. Follow up in clinic roughly 14 days after surgery. I spent a total of Greater than 55 mins (exact time 61 mins) on the date of service in preparation,delivery, and documentation of the care provided to Alyssa Reyes excluding any time spent inthe performance of separately billed services. Perla Wang M.D. 05/21/2023 12:30 PM documented in this encounter H&P Notes * Perla Wang MD - 05/21/2023 12:30 PM EST Images from the original note were not included. [facility] NEW BREAST CANCER CLINIC NOTE Chief Complaint Patient presents with NEW PATIENT Malignant neoplasm of right female breast, unspecified estrogen receptor status, unspecified site of breast (HCC). REASON FOR CONSULTATION: Right Breast Cancer Clinical Stage 1 HPI: Alyssa Reyes is a 68 year old female who was referred by PETER Ramos for evaluation and discussion of newly diagnosed breast cancer. This was found on screening mammogram when a spiculated mass was seen in the right breast. This was confirmed on spot compression films and US showed a9 mm hypoechoic irregular mass at 12:00 4 cm FN. Of note, there are 2.4 cm of calcifications extending linearly from the mass. She is s/p core biopsy, right ultrasound guided demonstrating an intermediate grade invasive ductal carcinoma. There is associated low grade DCIS . Estrogen receptor statusis strongly positive. Progesterone receptor status is weakly positive. HER-2/francisca receptors negative. Clip in good position. 05/08/23: A. 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 Comment: Biomarkers will be reported separately. at 1723 Order Comments Right middle depth central mass with calcifications Gross Description A. Breast, Right. Received in formalin with a container labeled with "[facility]", "[id number]", "1955" and " right breast mass". Received are multiple cores of justin-yellow fibroadipose tissue ranging from 0.2 cm to 1.8 cm in length, each approximately 0.1 cm in diameter. The specimen is entirely submitted, wrapped in lens paper in cassettes A1. Collection/ischemic time: time 935, date 05/08/2023, time in formalin: Not provided Grossed by: ADRIANA Microscopic Description Invasive and in situ carcinoma Microscopic examination shows small nests of infiltrating epithelialcells with little luminal formation with nuclei 2-3 larger than normal duct epithelial nuclei and containing nucleoli. Mitotic figures are rare (<5/10hpf). There is no evidence of lymphovascular invasion. The largest dimension of invasive tumor in the specimen is 0.5 cm. There is also a component of ductal carcinoma in-situ (DCIS) with low-grade nuclear features and a predominantly cribriform growth pattern. A few small microcalcifications are noted in association with DCIS. Breast, right, Block [id number]: Estrogen Receptor (ER) protein expression is STRONGLY POSITIVE 100% nuclear positivity 3+ average intensity score (range 0 to 3+) Progesterone Receptor (NV) protein expression is WEAKLY POSITIVE 10% nuclear positivity 2+ average intensity score (range 0 to 3+) HER2 oncoprotein expression is NEGATIVE ( 1+ average membranous intensity) BREAST ROS: No new breast lumps or masses, No severe breast pain, No nipple discharge, No recent change in shape/color She has not had any prior breast procedures. Family history of breast cancer in her mother, three maternal aunts and maternal cousin. Unsure of whether any did genetic testing. Cousin was the youngest and in her 50s. GYNECOLOGIC HISTORY: LMP: Patient's last menstrual period was 12/12/2007. Patient is postmenopausal. Menarche at age: 15 Menopause at age: 53-54 Number of children: 3 Patient's age at first live : 24 Did you breast feed any of your children: No Ever take oral contraceptives? No Ever take estrogen? No RADIOLOGIC INTERPRETATION: 04/15/23: Result MAMMOGRAM SCREENING CLARK BILATERAL History Encounter for screening mammogram for malignant neoplasm of breast Family medical history includes breast cancer in 2 relatives (aunt (maternal), mother). Films Compared 04/11/2022 MAMMOGRAM SCREENING BILATERAL, 04/04/2021 MAMMOGRAM SCREENING BILATERAL, 03/29/2020 MAMMOGRAM SCREENING BILATERAL, and 03/20/2019 MAMMOGRAM SCREENING BILATERAL Findings Right The right breast is heterogeneously dense, which may obscure small masses. There is an equal density, irregularly shaped mass with spiculated margins seen in the central region of the right breast in the middle depth on the MLO (slice 9) and CC (slice 8) views. This is a new finding. Additional views and US suggested. Left The left breast is heterogeneously dense, which may obscure small masses. There is no evidence of suspicious masses, calcifications, or other abnormal findings in the left breast. Impression Right Right breast mass at the central middle position. Assessment: 0 - Incomplete. Callback ultrasound and Callback diagnostic mammogram are recommended. Left No mammographic evidence of malignancy. BI-RADS Category: 0 - Incomplete: Needs Additional Imaging Evaluation. Recommendation Callback ultrasound is recommended for the right breast. Callback diagnostic mammogram is recommended for the right breast. Screening mammogram in 1 year is recommended for the left breast. 04/26/23: Result MAMMOGRAM DIAGNOSTIC CLARK RIGHT US BREAST LIMITED RIGHT History Abnormal mammogram. She was recalled from screening mammogram dated 04/15/2023 for a right breast mass. Family medical history includes breast cancer in 2 relatives (aunt (maternal), mother). Films Compared Prior mammogram dated 04/15/2023. Findings Mammogram The right breast is heterogeneously dense, which may obscure small masses. Right The mass for which patient is recalled corresponds to an irregular mass with spiculated margins measuring 1.1 x 0.8 x 0.8 cm. There are a amorphous calcifications in linear distribution extending approximately 2.4 cm in the region of the mass. Ultrasound Targeted ultrasound evaluation of the right face reveals a poorly defined shadowing hypoechoic massin the 12 o'clock position approximately 4 cm from the nipple measuring 0.9 x 0.4 x 0.8 cm. This may correspond to the suspicious mass on the mammogram. Ultrasound evaluation of the right axilla reveals normal lymph nodes. Impression MAMMOGRAM DIAGNOSTIC CLARK RIGHT Highly suggestive mass with associated calcifications in the right breast, requires biopsy for histologic diagnosis. US BREAST LIMITED RIGHT Poorly defined hypoechoic mass in the 12:00 right breast likely corresponds to the highly suggestive mass on mammogram. BI-RADS Category: 5 - Highly Suggestive of Malignancy. Recommendation Tomosynthesis guided breast biopsy is recommended for the right breast. 05/08/23: ADDENDUM: The results were communicated to the patient by the clinician, Monica Granado, 05/13/2023. Signed by Kenyetta Dickens MD on 05/14/2023 10:19 ADDENDUM: A. 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 Ductal carcinoma in-situ (DCIS), low grade The imaging and pathologic findings are concordant. Surgical and oncology consultation are suggested. Signed by Kenyetta Dickens MD on 05/10/2023 13:29 Narrative & Impression EXAM MAMMOGRAM BREAST NEEDLE BIOPSY CORE RIGHT - 05/08/2023 9:49 am HISTORY Abnormal breast ultrasound COMPARISON 04/15/2023, 04/26/2023 TECHNIQUE Please see below. FINDINGS A timeout procedure was performed with verification of patient named, date, and site of procedure was performed by Kenyetta Dickens M.D. in the presence of Monica Odom and Tiffany Lyle. The patient's identification was verified. Following a discussion of the risks and benefits of the procedure as well as discussion of alternatives to this procedure, the patient was given the opportunity to ask questions. Once the patient's questions were answered to her satisfaction, informed consent with agreement of procedure, site, and position was obtained. The procedure matches the verbalized consent. Patient denies allergies.Patient denies blood thinning medications and blood dyscrasias. All necessary equipment was available prior to procedure. The side of the intended procedure was confirmed. Using aseptic technique, local anesthesia superficially with 1% lidocaine and more deeply with 1% lidocaine mixed with epinephrine, and stereotactic guidance, 9-gauge vacuum assisted core biopsy was performed using the petite device via a superior to inferior approach targeting the right breast middle depth mass and calcifications. Targeted calcifications are in the specimen on the specimen radiograph. Klever shaped biopsy marker was placed. Follow-up unilateral right mammogram demonstrates residual calcifications and marker in good position. The patient tolerated the procedure well, and there were no complications. Specimens from the core biopsy were sent to surgical pathology. Results are pe nding. Written discharge instructions were given to the patient and also reviewed verbally with her. The patient expressed understanding of the instructions and was discharged from the department in stable condition. IMPRESSION IMPRESSION Stereotactic core biopsy right breast mass and calcifications middle depth central breast performed. Klever shaped biopsy marker placed in good position. I personally viewed and interpreted the mammographic films and concur with the above. FAMILY HISTORY: Family history of breast cancer: Yes, mother, maternal aunts x 3, maternal cousin Family history of ovarian cancer: None Family History Problem Relation Age of Onset Heart Disorder Mother Breast Cancer Mother Breast Cancer Aunt (Maternal) PAST MEDICAL HISTORY: Past Medical History: Diagnosis Date Mixed dyslipidemia Obesity, BMI not known Diabetic for 10 yrs - checks sugars at home, runs about 120-160, last A1c was 7 High cholesterol Hypertension well controlled on medication Does note trouble breathing at night with stuffy nose if sleeps on right side No cpap PAST SURGICAL HISTORY: Past Surgical History: Procedure Laterality Date DRAIN OVARIAN CYST(S);VAG 1974 CURRENT OUTPATIENT PRESCRIPTIONS: Current Outpatient Medications Medication Sig Dispense Refill Aspirin 81 MG Oral Tablet Delayed Release take 1 tablet (81MG) by oral route every day Calcium 1200 1550-2966 MG-UNIT Oral Tablet Chewable Take 1 Tablet [...] TABLET BY MOUTH EVERY DAY IN THE [id number] Tablet 1 metFORMIN HCl 500 MG Oral Tablet (Glucophage) TAKE 2 TABLETS BY MOUTH TWICE A DAY 360 Tablet 1 Lisinopril 40 MG Oral Tablet TAKE 1 TABLET BY MOUTH EVERY DAY IN THE MORNING 90 Tablet 1 Ferrous Sulfate 325 (65 Fe) MG Oral Tablet (Feosol) TAKE 2 TABLETS BY MOUTH EVERY MORNING 180 Tablet 0 No current facility-administered medications for this visit. ALLERGIES: Allergies as of 05/21/2023 (No Known Allergies) SOCIAL HISTORY: Social History Tobacco Use Smoking status: Never Smokeless tobacco: Never Substance Use Topics Alcohol use: No Vaping/E-Cigarette Use Vaping/E-Cigarette Substances Vaping/E-Cigarette Devices ROS: GEN: no weight loss, fever, pos for fatigue HEENT: no changes in vision or hearing, no sinus problems, no sore throat, no hoarseness RESPIRATORY: no cough, wheezing, SOB or change in breathing CARDIOVASCULAR: no exertional chest pain, dyspnea, palpitations GI: no melena, hemetemesis, no vomiting or diarrhea : no dysuria, hematuria, frequency MUSCULOSKELETAL: no change in joint pains, pos for knee arthritis - both have been replaced PSYCHIATRIC: no significant anxiety or depression, unchanged sleep pattern HEME: no bleeding tendency, no clotting tendency NEURO: no significant headache, no seizures , no tremors SKIN: no new rashes, no itching PHYSICAL EXAMINATION: Last menstrual period 12/12/2007. Constitutional: alert, overweight Head: normocephalic, atraumatic Eyes: conjunctiva non-injected, sclera white Ears: pinna normal shape and color and canals patent Neck: supple, no adenopathy Lungs: clear to auscultation, breath sounds are equal and symmetric Heart: regular rate & rhythm and no murmur, gallops or rubs Abdomen: soft, non-tender Back: normal curvature Extremities: no edema Neuro: alert, motor normal BREAST EXAMINATION: Right Breast: Right Breast: Masses noted: Yes, 12:00 5 cm from areolar edge, there is a firm 1.3 cm mass, not fixed Post XRT edema: No Post XRT erythema: No Other palpable abnormality: No Skin: Skin retraction: No Peau d'orange: No Telangectasia: No Scar(s) present: No Other changes: No Right Nipple: Nipple inversion: No Pagets: No Nipple discharge: No Right Lymph Nodes: Arm edema: No Palpable axillary adenopathy: No Palpable supraclavicular adenopathy: No Previous axillary incision: No Left Breast: Left Breast: Masses noted: No Post XRT edema: No Post XRT erythema: No Other palpable abnormality: No Skin: Skin retraction: No Peau d'orange: No Telangectasia: No Scar(s) present: Yes, upper outer from prior mole removal Other changes: No Left Nipple: Nipple inversion: No Pagets: No Nipple discharge: No Left Lymph Nodes: Arm edema: No Palpable axillary adenopathy: No Palpable supraclavicular adenopathy: No Previous axillary incision: No IMPRESSION: 68 yr old woman with imaging identified 9 mm intermediate grade hormone positive, her2 negative invasive ductal cancer with surrounding DCIS and 2.4 cm of calcifications. Given her family history of breast cancer, we discussed genetic counseling/ testing and order was placed. We had a detailed discussion with the patient reviewing her diagnosis and treatment options. She understands that the treatment of breast cancer is a multidisciplinary approach potentially involving surgery, radiation oncology, and medical oncology. We reviewed surgical options for her breast, including breast conservation and mastectomy. We discussed that breast conservation requires both removal of the cancer to a negative margin and treatment with radiotherapy to the remaining breast tissue.We discussed that survival is not improved with more aggressive surgery (i.e. Mastectomy) and that mastectomy also does not eliminate the potential for breast cancer recurrence as a small amount of tissue is left to support the skin. In addition, more aggressive surgery does not eliminate the need for chemotherapy or targeted therapies; the decisions for these treatment choices are based upon thecancer's characteristics. She is a good candidate for breast conservation. Risks of lumpectomy (partial mastectomy) to include bleeding, infection, and cosmetic deformity of the breast. We also discussed the importance of negative margins and the fact that re-excision or even mastectomy can sometimes be required in subsequent procedures. We reviewed use of the shantel elevated motorman and seed placement by radiology into the lesion prior to surgery. This allows for more accuracy in the removal of tissue as well as better assessment of margins. Staging of the axilla with a sentinel node biopsy was reviewed. We discussed identification of the node with both technetium sulfur colloid and blue dye injection. Removal of 2-3 lymph nodes is typical, although there is a potential for removal of greater than 3 nodes also. There is a small (<5%) chance of a failed sentinel node biopsy where the nodes cannot be found. In this instance, a full axillary dissection would be performed as we are unable to know which nodes could potentially contain metastatic disease. Risks of sentinel node biopsy including bleeding, infection, and a small rate of lymphedema (6-12%) were discussed. Should a full axillary dissection be performed, the risk of lym phedema increases to 12-30%. Intraoperative assessment of sentinel nodes is not performed during the lumpectomy due to the ACOSOG Z0011 study showing equivalent survival when pts with <3 positive nodes are treated with radiation as opposed to axillary clearance. However, there are still instances where an axillary dissection could be needed as a second procedure (significant volume of disease with 4 or more nodes involved, focal extranodal extension). We reviewed the use of radiation therapy following lumpectomy and its important role in reducing inbreast local recurrence. We discussed that, in the absence of chemotherapy, radiation typically begins 4-6 weeks following surgery. We reviewed that while there are different courses of radiation that can be offered, the most common is done daily (Mon-Fri) for 3-4 weeks. Side effects of fatigue andlocal changes to the breast (skin thickening, hyperpigmentation, burning, telangectasia, change in shape of breast) were reviewed. The role of the medical oncologist and possible chemotherapy and/ or adjuvant targeted therapies based on final pathology were reviewed. We discussed the role of gene typing with oncotype DX recurrence score for risk stratification if she is node negative. The importance of hormonal blocking agentswas discussed and we reviewed that oncotype DX presumes 5 yrs of hormonal therapy. She will be refer red on to radiation and medical oncology after surgery. She understands that I would recommend a preoperative MRI scan to better evaluate her breasts and look for synchronous disease. Risks (delay in surgery, low specificity) and benefits (high sensitivity in detection of additional lesions) of MRI preoperatively were discussed. This is scheduled already. She is claustrophobic and thus, ativan was given for premedication. With her BMI and other medical issues, she may not be a candidate for surgery at an outpatient center. May need to be done in a hospital setting. Option of [facility] with Dr. Gunter or with myself reviewed - she prefers to go to with me. Consent signed. Her diabetes does place her an increased risk of wound infection/ complication. We will get her scheduled for a right lumpectomy with preoperative localization and sentinel node biopsy under general anesthesia as soon as possible. PLAN: Schedule surgery as noted above. Follow up in clinic roughly 14 days after surgery. I spent a total of Greater than 55 mins (exact time 61 mins) on the date of service in preparation,delivery, and documentation of the care provided to Alyssa Reyes excluding any time spent inthe performance of separately billed services. Perla Wang M.D. 05/21/2023 12:30 PM documented in this encounter Nursing Notes * Fabi Salazar LPN - 05/21/2023 12:46 PM EST Patient scheduled at [facility] for right breast lumpectomy with Dr Perla Wang. Date of Test: tbs Medications reviewed. EKG obtained Labs: obtained Permit signed. Patient verbalizes understanding of pre- and post op instructions. Written instructions given for review at later date. Fabi Salazar LPN 05/21/2023 * Akilah Michel MED ASSIST - 05/21/2023 11:20 AM EST Chief Complaint Patient presents with NEW PATIENT Malignant neoplasm of right female breast, unspecified estrogen receptor status, unspecified site of breast (HCC). Patient presents today for evaluation of Abnormal Mammogram. [facility]. BREAST HISTORY: Mass: No Breast Pain: no Nipple discharge: No Previous problems/surgeries: None Breast Cancer: no Other Cancers: no GYNECOLOGIC HISTORY: LMP: Patient's last menstrual period was 12/12/2007. Patient is postmenopausal. Menarche at age: 15 Menopause at age: 53-54 Number of children: 3 Patient's age at first live : 24 Did you breast feed any of your children: No Ever take oral contraceptives? No Ever take estrogen? No Family History of Breast Cancer: Yes, mother, three maternal aunts and maternal cousin. documented in this encounter Plan of Treatment Upcoming Encounters Date Type Department Care Team (Late st Contact Info) Description 06/03/2023 8:00 AM EST Imaging Radiology [facility] [address] [facility] [place] [address] 06/05/2023 8:00 AM EST Appointment Radiology[address] [place] [id number] 06/11/2023 Hospital Encounter OR [facility], Operating Room, [facility] - 4th Floor [address] [place] [address] [place] [address] Perla Wang MD [address] [facility] [place] [address] 06/11/2023 11:00 AM EST [address], [address] [address] 06/19/2023 3:40 PM EST Office Visit Family Medicine [address] [place] [phone] Kalin Reeder MD [address] [place] [address] [place] [address] 06/25/2023 3:15 PM EST Office Visit General Surgery, [facility] [address] [place] [address] Perla Wang MD [address] [place] [address] 09/11/2023 8:00 AM EST Office Visit Dermatology [address] [place] [address] Stacy Gomez PA-C [address] [place] [address] [place] [id number] 04/20/2024 10:00 AM EDT Imaging Radiology [address] [place] [address] Scheduled Orders Name Type Priority Associated Diagnoses Orde r Schedule NM BREAST LYMPH GLAND RADIOLOGIST INJECTION Medical Imaging Routine Malignant neoplasm of upper-outer quadrant of right breast in female, estrogen receptor positive Preoperative examination Expected: 05/28/2023 (Approximate), Expires: 06/20/2024 US BREAST NEEDLE LOCALIZATION RIGHT Medical Imaging Routine Malignant neoplasm of upper-outer quadrant of right breast in female, estrogen receptor positive Preoperative examination Expected: 05/28/2023 (Approximate), Expires: 06/20/2024 EKG EKG Routine Malignant neoplasm of upper-outer quadrant of right breast in female, estrogen receptor positive Preoperative cardiovascular examination Expected: 05/21/2023 (Approximate), Expires: 06/20/2024 Scheduled Procedures Name Priority Associated Diagnoses Date/Ti me MASTECTOMY PARTIAL Malignant neoplasm of upper-outer quadrant of right breast in female, estrogen receptor positive EXCISION OF BREAST LESION RADIOLOGICAL MARKER Malignant neoplasm of upper-outer quadrant of right breast in female, estrogen receptor positive BIOPSY LYMPH NODE DEEP AXILL YUSUF OPEN Malignant neoplasm of upper-outer quadrant of right breast in female, estrogen receptor positive INJECTION PROCEDURE FOR IDENTIFICATION SENTINEL NODE Malignant neoplasm of upper-outer quadrant of right breast in female, estrogen receptor positive Scheduled Referrals Name Type Priority Associated Diagnoses Orde r Schedule GENETICS REFERRAL OP Referral Within 10 days (routine) Malignant neoplasm of upper-outer quadrant of right breast in female, estrogen receptor positive Preoperative examination Ordered: 05/21/2023 Health Maintenance Due Date Last Done Comments Pneumococcal Vaccine: 65+ Years (1 - PCV) 1963 Depression Screening 1969 DTaP,Tdap,and Td Vaccines (1 - Tdap) 06/22/1999 06/21/1999, 10/15/1980 Cologuard 2002 Fecal Occult Blood Test 2002 Sigmoidoscopy 2002 Hepatitis B (1 of 3 - Risk 3-dose series) 2017 *BASELINE EKG FOR HTN 07/24/2021 Diabetic Eye Exam 02/26/2023 02/26/2022, 02/17/2021 COVID-19 [...] filedocumented as of this encounter Results * CBC (05/21/2023 12:53 PM EST) WBC 10.18 4.00 - 10.80 K/uL 05/21/2023 1:03 PM EST [facility] RBC 4.10 3.85 - 5.15 M/uL 05/21/2023 1:03 PM EST [facility] HGB 12.6 12.0 - 15.3 g/dL 05/21/2023 1:03 PM EST [facility] HCT 40.1 36.0 - 45.2 % 05/21/2023 1:03 PM EST [facility] MCV 97.8 81.5 - 97.5 fL 05/21/2023 1:03 PM EST [facility] MCH 30.7 27.0 - 34.0 pg 05/21/2023 1:03 PM EST [facility] MCHC 31.4 32.0 - 36.0 g/dL 05/21/2023 1:03 PM EST [facility] RDW 14.4 11.5 - 15.5 % 05/21/2023 1:03 PM EST [facility] PLT 295 140 - 400 K/uL 05/21/2023 1:03 PM EST [facility] MPV 10.8 6.6 - 11.1 fL 05/21/2023 1:03 PM EST [facility]10 Blood Venous blood specimen / Unknown Venipuncture / Unknown 05/21/2023 12:53 PM EST 05/21/2023 12:53 PM EST Perla Wang MD LAB BLOOD ORDERABLE S [facility]10 [address] [place] [id number] documented in this encounter Visit Diagnoses Diagnosis Malignant neoplasm of upper-outer quadrant of right breast in female, estrogen receptor positive- Primary Preoperative examination Preoperative examination, unspecified Preoperative cardiovascular examination Pre-operative cardiovascular examination documented in this encounter Care Teams Bellperson Relationship Specialty Start Date End Date Kalin Reeder MD [address] [place] [address] [place] [phone] PCP - General Family Medicine 03/15/21 documented as of this encounter
--- OUTSIDE RECORDS SUMMARY | 2023-08-26 19:39 | External Medical Summary ---
Author Name Unknown Address Unknown Organization : Laboratory Report Ordering Provider Test Date Status GAEL RODRIGUEZ 06/12/2023 10:45:49 Final Observation Date Value Abnormality Reference (Units ) Status Glucose Point of Care 06/12/2023 10:45:49 182 Above high normal 70-120 (mg/dL) Final Performing Location
--- OUTSIDE RECORDS SUMMARY | 2023-08-26 19:39 | External Medical Summary | Summary of Care ---
Author Name Unknown Organization [facility] Address [address] [place] [address] Phone [phone] Care Team Providers Care Jackhammer Operator Name Role Phone Kalin Reeder MD Primary Care Provide r Reason for Visit * Reason Onset Date Comments Follow Up 06/14/2023 Post op call Encounter Details Date Type Department Care Team (Late st Contact Info) Description 06/14/2023 9:15 AM EST Scheduled Telephone General Surgery, [facility] [address] [facility] [place] [address] [facility] [address] [place] [address] Arrived Allergies No known active allergiesdocumented as of this encounter (statuses as of 06/14/2023) Medications Medication Sig Dispensed Refills Start Date End Date Status Aspirin 81 MG Oral Tablet Delayed Release take 1 tablet (81MG) by oral route every day 0 Active Calcium 1200 2732-4259 MG-UNIT Oral Tablet Chewable Take 1 Tablet [...] hemoglobin A1c goal of less than 7.0% ([facility]) Inject 1.5 mg under the skin once [...] as of this encounter (statuses as of 06/14/2023) Active Problems Problem Noted Date Diagnosed Date [...] as of this encounter (statuses as of 06/14/2023) Resolved Problems Problem Noted Date Diagnosed Date Resolved Date Mixed dyslipidemia 9 Overview: Per Lipid Taxonomy. documented as of this encounter (statuses as of 06/14/2023) Immunizations Name Administration Dates Next Due COVID-19 [...] encounter Miscellaneous Notes * Telephone Encounter - Akilah Michel, MED ASSIST - 06/14/2023 8:48 AM EST PATIENT IS S/p right breast lumpectomy with preoperative localization and right axillary sentinel lymph node biopsy on 06/12/[address] Perla Wang Pain Level- no Meds being taken for pain- no Are pain meds effective- n/a Incision sites- good Does the patient have a drain- no Does the patient have dressings? Are they aware of dressing instructions- yes Appetite- good Nausea/vomiting- no Bowel movement- fine Activity- walking Complying with activity restrictions- yes Coughing and deep breathing- suggested Questions or concerns- no Post operative follow up scheduled for 06/27/2023 documented in this encounter Plan of Treatment Upcoming Encounters Date Type Department Care Team (Late st Contact Info) Description 06/19/2023 3:40 PM EST Office Visit Family Medicine [address] [place] [phone] Kalin Reeder MD [address] [place] [address] [place] [id number] 06/27/2023 10:00 AM EST Office Visit General Surgery, [facility] [address] [place] [address] Perla Wang MD [address] [place] [address] 09/11/2023 8:00 AM EST Office Visit Dermatology [address] [place] [address] Stacy Gomez PA-C [address] [place] [address] [place] [address] 11/12/2023 4:00 PM EDT Telemedicine Genetics HemOnc, [facility] [address] [place] [address] Kayy Martin, MS [address] [place] [address] 04/20/2024 10:00 AM EDT Imaging Radiology [address] [place] [address] Health Maintenance Due Date Last Done Comments [...] Advance Directives occurred with: Patient Care Teams Jackhammer Operator Relationship Specialty Start Date End Date Kalin Reeder MD [address] [place] [address] [place] [phone] PCP - General Family Medicine 03/15/21 documented as of this encounter
--- OUTSIDE RECORDS SUMMARY | 2023-08-26 19:39 | External Medical Summary | Summary of Care ---
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, estrogen receptor positive [C50.411, Z17.0] Procedures MASTECTOMY, PARTIAL EXC BREAST LESION RADMARK BX LYMPH NODE DEEP AXIL IDENTIFY SENTINEL NODE, RADIOACTIVE TRACER MASTECTOMY PARTIAL EXCISION OF BREAST LESION RADIOLOGICAL MARKER BIOPSY LYMPH NODE DEEP AXILLARY OPEN INJECTION PROCEDURE FOR IDENTIFICATION SENTINEL NODE Referral ID Status Reason Start Date Expiration Date Visits Re quested Visits Authorized [id number] Encounter Details Date Type Department Care Team (Latest Contact Info) Description 06/12/2023 6:57 AM EST - 06/12/2023 12:19 PM EST Hospital Encounter [facility], Operating [facility] [address] [place] [phone] Perla Wang MD [address] [place] [address] Discharge Disposition: Home - Self Care Allergies No known active allergiesdocumented as of this encounter (statuses as of 06/13/2023) Medications Medication Sig Dispensed Refills Start Date End Date Status Aspirin 81 MG Oral Tablet Delayed Release take 1 tablet (81MG) by oral route every day 0 Active Calcium 1200 2521-7808 MG-UNIT Oral Tablet Chewable Take 1 Tablet [...] moderate Pain 5 Tablet 0 06/12/2023 Active LORazepam 0.5 MG Oral Tablet (Ativan) Take 2 Tablets by mouth once for 1 dose. Take 30-45 min prior to MRI 2 Tablet 0 05/21/2023 3 Discontinued documented as of this encounter (statuses as of 06/13/2023) Active Problems Problem Noted Date Diagnosed Date [...] as of this encounter (statuses as of 06/13/2023) Resolved Problems Problem Noted Date Diagnosed Date Resolved Date Mixed dyslipidemia 9 Overview: Per Lipid Taxonomy. documented as of this encounter (statuses as of 06/13/2023) Immunizations Name Administration Dates Next Due COVID-19 [...] Sign Reading Time Taken Comments Blood Pressure 148/64 06/12/2023 12:00 PM EST Pulse 90 06/12/2023 12:00 PM EST Temperature 36.6 C (97.8 F) 06/12/2023 11:[address] Respiratory Rate 18 06/12/2023 12:00 PM EST Oxygen Saturation 93% 06/12/2023 12:00 PM EST Inhaled Oxygen Concentration - - Weight 108 kg (238 lb) 06/12/2023 7:14 AM EST Height 149.9 cm (4' 11") 06/12/2023 7:14 AM EST Body Mass Index 48.07 06/12/2023 7:14 AM EST documented in this encounter Discharge Instructions * Discharge Instr - AVS* Perla Wang MD - 06/12/2023 8:07 AM EST Instructions for: Breast procedures INCISION CARE: If present, remove any outer dressing(s) in 24 hours. The incision(s) may be sealed with a skin adhesive (Dermabond) or covered with white adhesive tapes known as steri-strips. Either way there is noneed to cover up the incisions again with gauze. BRA: Wear a support bra (morning and evening) for at least 1 week and then as you normally do thereafter. ACTIVITY: Avoid any strenuous activity, repetitive motion, lifting over 10 lbs with the affected side for 2 weeks. No high impact exercise for 2 weeks. SHOWER: You may shower 24 hours after surgery and get the incision(s) or steri-strips wet with soapy water and gently pat them dry. If the steri-strips come off in the shower, do not become concerned. If they are still in place 10 days after surgery, you may remove them. PAIN MEDICATION: Options for pain medications include products that include ibuprofen or Tylenol. Apply an ice pack to the incision (20 min on, 20 min off) for the first 24-48 hours to help with pain and swelling. If you have been given a script for a narcotic pain medication, this can cause nausea / vomiting and / or constipation. Please take it with food. It is OK to use over the counter laxatives if needed. BIOPSY RESULTS: It normally takes 4-5 working days for the pathology lab to process the biopsy. If you do not hear from the office within 1 week, please call [phone] or send an email in [employer] to see if the results are back. documented in this encounter Progress Notes * Perla Wang MD - 06/12/2023 10:59 AM EST [facility] [address] [address] OUTPATIENT SURGERY DISCHARGE SUMMARY NOTE Name: Alyssa Reyes Location: OR [facility]/[place] Date: 06/12/2023 Time: 10:59 AM Surgery Date: 06/12/2023 Procedure: Procedure(s): MASTECTOMY PARTIAL EXCISION OF BREAST LESION RADIOLOGICAL MARKER BIOPSY LYMPH NODE DEEP AXILLARY OPEN INJECTION PROCEDURE FOR IDENTIFICATION SENTINEL NODE Right Right Right Right Surgeon: Surgeon(s): Perla Wang MD Discharge Diagnosis: right breast cancer After examination of this patient, I have determined she is ready for discharge to home when the patient meets criteria. Discharge instructions were given to the patient. documented in this encounter H&P Notes * Perla Wang MD - 06/12/2023 8:06 AM EST H&P from 05/21/23 reviewed. No changes to history or physical noted. Exam: Cor: S1S2 RRR no murmurs. Lungs: clear bilaterally. For right lumpectomy and sln biopsy today. MRI showed 4.3 cm of disease anterior - posterior, will take extra tissue - pt aware. Consent signed. Postop instructions reviewed with patient. Perla Wang M.D. Source Note - Perla Wang MD - 05/21/2023 12:30 PM EST Images from the original note were not included. [facility] NEW BREAST CANCER CLIN[facility] NOTE [...] with a container labeled with "Alyssa Reyes", "[id number]", "1955" and " right breast mass". Received are multiple cores of jutsin-yellow fibroadipose tissue ranging from 0.2 cm to [...] in association with DCIS. Breast, right, Block [id number]: Estrogen Receptor (ER) protein expression is STRONGLY POSITIVE 100% nuclear positivity 3+ average intensity score (range 0 to 3+) Progesterone Receptor (IN) protein expression is WEAKLY POSITIVE 10% nuclear [...] by oral route every day Calcium 1200 6028-3151 MG-UNIT Oral Tablet Chewable Take 1 Tablet [...] TABLET BY MOUTH EVERY DAY IN THE [id number] Tablet 1 metFORMIN HCl 500 MG Oral [...] procedures. We reviewed use of the shantel restaurant associate and seed placement by radiology into the [...] done in a hospital setting. Option of [facility] with Dr. Gunter or with myself reviewed [...] documented in this encounter Nursing Notes * Mima Nuñez RN - 06/12/2023 12:17 PM EST Patient awake and oriented x3. Denies pain. No drainage to right dressings noted. Tolerating PO fluids. Discharge instructions given and patient patient's . Both parties verbalized understanding. Supportive bra in place. Pharmacy delivered patient's prescription. Patient ambulated to [facility] and discharged to home. * Mima Nuñez RN - 06/12/2023 11:27 AM EST Patient transferred to pacu 2 status post right breast surgery. No drainage noted to dressings x2 on right breast and right under arm. Patient awake. Denies pain and nausea. Respirations are even andunlabored on room air. Abdomen soft and non distended. Vital signs stable. * Modesta Shankar RN - 06/12/2023 11:[address] Willett at bedside to see pt. * Modesta Shankar RN - 06/12/2023 11:15 AM EST Patient awake and oriented. Tolerating PO ice chips without nausea. Pain level is tolerable for patient 0/10. Vital signs stable. Ready for discharge from PACU 1. * Modesta Shankar RN - 06/12/2023 11:[address] Wang to see pt. * Modesta Shankar RN - 06/12/2023 10:40 AM EST Patient received to pacu 1 status post right breast lumpectomy with preoperative localization and right axillary sentinel lymph node biopsy with injection of lymphazurin blue dye for sentinel lymph node mapping. Patient awake but sleepy. Denies pain. Denies nausea. Respirations are even and unlabored on 6l simple mask. Lungs clear. NSR in the 90s on monitor. Abdomen soft and non distended. Dressing to right breast and axilla is clean, dry and intact, ice applied. Vital signs stable. * Loly Lopes RN - 06/12/2023 7:02 AM EST Surgical consent verified with patient. Patient agrees with listed procedure and verified signature. documented in this encounter OR Notes * OR Surgeon - Perla Wang MD - 06/12/2023 10:30 AM EST [facility] [address] [address] OPERATIVE REPORT Name: Alyssa Reyes Date: 06/12/2023 Time: 10:30 AM Location: OR [facility] Service: General Surgery Date of Operation: 06/12/2023 Pre-op Diagnosis: right breast cancer upper middle breast - 4.3 cm span on MRI Post-op Diagnosis: same Operation: right breast lumpectomy with preoperative localization and right axillary sentinel lymphnode biopsy with injection of lymphazurin blue dye for sentinel lymph node mapping Surgeon: Perla Wang MD Assistants: Jordy Alba, medical student Anesthesia: General endotracheal anesthesia Drains: none Estimated Blood Loss: 10 ml. IV Fluids: 1000 ml. Urine Output: N/A Specimens/Disposition: 1) right sln #1 and #2 counts 3600 and 563 2) right sln #3 counts 932 4) right breast cancer middle central 5-10) new margins: superior, inferior, medial, lateral, anterior, posterior Apparent Intraoperative Complications: NONE Patient Condition: stable Disposition: In and Out recovery unit Attestation: I performed the procedure Indications: 68 yr old woman with right breast cancer - 2.4 cm span of calcifications found on imaging. MRI showed 4.3 cm span of disease. Consented for lumpectomy and sln biopsy. Procedure: The patient underwent placement of SCD's and received 2 gm of ancef preoperatively. After the induction of GET anesthesia her right breast and axilla were prepped and draped under sterile conditions. The lesion had been preoperatively marked with shantel restaurant associate placement in radiology. The pthad undergone preoperative injection of sulfur colloid for SLN mapping by radiology. She underwent injection of 5 cc of lymphazurin blue dye subareolar in the operating room under sterile conditions.The breast was massaged for 5 min. Attention was first turned to the right axilla. A standard sentinel node biopsy incision was made and carried down into the deep axillary tissue. Using the gamma probe, two adjacent hot and blue lymph nodes were identified. This was excised en bloc with the ligasure Counts of sln #1 were 3600 and the second was 563. The axilla was further explored and a third hot and blue node found with counts of 953. This was excised also. The background cts were <10. Thewound was irrigated and noted to be hemostatic. Local anesthesia was injected and the wound was then closed with a deep layer of interrupted 3-0 vicryl suture and a running subcuticular 4-0 monocryl suture. Attention was then turned to the breast. The area of the lumpectomy in the upper central quadrant was anesthetized with 1% lidocaine with epinephrine mixed with 0.5% marcaine (total of 40 cc was usedbetween both sites. Using the saviscout localizing device, the area of the tumor was identified. A periareolar incision was made and taken over to the area of the tumor. In the area of the tumor, the plane was developed under the dermis. The tissue around the markers was carefully excised attempting a 1 cm margin of normal breast tissue (an approximately 6 cm span). The specimen was marked using the margin marker ink kit. This was sent to radiology for a specimen radiograph and noted to contain the lesion/ clips/ margin. The margins were assessed prior using the shantel restaurant associate. Shave biopsies were taken of the lesion superiorly, medially, laterally, inferiorly, anteriorly and posteriorly. Each of these was marked with the appropriate ink marking the new margin. The anterior margin was left under dermis after the shave.The wound was irrigated and noted to be hemostatic. Bridging 3-0 vicryl suture was used on a deep layer over the pectoralis to try and minimize the defect. The wound was closed with a subdermal 3-0 vicryl suture layer and a running subcuticular 4-0 monocryl suture. Steristrips and a sterile dressing were applied. She was awakened from anesthesia and taken to recovery in stable condition. Operation performed with curative intent: Yes Tracer(s) used to identify sentinel nodes in the upfront surgery (non- neoadjuvant) setting: Dye Radioactive tracer Tracer(s) used to identify sentinel nodes in the neoadjuvant setting: N/A All nodes (colored or non-colored) present at the end of a dye-filled lymphatic channel were removed: Yes All significantly radioactive nodes were removed: Yes All palpably suspicious nodes were removed: N/A Biopsy-proven positive nodes marked with clips prior to chemotherapy were identified and removed: N/A documented in this encounter Plan of Treatment Upcoming Encounters Date Type Department Care Team (Late st Contact Info) Description 06/14/2023 9:15 AM EST Scheduled Telephone General Surgery, [facility] [address] [facility] [place] [address] Nurse Ruben [facility] [address] [facility] [place] [address] 06/19/2023 3:40 PM EST Office Visit Family Medicine [address] [place] [phone] Kalin Reeder MD [address] [place] [address] [place] [id number] 06/25/2023 3:15 PM EST Office Visit General Surgery, [facility] [address] [facility] [place] [address] Perla Wang MD [address] [facility] [place] [address] 09/11/2023 8:00 AM EST Office Visit Dermatology [address] [place] [address] Stacy Gomez PA-C [address] [place] [address] [place] [address] 11/12/2023 4:00 PM EDT Telemedicine Genetics Hem[facility]c, [facility] [address] [place] [address] Kayy Martin, [place] [address] [place] [address] 04/20/2024 10:00 AM EDT Imaging Radiology [address] [place] [address] Pending Results Name Type Priority Associated Diagnoses Date /Time SURGICAL PATHOLOGY Pathology Routine Malignant neoplasm of upper-outer quadrant of right breast in female, estrogen receptor positive 06/12/2023 9:10 AM EST Scheduled Orders Name Type Priority Associated Diagnoses Order Schedule GLUCOSE METER, POINT OF CARE (COMMUNICATION ORDER) Point of Care Testing Routine As Needed until discontinued starting 06/12/2023 SURGICAL PATHOLOGY Pathology Routine Malignant neoplasm of upper-outer quadrant of right breast in female, estrogen receptor positive Release Upon Ordering for 1 Occurrences starting 06/12/2023, 1 completed GLUCOSE METER, POINT OF CARE (COMMUNICATION ORDER) Point of Care Testing Routine Perform Now for 1 Occurrences starting 06/12/2023 until 06/12/2023 Health Maintenance Due Date Last Done Comments Pneumococcal Vaccine: 65+ Years (1 - PCV) 1963 Depression Screening 1969 DTaP,Tdap,and Td Vaccines (1 - Tdap) 06/22/1999 06/21/1999, 10/15/1980 Cologuard 2002 Fecal Occult Blood Test 2002 Sigmoidoscopy 2002 Hepatitis B (1 of 3 - Risk 3-dose series) 2017 Diabetic Eye Exam 02/26/2023 02/26/2022, 02/17/2021 COVID-19 Vaccine (2022-24 season) 2023 08/23/2022, 06/20/2021, 12/06/2020, Additional history exists Influenza Vaccine (FLU shot) (#1) 2023 07/23/2022, 03/15/2021 Diabetic Foot Exam 07/23/2023 07/23/2022, 06/16/2021 HbA1c 07/26/2023 01/23/2023, 03/2023, 01/09/2022, Additional history exists GFR 01/24/2024 01/23/2023, 03/2023, 01/09/2022, Additional history exists Albumin/Creatinine Ratio [...] Procedure Name Priority Date/Time Associated Diagnosis Comments GLUCOSE METER, POINT OF CARE [facility] 06/12/2023 11:31 AM EST GLUCOSE METER, POINT OF CARE [facility] 06/12/2023 10:45 AM EST GLUCOSE METER, POINT OF CARE [facility] 06/12/2023 10:16 AM EST GLUCOSE METER, POINT OF CARE [facility] 06/12/2023 7:26 AM EST documented in this encounter Results * (ABNORMAL) GLUCOSE METER, POINT OF CARE (06/12/2023 11:31 AM EST) Glucose Meter 171(H) 70 - 120 mg/dL 06/12/2023 11:33 AM EST [facility] 57-00 Blood Whole blood specimen / Unknown 06/12/2023 11:31 AM EST 06/12/2023 11:33 AM EST Perla Wang MD LAB POINT OF CARE T EST DOCKED DEVICE UNSOLICITED RESULTS Performing Organization Address City/[facility]/ZIP Co de Phone Number [phone] [place] [address] * (ABNORMAL) GLUCOSE METER, POINT OF CARE (06/12/2023 10:45 AM EST) Glucose Meter 182(H) 70 - 120 mg/dL 06/12/2023 11:33 AM EST [facility] 57-00 Blood Whole blood specimen / Unknown 06/12/2023 10:45 AM EST 06/12/2023 11:33 AM EST Perla Wang MD LAB POINT OF CARE T EST DOCKED DEVICE UNSOLICITED RESULTS Performing Organization Address City/[facility]/ZIP Co de Phone Number [facility] [phone] [place] [address] * (ABNORMAL) GLUCOSE METER, POINT OF CARE (06/12/2023 10:16 AM EST) Glucose Meter 183(H) 70 - 120 mg/dL 06/12/2023 11:14 AM EST [facility] 57-00 Blood Whole blood specimen / Unknown 06/12/2023 10:16 AM EST 06/12/2023 11:14 AM EST Perla Wang MD LAB POINT OF CARE T EST DOCKED DEVICE UNSOLICITED RESULTS Performing Organization Address City/[facility]/ZIP Co de Phone Number [facility] [phone] [place] [address] * (ABNORMAL) GLUCOSE METER, POINT OF CARE (06/12/2023 7:26 AM EST) Glucose Meter 195(H) 70 - 120 mg/dL 06/12/2023 8:59 AM EST [facility] 57-00 Blood Whole blood specimen / Unknown 06/12/2023 7:26 AM EST 06/12/2023 8:59 AM EST Perla Wang MD LAB POINT OF CARE T EST DOCKED DEVICE UNSOLICITED RESULTS [phone] [facility] [id number] documented in this encounter Visit Diagnoses Diagnosis Malignant neoplasm of upper-outer quadrant of right breast in female, estrogen receptor positive documented in this encounter Administered Medications Inactive Administered Medications - up to 3 most recent administrations Medication Order MAR Action Action Date Dose Rate Site Acetaminophen (Tylenol) tab 975 mg 975 mg, Oral, PREOP, First dose on Sat06/12/23 at 0730, Last dose on Sat06/12/23 at 0730, For 1 dose, Maximum 4 g acetaminophen/day. Avoid in patients with severe hepatic impairment or severe active liver disease. Administer 60 minutes prior to OR., Pre-Op Given 06/12/2023 7:18 AM EST 975 mg ceFAZolin in dextrose (Ancef) ivpb 2 g 2 g, IV Piggyback, PREOP, 1 dose, First dose on Sat06/12/23 at 0730, Administer 60 minutes prior to skin incision, Pre-Op New Bag 06/12/2023 8:25 AM EST 2 g 100 mL/hr dexAMETHasone Sodium Phosphate (Decadron) 4 MG/ML inj 4 mg 4 mg, IV Push, PRN Nausea, Starting on Sat06/12/23 at 1043, Until Sat06/12/23 at 1619, For 1 dose, PROTECT FROM LIGHT, PACU fentaNYL (PF) inj 25 mcg 25 mcg, IV Push, PRN Pain, Severe, Starting on Sat06/12/23 at 1043, Until Sat06/12/23 at 1619, For 6 doses, When given IV Push its recommended that the dose be given over 3 to 5 minutes., PACU insulin aspart (NovoLOG) inj 4 Units 4 Units, Intravenous, ONCE, 1 dose, On Sat06/12/23 at 1130 Given 06/12/2023 11:00 AM EST 4 Units insulin aspart (NovoLOG) inj 6 Units 6 Units, Subcutaneous, ONCE, 1 dose, On Sat06/12/23 at 0945 Given 06/12/2023 9:07 AM EST 6 Units Deltoid Left Upper isolyte-S pH 7.4 infusion Intravenous, Plasma-LYTE 148, isolyte-S, and isolyte-S pH 7.4 are considered equivalent - including for MAR barcode scanning., CONTINUOUS, Starting on Sat06/12/23 at 0730, Until Sat06/12/23 at 1619, Pre-Op New Bag 06/12/2023 8:25 AM EST 1,000 mL 100 mL/hr Lidocaine-Prilocaine (Emla) 2.5-2.5 % topical cream Topical, ONCE, On Sat06/12/23 at 0730, For 1 dose, See nursing care plan Given 06/12/2023 7:18 AM EST Breast Right ondansetron (Zofran) inj 4 mg 4 mg, IV Push, PRN Nausea, Starting on Sat06/12/23 at 1043, Until Sat06/12/23 at 1619, For 1 dose, PACU oxygen GAS Inhalation, OXYGEN, First dose on Sat06/12/23 at 1115, Until Discontinued, Device/Managed by: Low Flow Device, Goal SPO2 (%): 91-95, Starting Device: Nasal Cannula, Initial Flow Rate (LPM): 2, Lowest Support: Nasal Cannula: Flow 0-6 LPM. Titrate up/down by 1 LPM., Titration Interval: Q2 minutes and as needed., Notify Provider: For sudden DECREASE in resting SPO2 to less than 85% and when escalating delivery device., PACU I - Oxygen for saturation below 95% as indicated per anesthesia. PACU I - Discontinue oxygen when patient is responsive and oxygen saturation is maintained above 94% on room air or same as preanesthetic level. documented in this encounter Active and Recently Administered Medications Times are shown in EST. Scheduled Medication Order 06/10/2023 06/11/2023 06/12/2023 Acetaminophen (Tylenol) tab 975 mg (COMPLETED) 975 mg, Oral, PREOP, First dose on Sat06/12/23 at 0730, Last dose on Sat06/12/23 at 0730, For 1 dose, Maximum 4 g acetaminophen/day. Avoid in patients with severe hepatic impairment or severe active liver disease. Administer 60 minutes prior to OR., Pre-Op 0718 (Given - Provid er: Loly Lopes RN) ceFAZolin in dextrose (Ancef) ivpb 2 g (COMPLETED) 2 g, IV Piggyback, PREOP, 1 dose, First dose on Sat06/12/23 at 0730, Administer 60 minutes prior to skin incision, Pre-Op 0825 (New Bag - Prov ider: Loly Lopes RN) insulin aspart (NovoLOG) inj 4 Units (COMPLETED) 4 Units, Intravenous, ONCE, 1 dose, On Sat06/12/23 at 1130 1100 (Given - Provid er: Modesta Shankar RN) insulin aspart (NovoLOG) inj 6 Units (COMPLETED) 6 Units, Subcutaneous, ONCE, 1 dose, On Sat06/12/23 at 0945 0907 (Given - Provid er: Liz Willett MD) Lidocaine-Prilocaine (Emla) 2.5-2.5 % topical cream (COMPLETED) Topical, ONCE, On Sat06/12/23 at 0730, For 1 dose, See nursing care plan 07 (Given - Provid er: Loly Lopes RN) oxygen GAS Inhalation, OXYGEN, First dose on Sat06/12/23 at 1115, Until Discontinued, Device/Managed by: Low Flow Device, Goal SPO2 (%): 91-95, Starting Device: Nasal Cannula, Initial Flow Rate (LPM): 2, Lowest Support: Nasal Cannula: Flow 0-6 LPM. Titrate up/down by 1 LPM., Titration Interval: Q2 minutes and as needed., Notify Provider: For sudden DECREASE in resting SPO2 to less than 85% and when escalating delivery device., PACU I - Oxygen for saturation below 95% as indicated per anesthesia. PACU I - Discontinue oxygen when patient is responsive and oxygen saturation is maintained above 94% on room air or same as preanesthetic level. 1115 (Due) Continuous Medication Order 06/10/2023 06/11/2023 06/12/2023 isolyte-S pH 7.4 infusion Intravenous, Plasma-LYTE 148, isolyte-S, and isolyte-S pH 7.4 are considered equivalent - including for MAR barcode scanning., CONTINUOUS, Starting on Sat06/12/23 at 0730, Until Sat06/12/23 at 1619, Pre-Op 0825 (New Bag - Prov ider: Loly Lopes RN)1042 (Anes Intra-Op Fluid - Provider: Evelin Aden CRNA) PRN Medication Order 06/10/2023 06/11/2023 06/12/2023 bupivacaine 20 mL, lidocaine-epinephrine 1 %-1:370620 20 mL inj (CANCELED) ONCE PRN INTRA PROCEDURE, Starting on Sat06/12/23 at 0915, Until Sat06/12/23 at 1031, Intra-Op 0921 (Given - Provid er: Perla Wang MD - Comment: 15ml right axilla & 25ml right breast) dexAMETHasone Sodium Phosphate (Decadron) 4 MG/ML inj 4 mg 4 mg, IV Push, PRN Nausea, Starting on Sat06/12/23 at 1043, Until Sat06/12/23 at 1619, For 1 dose, PROTECT FROM LIGHT, PACU fentaNYL (PF) inj 25 mcg 25 mcg, IV Push, PRN Pain, Severe, Starting on Sat06/12/23 at 1043, Until Sat06/12/23 at 1619, For 6 doses, When given IV Push its recommended that the dose be given over 3 to 5 minutes., PACU Isosulfan Blue (Lymphazurin) 1 % inj (CANCELED) ONCE PRN INTRA PROCEDURE, Starting on Sat06/12/23 at 0914, Until Sat06/12/23 at 1031, Intra-Op 0914 (Given - Provid er: Perla Wang MD) ondansetron (Zofran) inj 4 mg 4 mg, IV Push, PRN Nausea, Starting on Sat06/12/23 at 1043, Until Sat06/12/23 at 1619, For 1 dose, PACU sodium chloride IR 0.9 % irrigation (CANCELED) ONCE PRN INTRA PROCEDURE, Starting on Sat06/12/23 at 0914, Until Sat06/12/23 at 1031, Intra-Op 0914 (Given - Provid er: Perla Wang MD - Comment: qs - right axilla & right breast) documented in this encounter Advance Directives Latest Code Status on File Code Status Date Activated Date Inactivated Comments Full Code 06/12/2023 6:58 AM 06/12/2023 4:24 PM Thi s order reflects the patients wishes and were consensually agreed upon. Question Answer Comments Discussion of Advance Directives occurred with: Patient Care Teams Buckle Strap Puncher Relationship Specialty Start Date End Date Kalin Reeder MD [address] [place] [address] [place] [address] PCP - General Family Medicine 03/15/21 documented as of this encounter
--- OUTSIDE RECORDS SUMMARY | 2023-08-26 19:39 | External Medical Summary ---
Author Name Unknown Address Unknown Organization : Laboratory Report Ordering Provider Test Date Status GALE RODRIGUEZ 06/12/2023 10:00:00 Final Lymph node #1, count 3600, l ymph node #2, count 563 Observation Date Value Abnormality Reference (Units ) Status REFERENCE LAB SCANNED REPORT 06/12/2023 10:00:00 RESULT SCAN Final Performing Location
--- OUTSIDE RECORDS SUMMARY | 2023-08-26 19:39 | External Medical Summary | Summary of Care ---
Author Name Unknown Organization [facility] Address [address] [place] [place] [address] Phone [phone] Care Team Providers Care Waredresser Name Role Phone Kalin Reeder MD Primary Care Provide r Reason for Referral * Evaluate & Treat - Unlimited Visits (Within 30 days (routine)) - Pending Review Specialty Diagnoses / Procedures Referred By Suresh bills Referred To Contact Hematology/Oncology / Hematology Oncology Diagnoses Malignant neoplasm of upper-outer quadrant of right breast in female, estrogen receptor positive Perla Wang MD [address] [place] [address] Referral ID Status Reason Start Date Expiration Date Visits Requested Visits Authorized [id number] Pending Review Specialty Services Required 06/18/2023 999 [...] female, estrogen receptor positive Perla Wang MD [address] [place] [address] Referral ID Status Reason Start Date Expiration Date Visits Requested Visits Authorized [id number] Pending Review Specialty Services Required 06/18/2023 999 999 Question Answer Referral Priority Within 30 days (routine) Where should this appointment be scheduled? External What is the preferred location to have this test performed? Non-S Site - [facility] Comments Right breast cancer Encounter Details Date Type Department Care Team (Late st Contact Info) Description 06/18/2023 Telephone General Surgery, [facility] [address] [place] [address] Perla Wang MD [address] [place] [address] Allergies No known active allergiesdocumented as of this encounter (statuses as of 06/18/2023) Medications Medication Sig Dispensed Refills Start Date End Date Status Aspirin 81 MG Oral Tablet Delayed Release take 1 tablet (81MG) by oral route every day 0 Active Calcium 1200 5598-1888 MG-UNIT Oral Tablet Chewable Take 1 Tablet [...] EST Rad/onc order has been faxed to [facility]. Med/Onc will reach out to the [...] Examined (sentinel and non-sentinel) 3 Number of [place] Nodes Examined 3 pTNM CLASSIFICATION (AJCC 8th [...] 3:40 PM EST Office Visit Family Medicine [address] [place] [address] Kalin Reeder MD [address] [place] [address] [place] [address] 06/27/2023 10:00 AM EST Office Visit General Surgery, [facility] [address] [facility] [place] [address] Perla Wang MD 132 [facility] [place] [address] 09/11/2023 8:00 AM EST Office Visit Dermatology [address] [place] [address] Stacy Gomez PA-C [address] [place] [address] [place] [address] 11/12/2023 4:00 PM EDT Telemedicine Genetics HemOnc, [facility] [address] [place] [address] Kayy Martin, MS [address] [place] [address] 04/20/2024 10:00 AM EDT Imaging Radiology [address] [place], [place] [address] Scheduled Referrals [...] Advance Directives occurred with: Patient Care Teams Waredresser Relationship Specialty Start Date End Date Kalin Reeder MD [address] [place] [address] [place] [address] PCP - General Family Medicine 03/15/21 documented as of this encounter
--- OUTSIDE RECORDS SUMMARY | 2023-08-26 19:39 | External Medical Summary ---
Author Name Unknown Address Unknown Organization : Laboratory Report Ordering Provider Test Date Status GALE RODRIGUEZ 06/12/2023 10:16:23 Final Observation Date Value Abnormality Reference (Units ) Status Glucose Point of Care 06/12/2023 10:16:23 183 Above high normal 70-120 (mg/dL) Final Performing Location
--- OUTSIDE RECORDS SUMMARY | 2023-08-26 19:39 | External Medical Summary | Summary of Care ---
Author Name Unknown Organization [facility] Address [address] [facility] [address] Phone [phone] Care Team Providers Care Varnish Supervisor Name Role Phone Kalin Reeder MD Primary Care Provide r Encounter Details Date Type Department Care Team (Late st Contact Info) Description 06/04/2023 Telephone General Surgery, [facility] [address] [place] [address] Perla Wang MD [address] [place] [address] Allergies No known active allergiesdocumented as of this encounter (statuses as of 06/04/2023) Medications Medication Sig Dispensed Refills Start Date End Date Status Aspirin 81 MG Oral Tablet Delayed Release take 1 tablet (81MG) by oral route every day 0 Active Calcium 1200 1843-7705 MG-UNIT Oral Tablet Chewable Take 1 Tablet [...] EVERY MORNING 180 Tablet 0 05/07/2023 Active documented as of this encounter (statuses as of 06/04/2023) Active Problems Problem Noted Date Diagnosed Date [...] as of this encounter (statuses as of 06/04/2023) Resolved Problems Problem Noted Date Diagnosed Date Resolved Date Mixed dyslipidemia 9 Overview: Per Lipid Taxonomy. documented as of this encounter (statuses as of 06/04/2023) Immunizations Name Administration Dates Next Due COVID-19 [...] Telephone Encounter - Perla Wang MD - 06/04/2023 1:03 PM EST MRI results discussed with pt. Will plan on doing a wider lumpectomy to ensure removal. [phone] Findings There is heterogeneous fibroglandular tissue and mild symmetric background parenchymal enhancement in both breasts. Left: No suspicious enhancing mass or non mass enhancement. No internal mammary or axillary lymphadenopathy. Right: A 9.3 x 9.1 x 4.2 mm (axial image 69, series 8 and sagittal image 48, series 18) irregular enhancing mass with persistent and washout kinetics in the near central middle depth with susceptibility artifact within it (indicative of tissue marker related to stereotactic guided core biopsy 05/08/2023) is consistent with patient's known biopsy-proven invasive ductal carcinoma. A 12.8 mm AP and 5.2 mm transverse (axial image 69, series 8 and sagittal image 48, series 18) linear non mass enhancement contiguous with the aforementioned biopsy-proven carcinoma extends anteriorly. A 17.8 mm AP and 4.2 mm (axial image 69, series 8) transverse linear non-mass enhancement contiguous with the biopsy- proven carcinoma/mass extends posteriorly. Findings are suspicious for extent of disease. In total, the aforementioned biopsy-proven carcinoma and the anterior and posterior components of linear non-mass enhancement measure 4.3 cm AP (sagittal image 48, series 18). The aforementioned anterior and posterior components of non mass enhancement contiguous with the biopsy-proven carcinoma/mass demonstrate type 1, persistent kinetics. No internal mammary or axillary lymphadenopathy. Extramammary findings: None. Impression: Left: No MRI evidence of malignancy. Right: Biopsy-proven invasive ductal carcinoma in the near central middle depth with tissue marker within it indicative of stereotactic guided core biopsy 05/08/2023 . Linear non mass enhancement seen extending anteriorly and posteriorly from the aforementioned biopsy-proven carcinoma/mass suspicious for extent of disease measures 4.3 cm AP. OVERALL BIRADS: 6, known biopsy proven carcinoma. Recommendation: Continue oncologic and surgical surveillance. Patient is advised to follow-up with Dr. Wang in the Department of surgery. Follow-up left mammogram is advised in 1 year or sooner if warranted clinically. documented in this encounter Plan of Treatment Upcoming Encounters Date Type Department Care Team (Latest Contact Info) Description 06/11/2023 9:00 AM EST Imaging Radiology [facility] 1st Floor, [place] [address] [address] 06/11/2023 9:30 AM EST Imaging Radiology [facility] [address] [place] [address] 06/12/2023 7:30 AM EST Imaging [facility] 2nd Floor Cardiology, [place] [address] [place] [address] 06/12/2023 8:30 AM EST Hospital Encounter OR [facility], Operating Room [facility] [address] [place] [phone] Perla Wang MD [address] [place] [address] 06/12/2023 8:30 AM EST - 06/12/2023 10:39 AM EST Surgery OR [facility], Operating Room [facility] [address] [place] [phone] Perla Wang MD [address] [place] [address] MASTECTOMY PARTIAL 06/12/2023 3:00 PM EST Imaging Radiology [address] [place] [address] 06/19/2023 3:40 PM EST Office Visit Family Medicine [address] [place] [address] Kalin Reeder MD [address] [place] [address] [place] [address] 06/25/2023 3:15 PM EST Office Visit General Surgery, [facility] [address] [place] [address] Perla Wang MD [address] [place] [address] 09/11/2023 8:00 AM EST Office Visit Dermatology [address] [place] [address] Stacy Gomez PA-C [address] [place] [address] [place] [address] 11/12/2023 4:00 PM EDT Telemedicine Genetics HemOnc, [facility] [address] [place] [address] Kayy Martin, MS [address] [place] [address] 04/20/2024 10:00 AM EDT Imaging Radiology [address] [place] [address] Scheduled Procedures Name Priority Associated Diagnoses Date/Ti me MASTECTOMY PARTIAL Malignant neoplasm of upper-outer quadrant of right breast in female, estrogen receptor positive 06/12/2023 8:30 AM EST EXCISION OF BREAST LESION RADIOLOGICAL MARKER Malignant neoplasm of upper-outer quadrant of right breast in female, estrogen receptor positive 06/12/2023 8:30 AM EST BIOPSY LYMPH NODE DEEP AXILLARY OPEN Malignant neoplasm of upper-outer quadrant of right breast in female, estrogen receptor positive 06/12/2023 8:30 AM EST INJECTION PROCEDURE FOR IDENTIFICATION SENTINEL NODE Malignant neoplasm of upper-outer quadrant of right breast in female, estrogen receptor positive 06/12/2023 8:30 AM EST Health Maintenance Due Date Last [...] Not on filedocumented as of this encounter Care Teams Varnish Supervisor Relationship Specialty Start Date End Date Kalin Reeder MD [address] [place] [address] [place] [phone] PCP - General Family Medicine 03/15/21 documented as of this encounter
--- OUTSIDE RECORDS SUMMARY | 2023-08-26 19:39 | External Medical Summary ---
Author Name Unknown Address Unknown Organization : Laboratory Report Ordering Provider Test Date Status GALE RODRIGUEZ 06/12/2023 07:26:03 Final Observation Date Value Abnormality Reference (Units ) Status Glucose Point of Care 06/12/2023 07:26:03 195 Above high normal 70-120 (mg/dL) Final Performing Location
--- OUTSIDE RECORDS SUMMARY | 2023-08-26 19:39 | External Medical Summary | Summary of Care ---
Author Name Unknown Organization [facility] Address [address] [facility] [address] Phone [phone] Care Team Providers Care Feed Preparation Operator Name Role Phone Kalin Reeder MD Primary Care Provide r Reason for Visit * Reason Onset Date Comments Appointment 05/30/2023 Encounter Details Date Type Department Care Team (Late st Contact Info) Description 05/30/2023 Telephone Rad[address] [facility] [place] [address] Jany Montes TECH Appointment Allergies No known active allergiesdocumented as of this encounter (statuses as of 05/30/2023) Medications Medication Sig Dispensed Refills Start Date End Date Status Aspirin 81 MG Oral Tablet Delayed Release take 1 tablet (81MG) by oral route every day 0 Active Calcium 1200 3555-3973 MG-UNIT Oral Tablet Chewable Take 1 Tablet [...] as of this encounter (statuses as of 05/30/2023) Active Problems Problem Noted Date Diagnosed Date [...] as of this encounter (statuses as of 05/30/2023) Resolved Problems Problem Noted Date Diagnosed Date Resolved Date Mixed dyslipidemia 9 Overview: Per Lipid Taxonomy. documented as of this encounter (statuses as of 05/30/2023) Immunizations Name Administration Dates Next Due COVID-19 [...] encounter Miscellaneous Notes * Telephone Encounter - Jany Montes TECH - 05/30/2023 3:27 PM EST Name: Alyssa Reyes Do you have any of the following: Pacemaker, stents, heart valves, aneurysm clips? No Have you ever worked with metal or have you ever gotten metal in your eyes? No Have you had a colonoscopy in the last 30 days? No On dialysis? No Do you have any dermals or body piercing's? No or ? Do you wear an insulin pump or diabetic monitor? no PRECIOUS Booker documented in this encounter Plan of Treatment Upcoming Encounters Date Type Department Care Team (Latest Contact Info) Description 06/03/2023 8:00 AM EST Imaging Radiology [address], [place] [address] [facility] [place] [address] 06/11/2023 9:00 AM EST Imaging Radiology [facility] 1st [facility], [place] [address] [place] [address] 06/11/2023 9:30 AM EST Imaging Radiology [facility] [address] [place] [address] 06/12/2023 7:30 AM EST Imaging [facility] 2nd Floor Cardiology, [place] [address] [place] [address] 06/12/2023 8:30 AM EST Hospital Encounter OR [facility], Operating Room [facility] [address] [place] [phone] Perla Wang MD [address] [place] [address] 06/12/2023 8:30 AM EST - 06/12/2023 10:39 AM EST Surgery OR [facility], Operating Room [facility] [address] [place] [phone] Perla Wang MD [address] [place] [address] MASTECTOMY PARTIAL 06/12/2023 3:00 PM EST Imaging Radiology [facility] 1st [facility], [place] [address] [place] [address] 06/19/2023 3:40 PM EST Office Visit Family Medicine [address] [place] [address] Kalin Reeder MD [address] [place] [address] [place] [address] 06/25/2023 3:15 PM EST Office Visit General Surgery, [facility] [address] [place] [address] Perla Wang MD [address] [place] [address] 09/11/2023 8:00 AM EST Office Visit Dermatology [address] [place] [address] Stacy Gomez PA-C [address] [place] [address] [place] [address] 11/12/2023 4:00 PM EDT Telemedicine Genetics HemOnc, [facility] [address] [place] [address] Kayy Martin, MS [address] [place], [place] [id number] 04/20/2024 10:00 AM EDT Imaging Radiology [address] [place] [address] Scheduled Procedures Name Priority Associated Diagnoses Date/Ti [...] filedocumented as of this encounter Care Teams Feed Preparation Operator Relationship Specialty Start Date End Date Kalin Reeder MD [address] [place] [address] [place] [phone] PCP - General Family Medicine 03/15/21 documented as of this encounter
--- OUTSIDE RECORDS SUMMARY | 2023-08-26 19:40 | External Medical Summary | Summary of Care ---
Author Name Unknown Organization [facility] Address [address] [facility] [place] [address] Phone [phone] Care Team Providers Care Forming Department Supervisor Name Role Phone Kalin Reeder MD Primary Care Provide r Reason for Visit * Reason Onset Date Comments Order Request 04/29/2023 Breast BX Encounter Details Date Type Department Care Team Description 04/29/2023 Telephone Gynecology/Obstetrics [facility] [address] [place] [address] Trupti Granado CRNP [address] [place] [address] Order Request (Breast BX) Allergies No known active allergiesdocumented as of this encounter (statuses as of 04/29/2023) Medications Medication Sig Dispensed Refills Start Date End Date Status Aspirin 81 MG Oral Tablet Delayed Release take 1 tablet (81MG) by oral route every day 0 Active Calcium 1200 4838-9196 MG-UNIT Oral Tablet Chewable Take 1 Tablet by mouth in the morning. 0 Active Vitamin D3 25 MCG (1000 UT) Oral Capsule Take by mouth. 0 Active Ferrous Sulfate 325 (65 Fe) MG Oral Tablet (Feosol) Take 2 Tablets by mouth in the morning. 180 Tablet 1 11/12/2022 Active Vitamin B-12 1000 MCG Oral Tablet [...] THE MORNING 90 Tablet 1 04/23/2023 Active documented as of this encounter (statuses as of 04/29/2023) Active Problems Problem Noted Date Morbid obesity due to excess calories Body mass index (BMI) of 45.0 to 49.9 in adult 06/26/2021 Overview: Per Obesity protocol Type 2 diabetes mellitus with hemoglobin A1c goal of less than 7.0% 03/15/2021 Hyperlipidemia 03/15/2021 HTN, goal below 130/80 03/15/2021 Osteoarthritis of multiple joints 2020 Status post total bilateral knee replace ment 03/15/2021 DYSLIPIDEMIA, GOAL TO BE DETERMINED 06/14 Overview: Per Lipid Taxonomy. OBESITY, UNSPECIFIED documented as of this encounter (statuses as of 04/29/2023) Resolved Problems Problem Noted Date Resolved Date Mixed dyslipidemia 06/23/2009 Overview: Per Lipid Taxonomy. documented as of this encounter (statuses as of 04/29/2023) Immunizations Name Administration Dates Next Due COVID-19 [...] = 0.6 oz pur e alcohol) Sex Assigned at Date Recorded Not on file Job Start Date Occupation Industry Not on file Not on file Not on file documented as of this encounter Miscellaneous Notes * Telephone Encounter - PETER Ramos - 04/29/2023 10:08 AM EDT Order signed. * Telephone Encounter - JAYLENE Anderson - 04/29/2023 8:47 AM EDT Per 04/26 diagnostic breast ultrasound recommendation, patient is scheduled 05/13 for a right stereotactic breast biopsy. Order pended. Please review and sign if acceptable. Recommendation Tomosynthesis guided breast biopsy is recommended for the right breast. Thank you documented in this encounter Plan of Treatment Upcoming Encounters Date Type Specialty Care Team Description 05/13/2023 Imaging Radiology 05/13/2023 Imaging Radiology 05/16/2023 Office Visit Family Medicine Kalin Reeder MD [address] [place] [address] [place] [address] 09/11/2023 Office Visit Dermatology Stacy Gomez PA-C [address] [place] [address] [place] [address] 04/20/2024 Imaging Radiology Scheduled Orders Name Type Priority Associated Diagnoses Orde r Schedule MAMMOGRAM BREAST NEEDLE BIOPSY CORE RIGHT Medical Imaging Routine Abnormal ultrasound of breast Expected: 04/29/2023, Expires: 05/30/2024 Health Maintenance Due Date Last Done Comments Pneumococcal Vaccine: 65+ Years (1 - PCV) 1963 Depression Screening 1969 DTaP,Tdap,and Td Vaccines (1 - Tdap) 06/22/1999 06/21/1999, 10/15/1980 Cologuard 2002 Fecal Occult Blood Test 2002 Sigmoidoscopy 2002 *BASELINE EKG FOR HTN 07/24/2021 DIABETES-EYE EXAM 02/26/2023 02/26/2022, 02/17/2021 COVID-19 Vaccine (2022- season) 2023 08/23/2022, 06/20/2021, [...] on patient's age to complete this topic Hepatitis B Aged Out No longer eligi ble based on patient's age to complete this topic MENINGOCOCCAL (MENACTRA/MENVEO) Aged Out No longer eligible based on patient's age to complete this topic documented as of this encounter Medical Devices Not on filedocumented as of this encounter Visit Diagnoses Diagnosis Abnormal ultrasound of breast- Primary Other (abnormal) findings on radiological examination of breast documented in this encounter Care Teams Forming Department Supervisor Relationship Specialty Start Date End Date Kalin Reeder MD [address] [place] [address] [place] [id number] PCP - General Family Medicine 03/15/21 documented as of this encounter
--- OUTSIDE RECORDS SUMMARY | 2023-08-26 19:40 | External Medical Summary | Summary of Care ---
Author Name Unknown Organization [facility] Address [address] [place] [address] Phone [phone] Care Team Providers Care Ground School Instructor Name Role Phone Kalin Reeder MD Primary Care Provide r Reason for Referral * Evaluate & Treat - Unlimited Visits (Within 10 days (routine)) - Pending Review Specialty Diagnoses / Procedures Referred By Suresh bills Referred To Contact Medical Genetics / Hematology Oncology Diagnoses Malignant neoplasm of upper-outer quadrant of right breast in female, estrogen receptor positive Preoperative examination Perla Wang MD [address] [address] Referral ID Status Reason Start Date Expiration Date Visits Requested Visits Authorized [id number] Pending Review Specialty Services Required 05/21/2023 999 [...] GLAND RADIOLOGIST INJECTION Perla Wang MD [address] [address] Referral ID Status Reason Start Date Expiration Date V isits Requested Visits Authorized [id number] Pending Review 05/28/2023 999 999 Reason for [...] female, right (HCC) Trupti Granado CRNP [address] [place] [address] Referral ID Status Reason Start Date Expiration Date Visits Requested Visits Authorized [id number] Pending Review Specialty Services Required 3 [phone] Encounter Details Date Type Department Care Team (Latest Contact Info) Description 05/21/2023 11:30 AM EST Office Visit General Surgery, [facility] [place] [address] Perla Wang MD 132 [facility] [place] [address] Malignant neoplasm of upper-outer quadrant of right breast in female, estrogen receptor positive *; Preoperative examination; Preoperative cardiovascular examination Allergies No known active allergiesdocumented as of this encounter (statuses as of 05/21/2023) Medications Medication Sig Dispensed Refills Start Date End Date Status Aspirin 81 MG Oral Tablet Delayed Release take 1 tablet (81MG) by oral route every day 0 Active Calcium 1200 9710-0506 MG-UNIT Oral Tablet Chewable Take 1 Tablet [...] from the original note were not included. [facility] [...] with a container labeled with "Alyssa Reyes", "[id number]", "1955" and " right breast mass". Received [...] in association with DCIS. Breast, right, Block [id number]: Estrogen Receptor (ER) protein expression is STRONGLY POSITIVE 100% nuclear positivity 3+ average intensity score (range 0 to 3+) Progesterone Receptor (NM) protein expression is WEAKLY POSITIVE 10% nuclear [...] by oral route every day Calcium 1200 6194-3418 MG-UNIT Oral Tablet Chewable Take 1 Tablet [...] TABLET BY MOUTH EVERY DAY IN THE [id number] Tablet 1 metFORMIN HCl 500 MG Oral [...] procedures. We reviewed use of the shantel raw material handler and seed placement by radiology into the [...] done in a hospital setting. Option of [facility] with Dr. Gunter or with myself reviewed [...] from the original note were not included. [facility] [...] in formalin with a container labeled with "[facility]", "[id number]", "1955" and " right breast mass". Received [...] in association with DCIS. Breast, right, Block [id number]: Estrogen Receptor (ER) protein expression is STRONGLY POSITIVE 100% nuclear positivity 3+ average intensity score (range 0 to 3+) Progesterone Receptor (NM) protein expression is WEAKLY POSITIVE 10% nuclear [...] the presence of Monica Odom and Tiffany yLle. The patient's identification was verified. Following a [...] by oral route every day Calcium 1200 1249-6655 MG-UNIT Oral Tablet Chewable Take 1 Tablet [...] TABLET BY MOUTH EVERY DAY IN THE [id number] Tablet 1 metFORMIN HCl 500 MG Oral [...] procedures. We reviewed use of the shantel raw material handler and seed placement by radiology into the [...] done in a hospital setting. Option of [facility] with Dr. Gunter or with myself reviewed [...] 05/21/2023 12:46 PM EST Patient scheduled at [facility] for right breast lumpectomy with Dr Perla [...] Abnormal Mammogram. Patient had mammogram done at [email or web address]. on 04/15/2023. BREAST HISTORY: Mass: No Breast [...] Description 06/03/2023 8:00 AM EST Imaging Radiology [address] 132 [facility] [place] [address] 06/05/2023 8:00 AM EST Appointment Radiology, [address] [address] 06/19/2023 3:40 PM EST Office Visit Family Medicine [address] [place] [address] Kalin Reeder MD [address] [place] [address] [place] [address] 06/25/2023 3:15 PM EST Office Visit General Surgery, [facility] [address] [place] [address] Perla Wang MD [address] [place] [address] 09/11/2023 8:00 AM EST Office Visit Dermatology [address] [place] [address] Stacy Gomez PA-C [address] [place] [address] [place] [address] 04/20/2024 10:00 AM EDT Imaging Radiology [address] [place] [address] Scheduled Orders Name Type Priority Associated Diagnoses Orde r Schedule CBC Lab Pre-operative Malignant neoplasm of upper-outer quadrant of right breast in female, estrogen receptor positive Preoperative examination Expected: 05/22/2023 (Approximate), Expires: 07/20/2023 NM BREAST LYMPH GLAND RADIOLOGIST INJECTION Medical [...] examination Expected: 05/21/2023 (Approximate), Expires: 06/20/2024 Scheduled Referrals Name Type Priority Associated Diagnoses [...] examination documented in this encounter Care Teams Ground School Instructor Relationship Specialty Start Date End Date Kalin Reeder MD [address] [place] [address] [place] [phone] PCP - General Family Medicine 03/15/21 documented as of this encounter
--- OUTSIDE RECORDS SUMMARY | 2023-08-26 19:40 | External Medical Summary | Summary of Care ---
Author Name Unknown Organization [facility] Address [address] [place] [address] Phone [phone] Care Team Providers Care Crop And Soil Technician Name Role Phone Kalin Reeder MD Primary Care Provide r Reason for Visit * Reason Comments eRx-Medication Refill Encounter Details Date Type Department Care Team Description 2023 Refill Family Medicine [address] [place] [address] Kalin Reeder MD [address] [place] [address] [place], [place] [phone] HTN, goal below 130/80 Allergies No known active allergiesdocumented as of this encounter (statuses as of 04/17/2023) Medications Medication Sig Dispensed Refills Start Date End Date Status Aspirin 81 MG Oral Tablet Delayed Release take 1 tablet (81MG) by oral route every day 0 Active Calcium 1200 9416-9827 MG-UNIT Oral Tablet Chewable Take 1 Tablet by mouth in the morning. 0 Active Vitamin D3 25 MCG (1000 UT) Oral Capsule Take by mouth. 0 Active Lisinopril 40 MG Oral TabletIndications: HTN, goal below 130/80 TAKE 1 TABLET BY MOUTH EVERY DAY IN THE MORNING 90 Tablet 1 10/29/2022 Active metFORMIN HCl 500 MG Oral Tablet (Glucophage)Indica tions:Type 2 diabetes mellitus with hemoglobin A1c goal of less than 7.0% (HCC) TAKE 2 TABLETS BY MOUTH TWICE A DAY 360 Tablet 1 10/29/2022 Active Ferrous Sulfate 325 (65 Fe) MG [...] THE MORNING 90 Tablet 1 04/17/2023 Active hydroCHLOROthiazid e 25 MG Oral Tablet (Hydrodiuril)Indic ations:HTN, goal below 130/80 TAKE 1 TABLET BY MOUTH EVERY DAY IN THE MORNING 90 Tablet 1 10/22/2022 3 Discontinued documented as of this encounter (statuses as of 04/17/2023) Active Problems Problem Noted Date Morbid obesity [...] as of this encounter (statuses as of 04/17/2023) Resolved Problems Problem Noted Date Resolved Date Mixed dyslipidemia 06/23/2009 Overview: Per Lipid Taxonomy. documented as of this encounter (statuses as of 04/17/2023) Immunizations Name Administration Dates Next Due COVID-19 [...] encounter Miscellaneous Notes * Telephone Encounter - Sailaja Blas [facility] - 04/17/2023 8:58 AM EDTSigned Prescriptions: Disp Refills hydroCHLOROthiazide 25 MG Oral Tablet (Hyd*90 Tab*1 Sig: TAKE 1TABLET BY MOUTH EVERY DAY IN THE MORNINGAuthorizing Provider: Janna REEDER User: SAILAJA BLAS documented in this encounter Plan of Treatment Upcoming Encounters Date Type Specialty Care Team Description 05/16/2023 Office Visit Family Medicine Kalin Reeder MD [address] [place] [address] [place] [address] 09/11/2023 Office Visit Dermatology Stacy Gomez PA-C [address] [place] [address] [place] [address] 04/20/2024 Imaging Radiology Health Maintenance Due Date Last Done Comments Pneumococcal Vaccine: 65+ Years (1 - PCV) 1963 Depression Screening 1969 DTaP,Tdap,and Td Vaccines (1 - Tdap) 06/22/1999 06/21/1999, 10/15/1980 Cologuard 2002 Fecal Occult Blood Test 2002 Sigmoidoscopy 2002 *BASELINE EKG FOR HTN 07/24/2021 DIABETES-EYE EXAM 02/26/2023 02/26/2022, 02/17/2021 Influenza Vaccine (FLU shot) (#1) 2023 07/23/2022, 03/15/2021 Diabetic Foot Exam 07/23/2023 07/23/2022, 06/16/2021 HbA1c 07/26/2023 01/23/2023, 01/0 03/2023, 01/09/2022, Additional history exists GFR 01/24/2024 01/23/2023, 01/0 03/2023, 01/09/2022, Additional history exists Albumin/Creatinine Ratio 01/25/2024 023, 01/09/2022, 03/15/2021 Colonoscopy 02/11/2024 02/10/2014 Colorectal Cancer Screening 02/11/2024 DXA Scan 03/05/2024 03/05/2014 Mammogram 04/15/2024 04/15/2023, 03/16, 04/04/2021, Additional history exists Lipid Panel 01/24/2028 01/23/2023, 12/14, 03/15/2021, Additional history exists Pap Smear Discontinued 10/23/2021, 03/2019, 12/28/1998 COVID-19 Vaccine Completed 08/23/2022, 01/2021, 12/06/2020, Additional history exists Zoster Vaccines Completed 10/30/2022, 08/29/2022 GARDASIL-HPV IMMUNIZATION [...] as of this encounter Visit Diagnoses Diagnosis HTN, goal below 130/80 Unspecified essential hypertension documented in this encounter Care Teams Crop And Soil Technician Relationship Specialty Start Date End Date Kalin Reeder MD [address] [place] [address] [place] [address] PCP - General Family Medicine 03/15/21 documented as of this encounter
--- OUTSIDE RECORDS SUMMARY | 2023-08-26 19:40 | External Medical Summary | Summary of Care ---
Author Name Unknown Organization [facility] Address [address] [place] [address] Phone [phone] Care Team Providers Care Research Worker Encyclopedia Name Role Phone Kalin Reeder MD Primary Care Provide r Reason for Visit * Reason Comments eRx-Medication Refill Encounter Details Date Type Department Care Team (Late st Contact Info) Description 05/07/2023 Refill Family Medicine [address] [place] [address] Kalin Reeder MD [address] [place] [address] [place] [address] Allergies No known active allergiesdocumented as of this encounter (statuses as of 05/07/2023) Medications Medication Sig Dispensed Refills Start Date End Date Status Aspirin 81 MG Oral Tablet Delayed Release take 1 tablet (81MG) by oral route every day 0 Active Calcium 1200 3815-4909 MG-UNIT Oral Tablet Chewable Take 1 Tablet [...] EVERY MORNING 180 Tablet 0 05/07/2023 Active Ferrous Sulfate 325 (65 Fe) MG Oral Tablet (Feosol) Take 2 Tablets by mouth in the morning. 180 Tablet 1 11/12/2022 3 Discontinued documented as of this encounter (statuses as of 05/07/2023) Active Problems Problem Noted Date Diagnosed Date [...] as of this encounter (statuses as of 05/07/2023) Resolved Problems Problem Noted Date Diagnosed Date Resolved Date Mixed dyslipidemia Overview: Per Lipid Taxonomy. documented as of this encounter (statuses as of 05/07/2023) Immunizations Name Administration Dates Next Due COVID-19 [...] encounter Miscellaneous Notes * Telephone Encounter - Antonella Manzo [facility] - 05/07/2023 1:44 PM EDTSigned Prescriptions: Disp Refills Ferrous Sulfate 325 (65 Fe) MG Oral Tablet*180 Ta*0 Sig: TAKE 2 TABLETS BY MOUTH EVERY MORNINGAuthorizing Provider: Janna REEDER User: ANTONELLA MANZO * Telephone Encounter - Antonella Manzo [facility] - 05/07/2023 1:38 PM EDT 1 refill approved as pt will be due for office visit within 3 months. Thank you, Antonella Manzo, PharmD Clinical Pharmacist [facility] ([facility]) (Formerly [facility]) [phone] 05/07/2023, 1:44 PM documented in this encounter Plan of Treatment Upcoming Encounters Date Type Department Care Team (Late st Contact Info) Description 05/13/2023 12:00 PM EDT Imaging Radiology [address] [place] [address] 05/13/2023 12:30 PM EDT Imaging Radiology [address] [place] [address] 06/19/2023 3:40 PM EST Office Visit Family Medicine [address] [place] [address] Kalin Reeder MD [address] [place] [address] [place] [address] 09/11/2023 8:00 AM EST Office Visit Dermatology [address] [place] [address] Stacy Gomez PA-C [address] [place] [address] [place] [address] 04/20/2024 10:00 AM EDT Imaging Radiology [address] [place] [address] Health Maintenance Due Date Last Done Comments Pneumococcal Vaccine: 65+ Years (1 - PCV) 1963 Depression Screening 1969 DTaP,Tdap,and Td Vaccines (1 - Tdap) 06/22/1999 06/21/1999, 10/15/1980 Cologuard 2002 Fecal Occult Blood Test 2002 Sigmoidoscopy 2002 Hepatitis B (1 of 3 - Risk 3-dose series) 2017 *BASELINE EKG FOR HTN 07/24/2021 DIABETES-EYE EXAM 02/26/2023 02/26/2022, 02/17/2021 COVID-19 Vaccine ( season) [...] filedocumented as of this encounter Care Teams Research Worker Encyclopedia Relationship Specialty Start Date End Date Kalin Reeder MD [address] [place] [address] [place] [phone] PCP - General Family Medicine 03/15/21 documented as of this encounter
--- OUTSIDE RECORDS SUMMARY | 2023-08-26 19:40 | External Medical Summary | Summary of Care ---
Author Name Unknown Organization [facility] Address [address] [place] [address] Phone [phone] Care Team Providers Care Preassembler Printed Circuit Board Name Role Phone Kalin Reeder MD Primary Care Provide r Reason for Visit * Reason Onset Date Comments Health Maintenance 04/24/2023 Encounter Details Date Type Department Care Team Description 04/24/2023 Telephone Family Medicine [address] [address] Kalin Reeder MD [address] [place] [address] [place] [phone] Health Maintenance Allergies No known active allergiesdocumented as of this encounter (statuses as of 04/24/2023) Medications Medication Sig Dispensed Refills Start Date End Date Status Aspirin 81 MG Oral Tablet Delayed Release take 1 tablet (81MG) by oral route every day 0 Active Calcium 1200 0807-9341 MG-UNIT Oral Tablet Chewable Take 1 Tablet [...] A1c goal of less than 7.0% ([facility]) Inject 1.5 mg under the [...] as of this encounter (statuses as of 04/24/2023) Active Problems Problem Noted Date Morbid obesity [...] as of this encounter (statuses as of 04/24/2023) Resolved Problems Problem Noted Date Resolved Date Mixed dyslipidemia 06/23/2009 Overview: Per Lipid Taxonomy. documented as of this encounter (statuses as of 04/24/2023) Immunizations Name Administration Dates Next Due COVID-19 [...] encounter Miscellaneous Notes * Telephone Encounter - Lisa Vigil LPN - 04/24/2023 10:41 AM EDT Care Gaps Comprehensive Care Outreach Last Office/Telemedicine Visit: 01/23/2023 (in office), Visit date not found (telemedicine) Next Office Visit: 05/16/2023 Hemoglobin AIC Results: Lab Results Component Value Date/Time HEMOGLOBIN A1C - [facility] 7.0 (H) 01/23/2023 08:57 AM HEMOGLOBIN A1C - [facility] 7.0 (H) 07/23/2022 08:33 AM HEMOGLOBIN A1C - [facility] 7.5 (H) 01/09/2022 11:30 AM Reviewed Health Maintenance below: Health Maintenance Topic Date Due Pneumococcal Vaccine: 65+ Years (1 - PCV) Never done Depression Screening Never done DTaP,Tdap,and Td Vaccines (1 - Tdap) 06/22/1999 *BASELINE EKG FOR HTN Never done DIABETES-EYE EXAM 02/26/2023 Influenza Vaccine (FLU shot) (1) 03/15/2023 COVID-19 Vaccine ( season) 2023 Diabetic Foot Exam 07/23/2023 eye Care Gap Outreach Action Taken: Left message documented in this encounter Plan of Treatment Upcoming Encounters Date Type Specialty Care Team Description 04/26/2023 Imaging Radiology 04/26/2023 Imaging Radiology 05/16/2023 Office Visit Family Medicine Kalin Reeder MD [address] [place] [address] [place] [address] 09/11/2023 Office Visit Dermatology Stacy Gomez PA-C [address] [place] [address] [place] [address] 04/20/2024 Imaging Radiology Health Maintenance Due Date [...] filedocumented as of this encounter Care Teams Preassembler Printed Circuit Board Relationship Specialty Start Date End Date Kalin Reeder MD [address] [place] [address] [place] [address] PCP - General Family Medicine 03/15/21 documented as of this encounter
--- OUTSIDE RECORDS SUMMARY | 2023-08-26 19:40 | External Medical Summary | Summary of Care ---
Author Name Unknown Organization [facility] Address [address] [facility] [address] Phone [phone] Care Team Providers Care Life Skills Coach Name Role Phone Kalin Reeder MD Primary [...] female, right (HCC) Trupti Granado CRNP [address] [place] [address] Referral ID Status Reason Start Date Expiration Date Visits Requested Visits Authorized [id number] Pending Review Specialty Services Required 3 [phone] Question Answer Referral Priority Within 3 days (urgent) Where should this appointment be scheduled? [facility] What is the reason to be seen? Breast Cancer Is there suspicion of Breast Cancer? Yes Reason for Visit * Reason Onset Date Comments Test Results Biopsy 05/13/2023 breast Encounter Details Date Type Department Care Team (Late st Contact Info) Description 05/13/2023 Telephone Gynecology/Obstetrics [facility] Miranda [address] [place] [address] Trupti Granado CRNP [address] [employer] [place] [address] Test Results Biopsy (breast) Allergies No known active allergiesdocumented as of this encounter (statuses as of 05/13/2023) Medications Medication Sig Dispensed Refills Start Date End Date Status Aspirin 81 MG Oral Tablet Delayed Release take 1 tablet (81MG) by oral route every day 0 Active Calcium 1200 8396-9425 MG-UNIT Oral Tablet Chewable Take 1 Tablet [...] as of this encounter (statuses as of 05/13/2023) Active Problems Problem Noted Date Diagnosed Date [...] as of this encounter (statuses as of 05/13/2023) Resolved Problems Problem Noted Date Diagnosed Date Resolved Date Mixed dyslipidemia Overview: Per Lipid Taxonomy. documented as of this encounter (statuses as of 05/13/2023) Immunizations Name Administration Dates Next Due COVID-19 [...] Miscellaneous Notes * Telephone Encounter - Yecenia Arnold LPN - 05/13/2023 10:30 AM EDT Referral is present in the Breast Surgery work queue and has been received by Intake Nurse Navigation. No need to route it to us. Sera Arnold LPN Intake Nurse Navigator General Surgery and Breast Clinic [facility] * Telephone Encounter - Trupti Granado CRNP - 05/13/2023 9:18 AM EDT Call to pt to review breast biopsy results. Final Diagnosis A. 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 Referral placed. Cee, please make sure this gets to the correct dept. documented in this encounter Plan of Treatment Upcoming Encounters Date Type Department Care Team (Late st Contact Info) Description 05/21/2023 11:30 AM EST Office Visit General Surgery, [facility] [address] [address] Perla Wang MD [address] [facility] [place] [address] 06/19/2023 3:40 PM EST Office Visit Family Medicine [address] [place] [phone] Kalin Reeder MD [address] [place] [address] [place] [address] 09/11/2023 8:00 AM EST Office Visit Dermatology [address] [place] [address] Stacy Gomez PA-C [address] [place] [address] [place] [address] 04/20/2024 10:00 AM EDT Imaging Radiology [address] [place] [address] Scheduled Referrals Name Type Priority Associated Diagnoses Orde r Schedule BREAST CLINIC REFERRAL OP Referral Within 3 days (urgent) Ductal carcinoma in situ (DCIS) of right breast Invasive ductal carcinoma of breast, female, right (HCC) Ordered: 05/13/2023 Health Maintenance Due Date Last Done Comments [...] as of this encounter Visit Diagnoses Diagnosis 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
--- OUTSIDE RECORDS SUMMARY | 2023-08-26 19:40 | External Medical Summary | Summary of Care ---
Author Name Unknown Organization [facility] Address [address] [place] [address] Phone [phone] Care Team Providers Care Link And Link Knitting Machine Operator Name Role Phone Kalin Reeder MD Primary Care Provide r Reason for Visit * Reason Comments eRx-Medication Refill Encounter Details Date Type Department Care Team Description 04/22/2023 Refill Family Medicine [address] [place] [address] Kalin Reeder MD [address] [place] [address] [place] [phone] Type 2 diabetes mellitus with hemoglobin A1c goal of less than 7.0% ([facility]); HTN, goal below 130/80 Allergies No known active allergiesdocumented as of this encounter (statuses as of 04/23/2023) Medications Medication Sig Dispensed Refills Start Date End Date Status Aspirin 81 MG Oral Tablet Delayed Release take 1 tablet (81MG) by oral route every day 0 Active Calcium 1200 2546-6295 MG-UNIT Oral Tablet Chewable Take 1 Tablet [...] THE MORNING 90 Tablet 1 04/23/2023 Active Lisinopril 40 MG Oral TabletIndications: HTN, goal below 130/80 TAKE 1 TABLET BY MOUTH EVERY DAY IN THE MORNING 90 Tablet 1 10/29/2022 3 Discontinued metFORMIN HCl 500 MG Oral Tablet (Glucophage)Indica tions:Type 2 diabetes mellitus with hemoglobin A1c goal of less than 7.0% (HCC) TAKE 2 TABLETS BY MOUTH TWICE A DAY 360 Tablet 1 10/29/2022 3 Discontinued documented as of this encounter (statuses as of 04/23/2023) Active Problems Problem Noted Date Morbid obesity [...] as of this encounter (statuses as of 04/23/2023) Resolved Problems Problem Noted Date Resolved Date Mixed dyslipidemia 06/23/2009 Overview: Per Lipid Taxonomy. documented as of this encounter (statuses as of 04/23/2023) Immunizations Name Administration Dates Next Due COVID-19 [...] encounter Miscellaneous Notes * Telephone Encounter - Stevo Serra RPh - 04/23/2023 8:32 AM EDTSigned Prescriptions: Disp Refills metFORMIN HCl 500 MG Oral Tablet (Glucopha*360 Ta*1 Sig: TAKE 2 TABLETS BY MOUTH TWICE A DAYAuthorizing Provider: Janna REEDER User: STEVO SERRA Lisinopril 40 MG Oral Tablet 90 Tab*1 Sig: TAKE 1 TABLET BY MOUTH EVERY DAY IN THE MORNINGA uthorizing Provider: Janna REEDER User: STEVO SERRA documented in this encounter Plan of Treatment Upcoming Encounters Date Type Specialty Care Team Description 04/26/2023 Imaging Radiology 04/26/2023 Imaging Radiology 05/16/2023 Office Visit Family Medicine Kalin Reeder MD [address] [place] [address] [place] [address] 09/11/2023 Office Visit Dermatology Stacy Gomez PA-C [address] [place] [address] [place] [address] 04/20/2024 Imaging Radiology Health Maintenance Due Date [...] hypertension documented in this encounter Care Teams Link And Link Knitting Machine Operator Relationship Specialty Start Date End Date Kalin Reeder MD [address] [place] [address] [place] [address] PCP - General Family Medicine 03/15/21 documented as of this encounter
--- OUTSIDE RECORDS SUMMARY | 2023-08-26 19:40 | External Medical Summary | Summary of Care ---
Author Name Unknown Organization [facility] Address [address] [facility] [place] [address] Phone [phone] Care Team Providers Care Meat Service Team Member Name Role Phone Kalin Reeder MD Primary Care Provide r Reason for Referral * Precert (Within 10 days (routine)) - Pending Review Specialty Diagnoses / Procedures Referred By Contac t Referred To Contact Radiology Diagnoses Malignant neoplasm of right female breast, unspecified estrogen receptor status, unspecified site of breast (HCC) Procedures MRI BREAST BILATERAL W WO CONTRAST Perla Wang MD [address] [employer] [place] [address] Referral ID Status Reason Start Date Expiration Date V isits Requested Visits Authorized [id number] Pending Review 05/20/2023 999 999 Encounter Details Date Type Department Care Team (Late st Contact Info) Description 05/13/2023 Orders Only General Surgery, [facility] [address] [place] [address] Perla Wang MD [address] [employer] [place] [address] Malignant neoplasm of right female breast, unspecified estrogen receptor status, unspecified site of breast (HCC)* Allergies No known active allergiesdocumented as of this encounter (statuses as of 05/13/2023) Medications Medication Sig Dispensed Refills Start Date End Date Status Aspirin 81 MG Oral Tablet Delayed Release take 1 tablet (81MG) by oral route every day 0 Active Calcium 1200 6723-5589 MG-UNIT Oral Tablet Chewable Take 1 Tablet [...] 11:30 AM EST Office Visit General Surgery, [facility] [address] [place] [address] Perla Wang MD [address] [place] [address] 06/19/2023 3:40 PM EST Office Visit Family Medicine [address] [place] [phone] Kalin Reeder MD [address] [place] [address] [place] [address] 09/11/2023 8:00 AM EST Office Visit Dermatology [address] [place] [address] Stacy Gomez PA-C [address] [place] [address] [place] [address] 04/20/2024 10:00 AM EDT Imaging Radiology [address] [place] [address] Scheduled Orders Name Type Priority Associated Diagnoses Orde r Schedule MRI BREAST BILATERAL W WO CONTRAST Medical Imaging Routine Malignant neoplasm of right female breast, unspecified estrogen receptor status, unspecified site of breast (HCC) Expected: 05/20/2023 (Approximate), Expires: 06/13/2024 Health Maintenance Due Date Last Done Comments [...] encounter Visit Diagnoses Diagnosis Malignant neoplasm of right female breast, unspecified estrogen receptor status, unspecified site of breast (HCC)- Primary documented in this encounter Care Teams Meat Service Team Member Relationship Specialty Start Date End Date Kalin Reeder MD [address] [place] [address] [place] [phone] PCP - General Family Medicine 03/15/21 documented as of this encounter
--- OUTSIDE RECORDS SUMMARY | 2023-08-26 19:40 | External Medical Summary | Summary of Care ---
Author Name Unknown Organization [facility] Address [address] [place] [address] Phone [phone] Care Team Providers Care Inside Outside Sales Representative Name Role Phone Kalin Reeder MD Primary Care Provide r Reason for Referral * Evaluate & Treat - Unlimited Visits (Within 10 days (routine)) - Pending Review Specialty Diagnoses / Procedures Referred By Suresh bills Referred To Contact Medical Genetics / Hematology Oncology Diagnoses Malignant neoplasm of upper-outer quadrant of right breast in female, estrogen receptor positive Preoperative examination Perla Wang MD [address] [place] [address] Referral ID Status Reason Start Date Expiration Date Visits Requested Visits Authorized [id number] Pending Review Specialty Services Required 05/21/2023 999 [...] GLAND RADIOLOGIST INJECTION Perla Wang MD [address] [place] [address] Referral ID Status Reason Start Date Expiration Date V isits Requested Visits Authorized [id number] Pending Review 05/28/2023 999 999 Reason for [...] female, right (HCC) Trupti Granado CRNP [address] [place] [place] [address] Referral ID Status Reason Start Date Expiration Date Visits Requested Visits Authorized [id number] Pending Review Specialty Services Required 3 [phone] Encounter Details Date Type Department Care Team (Latest Contact Info) Description 05/21/2023 11:30 AM EST Office Visit General Surgery, [facility] [place] [address] Perla Wang MD 132 [place] [address] Malignant neoplasm of upper-outer quadrant of right breast in female, estrogen receptor positive *; Preoperative examination; Preoperative cardiovascular examination Allergies No known active allergiesdocumented as of this encounter (statuses as of 05/21/2023) Medications Medication Sig Dispensed Refills Start Date End Date Status Aspirin 81 MG Oral Tablet Delayed Release take 1 tablet (81MG) by oral route every day 0 Active Calcium 1200 8177-7583 MG-UNIT Oral Tablet Chewable Take 1 Tablet [...] from the original note were not included. [facility] GENER[facility]ERY [facility] [...] with a container labeled with "Alyssa Reyes", "[id number]", "1955" and " right breast mass". Received [...] in association with DCIS. Breast, right, Block [id number]: Estrogen Receptor (ER) protein expression is STRONGLY POSITIVE 100% nuclear positivity 3+ average intensity score (range 0 to 3+) Progesterone Receptor ([place]) protein expression is WEAKLY POSITIVE 10% nuclear [...] by oral route every day Calcium 1200 6590-3393 MG-UNIT Oral Tablet Chewable Take 1 Tablet [...] TABLET BY MOUTH EVERY DAY IN THE [id number] Tablet 1 metFORMIN HCl 500 MG Oral [...] procedures. We reviewed use of the shantel investigator narcotics and seed placement by radiology into the [...] done in a hospital setting. Option of [facility] with Dr. Gunter or with myself [...] from the original note were not included. [facility] GENERAL SURGERY NEW BREAST [facility]CER CLIN[facility] [...] in formalin with a container labeled with "[facility]", "[id number]", "1955" and " right breast mass". Received [...] in association with DCIS. Breast, right, Block [id number]: Estrogen Receptor (ER) protein expression is STRONGLY POSITIVE 100% nuclear positivity 3+ average intensity score (range 0 to 3+) Progesterone Receptor ([place]) protein expression is WEAKLY POSITIVE 10% nuclear [...] by oral route every day Calcium 1200 1579-8368 MG-UNIT Oral Tablet Chewable Take 1 Tablet [...] TABLET BY MOUTH EVERY DAY IN THE [id number] Tablet 1 metFORMIN HCl 500 MG Oral [...] procedures. We reviewed use of the shantel investigator narcotics and seed placement by radiology into the [...] done in a hospital setting. Option of [facility] with Dr. Gunter or with myself [...] Notes * Akilah Michel MED ASSIST - 05/21/2023 11:20 AM EST Chief Complaint Patient presents with NEW PATIENT Malignant neoplasm of right female breast, unspecified estrogen receptor status, unspecified site of breast (HCC). Patient presents today for evaluation of Abnormal Mammogram. Patient had mammogram done at [facility]. on 04/15/2023. BREAST HISTORY: Mass: No Breast [...] Description 06/03/2023 8:00 AM EST Imaging Radiology [address] 132 [facility] [place] [address] 06/05/2023 8:00 AM EST Appointment Radiology, [facility] [address] [facility] [place] [address] 06/19/2023 3:40 PM EST Office Visit Family Medicine [address] [place] [phone] Kalin Reeder MD [address] [place] [address] [place] [address] 06/25/2023 3:15 PM EST Office Visit General Surgery, [facility] 132 [facility] [place] [address] Perla Wang MD 132 [facility] [place] [address] 09/11/2023 8:00 AM EST Office Visit Dermatology [address] [place] [address] Stacy Gomez PA-C [address] [place] [address] [place] [address] 04/20/2024 10:00 AM EDT Imaging Radiology [address] [place] [address] Scheduled Orders Name Type Priority Associated Diagnoses [...] 03/2023, 01/09/2022, Additional history exists Albumin/Creatinine Ratio 01/25/202401/24/ 023, 01/09/2022, 03/15/2021 Colonoscopy 02/11/2024 02/10/2014 Colorectal [...] examination documented in this encounter Care Teams Inside Outside Sales Representative Relationship Specialty Start Date End Date Kalin Reeder MD [address] [place] [address] [place] [phone] PCP - General Family Medicine 03/15/21 documented as of this encounter
--- OUTSIDE RECORDS SUMMARY | 2023-08-26 19:40 | External Medical Summary | Summary of Care ---
Author Name Unknown Organization [facility] Address [address] [facility] [place] [address] Phone [phone] Care Team Providers Care Resolution Specialist Name Role Phone Kalin Reeder MD Primary Care Provide r Reason for Visit * Reason Comments Outpatient Testing Encounter Details Date Type Department Care Team (Late st Contact Info) Description 05/21/2023 1:00 PM EST Laboratory Laboratory, [facility] [address] [facility] 132 [place] [address] Malignant neoplasm of upper-outer quadrant of right breast in female, estrogen receptor positive ; Preoperative examination Allergies No known active allergiesdocumented as of this encounter (statuses as of 05/21/2023) Medications Medication Sig Dispensed Refills Start Date End Date Status Aspirin 81 MG Oral Tablet Delayed Release take 1 tablet (81MG) by oral route every day 0 Active Calcium 1200 6498-1946 MG-UNIT Oral Tablet Chewable Take 1 Tablet [...] than 7.0% ([facility]) Inject 1.5 mg under the [...] Description 06/03/2023 8:00 AM EST Imaging Radiology [facility] [address] [place] [address] 06/05/2023 8:00 AM EST Appointment Radiology, [address] [place] [address] 06/11/2023 Hospital Encounter OR [facility], Operating Room, [facility] - 4th Floor [facility] [address] Perla Wang MD [address] [place] [address] 06/11/2023 11:00 AM EST Appointment Radiology, [facility] [address] [facility] [address] 06/19/2023 3:40 PM EST Office Visit Family Medicine [address] [place] [phone] Kalin Reeder MD [address] [place] [address] [place] [address] 06/25/2023 3:15 PM EST Office Visit General Surgery, [facility] [place] [address] Perla Wang MD [facility] [place] [address] 09/11/2023 8:00 AM EST Office Visit Dermatology [address] [place] [address] Stacy Gomez PA-C [address] [place] [address] [place] [address] 04/20/2024 10:00 AM EDT Imaging Radiology [address] [place] [address] Scheduled Procedures Name Priority Associated Diagnoses Date/Ti [...] right breast in female, estrogen receptor positive Health Maintenance Due Date Last Done Comments [...] Procedure Name Priority Date/Time Associated Diagnosis Comments CBC Pre-operative 05/21/2023 12:53 PM EST Malignant neoplasm of upper-outer quadrant of right breast in female, estrogen receptor positive Preoperative examination documented in this encounter Results * CBC (05/21/2023 12:53 [...] [facility] [place] [address] [place] [address] documented in this encounter Visit Diagnoses Diagnosis Malignant neoplasm of upper-outer quadrant of right breast in female, estrogen receptor positive Preoperative examination Preoperative examination, unspecified documented in this encounter Care Teams Resolution Specialist Relationship Specialty Start Date End Date Kalin Reeder MD [address] [place] [address] [place] [phone] PCP - General Family Medicine 03/15/21 documented as of this encounter
--- OUTSIDE RECORDS SUMMARY | 2023-08-26 19:40 | External Medical Summary ---
Author Name Unknown Address Unknown Organization K0G:LABOR[facility]ORY [facility] [place] [address] [place] [id number] Laboratory Report Ordering Provider Test Date Status GALE RODRIGUEZ 05/21/2023 12:53:00 Final Observation Date Value Abnormality Reference (Units ) Status WBC, Total 05/21/2023 12:53:00 10.18 4.00-10.8 0 (K/uL) Final RBC 05/21/2023 12:53:00 4.10 3.85-5.15 (M/uL) Final Hemoglobin 05/21/2023 12:53:00 12.6 12.0-15.3 (g/dL) Final HCT 05/21/2023 12:53:00 40.1 36.0-45.2 (%) Final MCV 05/21/2023 12:53:00 97.8 81.5-97.5 (fL) Final MCH 05/21/2023 12:53:00 30.7 27.0-34.0 (pg) Final MCHC 05/21/2023 12:53:00 31.4 32.0-36.0 (g/dL) Final RDW 05/21/2023 12:53:00 14.4 11.5-15.5 (%) Final Platelets 05/21/2023 12:53:00 295 140-400 (K /uL) Final MPV 05/21/2023 12:53:00 10.8 6.6-11.1 ( fL) Final Performing Location LAB[facility]ATORY [facility] [place] [address] [place] [id number]
--- OUTSIDE RECORDS SUMMARY | 2023-08-26 19:40 | External Medical Summary | Summary of Care ---
Author Name Unknown Organization [facility] Address [address] [place] [address] Phone [phone] Care Team Providers Care Film Writer Name Role Phone Kalin Reeder MD Primary Care Provide r Reason for Visit * Reason Comments eRx-Medication Refill Encounter Details Date Type Department Care Team Description 03/04/2023 Refill Family Medicine [address] [place] [address] Kalin Reeder MD [address] [place] [address] [place] [phone] Type 2 diabetes mellitus with hemoglobin A1c goal of less than 7.0% ([facility]) Allergies No known active allergiesdocumented as of this encounter (statuses as of 03/04/2023) Medications Medication Sig Dispensed Refills Start Date End Date Status Aspirin 81 MG Oral Tablet Delayed Release take 1 tablet (81MG) by oral route every day 0 Active Calcium 1200 4621-8804 MG-UNIT Oral Tablet Chewable Take 1 Tablet by mouth in the morning. 0 Active Vitamin D3 25 MCG (1000 UT) Oral Capsule Take by mouth. 0 Active hydroCHLOROthiazid e 25 MG Oral Tablet (Hydrodiuril)Indic ations:HTN, goal below 130/80 TAKE 1 TABLET BY MOUTH EVERY DAY IN THE MORNING 90 Tablet 1 10/22/2022 Active Lisinopril 40 MG Oral TabletIndications: HTN, [...] DAILY. E11.9 100 Strip 2 03/04/2023 Active Accu-Chek Stefani Plus In Vitro Strip (Glucose Blood)Indications: Type 2 diabetes mellitus with hemoglobin A1c goal of less than 7.0% (HCC) Use to test sugars once daily. E11.9 100 Strip 1 09/10/2022 3 Discontinued documented as of this encounter (statuses as of 03/04/2023) Active Problems Problem Noted Date Morbid obesity [...] as of this encounter (statuses as of 03/04/2023) Resolved Problems Problem Noted Date Resolved Date Mixed dyslipidemia 06/23/2009 Overview: Per Lipid Taxonomy. documented as of this encounter (statuses as of 03/04/2023) Immunizations Name Administration Dates Next Due COVID-19 mRNA, LNP-s, No Pre serve, 2-Dose Series (Moderna) 12/06/2020,09/23/2020 COVID-19 mRNA, LNP-s, No Pre serve, 2-Dose Series (Pfizer) 06/20/2021 Covid-19, Mrna, Lnp-s, Pf, B ivalent, 30 Mcg, IM, 12 yrs and above (Pfizer) 08/23/2022 Seasonal Influenza, PF, 6 mo ns & Above, IM , (Flulaval) 03/15/2021 Seasonal Influenza, Quadrivalent Hd (Fluzone Hd) [...] encounter Miscellaneous Notes * Telephone Encounter - Milton Medina [facility] - 03/04/2023 4:09 PM EDT Signed Prescriptions: Disp Refills Accu-Chek Stefani Plus In Vitro Strip (Gluco*100 St*2 Sig: USE TO TEST SUGARS ONCE DAILY. E11.9Authorizing Provider: Janna REEDER User: MILTON MEDINA documented in this encounter Plan of Treatment Upcoming Encounters Date Type Specialty Care Team Description 04/15/2023 Imaging Radiology 04/25/2023 Office Visit Family Medicine Kalin Reeder MD [address] [place] [address] [place] [address] 09/11/2023 Office Visit Dermatology Stacy Gomez PA-C [address] [place] [address] [place] [address] Health Maintenance Due Date Last Done Comments Pneumococcal Vaccine: 65+ Years (1 - PCV) 1963 Depression Screening, Annual for Pts 12 and Over 1969 HIV Screening 1972 DTaP,Tdap,and Td Vaccines (1 - Tdap) 06/22/1999 06/21/1999, 10/15/1980 Cologuard 2002 Fecal Occult Blood Test 2002 Sigmoidoscopy 2002 *BASELINE EKG FOR HTN 07/24/2021 DIABETES-EYE EXAM 02/26/2023 02/26/2022, 02/17/2021 Influenza Vaccine (FLU shot) (#1) 2023 07/23/2022, 03/15/2021 Mammogram 04/11/2023 04/11/2022, 03/16, 03/29/2020, Additional history exists DIABETES-FOOT EXAM 07/23/2023 07/23/2022, 06/16/2021 HbA1c 07/26/2023 01/23/2023, 0 03/2023, 01/09/2022, Additional history exists GFR 01/24/2024 01/23/2023, 010 03/2023, 01/09/2022, Additional history exists Albumin/Creatinine Ratio 01/25/2024 023, 01/09/2022, 03/15/2021 Colonoscopy 02/11/2024 02/10/2014 Colorectal Cancer Screening 02/11/2024 DXA Scan 03/05/2024 03/05/2014 Lipid Panel 01/24/2028 01/23/2023, 12/14, 03/15/2021, Additional history exists Pap Smear Discontinued 10/23/2021, 09/0 03/2019, 12/28/1998 COVID-19 Vaccine Completed 08/23/2022, 01/2021, [...] than 7.0% (HCC) documented in this encounter Care Teams Film Writer Relationship Specialty Start Date End Date Kalin Reeder MD [address] [place] [address] [place] [address] PCP - General Family Medicine 03/15/21 documented as of this encounter
--- OUTSIDE RECORDS SUMMARY | 2023-08-26 19:40 | External Medical Summary | Summary of Care ---
Author Name Unknown Organization [facility] Address [address] [facility] [address] Phone [phone] Care Team Providers Care Aws Software Development Engineer Name Role Phone Kalin Reeder MD Primary Care Provide r Reason for Visit * Reason Onset Date Comments FYI 05/08/2023 Encounter Details Date Type Department Care Team (Late st Contact Info) Description 05/08/2023 Telephone Radiology [address] [place] [phone] Tiffany Lyle, TECH FYI Allergies No known active allergiesdocumented as of this encounter (statuses as of 05/08/2023) Medications Medication Sig Dispensed Refills Start Date End Date Status Aspirin 81 MG Oral Tablet Delayed Release take 1 tablet (81MG) by oral route every day 0 Active Calcium 1200 3227-9757 MG-UNIT Oral Tablet Chewable Take 1 Tablet [...] as of this encounter (statuses as of 05/08/2023) Active Problems Problem Noted Date Diagnosed Date [...] as of this encounter (statuses as of 05/08/2023) Resolved Problems Problem Noted Date Diagnosed Date Resolved Date Mixed dyslipidemia 9 Overview: Per Lipid Taxonomy. documented as of this encounter (statuses as of 05/08/2023) Immunizations Name Administration Dates Next Due COVID-19 [...] encounter Miscellaneous Notes * Telephone Encounter - PRECIOUS Al - 05/08/2023 9:55 AM EDT Patient had Stereotatic Breast Biopsy performed today. Discharge paperwork was gone over with patient and a copy was given to the patient. Patient expressed understanding. documented in this encounter Plan of Treatment Upcoming Encounters Date Type Department Care Team (Late st Contact Info) Description 06/19/2023 3:40 PM EST Office Visit Family Medicine [address] [place] [phone] Kalin Reeder MD [address] [place] [address] [place] [address] 09/11/2023 8:00 AM EST Office Visit Dermatology [address] [place] [address] Stacy Gomez PA-C [address] [place] [address] [place] [address] 04/20/2024 10:00 AM EDT Imaging Radiology [address] [place] [address] Health Maintenance Due Date Last Done Comments [...] 04/26/2024 04/26/2023, 1008/2022, 04/11/2022, Additional history exists Lipid Panel 01/24/2028 [...] filedocumented as of this encounter Care Teams Aws Software Development Engineer Relationship Specialty Start Date End Date Kalin Reeder MD [address] [place] [address] [place] [phone] PCP - General Family Medicine 03/15/21 documented as of this encounter
--- OUTSIDE RECORDS SUMMARY | 2023-08-26 19:40 | External Medical Summary | Summary of Care ---
Author Name Unknown Organization [facility] Address [address] [place] [address] Phone [phone] Care Team Providers Care Ice Delivery Driver Name Role Phone Kalin Reeder MD Primary Care Provide r Reason for Referral * Evaluate & Treat - Unlimited Visits (Within 10 days (routine)) - Pending Review Specialty Diagnoses / Procedures Referred By Suresh bills Referred To Contact Medical Genetics / Hematology Oncology Diagnoses Malignant neoplasm of upper-outer quadrant of right breast in female, estrogen receptor positive Preoperative examination Perla Wang MD [address] [place] [address] Referral ID Status Reason Start Date Expiration Date Visits Requested Visits Authorized [id number] Pending Review Specialty Services Required 05/21/2023 999 [...] GLAND RADIOLOGIST INJECTION Perla Wang MD [address] [employer] [place] [address] Referral ID Status Reason Start Date Expiration Date V isits Requested Visits Authorized [id number] Pending Review 05/28/2023 999 999 Reason for [...] female, right (HCC) Trupti Granado CRNP [address] [facility] [place] [address] Referral ID Status Reason Start Date Expiration Date Visits Requested Visits Authorized [id number] Pending Review Specialty Services Required 3 [phone] Encounter Details Date Type Department Care Team (Latest Contact Info) Description 05/21/2023 11:30 AM EST Office Visit General Surgery, [facility] [place] [address] Perla Wang MD 132 [facility] [place] [address] Malignant neoplasm of upper-outer quadrant of right breast in female, estrogen receptor positive *; Preoperative examination; Preoperative cardiovascular examination Allergies No known active allergiesdocumented as of this encounter (statuses as of 05/21/2023) Medications Medication Sig Dispensed Refills Start Date End Date Status Aspirin 81 MG Oral Tablet Delayed Release take 1 tablet (81MG) by oral route every day 0 Active Calcium 1200 1389-4390 MG-UNIT Oral Tablet Chewable Take 1 Tablet [...] from the original note were not included. [facility] GENERAL SUR[facility]ERY [facility] [...] with a container labeled with "Alyssa Reyes", "[id number]", "1955" and " right breast mass". Received [...] in association with DCIS. Breast, right, Block [id number]: Estrogen Receptor (ER) protein expression is STRONGLY POSITIVE 100% nuclear positivity 3+ average intensity score (range 0 to 3+) Progesterone Receptor (DC) protein expression is WEAKLY POSITIVE 10% nuclear [...] by oral route every day Calcium 1200 3162-8676 MG-UNIT Oral Tablet Chewable Take 1 Tablet [...] TABLET BY MOUTH EVERY DAY IN THE [id number] Tablet 1 metFORMIN HCl 500 MG Oral [...] procedures. We reviewed use of the shantel car mechanic and seed placement by radiology into the [...] done in a hospital setting. Option of [facility] with Dr. Gunter or with myself reviewed [...] from the original note were not included. [facility] GENERAL SURGERY [facility] [...] in formalin with a container labeled with "[facility]", "[id number]", "1955" and " right breast mass". Received [...] in association with DCIS. Breast, right, Block [id number]: Estrogen Receptor (ER) protein expression is STRONGLY POSITIVE 100% nuclear positivity 3+ average intensity score (range 0 to 3+) Progesterone Receptor (DC) protein expression is WEAKLY POSITIVE 10% nuclear [...] by oral route every day Calcium 1200 2560-7885 MG-UNIT Oral Tablet Chewable Take 1 Tablet [...] TABLET BY MOUTH EVERY DAY IN THE [id number] Tablet 1 metFORMIN HCl 500 MG Oral [...] procedures. We reviewed use of the shantel car mechanic and seed placement by radiology into the [...] done in a hospital setting. Option of [facility] with Dr. Gunter or with myself reviewed [...] in this encounter Nursing Notes * Akilah Michel, MED ASSIST - 05/21/2023 11:20 AM EST Chief Complaint Patient presents with NEW PATIENT Malignant neoplasm of right female breast, unspecified estrogen receptor status, unspecified site of breast (HCC). Patient presents today for evaluation of Abnormal Mammogram. Patient had mammogram done at [facility]. on 04/15/2023. BREAST HISTORY: Mass: No Breast [...] Description 06/03/2023 8:00 AM EST Imaging Radiology [address] [place] [address] 06/19/2023 3:40 PM EST Office Visit Family Medicine [address] [place] [phone] Kalin Reeder MD [address] [place] [address] [place] [address] 09/11/2023 8:00 AM EST Office Visit Dermatology [address] [place] [address] Stacy Gomez PA-C [address] [place] [address] [place] [address] 04/20/2024 10:00 AM EDT Imaging Radiology [address] [place] [address] Scheduled Orders Name Type Priority Associated Diagnoses [...] examination documented in this encounter Care Teams Ice Delivery Driver Relationship Specialty Start Date End Date Kalin Reeder MD [address] [place] [address] [place] [phone] PCP - General Family Medicine 03/15/21 documented as of this encounter
[2023-08-26] MEDS ORDERED: ACETAMINOPHEN 325 MG TAB PO PRN (20:01)
[2023-08-26] MEDS ORDERED: ONDANSETRON INJ 2 MG/ML 2 ML VIAL IV PRN (20:01)
[2023-08-26] MEDS: PANTOprazole 40 MG in SYRINGE 0 ML IV SCH (20:59)
--- NOTE | 2023-08-26 21:58 | Electrocardiogram Report ---
Test Reason : Blood Pressure : / mmHG Vent. Rate : 101 BPM Atrial Rate : 101 BPM P-R Int : 150 ms QRS Dur : 074 ms QT Int : 308 ms P-R-T Axes : 050 020 086 degrees QTc Int : 399 ms Sinus tachycardia Low voltage QRS Nonspecific T wave abnormality Abnormal ECG When compared with ECG of 17-DEC-2013 16:26, Vent. rate has increased BY 33 BPM Nonspecific T wave abnormality now evident in Lateral leads Confirmed by Jj Holliday ([id number]) on 08/26/2023 9:58:04 PM Referred By: REFERRED SELF Confirmed By:Jj Holliday
[2023-08-27 02:31] LABS: BUN Creatinine Ratio 38.9 (10-20); Calcium 9.6 mg/dl (8.6-10.3); Creatinine Clr Calc Pharmacy 45.2 ml/min; Est GFR (African American) 51.4 ml/min; Est GFR (Non-African American) 44.4 ml/min; Potassium 3.4 mmol/L (3.5-5.1)
[2023-08-27 02:38] LABS: Troponin I High Sensitivity 9.8 pg/ml (0-14)
[2023-08-27 02:54] LABS: Platelet Count 577 K/uL (130-400); White Blood Count 31.86 K/ul (4.8-10.8)
[2023-08-27 02:56] LABS: Basophils # (auto) 0.13 K/uL (0.00-0.20); Basophils % (auto) 0.4 %; Eosinophils # (auto) 0.01 K/uL (0.00-0.50); Hematocrit (blood only) 19.3 % (37.0-47.0); Hemoglobin 6.2 g/dl (12.0-16.0); Immature Granulocytes # (auto) 2.03 K/uL (0.01-0.20); Immature Granulocytes % (auto) 6.4 %; Lymphocytes # (auto) 2.37 K/uL (1.20-3.40); Lymphocytes % (auto) 7.4 %; Mean Corpuscular Hemoglobin 31.3 pg (25.0-34.0); Mean Corpuscular Hgb Conc 32.1 g/dL (32.0-36.0); Mean Corpuscular Volume 97.5 fL (80.0-100.0); Monocytes # (auto) 2.49 K/uL (0.11-0.59); Monocytes % (auto) 7.8 %; Neutrophils # (auto) 24.83 K/uL (1.40-6.50); Nucleated RBC # (auto) 1.54 K/uL (0.00-0.12); Nucleated RBC % (auto) 4.8 %; Polychromasia 1+; RDW Coefficient of Variation 18.8 % (11.5-14.5); Red Blood Count 1.98 M/uL (4.20-5.40)
[2023-08-27] MEDS ORDERED: SODIUM CHLORIDE 0.9% 250 ML IV PRN (03:03)
[2023-08-27] MEDS: PANTOprazole 40 MG in DEXTROSE 5% MINI-B 100 ML IV SCH (03:15)
--- OUTSIDE RECORDS SUMMARY | 2023-08-27 03:59 | External Medical Summary | Summary of Care ---
Author Name Unknown Organization [facility] Address [address] [place] [address] Phone [phone] Care Team Providers Care Show Host Or Hostess Name Role Phone Kalni Reeder MD Primary Care Provide r Reason for Visit * Reason Onset Date Comments Test Results Lab 08/26/2023 Encounter Details Date Type Department Care Team (Late st Contact Info) Description 08/26/2023 Telephone Hematology/Oncology Treatment, [place] [address] [place] [address] Mukesh Santos MD [address] [place] [address] Test Results Lab Allergies No known active allergiesdocumented as of this encounter (statuses as of 08/26/2023) Medications Medication Sig Dispensed Refills Start Date End Date Status Aspirin 81 MG Oral Tablet Delayed Release take 1 tablet (81MG) by oral route every day 0 Active Calcium 1200 1869-5713 MG-UNIT Oral Tablet Chewable Take 1 Tablet [...] goal of less than 7.0% ([facility]) USE TO TEST SUGARS ONCE DAILY. E11.9 [...] as of this encounter (statuses as of 08/26/2023) Active Problems Problem Noted Date Diagnosed Date [...] as of this encounter (statuses as of 08/26/2023) Resolved Problems Problem Noted Date Diagnosed Date Resolved Date Mixed dyslipidemia 9 Overview: Per Lipid Taxonomy. documented as of this encounter (statuses as of 08/26/2023) Immunizations Name Administration Dates Next Due COVID-19 [...] Telephone Encounter - Leonor Hay RN - 08/26/2023 12:10 PM EST Received TT from lab- WBC 53.86, hgb 4.3. Per Mima, patient to go to ER. She is in with patient now to review. Patient has noted black, loose stool x2 weeks. Called [facility] ER and spoke to Nik to make them aware patient is coming. documented in this encounter Plan of Treatment Upcoming Encounters Date Type Department Care Team (Late st Contact Info) Description 09/10/2023 4:00 PM EST Imaging Radiology, [address] [place] [address] 09/11/2023 8:00 AM EST Office Visit Dermatology [address] [place] [address] Stacy Gomez PA-C [address] [place] [address] [place] [address] 09/17/2023 8:10 AM EST Laboratory Laboratory [facility] [place] [address] [place] [phone] [place], Lab Scenery 200 [facility] [place] [address] 09/17/2023 8:45 AM EST Office Visit Hematology/Oncology [facility] [place] [address] [place] [address] Mukesh Santos MD 200 [facility] [place] [address] 09/17/2023 9:15 AM EST [facility], [place] [address] [place], Chair [address] Hem On[address] [place] [address] 09/18/2023 7:40 AM EST Office Visit Family Medicine [address] [place] [phone] Kalin Reeder MD [address] [place] [address] [place] [address] 11/12/2023 4:00 PM EDT Telemedicine Genetics HemOnc, [facility] [address] [place] [address] Kayy Martin, MS [address] [place] [address] 12/27/2023 2:45 PM EDT Office Visit Hematology/Oncology [address] [place] [address] Mukesh Santos MD [address] [place], [place] [address] 04/15/2024 12:00 PM EDT Imaging Radiology [facility] [address] [place] [address] 05/26/2024 9:45 AM EST Office Visit General Surgery, [facility] [place] [address] Perla Wang MD [address] [place] [address] Health Maintenance Due Date Last Done Comments [...] 023, 01/24/2023, 01/09/2022, Additional history exists GFR 08/26/2024 08/26/2023, 07/15, 06/19/2023, Additional history exists Lipid Panel 01/24/2028 01/23/2023, [...] this encounter Medical Devices Implanted Type Area Pattern Drafter Device Identifier Shelf Expiration Date Model / Serial / Lot Port 8fr 1lumen Infusion St Latexfree Power Implantable - [id number] Implanted:Qty: 1 on 07/31/2023 by Jadiel Foy MD at [facility] BARD : PERIPHERAL VASCULAR [id number] 06/13/2024 [id number] / / [id number] documented as of this encounter Advance Directives Latest Code Status on File Code Status Date Activated Date Inactivated Comments Full Code 06/12/2023 6:58 AM 06/12/2023 4:24 PM Thi s order reflects the patients wishes and were consensually agreed upon. Question Answer Comments Discussion of Advance Directives occurred with: Patient Care Teams Show Host Or Hostess Relationship Specialty Start Date End Date Kalin Reeder MD [address] [place] [address] [place] [address] PCP - General Family Medicine 03/15/21 documented as of this encounter
--- OUTSIDE RECORDS SUMMARY | 2023-08-27 03:59 | External Medical Summary | Summary of Care ---
Author Name Unknown Organization [facility] Address [address] [place] [facility] [address] Phone [phone] Care Team Providers Care Mail Sorting Supervisor Name Role Phone Kalin Reeder MD Primary Care Provide r Reason for Visit * Reason Comments Outpatient Testing Encounter Details Date Type Department Care Team (Late st Contact Info) Description 08/26/2023 11:30 AM EST Laboratory Laboratory Scenery [facility] [address] [place] [phone] [facility] Scenery [address] [place] [address] Malignant neoplasm of upper-outer quadrant of right breast in female, estrogen receptor positive (HCC) Allergies No known active allergiesdocumented as of this encounter (statuses as of 08/26/2023) Medications Medication Sig Dispensed Refills Start Date End Date Status Aspirin 81 MG Oral Tablet Delayed Release take 1 tablet (81MG) by oral route every day 0 Active Calcium 1200 8661-3970 MG-UNIT Oral Tablet Chewable Take 1 Tablet [...] goal of less than 7.0% ([facility]) USE TO TEST SUGARS ONCE [...] Department Care Team (Latest Contact Info) Description 08/26/2023 12:00 PM EST Office Visit Hematology/Oncology [facility] [address] [place] [address] Mima Alvarado CRNP [address] [facility] [place] [address] PENDING VISIT DRAFT 08/26/2023 12:30 PM EST Hem/Onc Treatment Hematology/Oncology Treatment, [place] [facility] [address] Suellen, Chair 6 Hem On[address] [place] [address] Arrived 09/10/2023 4:00 PM EST Imaging Radiology, [facility] [address] [facility] [place] [address] 09/11/2023 8:00 AM EST Office Visit Dermatology [address] [place] [address] Stacy Gomez PA-C [address] [place] [address] [place] [address] 09/17/2023 8:10 AM EST Laboratory Laboratory Scenery [place] [address] [place] [phone] [place], Lab Scenery [address] [place] [address] 09/17/2023 8:45 AM EST Office Visit Hematology/Oncology [place] [address] [place] [address] Mukesh Santos MD [address] [place] [address] 09/17/2023 9:15 AM EST [facility] [address] [place] [address] Suellen, Chair 8 Hem Onc [address] [place] [address] 09/18/2023 7:40 AM EST Office Visit Family Medicine [address] [place] [phone] Kalin Reeder MD [address] [place] [address] [place] [address] 11/12/2023 4:00 PM EDT Telemedicine Genetics HemOnc, [facility] [address] [place] [address] Kayy Martin, MS [address] [place] [address] 12/27/2023 2:45 PM EDT Office [facility] [address] [place] [address] Mukesh Santos MD [address] [place] [address] 04/15/2024 12:00 PM EDT Imaging Radiology [facility]st [facility] 132 [facility] [place] [address] 05/26/2024 9:45 AM EST Office Visit General Surgery, [facility] [address] [facility] [place] [address] Perla Wang MD 132 [facility] [place] [address] Pending Results Name Type Priority Associated Diagnoses Date /Time CBC WITH WBC DIFFERENTIAL Lab Routine Malignant neoplasm of upper-outer quadrant of right breast in female, estrogen receptor positive (HCC) 08/26/2023 11:19 AM EST COMPREHENSIVE METABOLIC PANEL Lab STAT Malignant neoplasm of upper-outer quadrant of right breast in female, estrogen receptor positive (HCC) 08/26/2023 11:19 AM EST CBC Lab Routine Malignant neoplasm of upper-outer quadrant of right breast in female, estrogen receptor positive (HCC) 08/26/2023 11:19 AM EST DIFFERENTIAL, AUTOMATED Lab Routine Malignant neoplasm of upper-outer quadrant of right breast in female, estrogen receptor positive (HCC) 08/26/2023 11:19 AM EST Health Maintenance Due Date Last [...] this encounter Medical Devices Implanted Type Area Aerial Photographer Device Identifier Shelf Expiration Date Model / Serial / Lot Port 8fr 1lumen Infusion St Latexfree Power Implantable - [id number] Implanted:Qty: 1 on 07/31/2023 by Jadiel Foy MD at OR [facility] BARD : PERIPHERAL VASCULAR [id number] 06/13/2024 [id number] / / [id number] documented as of this encounter Visit Diagnoses [...] Advance Directives occurred with: Patient Care Teams Mail Sorting Supervisor Relationship Specialty Start Date End Date Kalin Reeder MD [address] [place] [address] [place] [address] PCP - General Family Medicine 03/15/21 documented as of this encounter
[2023-08-27] MEDS: NSS + 20MEQ KCL 20 MEQ/1,000 ML BAG IV ONE ×2 (06:14→19:58)
[2023-08-27] MEDS: LOVASTATIN 20 MG TAB PO SCH (08:06)
[2023-08-27 09:05] LABS: Hematocrit (blood only) 24.1 % (37.0-47.0); Hemoglobin 7.9 g/dl (12.0-16.0)
--- NOTE | 2023-08-27 10:18 | Gastrointestinal Consultation ---
Date of Consultation August 27, 2023 Assessment & Plan (1) Melena: Plan EGD for melena/anemia in the setting of chemo for breast cancer Will plan for EGD tomorrow. Clear liquids po today. Further recommendations to follow EGD. Supervising Physician Co-Signing Physician Notes I have seen and examined the patient and agree with the pe and plan as documented. Consult for melena. Arrived thru the ed after labs were significant for a low hgb, on review of systems reported a few days of melena, slight bun elevation. History of breat cancer diagnosed in 2022 s/p one round of chemo. Voices no abd pain, pe with obese abdomen but no ttp, no hematochezia reported. Stable hemodyanmics. Hgb has gone from 4 to nearly 8 after 3 units, bun improving On IV PPI. EGD tomorrow for further evaluation melena and drop in hgb that is being corrected. History of Present Illness Reason for Consultation: GI Bleed Requesting Physician: Sloane Posadas PA-C Attending Physician: Jillian Davila MD History of Present Illness Ms. Alyssa Reyes is a 68 yr old female pt of Dr Reeder w a hx obesity, DM-2, HTN, aortic valve calcification w/o stenosis or regurg (2021 echo), and right breast CA dx'ed in 2022, now post lumpectomy and one chemo treatment (Taxotere/Cytoxin managed by Dr. Santos), with plans for radiation (but hasn't received radiation yet). GI is consulted for a GI bleeding The pt describes black, loose BMs, about 2-3/day for about 10 days but hadn't reported these. Yesterday when she presented for her second chemo infusion, her labs showed a Hb of 4 and she was sent for admission. Since yesterday, she received 3 units of RBCs. Her most recent BM was yesterday. She is sitting up in the bedside chair, is hemodynamically stable w/o hypotension or tachycardia and asks to drink/eat. Her is in the room w her. She denies any abdominal pain. She had a bit of nausea for a few days after the chemo but no vomiting and the nausea has improved. She is on ASA 81mg daily, no other antiplatelet/anticoagulants. Allergies Allergy/AdvReac Type Severity Reaction Status Date / Time No Known Allergies Allergy Unverified 08/26/23 15:31 Home Medications Medication Instructions Recorded Confirmed Type aspirin 81 mg tablet 81 mg PO DAILY 03/02/19 08/26/23 History calcium carbonate 600 mg calcium 1,200 mg PO DAILY 03/02/19 08/26/23 History (1,500 mg) tablet cholecalciferol (vitamin D3) 25 1,000 units PO DAILY 03/02/19 08/26/23 History mcg (1,000 unit) tablet ferrous fumarate 325 mg (106 mg 325 mg PO BID 03/02/19 08/26/23 History iron) tablet lisinopril 40 mg tablet 40 mg PO DAILY 03/02/19 08/26/23 History lovastatin 40 mg tablet 40 mg PO DAILY 03/02/19 08/26/23 History metformin 500 mg tablet,extended 1,000 mg PO BID 03/02/19 08/26/23 History release 24 hr hydrochlorothiazide 25 mg tablet 25 mg PO DAILY #90 tabs 11/26/19 08/26/23 Rx dulaglutide 1.5 mg/0.5 mL 1.5 mg subcut .WEEK, NOT AVAILABLE 07/17/23 08/26/23 History subcutaneous pen injector (Trulicity) glipizide 5 mg tablet 5 mg PO DAILY 07/17/23 08/26/23 History mecobalamin (vitamin B12) 1,000 1,000 mcg PO DAILY 07/17/23 08/26/23 History mcg chewable tablet empagliflozin 10 mg tablet 10 mg PO DAILY 08/26/23 08/26/23 History (Jardiance) Patient History Medical History Dyslipidemia Hypertension Diabetes Breast cancer, right breast Biopsy 05/08/23 Surgical History History of bilateral knee replacement Status post right breast lumpectomy with SLN biopsy on 06/12/23 Family History Mother Breast cancer Father , in his 80s Cancer Pt uncertain of type of cancer Brother COPD (chronic obstructive pulmonary disease) Brother No problems noted. Sister No problems noted. Sister No problems noted. Sister No problems noted. Son Diabetes Son No problems noted. Daughter No problems noted. Family/Other Breast cancer 2 maternal aunts w/breast cancer Family/Other Breast cancer Cousin from mother's side of the family Social History Smoking Status: Never smoker Second Hand Exposure: No; Do You Dip or Chew Tobacco: No; Hx Alcohol Use: No Hx Substance Use: No Preferred Language: Monegasque Communication Ability: Effective Visual Impairment: No Limitations Hearing Ability: Normal Crew Supervisor Required: No Beliefs That Will Affect Care: None marital status: Current Living Situation: Spouse Current Living Situation Comment: with current occupational status: retired current occupation: Restaurant work Other Information That Helps Us Care for You: No Feels Safe at Home: Yes Safety Concerns: Feels Safe At This Time Diet: regular caffeine: Yes (1 cup/day) during the past year weight has: remained stable Assistive Devices: Denture - Upper and Walker Review of Systems Review of Systems: ROS: Gen: Fatigue mild weakness, No fevers, weight loss Eyes: No eye redness, or pain, no recent vision changes Resp: No SOB, no cough Cardio: No palpitations/irregular beats, no chest pain GI: As per HPI, otherwise (-) : Denies pain on urination Skin: No jaundice, itching or new rashes Physical Exam Constitutional: well developed, well nourished, + obese and cooperative; no acute distress Eyes: PERRL, conjunctivae normal, anicteric sclerae ENMT: external ear and nose normal, oropharynx normal Neck: trachea midline, no thyromegaly Respiratory: normal respiratory effort, lungs clear to auscultation Cardiovascular: 2-3/6 systolic murmur, loudest at the ri ght sternal border; rate/rhythm normal trace bilat lower leg edema Gastrointestinal (Abdomen): normal bowel sounds, soft, nontender, no hepatosplenomegaly Musculoskeletal: no cyanosis or clubbing, extremities motor strength 5/5 Skin: no rashes, warm and dry Neurologic: PERRL, EOMI, accommodation nl, no face palsy, no dysarthria Psychiatric: A+Ox3, euthymic affect Lymphatic: no cervical or axillary lymphadenopathy Results & Data Vital Signs (Past 12 Hours) Vital Signs Temp Pulse Pulse Resp BP BP Pulse Ox 08/27/23 08:00 08/27/23 07:34 36.7 C 89 18 112/65 95 08/27/23 06:10 36.6 C 89 20 103/66 95 08/27/23 06:01 36.4 C L 89 18 101/63 95 08/27/23 05:01 36.9 C 89 18 110/67 95 08/27/23 04:31 36.7 C 92 H 18 103/64 96 08/27/23 04:16 36.8 C 95 H 18 106/64 95 08/27/23 03:58 36.9 C 92 H 18 105/65 96 08/27/23 00:00 08/26/23 23:59 36.7 C 90 18 97 08/26/23 23:26 36.8 C 90 18 106/64 95 08/26/23 23:25 36.8 C 94 H 18 119/73 97 08/26/23 23:13 36.7 C 96 H 18 115/73 97 Pulse Ox O2 Del Method O2 Del Method 08/27/23 08:00 97 Room Air 08/27/23 07:34 Room Air 08/27/23 06:10 08/27/23 06:01 08/27/23 05:01 08/27/23 04:31 08/27/23 04:16 08/27/23 03:58 08/27/23 00:00 97 Room Air 08/26/23 23:59 Room Air 08/26/23 23:26 08/26/23 23:25 08/26/23 23:13 Laboratory Results WBC 31, Hb 6.2, Hct 19, Plt 577, Na 137, K 3.4, BUN 49, Cr 1.26, glucose 174. LFTs, PT/INR are normal.
[2023-08-27 14:33] LABS: Hematocrit (blood only) 23.7 % (37.0-47.0); Hemoglobin 7.7 g/dl (12.0-16.0)
--- NOTE | 2023-08-27 15:48 | Hospitalist Progress Note ---
Date of Service August 27, 2023 Assessment & Plan (1) GI bleed: (2) Malignant neoplasm of central portion of right breast in female, estrogen receptor positive: (3) Status post right breast lumpectomy: (4) Hypertension: (5) Dyslipidemia: (6) Diabetes: Plan Pt is a 68yoF with PMHx significant for breast cancer diagnosed May 2023 s/p lumpectomy and radiation, HTN, HLD, DMII presenting to the ED after being sent over by oncology for abnormal labs. Her hemoglobin was 4.1. Melena GI bleed Hypotension Acute blood loss anemia Breast Cancer Pt with Hx of breast cancer treated with lumpectomy, chemotherapy and radiation Follows with Dr Santos from Oncology, presented for chemotherapy on day of admission with abnormal labwork Hgb of 4.1, has been transfused 3U in total. Hgb currently 7.7 Was hypotensive on admission, received fluid boluses of 1L in total Likely in setting of bloody stools, current chemotherapy Continue ppi drip Continue b12 an iron supplement GI consulted, appreciate recs -EGD on 08/28 -clear liquid diet today, NPO after midnight Monitor H/H closely, transfuse as needed SIRS Pt meets SIRS criteria with leukocytosis, tachycardia on admission Questionable infectious source Lactate ordered and pending 08/27 Blood Cx x2 pending, ordered in the ED Chest XR pending UA pending C diff ordered and pending Follow and treat as needed Leukocytosis Thrombocytosis Likely reactive in setting of cancer/chemotherapy Continue to monitor Electrolyte abnormalities Hyponatremia-Sodium 132 on admission, currently normal after fluid resuscitation Hypokalemia- replete as needed BRENDA Per [facility] review pt with Cr of 0.8 on 07/30/2023 Currently elevated at 1.26 Received gentle resuscitation in the form of fluid boluses Sinus Tachycardia EKG with noted sinus tachycardia hs-trop elevated at 8.2 to 9.8, further trend with AM labs Echo in [facility] from 2021 with EF 55-59%, mildly calcified aortic valve with normal leaflet opening, no aortic stenosis Likely in setting of anemia, acute blood loss, hypotension as above HR currently wnl Continue to monitor Hypertension On HCTZ and lisinopril at home Continue to hold in setting of hypotension noted Resume once BP elevated once more Hyperlipidemia continue statin therapy DM type II Last A1c is 7.3 from June 2023 ISS with Accu-Cheks ACHS, on home medications including: Trulicity (last dose 3 weeks ago and has been switched over to Jardiance in the timeframe that this med has been unavailable), glipizide, metformin which will be held Morbid obesity -BMI of 46.8 -Diet and exercise to be encouraged throughout hospital stay DVT PPx: teds, scds, no chemical anticoagulation in the setting of GI bleed FEN/GI: Clears currently, NPO after midnight CODE: Full code Dispo: PT/OT orders placed Admission and Anticipated Discharge Date Admission Date: August 26, 2023 Subjective Pt was seen sitting at bedside in chair. Partner also at bedside. Stated that she just felt tired, otherwise denied acute concerns. Review of Systems Review of Systems: All systems reviewed & are unremarkable except as noted in Subjective Physical Exam Physical Exam: General: Alert, oriented. No acute distress Psych: Appropriate mood and affect Neuro: No gross deficits HEENT: NC/AT CV: RRR Resp: Breath sounds clear bilaterally, no increased effort of breathing. Abdomen: Soft Extremities: edema in lower extremities bilaterally. Results & Data Results & Data Vital Signs (Past 12 Hours) Vital Signs Temp Pulse Pulse Resp BP BP Pulse Ox 08/27/23 15:43 36.6 C 80 18 111/71 98 08/27/23 15:23 88 08/27/23 11:43 36.7 C 89 18 113/71 97 08/27/23 08:00 08/27/23 07:34 36.7 C 89 18 112/65 95 08/27/23 06:10 36.6 C 89 20 103/66 95 08/27/23 06:01 36.4 C L 89 18 101/63 95 08/27/23 05:01 36.9 C 89 18 110/67 95 08/27/23 04:31 36.7 C 92 H 18 103/64 96 08/27/23 04:16 36.8 C 95 H 18 106/64 95 08/27/23 03:58 36.9 C 92 H 18 105/65 96 Pulse Ox O2 Del Method O2 Del Method 08/27/23 15:43 Room Air 08/27/23 15:23 08/27/23 11:43 Room Air 08/27/23 08:00 97 Room Air 08/27/23 07:34 Room Air 08/27/23 06:10 08/27/23 06:01 08/27/23 05:01 08/27/23 04:31 08/27/23 04:16 08/27/23 03:58 (1) GI bleed GI bleed type/associated pathology: melena Qualified Code(s): K92.1 - Melena
[2023-08-27] MEDS: CALCIUM CARBONATE 1250MG TAB PO SCH (17:25)
[2023-08-27] MEDS: CHOLECALCIFEROL 25 MCG (1000 UNITS) TAB PO SCH (17:26)
--- NOTE | 2023-08-27 19:31 | XRay Report ---
XR chest 1V portable CLINICAL HISTORY: sepsis TECHNIQUE: Single frontal radiograph of the chest was obtained. Comparison: Comparison is made to chest radiograph 06/25/2023 FINDINGS: A port catheter is seen. Cardiomegaly is noted. The lungs are clear. No evidence of pleural effusion or pneumothorax. IMPRESSION: No acute abnormalities and in particular no radiographic evidence of pneumonia. ACT 112: Negative or not required by law. Electronically signed by: Casa Shepard M.D. 08/27/2023 7:30 PM
[2023-08-27 19:51] LABS: Appearance Urine Cloudy (Clear); Bacteria Urine Automated 4+ (Negative); Bilirubin Urine Negative (Negative); Blood Urine Negative (Negative); Cast Urine Automated 0 /lpf (0-5); Color Urine Yellow; Glucose Urine UA 3+ (Negative); Ketones Urine Negative (Negative); Leukocyte Esterase Urine 1+ (Negative); Nitrite Urine Positive (Negative); Protein Urine Negative (Negative); RBC Urine Automated 0-4 /hpf (0-4); Specific Gravity Urine 1.018 (1.000-1.030); Urobilinogen Urine Negative (Negative); WBC Urine Automated >30 /hpf (0-5); pH Urine 5.5 (4.5-7.5)
[2023-08-27] MEDS: FERROUS SULFATE 325 MG TAB PO SCH (19:59)
[2023-08-27] MEDS: SODIUM CHLORIDE 0.9% 1,000 ML IV SCH (22:12)
--- NOTE | 2023-08-28 05:16 | Communication Note ---
Date of Service: August 28, 2023 UA was suggestive of infection with +nitrites Urine Cx pending. Started on IV rocephin, follow cx and narrow antibiotics accordingly.
[2023-08-28] MEDS: cefTRIAXone SODIUM 2,000 MG in DEXTROSE 5 % MINI-B 50 ML IV SCH (06:04)
[2023-08-28 06:42] LABS: Hematocrit (blood only) 22.8 % (37.0-47.0); Hemoglobin 7.3 g/dl (12.0-16.0); Mean Corpuscular Hemoglobin 30.4 pg (25.0-34.0); Mean Platelet Volume 9.9 fL (9.4-12.4); Nucleated RBC # (auto) 0.45 K/uL (0.00-0.12); Nucleated RBC % (auto) 2.8 %; Platelet Count 483 K/uL (130-400); RDW Coefficient of Variation 20.6 % (11.5-14.5); White Blood Count 16.13 K/ul (4.8-10.8)
[2023-08-28 07:18] LABS: Basophils # (auto) 0.06 K/uL (0.00-0.20); Basophils % (auto) 0.4 %; Eosinophils # (auto) 0.24 K/uL (0.00-0.50); Eosinophils % (auto) 1.5 %; Immature Granulocytes # (auto) 0.82 K/uL (0.01-0.20); Immature Granulocytes % (auto) 5.1 %; Lymphocytes # (auto) 1.67 K/uL (1.20-3.40); Lymphocytes % (auto) 10.4 %; Monocytes # (auto) 1.07 K/uL (0.11-0.59); Monocytes % (auto) 6.6 %; Neutrophils # (auto) 12.27 K/uL (1.40-6.50); Polychromasia 2+
--- NOTE | 2023-08-28 07:42 | Hospitalist Progress Note ---
Date of Service August 28, 2023 Assessment & Plan (1) GI bleed: (2) Malignant neoplasm of central portion of right breast in female, estrogen receptor positive: (3) Status post right breast lumpectomy: (4) Hypertension: (5) Dyslipidemia: (6) Diabetes: Plan Pt is a 68yoF with PMHx significant for breast cancer diagnosed May 2023 s/p lumpectomy and radiation, HTN, HLD, DMII presenting to the ED after being sent over by oncology for abnormal labs. Her hemoglobin was 4.1. Melena GI bleed Hypotension Acute blood loss anemia, duodenal ulcer Breast Cancer Pt with Hx of breast cancer treated with lumpectomy, chemotherapy and radiation Follows with Dr Santos from Oncology, presented for chemotherapy on day of admission with abnormal labwork Hgb of 4.1, has been transfused 3U in total. -> Hgb 7.7, currently 7.3 Was hypotensive on admission, received fluid boluses of 1L in total Likely in setting of bloody stools, current chemotherapy Continue ppi drip Continue b12 an iron supplement GI consulted, appreciate recs Now s/p EGD on 08/28 - Impression: - Normal esophagus. - Z-line variable. - Mild antral gastritis. - Normal stomach. - Non-bleeding duodenal ulcer with a clean ulcer base (Michael Class III). - Normal duodenal bulb, second portion of the duodenum, third portion and fourth portion of the duodenum. Recommendation: - Clean based large ulcer just past the bulb in the 1st portion of the duodenum near the c curve. Non bleeding. - Would continue IV PPI For 72 hours and then transition to oral 40 mg po bid. - Would also start liquid Carafate for 28 days. - Return to the floor. Monitor H/H closely, transfuse as needed SIRS UTI Pt meets SIRS criteria with leukocytosis, tachycardia on admission Questionable infectious source Lactate 1.9 Blood Cx x2 pending Chest XR negative for pna UA c/w UTI Ucultx - posit. for Gram negat. bacilli - started on Rocephin, cont. for now Follow final cultx C diff ordered and pending Follow and treat as needed Leukocytosis Thrombocytosis Likely reactive in setting of cancer/chemotherapy WBC elevated also 2/2 UTI Continue to monitor Electrolyte abnormalities Hyponatremia-Sodium 132 on admission, currently normal after fluid resuscitation Hypokalemia- replete as needed BRENDA Per [facility] review pt with Cr of 0.8 on 07/30/2023 Currently elevated at 1.26 Received gentle resuscitation in the form of fluid boluses Sinus Tachycardia EKG with noted sinus tachycardia hs-trop elevated at 8.2 to 9.8, further trend with AM labs Echo in [facility] from 2021 with EF 55-59%, mildly calcified aortic valve with normal leaflet opening, no aortic stenosis Likely in setting of anemia, acute blood loss, hypotension as above HR currently wnl Continue to monitor Hypertension On HCTZ and lisinopril at home Continue to hold in setting of hypotension noted Resume once BP elevated once more Hyperlipidemia continue statin therapy DM type II Last A1c is 7.3 from June 2023 ISS with Accu-Cheks ACHS, on home medications including: Trulicity (last dose 3 weeks ago and has been switched over to Jardiance in the timeframe that this med has been unavailable), glipizide, metformin which will be held Morbid obesity -BMI of 46.8 -Diet and exercise to be encouraged throughout hospital stay DVT PPx: teds, scds, no chemical anticoagulation in the setting of GI bleed FEN/GI: Clears CODE: Full code Dispo: PT/OT orders placed Admission and Anticipated Discharge Date Admission Date: August 26, 2023 Subjective Pt seen in follow up of anemia (presents w/ hgb 4), concern for GI bleed, melena, also recently started chemo for breast ca Plan for EGD today (pt seen prior to her EGD) Currently sitting up in her bedside chair, in no acute distress. Says that she feels fairly well, denies any abdominal pain. No bowel movements overnight or this morning. No fevers chills chest pain shortness of breath. Family at the bedside. Review of Systems Review of Systems: All systems reviewed & are unremarkable except as noted in Subjective Physical Exam Physical Exam: General: Alert, oriented. No acute distress Psych: Appropriate mood and affect Neuro: No gross deficits HEENT: NC/AT CV: RRR Resp: Breath sounds clear bilaterally, no increased effort of breathing. Abdomen: Soft Extremities: edema in lower extremities bilaterally. Results & Data Results & Data Vital Signs (Past 12 Hours) Vital Signs Temp Pulse Resp BP Pulse Ox Pulse Ox O2 Del Method 08/28/23 04:25 36.6 C 75 18 109/67 95 Room Air 08/28/23 00:00 94 08/27/23 23:06 36.6 C 82 18 116/72 97 Room Air O2 Del Method 08/28/23 04:25 08/28/23 00:00 Nasal Cannula 08/27/23 23:06 Laboratory Results 08/28/23 08/27/23 08/27/23 Range/Units 06:02 19:25 17:30 WBC 16.13 H (4.8-10.8) K/ul RBC 2.40 L (4.20-5.40) M/uL Hgb 7.3 L (12.0-16.0) g/dl Hct 22.8 L (37.0-47.0) % MCV 95.0 (80.0-100.0) fL MCH 30.4 (25.0-34.0) pg MCHC 32.0 (32.0-36.0) g/dL RDW Std Deviation 55.0 H (36.4-46.3) fL RDW Coeff of Hanane 20.6 H (11.5-14.5) % Plt Count 483 H (130-400) K/uL MPV 9.9 (9.4-12.4) fL Immature Gran % (Auto) 5.1 % Neut % (Auto) 76.0 % Lymph % (Auto) 10.4 % Bucks % (Auto) 6.6 % Eos % (Auto) 1.5 % Baso % (Auto) 0.4 % Neut # (Auto) 12.27 H (1.40-6.50) K/uL Lymph # (Auto) 1.67 (1.20-3.40) K/uL Bucks # (Auto) 1.07 H (0.11-0.59) K/uL Eos # (Auto) 0.24 (0.00-0.50) K/uL Baso # (Auto) 0.06 (0.00-0.20) K/uL Immature Gran # (Auto) 0.82 H (0.01-0.20) K/uL Absolute Nucleated RBC 0.45 H (0.00-0.12) K/uL Nucleated RBC % (auto) 2.8 % Polychromasia 2+ Sodium 135 L (136-145) mmol/L Potassium 3.3 L (3.5-5.1) mmol/L Chloride 107 (98-107) mmol/L Carbon Dioxide 23 (21-32) mmol/L Anion Gap 5 (3-11) BUN 24 H D (6-23) mg/dl Creatinine 0.94 D (0.6-1.2) mg/dl Est Cr Clr Drug Dosing 60.5 ml/min Est GFR ( Amer) 73.3 ml/min Est GFR (Non-Af Amer) 63.2 ml/min BUN/Creatinine Ratio 25.5 H (10-20) Glucose 221 H (70-99(Fasting)) mg/dl Lactate 1.9 (0.4-2.0) mmol/L Calcium 8.2 L (8.6-10.3) mg/dl Phosphorus 2.9 (2.5-4.9) mg/dl Magnesium 1.7 (1.7-2.4) mg/dl Urine Color Yellow Urine Appearance Cloudy A (Clear) Urine pH 5.5 (4.5-7.5) Ur Specific [place] 1.018 (1.000-1.030) Urine Protein Negative (Negative) Urine Glucose (UA) 3+ H (Negative) Urine Ketones Negative (Negative) Urine Blood Negative (Negative) Urine Nitrite Positive A (Negative) Urine Bilirubin Negative (Negative) Urine Urobilinogen Negative (Negative) Ur Leukocyte Esterase 1+ H (Negative) Urine WBC (Auto) >30 H (0-5) /hpf Urine RBC (Auto) 0-4 (0-4) /hpf U Hyaline Cast (Auto) 0 (0-5) /lpf U Epithel Cells (Auto) 10-20 H (0-5) /lpf Urine Bacteria (Auto) 4+ H (Negative) 08/27/23 Range/Units 14:14 WBC (4.8-10.8) K/ul RBC (4.20-5.40) M/uL Hgb 7.7 L (12.0-16.0) g/dl Hct 23.7 L (37.0-47.0) % MCV (80.0-100.0) fL MCH (25.0-34.0) pg MCHC (32.0-36.0) g/dL RDW Std Deviation (36.4-46.3) fL RDW Coeff of Hanane (11.5-14.5) % Plt Count (130-400) K/uL MPV (9.4-12.4) fL Immature Gran % (Auto) % Neut % (Auto) % Lymph % (Auto) % Bucks % (Auto) % Eos % (Auto) % Baso % (Auto) % Neut # (Auto) (1.40-6.50) K/uL Lymph # (Auto) (1.20-3.40) K/uL Bucks # (Auto) (0.11-0.59) K/uL Eos # (Auto) (0.00-0.50) K/uL Baso # (Auto) (0.00-0.20) K/uL Immature Gran # (Auto) (0.01-0.20) K/uL Absolute Nucleated RBC (0.00-0.12) K/uL Nucleated RBC % (auto) % Polychromasia Sodium (136-145) mmol/L Potassium (3.5-5.1) mmol/L Chloride (98-107) mmol/L Carbon Dioxide (21-32) mmol/L Anion Gap (3-11) BUN (6-23) mg/dl Creatinine (0.6-1.2) mg/dl Est Cr Clr Drug Dosing ml/min Est GFR ( Amer) ml/min Est GFR (Non-Af Amer) ml/min BUN/Creatinine Ratio (10-20) Glucose (70-99(Fasting)) mg/dl Lactate (0.4-2.0) mmol/L Calcium (8.6-10.3) mg/dl Phosphorus (2.5-4.9) mg/dl Magnesium (1.7-2.4) mg/dl Urine Color Urine Appearance (Clear) Urine pH (4.5-7.5) Ur Specific [place] (1.000-1.030) Urine Protein (Negative) Urine Glucose (UA) (Negative) Urine Ketones (Negative) Urine Blood (Negative) Urine Nitrite (Negative) Urine Bilirubin (Negative) Urine Urobilinogen (Negative) Ur Leukocyte Esterase (Negative) Urine WBC (Auto) (0-5) /hpf Urine RBC (Auto) (0-4) /hpf U Hyaline Cast (Auto) (0-5) /lpf U Epithel Cells (Auto) (0-5) /lpf Urine Bacteria (Auto) (Negative) Medications Administered Current Inpatient Medications Acetaminophen (Acetaminophen 325 Mg Tab) 650 mg PO Q4H PRN PRN Reason: Moderate Pain (Scale 4, 5, 6) Stop: 09/25/23 20:00 Calcium Carbonate (Calcium Carbonate 1250mg Tab) 2,500 mg PO DAILY [facility] Stop: 09/26/23 16:59 Last Admin: 08/27/23 17:25 Dose: 2,500 mg Cyanocobalamin (Cyanocobalamin (B-12) 500 Mcg Tablet) 1,000 mcg PO DAILY [facility] Stop: 09/27/23 08:59 Ferrous Sulfate (Ferrous Sulfate 325 Mg Tab) 325 mg PO BID [facility] Stop: 09/26/23 20:59 Last Admin: 08/27/23 19:59 Dose: 325 mg Pantoprazole Sodium 40 mg/ (Dextrose) 100 mls @ 20 mls/hr IV Q5H [facility] Stop: 09/26/23 03:14 Last Admin: 08/28/23 02:35 Dose: 8 mg/hr, 20 mls/hr Ceftriaxone Sodium 2,000 mg/ (Dextrose) 50 mls @ 100 mls/hr IV Q24H [facility]; Protocol Stop: 09/07/23 05:59 Last Admin: 08/28/23 06:04 Dose: 100 mls/hr Lovastatin (Lovastatin 20 Mg Tab) 40 mg PO DAILY [facility] Stop: 09/26/23 08:59 Last Admin: 08/27/23 08:06 Dose: 40 mg Ondansetron HCl (Ondansetron Inj 2 Mg/Ml 2 Ml Vial) 4 mg IV Q4H PRN PRN Reason: Nausea And Vomiting Stop: 09/25/23 20:00 Vitamin D (Cholecalciferol 25 Mcg (1000 Units) Tab) 25 mcg PO DAILY [facility] Stop: 09/26/23 16:59 Last Admin: 08/27/23 17:26 Dose: 25 mcg (1) GI bleed GI bleed type/associated pathology: melena Qualified Code(s): K92.1 - Melena
[2023-08-28] MEDS: CYANOCOBALAMIN (B-12) 500 MCG TABLET PO SCH (07:59)
[2023-08-28 08:16] LABS: Calcium 8.2 mg/dl (8.6-10.3); Magnesium 1.7 mg/dl (1.7-2.4); Potassium 3.3 mmol/L (3.5-5.1)
[2023-08-28 08:26] LABS: BUN Creatinine Ratio 25.5 (10-20); Creatinine Clr Calc Pharmacy 60.5 ml/min; Est GFR (African American) 73.3 ml/min; Est GFR (Non-African American) 63.2 ml/min; Phosphorus 2.9 mg/dl (2.5-4.9)
--- NOTE | 2023-08-28 09:08 | Anesthesiology Consultation ---
Date of Service August 28, 2023 History Surgery Operation Date: 08/28/23 16:30 Proposed Procedures p Esophagogastroduodenoscopy Dr. Jordin Brenner MD Height/Weight Height: 4 ft 10 in Weight: 101.5 kg Allergies Allergy/AdvReac Type Severity Reaction Status Date / Time No Known Allergies Allergy Unverified 08/26/23 15:31 Medications Home Medications Medication Instructions Recorded Confirmed Last Taken aspirin 81 mg tablet 81 mg PO DAILY 03/02/19 08/26/23 Unknown calcium carbonate 600 mg calcium 1,200 mg PO DAILY 03/02/19 08/26/23 Unknown (1,500 mg) tablet cholecalciferol (vitamin D3) 25 1,000 units PO DAILY 03/02/19 08/26/23 Unknown mcg (1,000 unit) tablet ferrous fumarate 325 mg (106 mg 325 mg PO BID 03/02/19 08/26/23 Unknown iron) tablet lisinopril 40 mg tablet 40 mg PO DAILY 03/02/19 08/26/23 Unknown lovastatin 40 mg tablet 40 mg PO DAILY 03/02/19 08/26/23 Unknown metformin 500 mg tablet,extended 1,000 mg PO BID 03/02/19 08/26/23 Unknown release 24 hr hydrochlorothiazide 25 mg tablet 25 mg PO DAILY #90 tabs 11/26/19 08/26/23 Unknown dulaglutide 1.5 mg/0.5 mL 1.5 mg subcut .WEEK, NOT AVAILABLE 07/17/23 08/26/23 Unknown subcutaneous pen injector (Trulicity) glipizide 5 mg tablet 5 mg PO DAILY 07/17/23 08/26/23 Unknown mecobalamin (vitamin B12) 1,000 1,000 mcg PO DAILY 07/17/23 08/26/23 Unknown mcg chewable tablet empagliflozin 10 mg tablet 10 mg PO DAILY 08/26/23 08/26/23 Unknown (Jardiance) Active Medications Generic Name Dose Route Start Last Admin Trade Name Freq PRN Reason Stop Dose Admin Calcium Carbonate 2,500 mg 08/27/23 17:00 08/28/23 07:59 Calcium Carbonate 1250mg Tab PO 09/26/23 16:59 Not Given DAILY LUI Cyanocobalamin 1,000 mcg 08/28/23 09:00 08/28/23 07:59 Cyanocobalamin (B-12) 500 Mcg Tablet PO 09/27/23 08:59 1,000 mcg DAILY LUI Administration Ferrous Sulfate 325 mg 08/27/23 21:00 08/28/23 07:59 Ferrous Sulfate 325 Mg Tab PO 09/26/23 20:59 325 mg BID LUI Administration Pantoprazole Sodium 40 mg/ 100 mls @ 20 mls/hr 08/27/23 03:15 08/28/23 07:53 Dextrose IV 09/26/23 03:14 8 mg/hr Q5H LUI 20 mls/hr Administration 8 MG/HR Ceftriaxone Sodium 2,000 mg/ 50 mls @ 100 mls/hr 08/28/23 06:00 08/28/23 07:59 Dextrose IV 09/07/23 05:59 Infused Q24H LUI Infusion Protocol Lovastatin 40 mg 08/27/23 09:00 08/28/23 07:59 Lovastatin 20 Mg Tab PO 09/26/23 08:59 40 mg DAILY LUI Administration Vitamin D 25 mcg 08/27/23 17:00 08/28/23 07:59 Cholecalciferol 25 Mcg (1000 Units) Tab PO 09/26/23 16:59 25 mcg DAILY LUI Administration Past Medical History Medical History Dyslipidemia Hypertension Diabetes Breast cancer, right breast Biopsy 05/08/23 Past Family History Family History Mother Breast cancer Father , in his 80s Cancer Pt uncertain of type of cancer Brother COPD (chronic obstructive pulmonary disease) Brother No problems noted. Sister No problems noted. Sister No problems noted. Sister No problems noted. Son Diabetes Son No problems noted. Daughter No problems noted. Family/Other Breast cancer 2 maternal aunts w/breast cancer Family/Other Breast cancer Cousin from mother's side of the family Past Surgical History Surgical History History of bilateral knee replacement Status post right breast lumpectomy with SLN biopsy on 06/12/23 Social History Smoking Status: Never smoker Do You Dip or Chew Tobacco: No Hx Alcohol Use: No Hx Substance Use: No substance use type: does not use Physical Exam Vital Signs Last Vital Signs Temp 36.7 C 08/28/23 07:43 Pulse 81 08/28/23 07:43 Resp 19 08/28/23 07:43 BP 124/74 08/28/23 07:43 Pulse Ox 97 08/28/23 07:43 O2 Del Method Room Air 08/28/23 07:43 Testing Laboratory Results 08/28/23 06:02 08/28/23 06:02 PT 11.3 Seconds (9.0-12.0) 08/26/23 16:12 INR 1.0 (0.9-1.1) 08/26/23 16:12 APTT < 20 Seconds (21-31) L 08/26/23 16:12 Urine Color Yellow 08/27/23 19: Urine Appearance Cloudy (Clear) A 08/27/23 19: Urine pH 5.5 (4.5-7.5) 08/27/23 19: Ur Specific [place] 1.018 (1.000-1.030) 08/27/23 19: Urine Protein Negative (Negative) 08/27/23 19: Urine Glucose (UA) 3+ (Negative) H 08/27/23 19: Urine Ketones Negative (Negative) 08/27/23 19: Urine Nitrite Positive (Negative) A 08/27/23 19:25 Ur Leukocyte Esterase 1+ (Negative) H 08/27/23 19:25 Urine WBC (Auto) >30 /hpf (0-5) H 08/27/23 19:25 Urine RBC (Auto) 0-4 /hpf (0-4) 08/27/23 19: U Hyaline Cast (Auto) 0 /lpf (0-5) 08/27/23 19:25 U Epithel Cells (Auto) 10-20 /lpf (0-5) H 08/27/23 19:25 Urine Bacteria (Auto) 4+ (Negative) H 08/27/23 19:25 Blood Type O Positive 08/26/23 14:30 Antibody Screen NEGATIVE 08/26/23 14:30 08/27/23 19:25 Urine Culture - Preliminary Urine,Clean Catch Gram negative bacilli 08/26/23 14:20 Aerobic Blood Culture - Preliminary Blood No growth in Aerobic bottle after 24 hours. Anaerobic Blood Culture - Preliminary No growth in Anaerobic bottle after 24 hours. 08/26/23 14:30 Aerobic Blood Culture - Preliminary Blood No growth in Aerobic bottle after 24 hours. Anaerobic Blood Culture - Preliminary No growth in Anaerobic bottle after 24 hours.
--- NOTE | 2023-08-28 10:30 | History & Physical Bridge Note ---
Date of Service August 28, 2023 History & Physical Bridge Note I have examined the patient, reviewed the History & Physical and in the interval since the performance of the History & Physical I have noted the following changes of clinical significance: no changes noted Supervising Physician Co-Signing Physician Notes EGD for evaluation of melena
--- NOTE | 2023-08-28 11:29 | GI REPORT ---
Patient Name: Alyssa Reyes Procedure Date: 08/28/2023 11:17 AM Date of : 1955 Admit Type: Inpatient Age: 68 Gender: Female Attending MD: Benita Brenner M.d., Procedure: Upper GI endoscopy Providers: Benita Brenner M.d. Referring MD: Char Gudino Indications: Melena Medicines: See the Anesthesia note for documentation of the administered medications Complications: No immediate complications. Estimated Blood Loss: Estimated blood loss: none. Procedure: Pre-Anesthesia Assessment: - Patient identification and proposed procedure were verified prior to the procedure by the physician, the nurse and the anesthesiologist. The procedure was verified in the pre-procedure area. - Prior to the procedure, a History and Physical was performed, and patient medications, allergies and sensitivities were reviewed. The patient's tolerance of previous anesthesia was reviewed. - The risks and benefits of the procedure and the sedation options and risks were discussed with the patient. All questions were answered and informed consent was obtained. After obtaining informed consent, the endoscope was passed under direct vision. Throughout the procedure, the patient's blood pressure, pulse, and oxygen saturations were monitored continuously. The Endoscope was introduced through the mouth, and advanced to the fourth part of duodenum. The upper GI endoscopy was accomplished without difficulty. The patient tolerated the procedure well. Findings: The examined esophagus appeared normal. The Z-line appeared variable. Localized mild inflammation characterized by erythema was found in the stomach. The examined stomach otherwise appeared normal. One non-bleeding superficial duodenal ulcer with a clean ulcer base (Michael Class III) was found in the first portion of the duodenum. The lesion was 20 mm in largest dimension. The duodenal bulb, second portion of the duodenum, third portion and early part of the fourth portion of the duodenum otherwise appeared normal. Impression: - Normal esophagus. - Z-line variable. - Mild antral gastritis. - Normal stomach. - Non-bleeding duodenal ulcer with a clean ulcer base (Michael Class III). - Normal duodenal bulb, second portion of the duodenum, third portion and fourth portion of the duodenum. Recommendation: - Clean based large ulcer just past the bulb in the 1st portion of the duodenum near the c curve. Non bleeding. - Would continue IV PPI For 72 hours and then transition to oral 40 mg po bid. - Would also start liquid Carafate for 28 days. - Return to the floor. Stanislav Thompson M.d. 08/28/2023 11:28:25 AM This report has been signed electronically. Note Initiated On: 08/28/2023 11:17 AM Number of Addenda: 0 I attest to the content of the Intraoperative Record and orders documented therein, exceptions below {[id number]}
--- NOTE | 2023-08-28 11:30 | Communication Note ---
Date of Service: August 28, 2023 EGD completed with a large clean based ulcer in the duodenal bulb approaching the c curve, it was large and given no active bleeding not amenable given size to clipping. Would complete IV PPI for 72 hours total, then take 40 mg po bid and start liquid carafate while in house and then take daily for 28 days. Ideally avoid nsaid's. clear liquid diet today, advance as tolerated. Further chemotherapy per oncology but ideally if she can wait 2-4 weeks to promote ulcer healing with medical therapy that may help. Transfuse as needed if hgb drops below 7. No further melena reported overnite to today.
--- NOTE | 2023-08-28 12:05 | Anesthesiology Progress Note ---
Date of Service August 28, 2023 Anesthesia Post Procedure Vital Signs Vital Signs: Temp Pulse Pulse Pulse Resp BP Pulse Ox 08/28/23 12:00 88 16 123/68 99 08/28/23 11:45 83 16 149/69 H 98 08/28/23 11:30 89 16 138/63 99 08/28/23 10:16 36.3 C L 93 H 16 107/61 98 08/28/23 09:49 84 08/28/23 07:43 36.7 C 81 19 124/74 97 08/28/23 04:25 36.6 C 75 18 109/67 95 08/28/23 00:00 08/27/23 23:06 36.6 C 82 18 116/72 97 08/27/23 19:00 36.5 C 89 20 110/72 97 08/27/23 16:00 08/27/23 15:43 36.6 C 80 18 111/71 98 08/27/23 15:23 88 Pulse Ox O2 Del Method O2 Del Method 08/28/23 12:00 Room Air 08/28/23 11:45 Room Air 08/28/23 11:30 Room Air 08/28/23 10:16 Room Air 08/28/23 09:49 08/28/23 07:43 Room Air 08/28/23 04:25 Room Air 08/28/23 00:00 94 Nasal Cannula 08/27/23 23:06 Room Air 08/27/23 19:00 Room Air 08/27/23 16:00 97 Room Air 08/27/23 15:43 Room Air 08/27/23 15:23 Transfer of Care Handoff Completed per policy Notes Mental Status: alert / awake / arousable and participated in evaluation Nausea / Vomiting: adequately controlled Pain: adequately controlled Airway Patency, RR, SpO2: stable & adequate BP & HR: stable & adequate Hydration State: stable & adequate Anesthetic Complications: no major complications apparent and Pt Satisfied with anesthetic care
[2023-08-28] MEDS: LIDOCAINE 2% 2 ML VIAL/AMP(20MG/ML) INFIL ONE (13:06)
[2023-08-28] MEDS: KETAMINE HCL 10MG/ML SYR ONE (13:06)
[2023-08-28] MEDS: PROPOFOL IV EMULSION 10 MG/ML 20 ML VIAL IV ONE (13:06)
[2023-08-28] MEDS: SUCRALFATE 1 GM/10 ML UDC PO SCH (17:08)
[2023-08-29 06:37] LABS: Hematocrit (blood only) 22.8 % (37.0-47.0); Hemoglobin 7.2 g/dl (12.0-16.0); Mean Corpuscular Hemoglobin 30.5 pg (25.0-34.0); Mean Corpuscular Hgb Conc 31.6 g/dL (32.0-36.0); Mean Corpuscular Volume 96.6 fL (80.0-100.0); Nucleated RBC # (auto) 0.05 K/uL (0.00-0.12); Nucleated RBC % (auto) 0.4 %; Platelet Count 448 K/uL (130-400); RDW Coefficient of Variation 21.6 % (11.5-14.5); RDW Standard Deviation 62.8 fL (36.4-46.3); Red Blood Count 2.36 M/uL (4.20-5.40); White Blood Count 11.66 K/ul (4.8-10.8)
[2023-08-29 07:00] LABS: BUN Creatinine Ratio 15.9 (10-20); Calcium 8.2 mg/dl (8.6-10.3); Creatinine Clr Calc Pharmacy 64.7 ml/min; Est GFR (African American) 79.4 ml/min; Est GFR (Non-African American) 68.5 ml/min; Magnesium 1.7 mg/dl (1.7-2.4); Phosphorus 2.7 mg/dl (2.5-4.9); Potassium 3.1 mmol/L (3.5-5.1)
--- NOTE | 2023-08-29 07:46 | Hospitalist Progress Note ---
Date of Service August 29, 2023 Assessment & Plan (1) GI bleed: (2) Malignant neoplasm of central portion of right breast in female, estrogen receptor positive: (3) Status post right breast lumpectomy: (4) Hypertension: (5) Dyslipidemia: (6) Diabetes: Plan Pt is a 68yoF with PMHx significant for breast cancer diagnosed May 2023 s/p lumpectomy and radiation, HTN, HLD, DMII presenting to the ED after being sent over by oncology for abnormal labs. Her hemoglobin was 4.1. Melena GI bleed Hypotension Acute blood loss anemia, duodenal ulcer Breast Cancer Pt with Hx of breast cancer treated with lumpectomy, chemotherapy and radiation Follows with Dr Santos from Oncology, presented for chemotherapy on day of admission with abnormal labwork Hgb of 4.1, has been transfused 3U in total. -> Hgb 7.7, currently 7.2 Was hypotensive on admission, received fluid boluses of 1L in total Likely in setting of bloody stools, current chemotherapy Continue ppi drip Continue b12 an iron supplement GI consulted, appreciate recs Now s/p EGD on 08/28 - Impression: - Normal esophagus. - Z-line variable. - Mild antral gastritis. - Normal stomach. - Non-bleeding duodenal ulcer with a clean ulcer base (Michael Class III). - Normal duodenal bulb, second portion of the duodenum, third portion and fourth portion of the duodenum. Recommendation: - Clean based large ulcer just past the bulb in the 1st portion of the duodenum near the c curve. Non bleeding. - Would continue IV PPI For 72 hours and then transition to oral 40 mg po bid. - Would also start liquid Carafate for 28 days. - Return to the floor. Also per GI - Further chemotherapy per oncology but ideally if she can wait 2-4 weeks to promote ulcer healing with medical therapy that may help. Monitor H/H closely, transfuse as needed 2/15 hgb 7.2 -> will transfuse 1 more unit of pRBC, and will re-check tmrw AM SIRS UTI Pt meets SIRS criteria with leukocytosis, tachycardia on admission Questionable infectious source Lactate 1.9 Blood Cx x2 pending Chest XR negative for pna UA c/w UTI Ucultx - posit. for E. coli - started on Rocephin, cont. for now Follow final cultx C diff ordered and pending Follow and treat as needed Leukocytosis Thrombocytosis Likely reactive in setting of cancer/chemotherapy WBC elevated also 2/2 UTI Continue to monitor, WBC trending down Electrolyte abnormalities Hyponatremia-Sodium 132 on admission, currently normal after fluid resuscitation Hypokalemia- replete as needed BRENDA Per [facility] review pt with Cr of 0.8 on 07/30/2023 was elevated at 1.26 -> 0.9 Received gentle resuscitation in the form of fluid boluses Sinus Tachycardia EKG with noted sinus tachycardia hs-trop elevated at 8.2 to 9.8, further trend with AM labs Echo in [facility] from 2021 with EF 55-59%, mildly calcified aortic valve with normal leaflet opening, no aortic stenosis Likely in setting of anemia, acute blood loss, hypotension as above HR currently wnl Continue to monitor Hypertension On HCTZ and lisinopril at home Continue to hold in setting of hypotension noted Resume once BP elevated once more Hyperlipidemia continue statin therapy DM type II Last A1c is 7.3 from June 2023 ISS with Accu-Cheks ACHS, on home medications including: Trulicity (last dose 3 weeks ago and has been switched over to Jardiance in the timeframe that this med has been unavailable), glipizide, metformin which will be held Morbid obesity -BMI of 46.8 -lifestyle modification encouraged DVT PPx: teds, scds, no chemical anticoagulation in the setting of GI bleed FEN/GI: Clears CODE: Full code Dispo: PT/OT orders placed Admission and Anticipated Discharge Date Admission Date: August 26, 2023 Subjective Pt seen in follow up of anemia (presents w/ hgb 4), concern for GI bleed, melena, also recently started chemo for breast ca S/p EGD yesterday - found large clean based ulcer in the duodenal bulb Currently sitting up in her bedside chair, in no acute distress. Says that she feels fairly well, denies any abdominal pain. Had a bowel movement yesterday, says it was not too dark. No fevers chills chest pain shortness of breath. Family at the bedside. Hgb 7.2 - will transfuse 1 more unit of pRBC Review of Systems Review of Systems: All systems reviewed & are unremarkable except as noted in Subjective Physical Exam Physical Exam: General: Alert, oriented. No acute distress Psych: Appropriate mood and affect Neuro: No gross deficits HEENT: NC/AT CV: RRR Resp: Breath sounds clear bilaterally, no increased effort of breathing. Abdomen: Soft, nontender, + bowel sounds Extremities: edema in lower extremities bilaterally. Results & Data Results & Data Vital Signs (Past 12 Hours) Vital Signs Temp Pulse Pulse Resp BP Pulse Ox Pulse Ox 08/29/23 07:41 83 08/29/23 03:00 36.6 C 88 16 126/69 95 08/29/23 00:00 96 08/29/23 00:00 82 08/28/23 22:40 36.6 C 80 18 125/73 97 08/28/23 19:55 36.5 C 100 H 18 131/84 99 O2 Del Method O2 Del Method 08/29/23 07:41 08/29/23 03:00 Room Air 08/29/23 00:00 Room Air 08/29/23 00:00 08/28/23 22:40 Room Air 08/28/23 19:55 Room Air Laboratory Results 08/29/23 08/29/23 08/26/23 Range/Units 08:09 05:44 14:30 WBC 11.66 H (4.8-10.8) K/ul RBC 2.36 L (4.20-5.40) M/uL Hgb 7.2 L (12.0-16.0) g/dl Hct 22.8 L (37.0-47.0) % MCV 96.6 (80.0-100.0) fL MCH 30.5 (25.0-34.0) pg MCHC 31.6 L (32.0-36.0) g/dL RDW Std Deviation 62.8 H (36.4-46.3) fL RDW Coeff of Hanane 21.6 H (11.5-14.5) % Plt Count 448 H (130-400) K/uL MPV 10.0 (9.4-12.4) fL Absolute Nucleated RBC 0.05 (0.00-0.12) K/uL Nucleated RBC % (auto) 0.4 % Sodium 137 (136-145) mmol/L Potassium 3.1 L (3.5-5.1) mmol/L Chloride 108 H (98-107) mmol/L Carbon Dioxide 23 (21-32) mmol/L Anion Gap 6 (3-11) BUN 14 (6-23) mg/dl Creatinine 0.88 (0.6-1.2) mg/dl Est Cr Clr Drug Dosing 64.7 ml/min Est GFR ( Amer) 79.4 ml/min Est GFR (Non-Af Amer) 68.5 ml/min BUN/Creatinine Ratio 15.9 (10-20) Glucose 257 H (70-99(Fasting)) mg/dl POC Glucose 264 H (70-99) mg/dl Calcium 8.2 L (8.6-10.3) mg/dl Phosphorus 2.7 (2.5-4.9) mg/dl Magnesium 1.7 (1.7-2.4) mg/dl Blood Type O Positive Antibody Screen NEGATIVE Crossmatch See Detail Medications Administered Current Inpatient Medications Acetaminophen (Acetaminophen 325 Mg Tab) 650 mg PO Q4H PRN PRN Reason: Moderate Pain (Scale 4, 5, 6) Stop: 09/25/23 20:00 Calcium Carbonate (Calcium Carbonate 1250mg Tab) 2,500 mg PO DAILY PENDING SALE TO [facility] Stop: 09/26/23 16:59 Last Admin: 08/29/23 08:09 Dose: 2,500 mg Cyanocobalamin (Cyanocobalamin (B-12) 500 Mcg Tablet) 1,000 mcg PO DAILY PENDING SALE TO [facility] Stop: 09/27/23 08:59 Last Admin: 08/29/23 08:09 Dose: 1,000 mcg Dextrose (Dextrose 50% 50 Ml Syringe) 25 - 50 ml IV UD PRN; Protocol PRN Reason: Hypoglycemia Protocol Stop: 09/28/23 08:11 Ferrous Sulfate (Ferrous Sulfate 325 Mg Tab) 325 mg PO BID PENDING SALE TO [facility] Stop: 09/26/23 20:59 Last Admin: 08/29/23 08:09 Dose: 325 mg Glucagon (Glucagon For Inj 1 Mg Vial) 1 mg SQ UD PRN; Protocol PRN Reason: Hypoglycemia Protocol Stop: 09/28/23 08:11 Glucose (Glucose 10 Tab/Tube) 4 - 8 tab PO UD PRN; Protocol PRN Reason: Hypoglycemia Treatment Stop: 09/28/23 08:11 Glucose (Glucose 40% Gel 15 Gm Tube) 15 - 30 gm PO UD PRN; Protocol PRN Reason: Hypoglycemia Protocol Stop: 09/28/23 08:11 Pantoprazole Sodium 40 mg/ (Dextrose) 100 mls @ 20 mls/hr IV Q5H PENDING SALE TO [facility] Stop: 09/26/23 03:14 Last Admin: 08/29/23 08:59 Dose: 8 mg/hr, 20 mls/hr Ceftriaxone Sodium 2,000 mg/ (Dextrose) 50 mls @ 100 mls/hr IV Q24H PENDING SALE TO [facility]; Protocol Stop: 09/07/23 05:59 Last Infusion: 08/29/23 06:14 Dose: Infused Sodium Chloride (Nss) 250 mls @ 15 mls/hr IV .[id number] PRN PRN Reason: For Transfusion Duration Stop: 08/29/23 20:20 Insulin Aspart (Insulin Aspart Per Unit Charge) 0 units SC ACHS PENDING SALE TO [facility] Stop: 09/28/23 08:59 Last Admin: 08/29/23 09:13 Dose: 9 units Insulin Glargine (Lantus Per Unit Charge) 20 units SC QAM PENDING SALE TO [facility] Stop: 09/28/23 08:59 Last Admin: 08/29/23 09:14 Dose: 20 units Lovastatin (Lovastatin 20 Mg Tab) 40 mg PO DAILY PENDING SALE TO [facility] Stop: 09/26/23 08:59 Last Admin: 08/29/23 08:09 Dose: 40 mg Miscellaneous (Carbohydrates For Hypoglycemia ) 15 - 30 gm PO UD PRN PRN Reason: Hypoglycemia Protocol Stop: 09/28/23 08:11 Miscellaneous Information (Pharmacy Glycemic Mgmt Consult) 1 each N/A UD PRN; Protocol PRN Reason: Consult Stop: 09/28/23 08:10 Ondansetron HCl (Ondansetron Inj 2 Mg/Ml 2 Ml Vial) 4 mg IV Q4H PRN PRN Reason: Nausea And Vomiting Stop: 09/25/23 20:00 Sucralfate (Sucralfate 1 Gm/10 Ml Udc) 1 gm PO QID PENDING SALE TO [facility] Stop: 09/27/23 16:59 Last Admin: 08/29/23 08:09 Dose: 1 gm Vitamin D (Cholecalciferol 25 Mcg (1000 Units) Tab) 25 mcg PO DAILY PENDING SALE TO [facility] Stop: 09/26/23 16:59 Last Admin: 08/29/23 08:09 Dose: 25 mcg (1) GI bleed GI bleed type/associated pathology: melena Qualified Code(s): K92.1 - Melena
[2023-08-29] MEDS: POTASSIUM CHLORIDE CRTAB 20 MEQ TABCR PO STA (08:09)
[2023-08-29] MEDS ORDERED: PHARMACY GLYCEMIC MGMT CONSULT PRN (08:11)
[2023-08-29] MEDS ORDERED: CARBOHYDRATES FOR HYPOGLYCEMIA PO PRN (08:12)
[2023-08-29] MEDS ORDERED: GLUCOSE 10 TAB/TUBE PO PRN (08:12)
[2023-08-29] MEDS ORDERED: GLUCAGON FOR INJ 1 MG VIAL SQ PRN (08:12)
[2023-08-29] MEDS ORDERED: GLUCOSE 40% GEL 15 GM TUBE PO PRN (08:12)
[2023-08-29] MEDS ORDERED: DEXTROSE 50% 50 ML SYRINGE IV PRN (08:12)
[2023-08-29] MEDS: INSULIN ASPART PER UNIT CHARGE SC SCH (09:13)
[2023-08-29] MEDS: LANTUS PER UNIT CHARGE SC SCH (09:14)
[2023-08-29] MEDS ORDERED: SODIUM CHLORIDE 0.9% 250 ML IV PRN (10:19)
--- NOTE | 2023-08-29 10:38 | Pharmacy Report ---
Pharmacy Glycemic Short Note 2 - Date of Service August 29, 2023 - Glycemic Short BSG Results (Last 24 hours): 08/29/23 08/29/23 05:44 08:09 Glucose 257 H POC Glucose 264 H OUTPATIENT ANTIDIABETIC REGIMEN: * Glipizide ER 15 mg PO QAM * Jardiance 10 mg PO QAM * Metformin 1000 mg PO BID * Trulicity ?? not clear if she is still on this ASSESSMENT: * 68 y/o F admitted for GI bleed and UTI. She has history of breast cancer, morbid obesity and Type 2 diabetes managed on at least 3 different anti- diabetic meds at home. * Blood sugars have been elevated since admission on 08/26 with fasting BSGs above 200 mg/dl. Today fasting was 257 mg/dl. * Pharmacy consulted this morning for glycemic management. * Lantus ordered based on stress between 2 and 3 and Novolog based on stress of 3. * She is currently on a protonix drip for GI bleed but has been started on a liquid diet. PLAN FOR INPATIENT GLYCEMIC CONTROL: * Hold outpatient diabetes medications * Basal insulin * Lantus 20 units SQ QAM * Bolus insulin * NovoLog per scale ACHS or Q6hrs while NPO * Goal Range: Low 110 mg/dL - High 140 mg/dL * Correction Factor: 15 mg/dL/unit * Nutritional / Prandial insulin per carb ratio of 1 unit per 5 grams CHO consumed
--- NOTE | 2023-08-29 11:24 | Gastroenterology Progress Note ---
Date of Service August 29, 2023 Assessment & Plan (1) Melena: Plan: - full liquids po today - Continue IV PPI drip until tomorrow - If no evidence of bleeding tomorrow then change DC drip andtrnsition to po 40mg BID x 2 months. - carafate x 28 days. - OP colonoscopy (as pt is due for colon cancer screening). Our office will contact her to arrange - but not urgent as cause of anemia most likely the ulcer. - GI will sign off. Please recall if needed. Plan EGD for melena/anemia in the setting of chemo for breast cancer Will plan for EGD tomorrow. Clear liquids po today. Further recommendations to follow EGD. Admission and Anticipated Discharge Date Admission Date: August 26, 2023 Supervising Physician Co-Signing Physician Notes I have seen and examined the patient and agree with pe and plan as documented. No further dark bm's endorsed to me today. Agree with advancement of diet. Subjective 68 yr old female w breast Ca post surgery, undergoing chem admitted 2 days ago w anemia/melena. EGD yesterday w large, non bleeding duodenal ulcer. Hb 4.1 on arrival, received transfusions and is stable today compared to yesterday post 3 unit RBC transfusion at 7.2 BUN was elevated on arrival, now normal. No Bms since prior to EGD. No abd pain. Tolerating clear liquids well. Review of Systems Review of Systems: ROS: Gen: Fatigue mild weakness, No fevers, weight loss Eyes: No eye redness, or pain, no recent vision changes Resp: No SOB, no cough Cardio: No palpitations/irregular beats, no chest pain GI: As per HPI, otherwise (-) : Denies pain on urination Skin: No jaundice, itching or new rashes Physical Exam Constitutional: well developed, well nourished, + obese and cooperative; no acute distress Eyes: PERRL, conjunctivae normal, anicteric sclerae ENMT: external ear and nose normal, oropharynx normal Neck: trachea midline, no thyromegaly Respiratory: normal respiratory effort, lungs clear to auscultation Gastrointestinal (Abdomen): normal bowel sounds, soft, nontender, no hepatosplenomegaly Musculoskeletal: no cyanosis or clubbing, extremities motor strength 5/5 Skin: no rashes, warm and dry Neurologic: PERRL, EOMI, accommodation nl, no face palsy, no dysarthria Psychiatric: A+Ox3, euthymic affect Lymphatic: no cervical or axillary lymphadenopathy Results & Data Vital Signs (Past 12 Hours) Vital Signs Temp Pulse Pulse Resp BP BP Pulse Ox 08/29/23 11:17 36.5 C 87 18 115/80 98 08/29/23 11:01 36.7 C 85 18 105/72 98 08/29/23 08:00 08/29/23 07:48 36.2 C L 84 19 128/80 95 08/29/23 07:41 83 08/29/23 03:00 36.6 C 88 16 126/69 95 08/29/23 00:00 08/29/23 00:00 82 Pulse Ox O2 Del Method O2 Del Method 08/29/23 11:17 08/29/23 11:01 08/29/23 08:00 Room Air 08/29/23 07:48 Room Air 08/29/23 07:41 08/29/23 03:00 Room Air 08/29/23 00:00 96 Room Air 08/29/23 00:00 Laboratory Results WBC 11.6, Hb 7.2, Hct 28.8, Plts 448, Na 137, K 3.0, Cl 108, CO2 23, BUN 14, Cr 0.8, glucose 264. Diagnostic Findings EGD 08/28/23: Normal esophagus, mild antral gastritis, non bleeding duodenal ulcer w a clean base.
[2023-08-30 06:19] LABS: Hematocrit (blood only) 28.8 % (37.0-47.0); Hemoglobin 9.1 g/dl (12.0-16.0); Mean Corpuscular Hemoglobin 29.5 pg (25.0-34.0); Mean Corpuscular Hgb Conc 31.6 g/dL (32.0-36.0); Mean Corpuscular Volume 93.5 fL (80.0-100.0); Mean Platelet Volume 9.7 fL (9.4-12.4); Nucleated RBC # (auto) 0.02 K/uL (0.00-0.12); Nucleated RBC % (auto) 0.2 %; Platelet Count 339 K/uL (130-400); RDW Coefficient of Variation 20.8 % (11.5-14.5); RDW Standard Deviation 65.2 fL (36.4-46.3); Red Blood Count 3.08 M/uL (4.20-5.40)
[2023-08-30 06:39] LABS: BUN Creatinine Ratio 11.9 (10-20); Calcium 8.1 mg/dl (8.6-10.3); Creatinine Clr Calc Pharmacy 67.7 ml/min; Est GFR (African American) 83.9 ml/min; Est GFR (Non-African American) 72.4 ml/min; Magnesium 1.8 mg/dl (1.7-2.4); Phosphorus 2.1 mg/dl (2.5-4.9); Potassium 3.5 mmol/L (3.5-5.1)
[2023-08-30] MEDS: LANTUS PER UNIT CHARGE SC SCH (08:57)
--- NOTE | 2023-08-30 09:57 | Discharge Summary ---
Date of Service August 30, 2023 Admission HPI Per Admitting Provider This is a 68-year-old female with PMHx of breast cancer ER positive, MS negative, HER2/francisca negative, diagnosed May 2023 status postlumpectomy and radiation, patient is currently getting Cytoxan Taxotere treatment for chemotherapy. She had her first cycle on 08/05, her second cycle was due today and she was seen in the outpatient heme-onc clinic. Patient complained of having diarrhea with dark stools over the past 2 weeks. She had not trialed Imodium. Her and son are present with her at bedside, he reports that he noticed her having diarrhea about 8 to 9 days ago. Her main complaint today is that she feels progressive fatigue and weakness over the past few days. She denies any abdominal pain, cramping, nausea or vomiting. She had a few episodes of vomiting right after she received her last chemo cycle but that was approximately 3 weeks ago. notes that she is pale today, may have even been more pale yesterday. She is tolerating oral intake without any significant complaints. Patient states she is currently hungry and thirsty. She denies any lightheadedness or dizziness, shortness of breath or chest pain. Upon outpatient blood work check she was found to have a hemoglobin of 4.3, therefore was referred to the ER for transfusion secondary to GI bleed. Upon presentation to the ER she is found to be hypotensive with a BP of 80s over 50s, tachycardic with heart rate in the low 100s, hemoglobin of 4.1. Patient has been placed in Trendelenburg position, IV fluids at 125 an hour started, 2 units PRBCs ordered and pending transfusion. Her BP with the fluids running during my assessment is 92/68. Admission Exam Per Admitting Provider General: awake, alert, no apparent distress, morbidly obese BMI 46.8, white female Head: Normocephalic, atraumatic ENT: PERRL, EOMI, no pharyngeal exudate, mucous membranes + slightly dry Chest: Mediport accessed and left chest wall, clear to auscultation, on room air, no adventitious breath sounds Cardiac: Sinus tach with heart rate in the low 100s,, + holosystolic murmur, no JVD, normal peripheral pulses, good capillary refill Abdominal: NABS x 4 quadrants, soft, nondistended, nontender to palpation, no rebound or guarding Extremities: Normal inspection, no peripheral edema or erythema, calfs nontender to palpation Psych: Normal mood and affect Skin: Pallor diffusely Neuro: AAO x 3, strength intact bilaterally and rated 5/5, no motor deficits, speech is clear, no peripheral sensory deficits Principal Diagnosis Anemia - GI bleed , large ulcer in the duodenal bulb Discharge Exam General: Alert, oriented. No acute distress Psych: Appropriate mood and affect Neuro: No gross deficits HEENT: NC/AT CV: RRR Resp: Breath sounds clear bilaterally, no increased effort of breathing. Abdomen: Soft, nontender, + bowel sounds Extremities: edema in lower extremities bilaterally. Discharge Data Allergies Allergy/AdvReac Type Severity Reaction Status Date / Time No Known Allergies Allergy Unverified 08/26/23 15:31 Consultations 08/26/23 15:18 ED Decision to Admit Stat 08/26/23 15:59 Consult Gastroenterology Routine Procedures Performed Operation Date: 08/28/23 16:30 Actual Procedures p Esophagogastroduodenoscopy - Benita Brenner MD Hospital Course (1) GI bleed: (2) Malignant neoplasm of central portion of right breast in female, estrogen receptor positive: (3) Status post right breast lumpectomy: (4) Hypertension: (5) Dyslipidemia: (6) Diabetes: Plan Pt is a 68yoF with PMHx significant for breast cancer diagnosed May 2023 s/p lumpectomy and radiation, HTN, HLD, DMII presenting to the ED after being sent over by oncology for abnormal labs. Her hemoglobin was 4.1. Melena GI bleed Hypotension Acute blood loss anemia, duodenal ulcer Breast Cancer Pt with Hx of breast cancer treated with lumpectomy, chemotherapy and radiation Follows with Dr Santos from Oncology, presented for chemotherapy on day of admission with abnormal labwork Hgb of 4.1, has been transfused 3U in total. -> Hgb 7.7 -> 7.2 Was hypotensive on admission, received fluid boluses of 1L in total Likely in setting of bloody stools, current chemotherapy Continue ppi drip --> switch to PO PPI BID Continue b12 an iron supplement GI consulted, appreciate recs Now s/p EGD on 08/28 - Impression: - Normal esophagus. - Z-line variable. - Mild antral gastritis. - Normal stomach. - Non-bleeding duodenal ulcer with a clean ulcer base (Michael Class III). - Normal duodenal bulb, second portion of the duodenum, third portion and fourth portion of the duodenum. Recommendation: - Clean based large ulcer just past the bulb in the 1st portion of the duodenum near the c curve. Non bleeding. - Would continue IV PPI For 72 hours and then transition to oral 40 mg po bid. - Would also start liquid Carafate for 28 days. - Return to the floor. Also per GI - Further chemotherapy per oncology but ideally if she can wait 2-4 weeks to promote ulcer healing with medical therapy that may help. Monitor H/H closely, transfuse as needed 08/29 hgb 7.2 -> will transfuse 1 more unit of pRBC, and will re-check tmrw AM 08/30 Hgb now 9.1 SIRS, poss. sepsis POA UTI Pt meets SIRS criteria with leukocytosis, tachycardia on admission Lactate 1.9 Blood Cx x2 negat. in 48 hrs Chest XR negative for pna UA c/w UTI Ucultx - posit. for E. coli - started on Rocephin, cont. in hospital, will discharge on cefuroxime to finish abx treatment Leukocytosis Thrombocytosis Likely reactive in setting of cancer/chemotherapy WBC elevated also 2/2 UTI Continue to monitor, WBC trending down Electrolyte abnormalities Hyponatremia-Sodium 132 on admission, currently normal after fluid resuscitation Hypokalemia- replete as needed BRENDA Per [facility] review pt with Cr of 0.8 on 07/30/2023 was elevated at 1.26 -> 0.9 Received gentle resuscitation in the form of fluid boluses Sinus Tachycardia EKG with noted sinus tachycardia hs-trop elevated at 8.2 to 9.8, further trend with AM labs Echo in [facility] from 2021 with EF 55-59%, mildly calcified aortic valve with normal leaflet opening, no aortic stenosis Likely in setting of anemia, acute blood loss, hypotension as above HR currently wnl Continue to monitor Hypertension On HCTZ and lisinopril at home Continue to hold in setting of hypotension noted Resume once BP elevated, currently BP at goal - follow up with PCP, monitor BP at home if able Hyperlipidemia continue statin therapy DM type II Last A1c is 7.3 from June 2023 ISS with Accu-Cheks ACHS, on home medications including: Trulicity (last dose 3 weeks ago and has been switched over to Jardiance in the timeframe that this med has been unavailable), glipizide, metformin which will be held Morbid obesity -BMI of 46.8 -lifestyle modification encouraged Total Time Total Time Spent Total Time Spent (In Minutes): 40 Discharge Plan Discharge Items Patient Disposition: Home - Home Health Services Reason For Visit: GI BLEED Discharge Diagnosis: Anemia - GI bleed , large ulcer in the duodenal bulb Activity: Per Instructions section Non-emergency contact: Primary Care Provider, Senior Account Executive and Oncologist Call non-emergency contact if: you have any medication questions and your symptoms worsen Follow-up/Referrals: Cathy Alvarado CRNP [Nurse Practitioner] - (The GI office will contact you for a follow up appointment/testing.) Kalin Reeder MD [Primary Care Provider] - (Date & Time 09/02/2023 7:40 AM Provider Ricardo Goodwin MD Department Family [facility] ) Diet: Regular Diet Comment: SOFT diet. Avoid acidic, or spicy foods, avoid alcohol and caffeine. Addtl Attending Provider Instructions: Follow up with your primary care physician, assistant spa manager, and oncologist. Continue to take pantoprazole 40 mg twice a day and Carafate 4 times a day. You should continue taking Carafate for 28 days. Discuss with your physicians, how long you should be on pantoprazole. It is strongly recommended that you avoid any NSAIDs, such as Motrin, Aleve, ibuprofen etc. Further chemotherapy will be scheduled by oncology, but per gastroenterology, they would recommend that you wait 2 to 4 weeks for another chemotherapy to promote ulcer healing. Finish antibiotic treatment as prescribed. Do not take hydrochlorothiazide at least until 09/02 when you see your primary care doctor - at that time discuss with them if you should resume it. If you can , monitor your blood pressure at home. Also do not take lisinopril until seen by your primary care physician. Do not take aspirin for now, and discuss with your primary care doctor when you should resume it. Pending Studies at Discharge: No Stand-Alone Forms: My joiz, Smoking Cessation Medications and DC Order Prescriptions: New pantoprazole 40 mg tablet,delayed release (DR/EC) 40 mg PO BID Qty: 60 0RF cefuroxime axetil 250 mg tablet 250 mg PO BID 3 Days Qty: 6 0RF sucralfate 100 mg/mL Suspension 1 g PO QID 26 Days Qty: 1000 0RF Continued mecobalamin (vitamin B12) 1,000 mcg tablet,chewable 1,000 mcg PO DAILY Trulicity 1.5 mg/0.5 mL pen injector 1.5 mg subcut .WEEK, NOT AVAILABLE Rx Instructions: Can not get @Pharmacy glipizide 5 mg tablet 5 mg PO DAILY metformin 500 mg tablet extended release 24 hr 1,000 mg PO BID calcium carbonate 600 mg calcium (1,500 mg) tablet 1,200 mg PO DAILY ferrous fumarate 325 mg (106 mg iron) tablet 325 mg PO BID lovastatin 40 mg tablet 40 mg PO DAILY cholecalciferol (vitamin D3) 1,000 unit (25 mcg) tablet 1,000 units PO DAILY Jardiance 10 mg tablet 10 mg PO DAILY Held hydrochlorothiazide 25 mg tablet 25 mg PO DAILY Qty: 90 0RF Hold Instructions: Resume on 09/02/23. aspirin 81 mg tablet 81 mg PO DAILY Hold Instructions: Resume on 09/02/23. lisinopril 40 mg tablet 40 mg PO DAILY Hold Instructions: Resume on 09/02/23. Discharge Orders: Discharge Order (Routine); Ordered 08/30/23 Ordered By: Stevo Verma Admission Data Admit Date/Time: 08/26/23 15:59 Attending Provider: Stevo Verma Admit Provider: Char Gudino Primary Care Provider: Kalin Reeder Other Providers: Benita Brenner; Char Gudino; Jillian Davila
[2023-08-30] MEDS: POTASSIUM CHLORIDE CRTAB 20 MEQ TABCR PO STA (10:13)
[2023-08-30] MEDS: HEPARIN 100 UNIT/ML 5ML FLUSH ONE (12:06)
== END 2023-08-30 13:00 | disposition home or self-care (01) | DRG 871 ==
LOC: ED 12:41 → SUATTDRO 15:59 → EDINP 15:59 → 4W 19:55